=== PATIENT | female | born 1960 | race Caucasian/White ===

== ENCOUNTER 2020-01-23 13:16 | Outpatient (REF) | payer MEDICAID, SELFPAY ==
--- NOTE | 2020-01-23 | US_ITS ---
EXAMINATION: RENAL ULTRASOUND CLINICAL INFORMATION: Renal cyst COMPARISON: Previous renal ultrasound December [address] of the abdomen and pelvis July 2018 TECHNIQUE: Grayscale and color imaging of the kidneys FINDINGS: The right kidney measures 9.1 x 4.6 x 4.4 cm and the left kidney measures 10.5 x 5.5 x 4.7 cm in sagittal, AP and transverse dimension. The kidneys are normal in size and shape. Renal cortical thickness and echogenicity is normal. There is a small 4 mm cyst in the mid to lower pole of the right kidney. No renal stone or mass is seen. The small right lower pole renal stone seen by CT July 2018 is not appreciated. IMPRESSION: Small right renal cyst otherwise unremarkable exam.
== END 2020-01-23 13:17 | disposition home or self-care (01) ==
LOC: HO.US 13:16
PROVIDERS: PCP Family Medicine; Visit Provider Urology
DX: N20.0 Calculus of kidney (principal)
CPT/HCPCS: 76775

== ENCOUNTER 2020-01-25 17:57 | Emergency (ER) | payer MEDICAID, SELFPAY ==
[2020-01-25 18:13] VITALS: BP 139/79; PULSE 94; RESP 16; TEMP 37.1; O2SAT 96; BMI 27.3
--- NOTE | 2020-01-25 18:39 | US_ITS ---
EXAMINATION: LEFT LOWER EXTREMITY DEEP VENOUS ULTRASOUND CLINICAL INFORMATION: Left calf pain COMPARISON: None. TECHNIQUE: Duplex Doppler imaging with compression maneuvers were performed of the left lower extremity deep venous system. FINDINGS: The visualized common femoral, femoral and popliteal veins demonstrate normal compressibility and color flow without evidence of venous thrombosis. Visualized portions of the calf veins demonstrate normal color fill-in suggesting patency. There is no evidence of a Antunez's cyst. IMPRESSION: No evidence of deep venous thrombosis involving the left lower extremity.
--- NOTE | 2020-01-25 19:51 | ED_ITS ---
HPI - Extremity Injury (Lower) General Chief Complaint: Extremity Injury, Lower <Juan Tang NP - Last Filed: 01/25/20 20:25> Stated Complaint: left leg pain <Juan Tang NP - Last Filed: 01/25/20 20:25> Time Seen by Provider: 01/25/20 18:39 <Juan Tang NP - Last Filed: 01/25/20 20:25> Source: patient <Juan Tang NP - Last Filed: 01/25/20 20:25> Mode of arrival: ambulatory <Juan Tang NP - Last Filed: 01/25/20 20:25> Limitations: no limitations <Juan Tang NP - Last Filed: 01/25/20 20:25> History of Present Illness HPI Narrative: left calf pain for the past 1 day unsure if related to the fact that she was pulling a box of her car and may have injury. Otherwise denies any prolonged travel no recent flight. No history of DVT. No redness or swelling. No discoloration. No numbness or tingling Distally. <Juan Tang NP - Last Filed: 01/25/20 20:25> MD complaint: leg injury <Juan Tang NP - Last Filed: 01/25/20 20:25> Onset (ago): day(s) <Juan Tang NP - Last Filed: 01/25/20 20:25> Place: home <Juan Tang NP - Last Filed: 01/25/20 20:25> Severity: mild <Juan Tang NP - Last Filed: 01/25/20 20:25> Exacerbating factors: nothing <Juan Tang NP - Last Filed: 01/25/20 20:25> Related Data Allergies/Adverse Reactions: Allergies Allergy/AdvReac Type Severity Reaction Status Date / Time penicillin V Allergy Unknown anaphylaxis Verified 01/25/20 18:19 Penicillins [PENICILLINS] Allergy Unknown UNKNOWN Verified 01/25/20 18:19 seasonal allergies Allergy Unknown Difficulty Uncoded 01/25/20 18:19 Breathing <Juan Tang NP - Last Filed: 01/25/20 20:25> Review of Systems Review of Systems: Constitutional: No Weight loss, No Fever, No Chills, No Night Sweats, No Fatigue, No Malaise Cardiovascular: No Chest Pain, No SOB, No Dyspnea on Exertion, No Orthopnea, No Edema, No Palpitations Respiratory: No Cough, No Sputum, No Wheezing, No Smoke Exposure, No Dyspnea Gastrointestinal: No Nausea, No Vomiting, No Diarrhea, No Constipation, No abdominal Pain, No Hematochezia, No Melena Genitourinary: no irregular bleeding, No Dysuria, No Urinary Frequency, No H ematuria, No Urinary Incontinence, No Urgency, No Flank Pain, No Urinary Flow Changes, No Hesitancy Musculoskeletal: No joint pain, No Myalgias, No Joint Swelling Skin: No Skin Lesions, No rash Neuro: No Weakness, No Numbness, No Paresthesias, No Loss of Consciousness, No Dizziness, No Headache Psych: No Social Issues Heme/Lymph: No Bruising, No Bleeding,No Lymphadenopathy Endocrine: No Polyuria, No Polydipsia, No Temperature Intolerance <Juan Tang NP - Last Filed: 01/25/20 20:25> [facility] Past Medical History Attestation statement: The following information was validated with the patient. <Juan Tang NP - Last Filed: 01/25/20 20:25> Medical History: Medical History (Updated 01/26/20 @ 00:01 by Dharmesh Yeh) Acute anxiety HIV (human immunodeficiency virus infection) <Juan Tang NP - Last Filed: 01/25/20 20:25> Surgical History: Surgical History (Updated 01/25/20 @ 18:17 by Alethea Medina) H/O: hysterectomy <Juan Tang NP - Last Filed: 01/25/20 20:25> Social History Social History: Social History Alcohol intake: never Smoked in Last 30 Days: No Use of substances other than those prescribed or required for medical reasons: No Advance Directives: No Advance Directives Information Provided: No <Juan Tang NP - Last Filed: 01/25/20 20:25> Physical Exam Vital Signs: Vital Signs: Vital Signs Temp Pulse Resp BP Pulse Ox 01/25/20 18:13 98.8 F 94 16 139/79 96 Body Mass Index 27.3 Reviewed <Juan Tang NP - Last Filed: 01/25/20 20:25> Vital Signs: Vital Signs Temp Pulse Resp BP Pulse Ox 01/25/20 18:13 98.8 F 94 16 139/79 96 Body Mass Index 27.3 <Davy Rojas MD - Last Filed: 01/29/20 14:45> Course Course Course Narrative: I have reviewed the chart <Davy Rojas MD - Last Filed: 01/29/20 14:45> MDM - Extremity Injury (Lower) MDM Narrative Medical decision making narrative: Presentations like exam consistent with strain type injury. Ultrasound negative for DVT. No signs symptoms of infectious pathology. Of been ambulatory steady gait. Will discharge home with NSAIDs/ RICE and clear follow-up return instructions. Stable for discharge. <Juan Tang NP - Last Filed: 01/25/20 20:25> Imaging Data left leg venous duplex: Radiologist's impression: [address] [id number] Ultrasound Report Signed Patient: Clifton Roach#: [id number] : 2Acct:[id number] Age/Sex: 59 / FADM Date: 01/25/20 Loc: HO.ED Attending Dr: Ordering Physician: Juan Tang NP Date of Service: 01/25/20 Procedure(s): US venous duplex LE Accession Number(s): [id number] cc: Juan Tang NP~ EXAMINATION: LEFT LOWER EXTREMITY DEEP VENOUS ULTRASOUND CLINICAL INFORMATION: Left calf pain COMPARISON: None. TECHNIQUE: Duplex Doppler imaging with compression maneuvers were performed of the left lower extremity deep venous system. FINDINGS: The visualized common femoral, femoral and popliteal veins demonstrate normal compressibility and color flow without evidence of venous thrombosis. Visualized portions of the calf veins demonstrate normal color fill-in suggesting patency. There is no evidence of a Antunez's cyst. IMPRESSION: No evidence of deep venous thrombosis involving the left lower extremity. Dictated By:BRIDGETTE KATE MD Signed By:<Electronically signed by BRIDGETTE KATE MD in OV>01/25/201943 DD/ 38 TD/TT: Water Systems Engineer: PD <Juan Tang NP - Last Filed: 01/25/20 20:25> Discharge Plan Discharge Clinical Impression: Sprain of left lower leg <Juan Tang NP - Last Filed: 01/25/20 20:25> Patient Disposition: Home, Self-Care <Juan Tang NP - Last Filed: 01/25/20 20:25> Instructions: Muscle Strain (ED) <Juan Tang NP - Last Filed: 01/25/20 20:25> Referrals: Sarah Savage MD [Primary Care Provider] - 1 week <Juan Tang NP - Last Filed: 01/25/20 20:25> Interventions: ED Discharge Assessment Last Done: 01/25/20 21:29 <Juan Tang NP - Last Filed: 01/25/20 20:25> Discharge Date/Time: 01/25/20 20:45 <Juan Tang NP - Last Filed: 01/25/20 20:25>
== END 2020-01-25 20:45 | disposition home or self-care (01) ==
PROVIDERS: Emergency Provider Emergency Medicine; PCP Family Medicine
DX: S83.92XA Sprain of unspecified site of left knee, initial encounter (principal); M79.605 Pain in left leg; X50.3XXA Overexertion from repetitive movements, initial encounter; Y93.9 Activity, unspecified; Y92.810 Car as the place of occurrence of the external cause; Z79.899 Other long term (current) drug therapy
CPT/HCPCS: 93971; 99284

== ENCOUNTER → 2020-02-08 13:20 | Outpatient (BNVA) | payer MEDICAID, SELFPAY | PROVIDERS: PCP Family Medicine; Referring Provider Family Medicine; Visit Provider Nurse Practitioner | DX: K80.20 Calculus of gallbladder without cholecystitis without obstruction (principal) | CPT/HCPCS: 99212 ==

== ENCOUNTER → 2020-05-29 10:30 | Outpatient (BNVA) | payer MEDICAID, SELFPAY | PROVIDERS: PCP Family Medicine; Visit Provider Urology | DX: Z76.89 Persons encountering health services in other specified circumstances (principal) | CPT/HCPCS: 99212 ==

== ENCOUNTER 2020-08-08 12:40 | Outpatient (REF) | payer MEDICAID, SELFPAY ==
--- NOTE | ~2020-08-08 | MM_ITS ---
EXAMINATION: MM SCREENING DIGITAL BREAST TOMOSYNTHESIS, BILATERAL CLINICAL INFORMATION: Screening. Asymptomatic. The lifetime risk of breast cancer based on the Tyrer-Cuzick Model is 9%. COMPARISON: Mammography: 11/17/2017, 10/09/2015, 07/18/2014 TECHNIQUE: Digital breast tomosynthesis is performed in both the craniocaudal and mediolateral oblique views along with computer-aided detection (CAD). Synthesized 2D images are generated from the tomosynthesis. FINDINGS: The breasts are heterogeneously dense, which may obscure small masses (ACR BI-RADS breast composition Category c). There is fine fibronodular parenchymal pattern similar to prior studies. Breast tissue composition borders on average fibroglandular. There is no developing density or interval mass or architectural abnormality. No abnormal calcifications. The axilla and skin contours are unremarkable. MM/MM tomosynthesis screening BI IMPRESSION: No mammographic evidence of malignancy. ASSESSMENT: BI-RADS 2: Benign RECOMMENDATION: Routine annual mammography screening. This patient's information was entered into a reminder system with a target due date for their next mammogram.
== END 2020-08-08 12:41 | disposition home or self-care (01) ==
LOC: HO.MAMMO 12:40
PROVIDERS: Visit Provider Family Medicine
DX: Z12.31 Encounter for screening mammogram for malignant neoplasm of breast (principal)
CPT/HCPCS: 77063; 77067

== ENCOUNTER 2021-02-06 16:04 | Outpatient (REF) | payer MEDICAID, SELFPAY ==
[2021-02-06 16:57] LABS: Free T4 (Free Thyroxine) 1.25 ng/dL (0.71-1.85); Thyroid Stimulating Hormone 0.98 uIU/mL (0.32-4.0)
== END 2021-02-06 16:05 | disposition home or self-care (01) ==
LOC: HO.LAB 16:04
PROVIDERS: PCP Family Medicine; Visit Provider Nurse Practitioner Gerontology
DX: E03.9 Hypothyroidism, unspecified (principal)
CPT/HCPCS: 36415; 84439; 84443

== ENCOUNTER → 2021-02-11 10:52 | Outpatient (BNVA) | payer MEDICAID, SELFPAY | PROVIDERS: Visit Provider Nurse Practitioner Gerontology | DX: E89.0 Postprocedural hypothyroidism (principal); E66.09 Other obesity due to excess calories | CPT/HCPCS: 99212 ==

== ENCOUNTER → 2021-02-12 13:47 | Outpatient (BNVA) | payer MEDICAID, SELFPAY | PROVIDERS: Referring Provider Family Medicine; Visit Provider Nurse Practitioner | DX: K80.20 Calculus of gallbladder without cholecystitis without obstruction (principal) | CPT/HCPCS: 99212 ==

== ENCOUNTER 2021-02-16 13:41 | Outpatient (REF) | payer MEDICAID, SELFPAY ==
--- NOTE | ~2021-02-16 | US_ITS ---
EXAMINATION: US SCREENING ULTRASOUND BREAST, BILATERAL CLINICAL INFORMATION: Dense breasts on mammography. Screening ultrasound. Tyrer-Cuzick Score 9%. COMPARISON: Digital breast tomosynthesis 08/08/2020, bilateral screening breast ultrasound 10/07/2014. TECHNIQUE: Ultrasound is performed using grayscale imaging and color Doppler. Imaging is performed to include the four quadrants and retroareolar region. Both breasts are imaged. FINDINGS: Right breast: There is no suspicious finding by ultrasound. There is no cystic or solid mass or focal architectural abnormality. Left breast: There is no suspicious finding by ultrasound. There is no cystic or solid mass or focal architectural abnormality. US/US breast LT complete IMPRESSION: Normal study. ASSESSMENT: BI-RADS 1: Negative RECOMMENDATION: Routine annual mammography screening. This patient's information was entered into a reminder system with a target due date for their next mammogram.
--- NOTE | ~2021-02-16 | US_ITS ---
EXAMINATION: US SCREENING ULTRASOUND BREAST, BILATERAL CLINICAL INFORMATION: Dense breasts on mammography. Screening ultrasound. Tyrer-Cuzick Score 9%. COMPARISON: Digital breast tomosynthesis 08/08/2020, bilateral screening breast ultrasound 10/07/2014. TECHNIQUE: Ultrasound is performed using grayscale imaging and color Doppler. Imaging is performed to include the four quadrants and retroareolar region. Both breasts are imaged. FINDINGS: Right breast: There is no suspicious finding by ultrasound. There is no cystic or solid mass or focal architectural abnormality. Left breast: There is no suspicious finding by ultrasound. There is no cystic or solid mass or focal architectural abnormality. US/US breast RT complete IMPRESSION: Normal study. ASSESSMENT: BI-RADS 1: Negative RECOMMENDATION: Routine annual mammography screening. This patient's information was entered into a reminder system with a target due date for their next mammogram.
== END 2021-02-16 13:42 | disposition home or self-care (01) ==
LOC: HO.MAMMO 13:41
PROVIDERS: PCP Family Medicine; Visit Provider Obstetrics & Gynecology Female Pelvic Medicine and Reconstructive Surgery
DX: R92.2 Inconclusive mammogram (principal)
CPT/HCPCS: 76641

== ENCOUNTER → 2021-02-18 14:47 | Outpatient (BNVA) | payer MEDICAID, SELFPAY | PROVIDERS: PCP Family Medicine; Visit Provider Anesthesiology | DX: M47.816 Spondylosis without myelopathy or radiculopathy, lumbar region (principal); M54.50 Low back pain, unspecified; M41.9 Scoliosis, unspecified; G89.29 Other chronic pain; B20 Human immunodeficiency virus [HIV] disease; E66.01 Morbid (severe) obesity due to excess calories; E78.5 Hyperlipidemia, unspecified; E05.00 Thyrotoxicosis with diffuse goiter without thyrotoxic crisis or storm; D12.6 Benign neoplasm of colon, unspecified; F41.8 Other specified anxiety disorders; Z68.30 Body mass index [BMI] 30.0-30.9, adult; Z83.3 Family history of diabetes mellitus; Z82.49 Family history of ischemic heart disease and other diseases of the circulatory system; J30.2 Other seasonal allergic rhinitis; Z88.1 Allergy status to other antibiotic agents; Z88.0 Allergy status to penicillin; Z79.899 Other long term (current) drug therapy | CPT/HCPCS: 99202 ==

== ENCOUNTER 2021-03-17 06:29 | Outpatient (REF) | payer MEDICAID, SELFPAY ==
--- NOTE | ~2021-03-17 | FL_ITS ---
EXAMINATION: XR FLUOROSCOPY WITH IMAGES CLINICAL INFORMATION: M47.816 - Spondylosis without myelopathy or radiculopathy COMPARISON: Lumbar radiographs 04/25/2019 TECHNIQUE: Fluoroscopy performed by pain management physician. Fluoroscopy time: 0.7 minutes DAP: 9.37 Gycm2 Images: 6 FINDINGS: There are spinal needles overlying the bilateral outer L3, L4, and L5 neural foramen. There is contrast seen in the respective nerve sheaths. Some early transforaminal epidural extension is suggested. No visible vascular communication. There are degenerative changes lumbar spine with disc narrowing and vertebral spurring L4-L5. FL/FL guidance in treatment room IMPRESSION: Fluoroscopy for pain management procedures.
== END 2021-03-17 06:30 | disposition home or self-care (01) ==
LOC: HO.RADIR 06:29
PROVIDERS: Visit Provider Anesthesiology
DX: M47.816 Spondylosis without myelopathy or radiculopathy, lumbar region (principal); B20 Human immunodeficiency virus [HIV] disease; M54.50 Low back pain, unspecified; M41.9 Scoliosis, unspecified; G89.29 Other chronic pain
CPT/HCPCS: 64493; 64494; Q9967

== ENCOUNTER 2021-03-25 13:30 | Outpatient (REF) | payer MEDICAID, SELFPAY ==
[2021-03-25 14:52] LABS: MANUAL DIFF FLAG NO
[2021-03-25 15:48] LABS: Basophils Percent Auto 0.4 % (0-2); Eosinophils Absolute Auto 0.2 X10*3/uL (0.0-0.4); Eosinophils Percent Auto 2.3 % (0-4); Hematocrit 39.9 % (37.0-47.0); Hemoglobin 12.7 g/dl (12.0-16.0); Imm Gran Abs Auto 0.02 X10*3/uL (0.00-0.03); Imm Gran Pct Auto 0.3 % (0.0-0.4); Lymphocytes Absolute Auto 2.4 X10*3/uL (1.2-4.9); Lymphocytes Percent Auto 31.3 % (20-40); Mean Corpuscular HGB Conc 31.8 g/dl (31.0-35.0); Mean Corpuscular Hemoglobin 31.1 pg (27.0-33.0); Mean Corpuscular Volume 97.6 fL (80.0-98.0); Mean Platelet Volume 12.2 fL (9.4-12.3); Monocytes Absolute Auto 0.5 X10*3/uL (0.1-1.2); Monocytes Percent Auto 6.8 % (2-11); Neutrophils Absolute Auto 4.4 x10*3/uL (2.0-8.3); Neutrophils Percent Auto 58.9 % (45-73); Platelet Count 235 X10*3/uL (160-400); Red Blood Count 4.09 X10*6/uL (4.20-5.50); Red Cell Distribution Width 14.1 % (11.0-16.0); White Blood Count 7.5 X10*3/uL (4.8-10.8)
[2021-03-25 16:06] LABS: Alanine Aminotransferase 19 U/L (0-31); Anion Gap 10 (12-20); Aspartate Amino Transferase 18 U/L (5-31); C Reactive Protein 0.27 mg/dL (< or = 0.50); Carbon Dioxide 27 mmol/L (22-29); Chloride 109 mmol/L (96-108); Potassium 4.3 mmol/L (3.3-5.1); Sodium 142 mmol/L (135-145)
[2021-03-25 16:49] LABS: Syphilis Screen Nonreactive (Nonreactive)
[2021-03-26 14:31] LABS: Absolute CD3 Count 1742 cells/uL (840-3060); Absolute CD4 Count 893 cells/uL (490-1740); Absolute CD8 Count 829 cells/uL (180-1170); Absolute Lymphocytes 2247 cells/uL (850-3900); CD4 CD8 Ratio 1.08 (0.86-5.00); Percent CD3 Cells 78 % (57-85); Percent CD4 Cells 40 % (30-61); Percent CD8 Cells 37 % (12-42)
[2021-03-30 15:06] LABS: HIV RNA PCR Qn Copies <20 NOT DETECTED copies/mL (NOT DETECTED); HIV RNA PCR Qn Log Copies <1.30 NOT DETECTED (NOT DETECTED)
== END 2021-03-25 13:31 | disposition home or self-care (01) ==
LOC: HO.LAB 13:30
PROVIDERS: Absent Provider Internal Medicine Infectious Disease; PCP Family Medicine; Visit Provider Anesthesiology
DX: M47.816 Spondylosis without myelopathy or radiculopathy, lumbar region (principal); M54.50 Low back pain, unspecified; M41.9 Scoliosis, unspecified; G89.29 Other chronic pain; B20 Human immunodeficiency virus [HIV] disease
CPT/HCPCS: 36415; 80051; 84450; 84460; 85025; 86140; 86359; 86360; 86780; 87536; 99212

== ENCOUNTER 2022-01-22 13:02 | Outpatient (REF) | payer MEDICAID, SELFPAY ==
[2022-01-22 13:23] LABS: MANUAL DIFF FLAG NO
[2022-01-22 13:40] LABS: Basophils Percent Auto 0.7 % (0-2); Eosinophils Absolute Auto 0.2 X10*3/uL (0.0-0.4); Hematocrit 39.1 % (37.0-47.0); Hemoglobin 12.8 g/dl (12.0-16.0); Imm Gran Abs Auto 0.01 X10*3/uL (0.00-0.03); Imm Gran Pct Auto 0.2 % (0.0-0.4); Lymphocytes Absolute Auto 1.8 X10*3/uL (1.2-4.9); Lymphocytes Percent Auto 29.7 % (20-40); Mean Corpuscular HGB Conc 32.7 g/dl (31.0-35.0); Mean Corpuscular Hemoglobin 31.6 pg (27.0-33.0); Mean Corpuscular Volume 96.5 fL (80.0-98.0); Mean Platelet Volume 11.8 fL (9.4-12.3); Monocytes Absolute Auto 0.5 X10*3/uL (0.1-1.2); Monocytes Percent Auto 7.8 % (2-11); Neutrophils Absolute Auto 3.5 x10*3/uL (2.0-8.3); Neutrophils Percent Auto 58.6 % (45-73); Platelet Count 203 X10*3/uL (160-400); Red Blood Count 4.05 X10*6/uL (4.20-5.50); Red Cell Distribution Width 13.9 % (11.0-16.0); White Blood Count 5.9 X10*3/uL (4.8-10.8)
[2022-01-22 14:18] LABS: Alanine Aminotransferase 10 U/L (0-31); Aspartate Amino Transferase 13 U/L (5-31); Estimated Glomerular Filt Rate > 60
[2022-01-22 14:22] LABS: Syphilis Screen Nonreactive (Nonreactive)
[2022-01-22 15:35] LABS: CT PCR NOT DETECTED (Not Detect.); NG PCR NOT DETECTED (Not Detect.)
[2022-01-24 13:27] LABS: HIV RNA PCR Qn Copies NOT DETECTED copies/mL (NOT DETECTED); HIV RNA PCR Qn Log Copies NOT DETECTED (NOT DETECTED)
[2022-01-25 08:12] LABS: HBsAGNum1 0.21 S/CO (0.00-0.99); Hepatitis B Surface Antigen Negative (Negative); ~HepC Num1 0.15 S/CO (0.00-0.79); ~Hepatitis C Antibody Nonreactive (Nonreactive)
== END 2022-01-22 13:03 | disposition home or self-care (01) ==
LOC: HO.LAB 13:02
PROVIDERS: PCP Family Medicine; Visit Provider Internal Medicine Infectious Disease
DX: B20 Human immunodeficiency virus [HIV] disease (principal)
CPT/HCPCS: 82565; 84450; 84460; 85025; 86780; 86803; 87340; 87491; 87536; 87591

== ENCOUNTER 2022-03-24 12:51 | Outpatient (REF) | payer MEDICAID, SELFPAY ==
--- NOTE | ~2022-03-24 | MM_ITS ---
EXAMINATION: MM SCREENING DIGITAL BREAST TOMOSYNTHESIS, BILATERAL CLINICAL INFORMATION: Screening. Asymptomatic. The lifetime risk of breast cancer based on the Tyrer-Cuzick Model is 7%. COMPARISON: Mammography: 08/08/2020, 11/17/2017, 10/09/2015, 07/18/2014 TECHNIQUE: Digital breast tomosynthesis is performed in both the craniocaudal and mediolateral oblique views along with computer-aided detection (CAD). Synthesized 2D images are generated from the tomosynthesis. FINDINGS: The breasts are heterogeneously dense, which may obscure small masses (ACR BI-RADS breast composition Category c). There are no significant masses, abnormal calcifications, or other abnormalities. Parenchymal pattern is similar to prior studies. There is no developing density or architectural abnormality. Parenchymal asymmetry mid outer right breast on synthesized CC view corresponds to summation artifact on tomography. The axilla and skin contours are unremarkable. No significant changes. MM/MM tomosynthesis screening BI IMPRESSION: No mammographic evidence of malignancy. ASSESSMENT: BI-RADS 2: Benign RECOMMENDATION: Routine annual mammography screening. This patient's information was entered into a reminder system with a target due date for their next mammogram.
== END 2022-03-24 12:52 | disposition home or self-care (01) ==
LOC: HO.MAMMO 12:51
PROVIDERS: PCP Family Medicine; Visit Provider Family Medicine
DX: Z12.31 Encounter for screening mammogram for malignant neoplasm of breast (principal)
CPT/HCPCS: 77063; 77067

== ENCOUNTER 2022-09-03 13:36 | Outpatient (REF) | payer MEDICAID, SELFPAY ==
[2022-09-03 15:56] LABS: Basophils Absolute Auto 0.1 X10*3/uL (0.0-0.2); Basophils Percent Auto 0.6 % (0-2); Eosinophils Absolute Auto 0.2 X10*3/uL (0.0-0.4); Eosinophils Percent Auto 2.6 % (0-4); Hematocrit 40.7 % (37.0-47.0); Hemoglobin 13.3 g/dl (12.0-16.0); Imm Gran Abs Auto 0.02 X10*3/uL (0.00-0.03); Imm Gran Pct Auto 0.3 % (0.0-0.4); Lymphocytes Absolute Auto 2.1 X10*3/uL (1.2-4.9); Lymphocytes Percent Auto 26.7 % (20-40); MANUAL DIFF FLAG NO; Mean Corpuscular HGB Conc 32.7 g/dl (31.0-35.0); Mean Corpuscular Hemoglobin 31.6 pg (27.0-33.0); Mean Corpuscular Volume 96.7 fL (80.0-98.0); Mean Platelet Volume 12.5 fL (9.4-12.3); Monocytes Absolute Auto 0.5 X10*3/uL (0.1-1.2); Monocytes Percent Auto 6.8 % (2-11); Neutrophils Absolute Auto 4.9 x10*3/uL (2.0-8.3); Platelet Count 223 X10*3/uL (160-400); Red Blood Count 4.21 X10*6/uL (4.20-5.50); Red Cell Distribution Width 14.1 % (11.0-16.0); White Blood Count 7.8 X10*3/uL (4.8-10.8)
[2022-09-03 16:34] LABS: Alanine Aminotransferase 7 U/L (0-31); Aspartate Amino Transferase 13 U/L (5-31)
[2022-09-03 18:35] LABS: CT PCR NOT DETECTED (Not Detect.); NG PCR NOT DETECTED (Not Detect.)
[2022-09-06 08:11] LABS: HBsAGNum1 0.22 S/CO (0.00-0.99); Hepatitis B Surface Antigen Negative (Negative); ~HepC Num1 0.11 S/CO (0.00-0.79); ~Hepatitis C Antibody Nonreactive (Nonreactive)
[2022-09-06 08:23] LABS: Syphilis Screen Nonreactive (Nonreactive)
[2022-09-07 13:08] LABS: Absolute CD3 Count 1430 cells/uL (840-3060); Absolute CD4 Count 743 cells/uL (490-1740); Absolute CD8 Count 682 cells/uL (180-1170); Absolute Lymphocytes 1897 cells/uL (850-3900); CD4 CD8 Ratio 1.09 (0.86-5.00); Percent CD3 Cells 75 % (57-85); Percent CD4 Cells 39 % (30-61); Percent CD8 Cells 36 % (12-42)
[2022-09-08 16:02] LABS: HIV RNA PCR Qn Copies NOT DETECTED copies/mL (NOT DETECTED); HIV RNA PCR Qn Log Copies NOT DETECTED (NOT DETECTED)
== END 2022-09-03 13:37 | disposition home or self-care (01) ==
LOC: HO.LAB 13:36
PROVIDERS: PCP Family Medicine; Visit Provider Internal Medicine Infectious Disease
DX: B20 Human immunodeficiency virus [HIV] disease (principal)
CPT/HCPCS: 0353U; 84450; 84460; 85025; 86359; 86360; 86780; 86803; 87340; 87536

== ENCOUNTER → 2022-09-22 12:06 | Outpatient (BNVA) | payer MEDICAID, SELFPAY | PROVIDERS: PCP Family Medicine; Visit Provider Nurse Practitioner | DX: Z01.818 Encounter for other preprocedural examination (principal); K80.20 Calculus of gallbladder without cholecystitis without obstruction; E66.09 Other obesity due to excess calories; E03.9 Hypothyroidism, unspecified; E05.00 Thyrotoxicosis with diffuse goiter without thyrotoxic crisis or storm; B20 Human immunodeficiency virus [HIV] disease; Z68.28 Body mass index [BMI] 28.0-28.9, adult; Z86.010 Personal history of colon polyps | CPT/HCPCS: 99212 ==

== ENCOUNTER 2022-11-05 10:45 | Emergency (ER) | payer MEDICAID, SELFPAY ==
--- NOTE | ~2022-11-05 | CT_ITS ---
EXAMINATION: CT ABDOMEN AND PELVIS WITHOUT CONTRAST CLINICAL INFORMATION: Dysuria. COMPARISON: 07/19/2018 TECHNIQUE: Multidetector volumetric imaging was performed from the superior aspect of the liver through the pubic symphysis. Sagittal and coronal reformatted images were obtained on the technologist's workstation. This CT examination was performed using dose optimization techniques as appropriate, variously including the following: *Automated exposure control *Adjustment of mA and/or kV according to patient size (this includes techniques or standardized protocols for targeted exams where dose is matched to indication/reason for exam; i.e. extremities or head) *Use of iterative reconstruction technique DLP: 510 mGy-cm FINDINGS: LUNG BASES: The visualized lung bases are unremarkable. LIVER, GALLBLADDER, AND BILIARY TREE: The noncontrast liver is increased in attenuation. No biliary ductal dilatation is present. Gallstones. PANCREAS: Unremarkable. SPLEEN: Unremarkable. ADRENAL GLANDS: Unremarkable. KIDNEYS AND URETERS: The kidneys are symmetric in size. Punctate nonobstructing lower pole right renal calculus. No hydronephrosis. No perinephric stranding. BLADDER: Underdistended. Wall thickening of the bladder dome is likely on a reactive basis. GASTROINTESTINAL TRACT: Marked wall thickening of the mid sigmoid colon with surrounding inflammatory changes. There is evidence of underlying diverticular disease. No focal fluid collection. No small bowel obstruction. Appendix is within normal limits. ABDOMINAL WALL: No significant hernia is appreciated. LYMPH NODES: No bulky abdominal or pelvic lymphadenopathy.. VASCULAR: Normal caliber abdominal aorta.. PELVIC VISCERA: Uterus is surgically absent. OSSEOUS STRUCTURES: No destructive bone lesions. CT/CT abdomen pelvis wo IV con IMPRESSION: Acute diverticulitis of the sigmoid colon. No focal fluid collection. Follow-up imaging after treatment is advised. Wall thickening at the dome of the urinary bladder likely on a reactive basis. Cholelithiasis. Punctate nonobstructing right renal calculus. No hydronephrosis.
[2022-11-05 10:58] VITALS: BP 150/99; PULSE 95; RESP 18; TEMP 36.6; O2SAT 95; BMI 28.0
--- NOTE | 2022-11-05 10:59 | ED_ITS ---
HPI - General Adult General Chief complaint: Urogenital-Female Stated complaint: Bladder Pain Issues Time Seen by Provider: 11/05/22 12:37 Source: patient Mode of arrival: ambulatory Limitations: no limitations History of Present Illness HPI narrative: 62-year-old female history of HIV, Graves disease, dyslipidemia, anxiety, tubular adenoma, obesity presenting with what she explains to be bladder issues (dysuria and frequency), she tells me she is having lower abdominal pain in the suprapubic region, nonradiating going on for weeks, has been trying to get into Urology however has not been able to see them. Patient reports that this pain is constant nature, achy in fluctuates in severity. At time associated nausea and vomiting. Patient denies chest pain, shortness of breath, headache, vision changes, dizziness and weakness, fevers and chills. Patient tolerating p.o. Related Data Home Medications Medication Instructions Recorded Confirmed abacavir 600 mg-dolutegravir 50 1 tab PO QAM 02/08/20 02/18/21 mg-lamivudine 300 mg tablet (Triumeq) cholecalciferol (vitamin D3) 25 25 mcg PO DAILY 02/08/20 02/18/21 mcg (1,000 unit) capsule clonazepam 1 mg tablet 1 mg PO TID 02/08/20 02/18/21 cyclobenzaprine 10 mg tablet 10 mg PO BEDTIME 02/08/20 02/18/21 darunavir 800 mg-cobicistat 150 mg 1 tab PO DAILY 02/08/20 02/18/21 tablet (Prezcobix) fexofenadine 180 mg tablet 180 mg PO DAILY 02/08/20 02/18/21 (Vesta Allergy) naproxen sodium 220 mg capsule 220 mg PO BID PRN 02/08/20 02/18/21 (Aleve) pseudoephedrine HCl 30 mg tablet 30 mg PO Q4-6H PRN 02/08/20 02/18/21 (Sudafed) cholecalciferol (vitamin D3) 50 50 mcg PO DAILY 02/18/21 02/18/21 mcg (2,000 unit) capsule suvorexant 20 mg tablet (Belsomra) 20 mg PO BEDTIME PRN 02/18/21 02/18/21 Previous Rx's Medication Instructions Recorded levothyroxine 125 mcg tablet 125 mcg PO QAM #90 tabs 02/11/21 peg 3350-electrolytes 236 240 ml PO Q10M 1 day #4,000 mL 09/22/22 gram-22.74 gram-6.74 gram-5.86 gram solution (Golytely) levofloxacin 750 mg tablet 750 mg PO DAILY 7 days #7 tabs 11/05/22 metronidazole 500 mg tablet 500 mg PO BID 7 days #14 tabs 11/05/22 Allergies Allergy/AdvReac Type Severity Reaction Status Date / Time penicillin V Allergy Unknown anaphylaxis Verified 09/22/22 12:15 Penicillins [PENICILLINS] Allergy Unknown UNKNOWN Verified 09/22/22 12:15 seasonal allergies Allergy Unknown Difficulty Uncoded 02/18/21 15:38 Breathing Review of Systems Review of Systems: Constitutional : No Weight loss, No Fever, No Chills, No Fatigue, No Malaise ENT/Mouth : No sore throat, No Rhinorrhea Eyes: No Eye Pain, No Swelling, No Redness Cardiovascular : No Chest Pain, No SOB, No Dyspnea on Exertion, No Orthopnea, No Edema, No Palpitations Respiratory : No Cough, No Sputum, No Wheezing Gastrointestinal : No Nausea, No Vomiting, No Diarrhea, No Constipation, + abdominal Pain, No Hematochezia, No Melena Genitourinary : + Dysuria, No Urinary Frequency, No Hematuria, Musculoskeletal : No joint pain, No Myalgias, No Joint Swelling Skin : No Skin Lesions, No rash Neuro : No Weakness, No Numbness, No Dizziness, No Headache Psych : No Anxiety/Panic, No Depression All other systems reviewed and are negative Yes all other systems are reviewed and are negative [facility] Past Medical History Attestation statement: The following information was validated with the patient. Source: old records reviewed and nursing notes reviewed Medical History Acute anxiety Dyslipidemia Graves disease Hematuria History of kidney stones HIV (human immunodeficiency virus infection) HIV (human immunodeficiency virus infection) Hypothyroidism Obesity due to excess calories Spondylosis of lumbar spine Tubular adenoma Surgical History H/O: hysterectomy Hx of colonoscopy Family History Family History Father HTN (hypertension) Mother HTN (hypertension) Diabetes Dementia Maternal Grandmother Breast cancer Maternal Aunt Breast cancer Diabetes Maternal Aunt Dementia Maternal Uncle Cancer Maternal Uncle Heart attack Maternal Aunt HTN (hypertension) Social History Social History Household Members: None and Other Household Members Other:: grandson Housing: Apartment Alcohol intake: current Alcohol intake frequency: holidays/special occasions only Patient Tobacco Use Status: Never used Tobacco Smoked in Last 30 Days: No Use of substances other than those prescribed or required for medical reasons: Yes Substance Use Type: Marijuana Advance Directives: No Advance Directives Information Provided: No Physical Exam ED Vital Signs: Vital Signs - 24 hr 11/05/22 10:58 Temperature 97.9 F Pulse Rate 95 Respiratory Rate 18 Blood Pressure 150/99 H Pulse Oximetry 95 Oxygen Delivery Method Room Air BMI result Body Mass Index 28.0 vss Appearance: Alert.? Oriented X3.? No acute distress.? Head: Normocephalic, atraumatic, no step-offs or deformities Eyes: Pupils equal, round and reactive to light.? Neck: Normal inspection.? Neck supple.? CVS: Normal heart rate and rhythm.? Pulses normal.? Respiratory: No respiratory distress.? Breath sounds normal.? Abdomen: Soft and + suprapubic abd discomfort .? Skin: Skin warm and dry.? Normal skin color.? Normal skin turgor.? Extremities: No lower extremity edema.? No calf ttp. 5/5 strength to bilateral upper and lower extremities Back: No CVA tenderness bilaterally Neuro: Oriented X 3.? No motor deficit.? No sensory deficit. CN 2-12 intact Course Course Course Narrative: This is a rapid medical exam: Additional HPI, ROS, PE not included below will be deferred to primary provider. Patient is a 62-year-old female with history of hypothyroidism, gallstones, HIV, tubular adenoma, nephrolithiasis and hysterectomy presenting to the emergency department with complaint of bladder pain for the past several months, worse over the past week. States pain increases when she has bowel movement. Denies fevers. Reports chronic low back pain, denies any worsening back or flank pain. Also states that her urethra is very red. Often sees blood on the toilet paper after urinating in the morning. Was scheduled to see a urologist but the doctor she was scheduled to see . Reports known uterine prolapse. Plan: UA, basic labs Reevaluation(s) Reevaluation #1: Patient's CBC with slight leukocytosis 11.0. Chemistry with no acute findings requiring intervention. UA without infection. CT abdomen pelvis with acute diverticulitis of the sigmoid colon, patient tolerating p.o. will initiate levofloxacin and metronidazole p.o., as patient is tolerating p.o., no reason for hospital admission at this time. Will not send Augmentin as patient has a penicillin anaphylactic allergy. Wall thickening of the dome of the urinary bladder, likely a reactive basis. Coli lithiasis however negative Garcia's no right upper quadrant tenderness on exam I do not suspect acute cholecystitis. Punctate nonobstructing renal calculus. No hydro. Patient educated on findin gs. Will discharge home with PCP, and GI follow-up. Educated patient on diagnosis and treatment plan, answered all question, patient verbalizes understanding. At this time patient will be discharged home, advised to return with new or worsening symptoms. Educated on worrisome signs and symptoms and when to return. At this time I feel comfortable discharge home. Time: 14:47 Medical Decision Making Medical Decision Making [facility] Narrative: 1320 62-year-old female presents with suprapubic discomfort for the past few months has not yet been able to see Urology recently, associated with dysuria, urinary hesitancy, frequency PE w/ suprapubic abd discomfort, no CVA tenderness Concerns for UTI versus cystitis versus obstructing uropathy versus kidney stone. No signs of acute abdomen, pyelonephritis. Will rule out electrolyte abnormalities. Plan labs, imaging. Differential Diagnosis Differential Diagnoses: The differential diagnosis associated with the presentation includes Concerns for UTI versus cystitis versus obstructing uropathy versus kidney stone. No signs of acute abdomen, pyelonephritis. Will rule out electrolyte abnormalities. Admission/Observation Consideration of admission/observation: Escalation of care including admission/observation considered Lab Data [facility] Lab Attestation statement: I reviewed the patient's lab results. 11/05/22 11:14 11/05/22 11:14 Labs: Lab Results 11/05/22 11/05/22 11/05/22 Range/Units 11:14 11:14 12:07 WBC 11.0 H (4.8-10.8) X10*3/uL RBC 4.23 (4.20-5.50) X10*6/uL Hgb 13.5 (12.0-16.0) g/dl Hct 41.6 (37.0-47.0) % MCV 98.3 H (80.0-98.0) fL MCH 31.9 (27.0-33.0) pg MCHC 32.5 (31.0-35.0) g/dl RDW 13.9 (11.0-16.0) % Plt Count 205 (160-400) X10*3/uL MPV 11.5 (9.4-12.3) fL Immature Gran % (Auto) 0.4 (0.0-0.4) % Neut % (Auto) 71.7 (45-73) % Lymph % (Auto) 17.2 L (20-40) % [place] % (Auto) 8.4 (2-11) % Eos % (Auto) 1.8 (0-4) % Baso % (Auto) 0.5 (0-2) % Lymph # (Auto) 1.9 (1.2-4.9) X10*3/uL Gosper # (Auto) 0.9 (0.1-1.2) X10*3/uL Eos # (Auto) 0.2 (0.0-0.4) X10*3/uL Baso # (Auto) 0.1 (0.0-0.2) X10*3/uL Abs Immat Gran (auto) 0.04 H (0.00-0.03) X10*3/uL Absolute Neuts (auto) 7.9 (2.0-8.3) x10*3/uL Absolute Nucleated RBC 0.000 (0.0-0.012) X10*3/uL Nucleated RBC % (auto) 0.0 (0.0-0.2) /100WBC Sodium 140 (135-145) mmol/L Potassium 4.3 (3.3-5.1) mmol/L Chloride 109 H (96-108) mmol/L Carbon Dioxide 22 (22-29) mmol/L Anion Gap 13 (12-20) BUN 10 (9-16) mg/dL Creatinine 0.86 (0.5-1.4) mg/dL Estim Creat Clear Calc 65.1 Estimated GFR > 60 Random Glucose 91 (60-115) mg/dL Calcium 9.5 (8.4-10.2) mg/dL Urine Color Yellow Urine Appearance Clear Urine pH 5.5 (5.0-9.0) Ur Specific [place] 1.020 (1.005-1.025) Urine Protein Trace (Neg-Trace) mg/dL Urine Glucose (UA) Negative (Negative) mg/dL Urine Ketones Negative (Negative) mg/dL Urine Blood Moderate (2+) H (Negative) Urine Nitrite Negative (Negative) Ur Leukocyte Esterase Negative (Negative) Urine RBC 0-2 (0-2) /HPF Urine WBC 0-5 (0-5) /HPF Ur Squamous Epith Cells 0-2 (0-2) /HPF Urine Bacteria None Seen (None Seen) Hyaline Casts 0-2 (0-2) /LPF Independent Interpretation I performed an independent interpretation of an: CT Scan Radiology Impression Discussion of test interpretation with radiology: I have reviewed the radiologist's reading. Critical Care Time Critical Care Time Critical Care Time: No Discharge Plan Discharge Clinical Impression: Diverticulitis, Cystitis Patient Disposition: Home, Self-Care Instructions: Diverticulitis (ED), Diverticulitis Diet (ED) Additional Instructions: Take your medications as prescribed. If you were prescribed antibiotics today, it is important that you take your medication to their entirety, do not skip any doses, do not finish them early. Follow-up with your primary care provider this week. Follow up with GI Return to the emergency department with new or worsening symptoms. Such as feve rs, chills, chest pain, shortness of breath, nausea, vomiting, dizziness, headache, vision changes, lethargy In case of emergency call 911 Levofloxacin is an antibiotic it belongs to the fluoroquinolone class, it can cause tendon rupture review experience pain in your it tendon/joints please discontinue CT/CT abdomen pelvis wo IV con IMPRESSION: Acute diverticulitis of the sigmoid colon. No focal fluid collection. Follow-up imaging after treatment is advised. ? Wall thickening at the dome of the urinary bladder likely on a reactive basis. ? Cholelithiasis. ? Punctate nonobstructing right renal calculus. No hydronephrosis. Prescriptions: New metronidazole 500 mg tablet 500 mg PO BID 7 Days Qty: 14 0RF levofloxacin 750 mg tablet 750 mg PO DAILY 7 Days Qty: 7 0RF No Action levothyroxine 125 mcg tablet 125 mcg PO QAM Qty: 90 3RF Prezcobix 800-150 mg-mg tablet 1 tab PO DAILY Rx Instructions: must administer with a meal/food Triumeq 600-50-300 mg tablet 1 tab PO QAM clonazepam 1 mg tablet 1 mg PO TID cyclobenzaprine 10 mg tablet 10 mg PO BEDTIME cholecalciferol (vitamin D3) 25 mcg (1,000 unit) capsule 25 mcg PO DAILY naproxen sodium [Aleve] 220 mg capsule 220 mg PO BID PRN fexofenadine [Vesta Allergy] 180 mg tablet 180 mg PO DAILY pseudoephedrine HCl [Sudafed] 30 mg tablet 30 mg PO Q4-6H PRN Rx Instructions: DNExceed 4 doses/24h Belsomra 20 mg tablet 20 mg PO BEDTIME PRN cholecalciferol (vitamin D3) 50 mcg (2,000 unit) capsule 50 mcg PO DAILY peg 3350-electrolytes [Golytely] 236-22.74-6.74 -5.86 gram recon soln 240 ml PO Q10M 1 Days Qty: 4000 0RF Rx Instructions: until fecal effluent is clear; do not exceed a total volume of 2,000 mL Referrals: [facility] [place] [facility] [Provider Group] Sarah Savage MD [Primary Care Provider] - 2 days Stand Alone Forms: Work/School Release
[2022-11-05 11:19] LABS: MANUAL DIFF FLAG NO
[2022-11-05 11:20] LABS: Basophils Absolute Auto 0.1 X10*3/uL (0.0-0.2); Basophils Percent Auto 0.5 % (0-2); Eosinophils Absolute Auto 0.2 X10*3/uL (0.0-0.4); Eosinophils Percent Auto 1.8 % (0-4); Hematocrit 41.6 % (37.0-47.0); Hemoglobin 13.5 g/dl (12.0-16.0); Imm Gran Abs Auto 0.04 X10*3/uL (0.00-0.03); Imm Gran Pct Auto 0.4 % (0.0-0.4); Lymphocytes Absolute Auto 1.9 X10*3/uL (1.2-4.9); Lymphocytes Percent Auto 17.2 % (20-40); Mean Corpuscular HGB Conc 32.5 g/dl (31.0-35.0); Mean Corpuscular Hemoglobin 31.9 pg (27.0-33.0); Mean Corpuscular Volume 98.3 fL (80.0-98.0); Mean Platelet Volume 11.5 fL (9.4-12.3); Monocytes Absolute Auto 0.9 X10*3/uL (0.1-1.2); Monocytes Percent Auto 8.4 % (2-11); Neutrophils Absolute Auto 7.9 x10*3/uL (2.0-8.3); Neutrophils Percent Auto 71.7 % (45-73); Platelet Count 205 X10*3/uL (160-400); Red Blood Count 4.23 X10*6/uL (4.20-5.50); Red Cell Distribution Width 13.9 % (11.0-16.0)
[2022-11-05 11:31] LABS: Anion Gap 13 (12-20); Blood Urea Nitrogen 10 mg/dL (9-16); Calcium 9.5 mg/dL (8.4-10.2); Carbon Dioxide 22 mmol/L (22-29); Chloride 109 mmol/L (96-108); Creatinine Clr Calc Pharmacy 65.1; Estimated Glomerular Filt Rate > 60; Glucose Random 91 mg/dL (60-115); Potassium 4.3 mmol/L (3.3-5.1); Sodium 140 mmol/L (135-145)
--- NOTE | 2022-11-05 12:01 | PC.NURSE ---
Pt reports 8/10 pain to bladder area, pain increases when needing to urinate, also pain increases with having BM. Currently seeing a RN [facility] and was suppose to see urologist but appointment was postpone D/T urology.
[2022-11-05 12:17] LABS: Appearance Urine Clear; Color Urine Yellow; Glucose Urine UA Negative (Negative); Leukocyte Esterase Urine Negative (Negative); Nitrite Urine Negative (Negative); PH 5.5 (5.0-9.0); UMIC TRIGGER UACC YES; Urine Blood Moderate (2+) (Negative); Urine Ketones Negative (Negative); Urine Protein Trace mg/dL (Neg-Trace)
[2022-11-05 12:30] LABS: Bacteria Urine None Seen (None Seen); Hyaline Casts Urine 0-2 /LPF (0-2); RBC Urine 0-2 /HPF (0-2); Squamous Epithelial Cell Urine 0-2 /HPF (0-2); WBC Urine 0-5 /HPF (0-5)
== END 2022-11-05 15:07 | disposition home or self-care (01) ==
PROVIDERS: Registered Nurse Emergency; Emergency Provider Emergency Medicine Emergency Medical Services; PCP Family Medicine
DX: K57.32 Diverticulitis of large intestine without perforation or abscess without bleeding (principal); R10.33 Periumbilical pain; Z79.899 Other long term (current) drug therapy
CPT/HCPCS: 36415; 74176; 80048; 81001; 85025; 99284

== ENCOUNTER 2022-11-09 17:44 | Outpatient (REF) | payer MEDICAID, SELFPAY | END 2022-11-09 17:45 | disposition home or self-care (01) | LOC: HO.HHCL 17:44 | PROVIDERS: Visit Provider Registered Nurse | DX: R30.0 Dysuria (principal) | CPT/HCPCS: 87086 ==

== ENCOUNTER 2022-11-15 15:17 | Outpatient (REF) | payer MEDICAID, SELFPAY ==
--- NOTE | ~2022-11-15 | US_ITS ---
EXAMINATION: US THYROID CLINICAL INFORMATION: Hypothyroidism. COMPARISON: Ultrasound thyroid 11/02/2016. TECHNIQUE: Linear transducer zepeda-scale and color Doppler examination with attention to the region of the thyroid. FINDINGS: SIZE: Measurements of the thyroid lobes and nodules are given in sagittal, anteroposterior and transverse dimensions respectively. Right Thyroid Lobe: 2.7 x 0.8 x 0.9 cm, volume 1.1 mL. Previously 2.7 x 0.8 x 1.1 cm, volume 1.1 mL. Parenchyma: The gland echotexture is heterogeneous. Thyroid vascularity is normal. Left Thyroid Lobe: 3.1 x 1.0 x 1.2 cm, volume 2.0 mL. Previously 2.4 x 0.7 x 0.8 cm, volume 0.7 mL. Parenchyma: The gland echotexture is heterogeneous. Thyroid vascularity is normal. Isthmus: 0.14 cm in maximum AP dimension. Previously 0.5 cm. Estimated total number of nodules greater than or equal to 1 cm: 1. Building Maintenance Custodian nodules are described as follows: 1. Location: Left mid. Size: 2.0 x 0.8 x 0.7 cm, volume 0.60 mL. Previously: New since the previous study. Nodule characteristics: Composition: Mixed cystic and solid (1). Echogenicity: Hypoechoic (2). Shape: Taller than wide (3). Margins: Ill-defined (0). Echogenic Foci: None (0). ACR TI-RADS total points: 6 ACR TI-RADS category: 4 NODES: No lymphadenopathy is seen in the tissue surrounding the thyroid gland. US/US thyroid IMPRESSION: Multinodular goiter.
== END 2022-11-15 15:18 | disposition home or self-care (01) ==
LOC: HO.US 15:17
PROVIDERS: PCP Family Medicine; Visit Provider Family Medicine
DX: E89.0 Postprocedural hypothyroidism (principal)
CPT/HCPCS: 76536

== ENCOUNTER 2022-12-10 11:40 | Outpatient (REF) | payer MEDICAID, SELFPAY | END 2022-12-10 11:41 | disposition home or self-care (01) | LOC: HO.HHCL 11:40 | PROVIDERS: Visit Provider Emergency Medicine | DX: Z13.89 Encounter for screening for other disorder (principal) ==

== ENCOUNTER 2022-12-14 09:45 | Outpatient (REF) | payer MEDICAID, SELFPAY ==
[2022-12-14 12:12] LABS: CDiff Gene PCR NEGATIVE (Negative)
[2022-12-14 12:27] LABS: Blood Urea Nitrogen 12 mg/dL (9-16); Estimated Glomerular Filt Rate 56
[2022-12-14 13:33] LABS: Adenovirus F 40/41 Not Detected (Not Detect.); Astrovirus Not Detected (Not Detect.); Campylobacter Not Detected (Not Detect.); Cryptosporidium Not Detected (Not Detect.); Cyclospora cayetanensis Not Detected (Not Detect.); E. coli EAEC Not Detected (Not Detect.); E. coli EPEC Detected (Not Detect.); E. coli ETEC Not Detected (Not Detect.); E. coli STEC Not Detected (Not Detect.); Entamoeba histolytica Not Detected (Not Detect.); Giardia lamblia Not Detected (Not Detect.); Norovirus GI/GII Not Detected (Not Detect.); Plesiomonas shigelloides Not Detected (Not Detect.); Rotavirus A Not Detected (Not Detect.); Salmonella Not Detected (Not Detect.); Sapovirus Not Detected (Not Detect.); Shigella sp./EIEC Not Detected (Not Detect.); Vibrio Not Detected (Not Detect.); Vibrio Cholerae Not Detected (Not Detect.); Yersinia enterocolitica Not Detected (Not Detect.)
== END 2022-12-14 09:46 | disposition home or self-care (01) ==
LOC: HO.LAB 09:45
PROVIDERS: Absent Provider Family Medicine; PCP Family Medicine; Visit Provider Emergency Medicine
DX: R14.0 Abdominal distension (gaseous) (principal); Z13.89 Encounter for screening for other disorder
CPT/HCPCS: 36415; 82565; 84520; 87177; 87209; 87493; 87507

== ENCOUNTER 2022-12-22 14:26 | Outpatient (AMB) | payer MEDICAID, SELFPAY ==
--- NOTE | 2022-12-22 14:32 | A.OFFVIS_ITS ---
Intake Intake Visit Reasons: S/P [facility] ED- cystitis/renal stone Intake Note: NEW Patient presents today to established treatment for Cystitis ER Follow-up: Meds- None Allergies to Antibiotic- Penicillin Blood Thinner- None Friction Paint Machine Tender Required: No Accompanied by: Self / Same As Patient Allergies penicillin V Allergy (Unknown, Verified 12/22/22 14:37) anaphylaxis Penicillins [PENICILLINS] Allergy (Unknown, Verified 12/22/22 14:37) UNKNOWN seasonal allergies Allergy (Unknown, Uncoded 12/22/22 14:37) Difficulty Breathing Medication List - Last Reconciled 12/23/22 by Francisco Molina MD [id number] 600-50-300 mg (Triumeq) 1 tab PO QAM cholecalciferol (vitamin D3) 25 mcg PO DAILY cholecalciferol (vitamin D3) 50 mcg PO DAILY clonazepam 1 mg PO TID cyclobenzaprine 10 mg PO BEDTIME darunavir-cobicistat 800-150 mg-mg (Prezcobix) 1 tab PO DAILY fexofenadine (Vesta Allergy) 180 mg PO DAILY levofloxacin 750 mg PO DAILY 7 days levothyroxine 125 mcg PO QAM metronidazole 500 mg PO BID 7 days naproxen sodium (Aleve) 220 mg PO BID PRN peg 3350-electrolytes 236-22.74-6.74 -5.86 gram (Golytely) 240 mL PO Q10M 1 day pseudoephedrine HCl (Sudafed) 30 mg PO Q4-6H PRN suvorexant (Belsomra) 20 mg PO BEDTIME PRN HPI HPI Comments History of Present Illness Details Melanie is a 62-year-old female who presents today to the office to establish as a new patient for an evaluation of cystitis, and kidney stone. 12/22/2022? She presents today for an evaluation of cystitis, and kidney stone. She was seen in ED on 11/06/2031. She was sent home on levaquin for tx of diverticlitis She states that she has noticed intermittent hematuria she is s/p hysterectomy She states that she has been using estrogen cream prescribed by NUMERICAL CONTROL MACHINE MACHINIST She has a colonoscopy scheduled with auto damage trainee on 01/2023. I reviewed the CT of the abdomen/pelvis results from 11/05/2022 revealed acute diverticulitis of the sigmoid colon. Wall thickening at the dome of the urinary bladder likely on a reactive basis. Punctate nonobstructing right renal calculus. No hydronephrosis. I reviewed the urine culture results from 11/09/2022 which came back negative for bacterial growth. Evaluation today?UA?leuk - neg, blood 25 Mario Plan: Follow up office Cystoscopy. Referred to General Surgeon due to recurrent sigmoid diverticulitis. Will send urine for cytology. [facility] Medical History Spondylosis of lumbar spine Obesity due to excess calories Hypothyroidism HIV (human immunodeficiency virus infection) Graves disease Hematuria Tubular adenoma Dyslipidemia History of kidney stones HIV (human immunodeficiency virus infection) Acute anxiety Surgical History Hx of colonoscopy H/O: hysterectomy Family History Father HTN (hypertension) Mother HTN (hypertension) Diabetes Dementia Maternal Grandmother Breast cancer Maternal Aunt Breast cancer Diabetes Maternal Aunt Dementia Maternal Uncle Cancer Maternal Uncle Heart attack Maternal Aunt HTN (hypertension) Social History Household Members: None and Other Household Members Other:: grandson Housing: Apartment Alcohol intake: current Alcohol intake frequency: holidays/special occasions only Patient Tobacco Use Status: Never used Tobacco Substance Use Type: Marijuana Results AMB Urinalysis, Automated UA Leukoctes 0 Kita/uL Last Edit by LUIZA Vang on 12/22/22 14:40 UA Nitrite Negative Last Edit by LUIZA Vang on 12/22/22 14:40 UA Urobilinogen 0.2 mg/dL Last Edit by LUIZA Vang on 12/22/22 14:4 0 UA Protein 0 mg/dL Last Edit by Kana Monroe, A on 12/22/22 14:40 UA pH 6.0 Last Edit by Kana Monroe [facility] on 12/22/22 14:40 UA Blood 25 Mario/uL Last Edit by Feliparefugiocristina Madridirez, [facility] on 12/22/22 14:40 1+ Kana Monroe 12/22/22 14:40 UA Specific [place] 1.015 Last Edit by Kana Monroe, A on 12/22/22 14: 40 UA Ketone Negative Last Edit by Kana Monroe, A on 12/22/22 14:40 UA Bilirubin 0 mg/dL Last Edit by Kana Monroe [facility] on 12/22/22 14:40 UA Glucose 0 mg/dL Last Edit by Kana Monroe, [facility] on 12/22/22 14:40 Results Reviewed Results Reviewed: Laboratory Last Values Urine pH (Auto) 6.0 12/22/22 14:39 Specific [place] (Auto) 1.015 12/22/22 14:39 Urine Protein (Auto) 0 mg/dL 12/22/22 14:39 Glucose (UA)(Auto) 0 mg/dL 12/22/22 14:39 Urine Ketones (Auto) Negative 12/22/22 14:39 Urine Blood (Auto) 25 Mario/uL 12/22/22 14:39 Urine Nitrite (Auto) Negative 12/22/22 14:39 Urine Bilirubin (Auto) 0 mg/dL 12/22/22 14:39 Urine Urobilinogen (Auto) 0.2 mg/dL 12/22/22 14:39 Leukocyte Esterase (Auto) 0 Kita/uL 12/22/22 14:39 Date of Service: 11/05/22 EXAMINATION: CT ABDOMEN AND PELVIS WITHOUT CONTRAST?? CLINICAL INFORMATION: Dysuria.?? COMPARISON: 07/19/2018 FINDINGS: LUNG BASES: The visualized lung bases are unremarkable.?? LIVER, GALLBLADDER, AND BILIARY TREE: The noncontrast liver is increased in attenuation. No biliary ductal dilatation is present. Gallstones.?? PANCREAS: Unremarkable.?? SPLEEN: Unremarkable.?? ADRENAL GLANDS: Unremarkable.?? KIDNEYS AND URETERS: The kidneys are symmetric in size. Punctate nonobstructing lower pole right renal calculus. No hydronephrosis. No perinephric stranding.? ? BLADDER: Underdistended. Wall thickening of the bladder dome is likely on a reactive basis. GASTROINTESTINAL TRACT: Marked wall thickening of the mid sigmoid colon with surrounding inflammatory changes. There is evidence of underlying diverticular disease. No focal fluid collection. No small bowel obstruction. Appendix is within normal limits. ABDOMINAL WALL: No significant hernia is appreciated.?? LYMPH NODES: No bulky abdominal or pelvic lymphadenopathy.. VASCULAR: Normal caliber abdominal aorta.. PELVIC VISCERA: Uterus is surgically absent.?? OSSEOUS STRUCTURES: No destructive bone lesions.?? IMPRESSION: Acute diverticulitis of the sigmoid colon. No focal fluid collection. Follow-up imaging after treatment is advised. ? Wall thickening at the dome of the urinary bladder likely on a reactive basis. ? Cholelithiasis. ? Punctate nonobstructing right renal calculus. No hydronephrosis. Assessment & Plan Assessment & Plan (1) H/O diverticulitis of colon: Code(s): Z87.19 - Personal history of other diseases of the digestive system (2) Cystitis: Code(s): N30.90 - Cystitis, unspecified without hematuria (3) Gross hematuria: Code(s): R31.0 - Gross hematuria (4) Spondylosis of lumbar spine: Code(s): M47.816 - Spondylosis without myelopathy or radiculopathy, lumbar region Plan Referred to General Surgeon due to recurrent sigmoid diverticulitis. Will send urine for cytology. Follow up office Cystoscopy in 1 month. Orders: Orders AMB Urinalysis Automated 12/22/22 Z13.9 - Encounter for screening, unspecified Urine Cytology 12/22/22 R31.29 - Other microscopic hematuria Referrals General Surgery Referral Z87.19 - Personal history of other diseases of the digestive system Patient Instructions: The patient had an opportunity to ask questions regarding treatment plan. All questions were answered. Imaging, Laboratory studies and physical exam results were discussed and reviewed in detail. No major barriers to understanding were identified. The patient expressed understanding and agreement with the above treatment plan.? ? ? The patient is aware they should contact our office by phone for worsening of their current condition or the appearance of new symptoms. Compliance is encouraged with any medications and followup testing that is ordered.? ? ? It is a privilege to be allowed the opportunity to participate in the urologic care of your patient. If you have any questions or concerns regarding treatment for the above conditions please do not hesitate to contact me. The office telephone contact is [phone].? ? ? This note is constructed in part using voice recognition software. While every effort has been made to ensure accuracy globe changer errors may have been included.? ? ? Yours sincerely,? ? ? Francisco Molina MD? ? ? Coding Level of Care Code New Pt Level 4 (82117) Diagnoses H/O diverticulitis of colon Z87.19 Cystitis N30.90 Gross hematuria R31.0 Spondylosis of lumbar spine M47.816
== END 2022-12-22 15:14 | disposition home or self-care (01) ==
PROVIDERS: PCP Family Medicine; Visit Provider Urology
DX: Z87.19 Personal history of other diseases of the digestive system (principal); N30.90 Cystitis, unspecified without hematuria; R31.0 Gross hematuria; M47.816 Spondylosis without myelopathy or radiculopathy, lumbar region
CPT/HCPCS: 99204

== ENCOUNTER 2022-12-22 14:26 | Outpatient (REF) | payer MEDICAID, SELFPAY ==
[2022-12-22 16:51] LABS: Urine Cytology See Pathology rpt
== END 2022-12-22 14:27 | disposition home or self-care (01) ==
LOC: HO.LAB 14:26
PROVIDERS: PCP Family Medicine; Visit Provider Urology
DX: N30.91 Cystitis, unspecified with hematuria (principal); R31.29 Other microscopic hematuria; R31.0 Gross hematuria; M47.816 Spondylosis without myelopathy or radiculopathy, lumbar region; Z87.19 Personal history of other diseases of the digestive system; Z79.899 Other long term (current) drug therapy
CPT/HCPCS: 81003; 88112

== ENCOUNTER 2022-12-30 10:24 | Outpatient (AMB) | payer MEDICAID, SELFPAY ==
[2022-12-30 10:31] VITALS: BP 121/72; PULSE 89; BMI 27.8
--- NOTE | 2022-12-30 10:31 | A.OFFVIS_ITS ---
Intake Vital Signs 12/30/22 10:31 Height 5 ft 3 in Weight 157 lb BMI 27.8 BP 121/72 Blood Pressure Location Rt brachial Position Sitting Pulse 89 Intake Visit Reasons: diverticulitis Intake Note: This patient presents for an assessment for diverticulitis. Patient c/o; denies flare-up, denies problems with bowel movements. Animal Trapper Required: No Allergies penicillin V Allergy (Unknown, Verified 12/30/22 10:46) anaphylaxis Penicillins [PENICILLINS] Allergy (Unknown, Verified 12/30/22 10:46) UNKNOWN seasonal allergies Allergy (Unknown, Uncoded 12/30/22 10:46) Difficulty Breathing Medication List - Last Reconciled 12/30/22 by Marco Asher MD [id number]-kmvzato 600-50-300 mg (Triumeq) 1 tab PO QAM cholecalciferol (vitamin D3) 25 mcg PO DAILY cholecalciferol (vitamin D3) 50 mcg PO DAILY clonazepam 1 mg PO TID cyclobenzaprine 10 mg PO BEDTIME darunavir-cobicistat 800-150 mg-mg (Prezcobix) 1 tab PO DAILY fexofenadine (Vesta Allergy) 180 mg PO DAILY levofloxacin 750 mg PO DAILY 7 days levothyroxine 125 mcg PO QAM metronidazole 500 mg PO BID 7 days naproxen sodium (Aleve) 220 mg PO BID PRN peg 3350-electrolytes 236-22.74-6.74 -5.86 gram (Golytely) 240 mL PO Q10M 1 day pseudoephedrine HCl (Sudafed) 30 mg PO Q4-6H PRN suvorexant (Belsomra) 20 mg PO BEDTIME PRN HPI diverticulitis HPI Details 62-year-old female referred for divertic ulitis. She says that she went to the ER last October, because of lower abdominal pain. She had a CAT scan showing acute sigmoid diverticulitis. She says she was sent home from there with oral antibiotics and this had resolved after almost a week She has never had any episodes since that time. Currently she denies any GI complaints. She does not have any bleeding. She denies straining or constipation She does state that she had hemorrhoid surgery many years ago. She says she undergoes colonoscopies every 5 years. She says she has to meet with Gastroenterology here next month for her next colonoscopy. [facility] Medical History (Updated 12/30/22 @ 11:07 by Marco Asher MD) Diverticular disease Spondylosis of lumbar spine Obesity due to excess calories Hypothyroidism HIV (human immunodeficiency virus infection) Graves disease Hematuria Tubular adenoma Dyslipidemia History of kidney stones HIV (human immunodeficiency virus infection) Acute anxiety Surgical History Hx of colonoscopy H/O: hysterectomy Family History Father HTN (hypertension) Mother HTN (hypertension) Diabetes Dementia Maternal Grandmother Breast cancer Maternal Aunt Breast cancer Diabetes Maternal Aunt Dementia Maternal Uncle Cancer Maternal Uncle Heart attack Maternal Aunt HTN (hypertension) Social History Household Members: None and Other Household Members Other:: grandson Housing: Apartment Alcohol intake: current Alcohol intake frequency: holidays/special occasions only Patient Tobacco Use Status: Never used Tobacco Substance Use Type: Marijuana Review of Systems Const Denies chills and Denies fever(s) Card Denies chest pain, Denies dyspnea and Denies dyspnea on exertion Resp Denies cough, Denies dyspnea and Denies dyspnea on exertion GI Denies hematochezia and Denies change in bowel habits Denies hematuria Musc Denies back pain and Denies limited range of motion Neuro Denies focal weakness and Denies convulsions Psych Denies depression and Denies mood swings Physical Exam Vital Signs: Last Vital Signs Pulse 89 12/30/22 10:31 BP 121/72 12/30/22 10:31 BMI result Body Mass Index 27.8 Const General: comfortable and no acute distress Orientation/consciousness: patient oriented x3 Neck Neck: Yes no lymphadenopathy Resp Auscultation: clear to auscultation bilaterally Cardio Rhythm: regular rhythm GI Palpation (GI): Soft to palpation, nontender and no guarding Neuro General: patient oriented x3 Assessment & Plan Assessment & Plan (1) Diverticular disease: Code(s): K57.90 - Diverticulosis of intestine, part unspecified, without perforation or abscess without bleeding Plan: Review of her records show that she was in the ER last October, for abdominal pain and had a CAT scan showing diverticulitis with sigmoid without any complications of abscess. She states that she has had no episodes since then. Furthermore, she says that this was her 1st and only episode so far. I did explain to her that for recurrent or complicated diverticulitis, sigmoid resection may be beneficial. I explained to her that diverticulitis can be recurrent. She is set for meet with GI next month to schedule for her colonoscopy. In the meantime, I have advised her to avoid constipation and told her that fiber supplementation will be beneficial. I also explained to her to return to the office if she has recurrent symptoms. She is comfortable with the plan. Coding Level of Care Code New Pt Level 3 (75759) Diagnoses Diverticular disease K57.90
== END 2022-12-30 11:07 | disposition home or self-care (01) ==
PROVIDERS: PCP Family Medicine; Referring Provider Urology; Visit Provider Surgery
DX: K57.90 Diverticulosis of intestine, part unspecified, without perforation or abscess without bleeding (principal)
CPT/HCPCS: 99203

== ENCOUNTER → 2022-12-30 10:24 | Outpatient (BNVA) | payer MEDICAID, SELFPAY | PROVIDERS: PCP Family Medicine; Referring Provider Urology; Visit Provider Surgery ==

== ENCOUNTER 2023-01-12 08:11 | Day surgery (SDC) | payer MEDICAID, SELFPAY ==
[2023-01-10 16:54] VITALS: BMI 28.2
--- OUTSIDE RECORDS SUMMARY | 2023-01-12 08:13 | XMS_ITS | Continuity of Care Document ---
Author Name Unknown Organization [facility] ter Address [address] [place] [address]- Care Team Providers Care Contract Analyst Name Role Phone Janette IBRAHIM, Sarah Primary Care Physician Encounter [facility] [place] Date(s): 11/03/22 - 12/16/[address] [id number] Attending Physician: Randolph Tapia MD Admitting Physician: Randolph Tapia MD Referring Physician: Randolph Tapia MD Allergies, Adverse Reactions, Alerts Substance Reaction Severity Status penicillins not sure happened when I was child Active Medications albuterol 90 mcg/inh inhalation powder 2 puffs, Inhalation, Every 4 hours, 0 Refills, Maintenance, 03/01/17 14:49:10 Start Date: 03/01/17 Status: Ordered Vesta Allergy = 60 mg, By Mouth, 0 Refills, Maintenance, 04/22/14 16:50:30 Start Date: 04/22/14 Status: Ordered clonazepam 1 mg oral tablet 1 tablet = 1 mg, By Mouth, 3 times a day, 0 Refills, Maintenance, 05/09/13 13:03:08 Start Date: 05/09/13 Status: Ordered cyclobenzaprine 10 mg oral tablet 10 mg, 1, tablet, By Mouth, 3 times a day, PRN, # 30 tablet, Refills 0, Maintenance, for spasm, 03/01/17 14:49:43 Start Date: 03/01/17 Status: Ordered Ibuprofen Refills 0, Maintenance, 03/01/17 14:50:53 Start Date: 03/01/17 Status: Ordered meclizine 25 mg oral tablet 1 tablet = 25 mg, By Mouth, 3 times a day, 0 Refills, Maintenance, 03/01/17 14:48:19 Start Date: 03/01/17 Status: Ordered NuLYTELY [place] oral powder for reconstitution 240 mL, By Mouth, Every 10 minutes, # 4,000 mL, 0 Refills, Maintenance, 03/01/17 15:24:04 Start Date: 03/01/17 Status: Ordered Prezcobix 800 mg-150 mg oral tablet 1 tablet, By Mouth, Daily, with food, # 30 tablet, 0 Refills, Maintenance, 10/23/15 15:19:28, Tablet Start Date: 10/23/15 Status: Ordered Sudafed 30 mg oral tablet 1 tablet = 30 mg, By Mouth, Every 6 hours, 0 Refills, Maintenance, 03/01/17 14:49:29 Start Date: 03/01/17 Status: Ordered Synthroid 0.125 mg oral tablet 1 tablet = 125 mcg, By Mouth, Daily, no substitutions; brand name medically necessary., # 30 tablet, 11 Refills, Maintenance, 11/15/15 16:23:00, Tablet Start Date: 11/15/15 Stop Date: 11/09/16 Status: Ordered Triumeq 1 tablet, By Mouth, Daily, 0 Refills, Maintenance, 08/24/16 13:13:14 Start Date: 08/24/16 Status: Ordered Problem List Condition Confirmation Course Effective Dates Status Health St atus Informant History of HIV infection Confirmed Active Encounter for screening colonoscopy Confirmed Active Tubular adenoma of colon Confirmed Active Patient Care team information Care Team Personnel Name: Irene Nelson Position: [facility] Outreach Member Role: Lifetime Consulting Physician Name: Sarah Savage MD Position: [facility] Outreach Member Role: PCP Address: Address: [address] [place] [id number]- Care Team Related Persons Name: PARAM FOURNIER Address: home [address] [address]
--- OUTSIDE RECORDS SUMMARY | 2023-01-12 08:14 | XMS_ITS | Continuity of Care Document ---
Author Name Unknown Organization [facility] Address [address] [place] [id number]- Care Team Providers Care Power Grader Operator Name Role Phone Janette IBRAHIM, Sarah Primary Care Physician Encounter [facility] [place] Date(s): 06/09/22 - 10/07/22 [facility] [address] [place] [id number]- Attending Physician: Stacy Garcia NP Admitting Physician: Stacy Garcia NP Referring Physician: Sarah Savage MD Allergies, Adverse Reactions, Alerts Substance Reaction [...] 14:48:19 Start Date: 03/01/17 Status: Ordered NuLYTELY [place] oral powder for reconstitution 240 mL, By [...] Care Team Personnel Name: Irene Nelson Position: [facility] Outreach Member Role: Lifetime Consulting Physician Name: Sarah Savage MD Position: [facility] Outreach Member Role: PCP Address: Address: [address] [place] [address]- Care Team Related Persons Name: PARAM FOURNIER Address: home [address] [address]
--- OUTSIDE RECORDS SUMMARY | 2023-01-12 08:14 | XMS_ITS | Continuity of Care Document ---
Author Name Unknown Organization [facility] Address [address] [place] [id number]- Care Team Providers Care Jockey'S Agent Name Role Phone Janette IBRAHIM, Sarah Primary Care Physician Encounter [facility] [place] Date(s): 09/07/22 - 10/07/22 [facility] [address] [place] [id number]- Attending Physician: Shin Crystal Admitting Physician: Shin Crystal Referring Physician: Shin Crystal Allergies, Adverse Reactions, Alerts Substance Reaction Severity [...] 14:48:19 Start Date: 03/01/17 Status: Ordered NuLYTELY [place] oral powder for reconstitution 240 mL, By [...] Care Team Personnel Name: Irene Nelson Position: [facility] Outreach Member Role: Lifetime Consulting Physician Name: Sarah Savage MD Position: [facility] Outreach Member Role: PCP Address: Address: [address] [place] [address]- Care Team Related Persons Name: PARAM FOURNIER Address: home [address] [address]
--- NOTE | 2023-01-12 08:27 | HO.ANESPROP2 ---
[facility] Active Problems Active Problems: All Active Problems (Updated 12/30/22 @ 11:07 by Marco Asher MD) Diverticular disease (Acute) Gross hematuria (Acute) H/O diverticulitis of colon (Acute) Tubular adenoma (Acute) Pre-op examination (Acute) Spondylosis of lumbar spine (Acute) Obesity due to excess calories (Acute) Hypothyroidism (Acute) Microscopic hematuria (Acute) Nephrolithiasis (Acute) TMJ arthritis (Acute) Allergic rhinitis (Acute) Chronic sinusitis (Acute) Gallstones (Acute) Scoliosis (Acute) Chronic low back pain (Acute) High cholesterol (Acute) HIV (human immunodeficiency virus infection) (Acute) Past Medical History Medical History (Updated 12/30/22 @ 11:07 by Marco Asher MD) Diverticular disease Spondylosis of lumbar spine Obesity due to excess calories Hypothyroidism HIV (human immunodeficiency virus infection) Graves disease Hematuria Tubular adenoma Dyslipidemia History of kidney stones HIV (human immunodeficiency virus infection) Acute anxiety Family History Family History Father HTN (hypertension) Mother HTN (hypertension) Diabetes Dementia Maternal Grandmother Breast cancer Maternal Aunt Breast cancer Diabetes Maternal Aunt Dementia Maternal Uncle Cancer Maternal Uncle Heart attack Maternal Aunt HTN (hypertension) Family history of problems with anesthesia: No Surgical History Surgical History Hx of colonoscopy H/O: hysterectomy History of Problems with Anesthesia: No Social History Social History Household Members: None and Other Household Members Other:: grandson Housing: Apartment Alcohol intake: current Alcohol intake frequency: holidays/special occasions only Patient Tobacco Use Status: Never used Tobacco Substance Use Type: Marijuana Advance Directives: No Advance Directives Information Provided: Yes Meds Allergies Allergy/AdvReac Type Severity Reaction Status Date / Time penicillin V Allergy Unknown anaphylaxis Verified 12/30/22 10:46 Penicillins [PENICILLINS] Allergy Unknown UNKNOWN Verified 12/30/22 10:46 seasonal allergies Allergy Unknown Difficulty Uncoded 12/30/22 10:46 Breathing Active Medications: Current Medications Lactated Ringer's (Lr) 1,000 mls @ 50 mls/hr IVCONT .Q20H REPLACED BY [facility] Home Medications Medication Instructions Recorded Confirmed Last Taken Type abacavir 600 mg-dolutegravir 50 1 tab PO QAM 02/08/20 12/30/22 Unknown History mg-lamivudine 300 mg tablet (Triumeq) cholecalciferol (vitamin D3) 25 25 mcg PO DAILY 02/08/20 12/30/22 Unknown History mcg (1,000 unit) capsule clonazepam 1 mg tablet 1 mg PO TID 02/08/20 12/30/22 Unknown History cyclobenzaprine 10 mg tablet 10 mg PO BEDTIME 02/08/20 12/30/22 Unknown History darunavir 800 mg-cobicistat 150 mg 1 tab PO DAILY 02/08/20 12/30/22 Unknown History tablet (Prezcobix) fexofenadine 180 mg tablet 180 mg PO DAILY 02/08/20 12/30/22 Unknown History (Vesta Allergy) naproxen sodium 220 mg capsule 220 mg PO BID PRN 02/08/20 12/30/22 Unknown History (Aleve) pseudoephedrine HCl 30 mg tablet 30 mg PO Q4-6H PRN 02/08/20 12/30/22 Unknown History (Sudafed) cholecalciferol (vitamin D3) 50 50 mcg PO DAILY 02/18/21 12/30/22 Unknown History mcg (2,000 unit) capsule suvorexant 20 mg tablet (Belsomra) 20 mg PO BEDTIME PRN 02/18/21 12/30/22 Unknown History Exam Exam Date and Time: January 12, 2023 0827 Height,Weight and Vital Signs: Height 5 ft 3 in Weight 72.121 kg Airway Mallampati Class: II TM Dist: >3cm Neck ROM: Full Assessment and Plan Assessment Anesthesia Assessment: Anesthesia Plan Discussed and Chart Reviewed Final Anesthetic Review Family History of Problems with Anesthesia: No History of Problems with Anesthesia: No NPO: Yes ASA Class: III Final Preanesthetic Review: No Changes in Pt Med Stat, Meds/Allgs Chart Reviewed, Consent Obtained/Reviewed and Anes Risks/Benef Reviewed Patient Risk: Intermediate Procedure Risk: Low Anesthetic Plan Anesthetic Plan: MAC: Disposition: Standard PACU
[2023-01-12 08:28] VITALS: BP 139/99; PULSE 101; RESP 16; TEMP 36.3; O2SAT 96; BMI 27.6
--- NOTE | 2023-01-12 08:29 | HO.ANESPROP2 ---
[facility] Active Problems Active Problems: All Active Problems Diverticular disease (Acute) Gross hematuria (Acute) H/O diverticulitis of colon (Acute) Tubular adenoma (Acute) Pre-op examination (Acute) Spondylosis of lumbar spine (Acute) Obesity due to excess calories (Acute) Hypothyroidism (Acute) Microscopic hematuria (Acute) Nephrolithiasis (Acute) TMJ arthritis (Acute) Allergic rhinitis (Acute) Chronic sinusitis (Acute) Gallstones (Acute) Scoliosis (Acute) Chronic low back pain (Acute) High cholesterol (Acute) HIV (human immunodeficiency virus infection) (Acute) Past Medical History Medical History (Updated 12/30/22 @ 11:07 by Marco Asher MD) Diverticular disease Spondylosis of lumbar spine Obesity due to excess calories Hypothyroidism HIV (human immunodeficiency virus infection) Graves disease Hematuria Tubular adenoma Dyslipidemia History of kidney stones HIV (human immunodeficiency virus infection) Acute anxiety Family History Family History Father HTN (hypertension) Mother HTN (hypertension) Diabetes Dementia Maternal Grandmother Breast cancer Maternal Aunt Breast cancer Diabetes Maternal Aunt Dementia Maternal Uncle Cancer Maternal Uncle Heart attack Maternal Aunt HTN (hypertension) Family history of problems with anesthesia: No Surgical History Surgical History Hx of colonoscopy H/O: hysterectomy History of Problems with Anesthesia: No Social History Social History Household Members: None and Other Household Members Other:: grandson Housing: Apartment Alcohol intake: current Alcohol intake frequency: holidays/special occasions only Patient Tobacco Use Status: Never used Tobacco Substance Use Type: Marijuana Advance Directives: No Advance Directives Information Provided: Yes Meds Allergies Allergy/AdvReac Type Severity Reaction Status Date / Time penicillin V Allergy Unknown anaphylaxis Verified 12/30/22 10:46 Penicillins [PENICILLINS] Allergy Unknown UNKNOWN Verified 12/30/22 10:46 seasonal allergies Allergy Unknown Difficulty Uncoded 12/30/22 10:46 Breathing Active Medications: Current Medications Lactated Ringer's (Lr) 1,000 mls @ 50 mls/hr IVCONT .Q20H [facility] Home Medications Medication Instructions Recorded Confirmed Last Taken Type abacavir 600 mg-dolutegravir 50 1 tab PO QAM 02/08/20 12/30/22 Unknown History mg-lamivudine 300 mg tablet (Triumeq) cholecalciferol (vitamin D3) 25 25 mcg PO DAILY 02/08/20 12/30/22 Unknown History mcg (1,000 unit) capsule clonazepam 1 mg tablet 1 mg PO TID 02/08/20 12/30/22 Unknown History cyclobenzaprine 10 mg tablet 10 mg PO BEDTIME 02/08/20 12/30/22 Unknown History darunavir 800 mg-cobicistat 150 mg 1 tab PO DAILY 02/08/20 12/30/22 Unknown History tablet (Prezcobix) fexofenadine 180 mg tablet 180 mg PO DAILY 02/08/20 12/30/22 Unknown History (Vesta Allergy) naproxen sodium 220 mg capsule 220 mg PO BID PRN 02/08/20 12/30/22 Unknown History (Aleve) pseudoephedrine HCl 30 mg tablet 30 mg PO Q4-6H PRN 02/08/20 12/30/22 Unknown History (Sudafed) cholecalciferol (vitamin D3) 50 50 mcg PO DAILY 02/18/21 12/30/22 Unknown History mcg (2,000 unit) capsule suvorexant 20 mg tablet (Belsomra) 20 mg PO BEDTIME PRN 02/18/21 12/30/22 Unknown History Exam Exam Date and Time: January 12, 2023 0829 Height,Weight and Vital Signs: Height 5 ft 3 in Weight 72.121 kg Airway Mallampati Class: II TM Dist: >3cm Neck ROM: Full Assessment and Plan Assessment Anesthesia Assessment: Anesthesia Plan Discussed and Chart Reviewed Final Anesthetic Review Family History of Problems with Anesthesia: No History of Problems with Anesthesia: No
[2023-01-12] MEDS: Lactated Ringers 1,000 ML 50 ML IVCONT (08:59)
--- NOTE | 2023-01-12 09:21 | MHC.SHP ---
Pre-Procedural Eval Section A Date of Service: 01/12/23 Section B Chief Complaint: Benign neoplasm, unspecified site Relevant Family History (Specify if Yes): No Relevant Social History: Other (specify) (THC) Present Medications: see Short Stay Collaborative assessment Medical History: Significant History (Diverticular disease Spondylosis of lumbar spine Obesity due to excess calories Hypothyroidism HIV (human immunodeficiency virus infection) Graves disease Hematuria Tubular adenoma Dyslipidemia History of kidney stones HIV (human immunodeficiency virus infection) Acute anxiety) History of Previous Operations: Relevant previous surgery/procedure and date(s) (Hx of colonoscopy H/O: hysterectomy) Allergies: Allergies Allergy/AdvReac Type Severity Reaction Status Date / Time penicillin V Allergy Unknown anaphylaxis Verified 12/30/22 10:46 Penicillins [PENICILLINS] Allergy Unknown UNKNOWN Verified 12/30/22 10:46 seasonal allergies Allergy Unknown Difficulty Uncoded 12/30/22 10:46 Breathing Review of Systems Sugical H&P ROS: Negative: Constitution, Cardiovascular, Respiratory, Neurological, Psychiatric, Hem-Onc, Allergic/Immunologic, Gastrointestinal, Genitourinary, Musculoskeletal, Integumentary, Endocrine and Eyes/Ears/Nose/Throat Exam Surgical H&P Exam: Normal: HEENT, Normal: Heart, Normal: Lungs, Normal: Extremities, Normal: Abdomen, Normal: Skin and Normal: Neurological Plan Diagnosis/Plan: Unchanged I have reviewed the history and physical and performed a pertinent physical examination on my patient. No changes have occurred unless specified. Time Spent With Patient Time: Total time managing care of this patient today ____ minutes.
--- NOTE | 2023-01-12 09:22 | W.PM.OPN ---
Operative Note Operative Note Date of Service: 01/12/23 Narrative: Operative Information Procedure Description: Colonoscopy Indication: screening Anesthesia: MAC COLONOSCOPY Instrument: Olympus variable stiffness pediatric scope 190L Colonoscopy Monitoring: Vital signs and clinical assessment, continuous EKG monitoring, Pulse oximetry, Carbon Dioxide monitoring and blood pressure monitoring were done throughout the procedure. Colon withdrawal time was 11 minutes. Procedure: The patient was placed in the left lateral decubitis position and pre-procedure medications were administered. After a digital rectal examination of the ano-rectum, the video colonoscope was inserted into the rectum and advanced through the colon to the cecum/TI. The colonoscope was slowly withdrawn in a retrograde panoramic fashion and the colon mucosa was carefully examined including a retroflexed view of the rectum. Findings and interventions are described below. Procedure Difficulty: easy Findings: Terminal Ileum-normal Cecum:normal Ascending Colon: 10 mm sessile polyp removed with cold snare Transverse Colon -normal Descending Colon:normal Sigmoid Colon: moderate severe diverticulosis with mild resolving patchy erythema Rectum: Retroflexion with small internal hemorrhoids, grade I Anorectum - normal Colon preparation: [place] Bowel Preparation Scale Right colon; 2 Transverse colon: 2 Left colon; 1-2 (0 = Unprepared colon segment with mucosa not seen due to solid stool that cannot be cleared. 1 = Portion of mucosa of the colon segment seen, but other areas of the colon segment not well seen due to staining, residual stool and/or opaque liquid. 2 = Minor amount of residual staining, small fragments of stool and/or opaque liquid, but mucosa of colon segment seen well. 3 = Entire mucosa of colon segment seen well with no residual staining, small fragments of stool or opaque liquid) Impression and Post Procedure Diagnosis: polyps internal hemorrhoids diverticular disease mild resolving colitis probbaly from recent E coli Plan: High fiber diet leaflet Avoid straining at stool, epsom salts and sitz bath, anusol supps or cream Repeat Colonoscopy in 5 years due to polyp and fair left sided prep or earlier if clinically indicated Above findings were reviewed with the patient and relevant handouts were provided if indicated.
[2023-01-12 09:59] VITALS: BP 114/67; PULSE 84; RESP 16; TEMP 36.1; O2SAT 99
[2023-01-12 10:18] VITALS: BP 135/81; PULSE 74; RESP 17; TEMP 36.2; O2SAT 98
== END 2023-01-12 10:20 | disposition home or self-care (01) ==
PROVIDERS: PCP Family Medicine; Visit Provider Internal Medicine Gastroenterology
PROC: 0DJD8ZZ Inspection of Lower Intestinal Tract, Via Natural or Artificial Opening Endoscopic (ICD-10-PCS; CPT 45378; principal; 2023-01-12 10:30)
DX: Z12.11 Encounter for screening for malignant neoplasm of colon (principal); D12.2 Benign neoplasm of ascending colon; K57.30 Diverticulosis of large intestine without perforation or abscess without bleeding; K64.0 First degree hemorrhoids; Z86.010 Personal history of colon polyps; B20 Human immunodeficiency virus [HIV] disease; E78.5 Hyperlipidemia, unspecified; E05.00 Thyrotoxicosis with diffuse goiter without thyrotoxic crisis or storm; Z87.442 Personal history of urinary calculi; Z90.710 Acquired absence of both cervix and uterus; F12.90 Cannabis use, unspecified, uncomplicated
CPT/HCPCS: 45385; 88305

== ENCOUNTER → 2023-01-12 08:11 | Outpatient (BNV) | payer MEDICAID, SELFPAY | PROVIDERS: PCP Family Medicine; Visit Provider Internal Medicine Gastroenterology | DX: Z12.11 Encounter for screening for malignant neoplasm of colon (principal); D12.2 Benign neoplasm of ascending colon; K57.30 Diverticulosis of large intestine without perforation or abscess without bleeding; K64.0 First degree hemorrhoids | CPT/HCPCS: 45385 ==

== ENCOUNTER 2023-01-24 14:19 | Outpatient (AMB) | payer MEDICAID, SELFPAY ==
--- NOTE | 2023-01-24 14:21 | A.OFFVIS_ITS ---
Intake Intake Visit Reasons: cysto Intake Note: Patient presents today for a CYSTOSCOPY Procedure: Meds: None Allergies to Antibiotic: Penicillin Blood Thinner: None Urinalysis test cleared for Cysto Disposable Uro-G Cystoscope Cannula: Lot: [id number] Exp: 08/22/2024 Spring Setter Required: No Accompanied by: Self / Same As Patient Allergies penicillin V Allergy (Unknown, Verified 01/24/23 14:47) anaphylaxis Penicillins [PENICILLINS] Allergy (Unknown, Verified 01/24/23 14:47) UNKNOWN seasonal allergies Allergy (Unknown, Uncoded 01/24/23 14:47) Difficulty Breathing HPI HPI Comments History of Present Illness Details Melanie is a 62-year-old female who presents today to the office for a follow-up. 01/24/23? She was last seen by me on 12/22/22 for cystitis. She is followed today for a cystoscopy procedure. Patient states that she has LUTS of urgency frequency. 01/24/23: Cystoscopy procedure:Consent was obtained for cystoscopy procedure. Cystoscopy findings: Mild bladder wall thickening; no suspicious bladder lesions noted. Pelvic exam - noteable for vaginal atrophy and small urethral caruncle Review of charts: Last visit: 12/22/2022? She states that she has noticed intermittent hematuria. She is s/p hysterectomy She states that she has been using estrogen cream prescribed by [employer] I reviewed the CT of the abdomen/pelvis results from 11/05/2022 revealed Wall thickening at the dome of the urinary bladder Punctate nonobstructing right renal calculus. No hydronephrosis. urine culture results from 11/09/2022 which came back negative for bacterial growth. 12/22/22?UA?leuk - neg, blood 25 Mario 01/24/23: Plan: Urinary urgency: Will trial anti-muscaranics for LUTS of urgency/frequency- Myrbetriq 50 mg daily Recommended to do kegels exercise. Vaginal atrophy: hematuria or blood when patient wiped post voiding may be due to urethral caruncle. Advised the patient to use cont estrogen cream, pea sized amount on fingertip q hs. Follow-up in 3 months. PFSH Medical History Diverticular disease Spondylosis of lumbar spine Obesity due to excess calories Hypothyroidism HIV (human immunodeficiency virus infection) Graves disease Hematuria Tubular adenoma Dyslipidemia History of kidney stones HIV (human immunodeficiency virus infection) Acute anxiety Surgical History Hx of colonoscopy H/O: hysterectomy Family History Father HTN (hypertension) Mother HTN (hypertension) Diabetes Dementia Maternal Grandmother Breast cancer Maternal Aunt Breast cancer Diabetes Maternal Aunt Dementia Maternal Uncle Cancer Maternal Uncle Heart attack Maternal Aunt HTN (hypertension) Social History Household Members: None and Other Household Members Other:: grandson Housing: Apartment Alcohol intake: current Alcohol intake frequency: holidays/special occasions only Patient Tobacco Use Status: Never used Tobacco Substance Use Type: Marijuana Review of Systems Const All systems reviewed & are unremarkable except as noted in HPI and below Reports no additional complaints Eyes Reports no additional complaints ENT Reports no additional complaints Card Denies dyspnea Resp Denies cough and Denies dyspnea GI Reports no additional complaints Reports no additional complaints Musc Reports no additional complaints Skin/Breast Denies rash and Denies unusual bruising Neuro Reports no additional complaints Psych Reports no additional complaints Endo Reports no additional complaints Yariel/Lymph Reports no additional complaints Aller/Immun Reports no additional complaints Physical Exam Const General: cooperative, healthy appearing and no acute distress Orientation/consciousness: patient oriented x3 HEENT Head: Yes normal to inspection, Yes normocephalic and Yes atraumatic Eyes Conjunctivae: conjunctivae normal Neck Neck: Yes normal visual inspection and Yes trachea midline Chest Chest palpation & inspection: normal inspection of the chest Resp Effort & Inspection: normal respiratory effort Cardio Rate: regular rate GI Inspection: Yes normal to inspection General: No no CVA tenderness External Female Exam: normal external appearance Speculum Exam - Vagina: vagina atrophic Back/Spine/Pelvis Back: No no CVA tenderness Neuro General: patient oriented x3 Extrem General: No edema Psych Appearance: grossly normal Office Procedures Cystoscopy Consent Discussed risk and benefit or proposed procedure with the patient. Information consent for procedure given to the patient. Discussed technical aspects, risks, benefits and alternatives in full. Addressed all of the patient's questions and concerns regarding the procedure. The patient demonstrated knowledge and understanding. They wish to proceed with this procedure. Preparation The patient was prepped in the usual manner. A television journalist was present and in the room. Genitalia was prepped with betadine solution in a sterile manner. Lidocaine Jelly 2% was placed into the urethra and 16Fr flexible Olympus cystoscope was inserted into the meatus after adequate lubrication. [id number] DISPOSABLE SCOPE URO-G FLEXIBLE SCOPE Procedure code (CPT) selection complete Office Meds lidocaine HCl 2 % mucosal jelly in applicator Performing Provider: Francisco Molina MD [place] [facility] Administered by: Johny Haro LPN on 01/24/23 14:47 Dose Route Admin Location Dispensed Lot Number Expiration Date [facility] [place] Chief Electrician 10 mL intra-urethral 20 mL naproxen 500 mg tablet Performing Provider: Francisco Molina MD Performing Location[place] [facility] Administered by: Johny Haro LPN on 01/24/23 14:47 Dose Route Admin Location Dispensed Lot Number Expiration Date [facility] [place] Chief Electrician 500 mg PO 1 tab ciprofloxacin HCl 500 mg tablet Performing Provider: Francisco Molina MD Performing Location: [facility] [place] [facility] Administered by: Johny Haro LPN on 01/24/23 14:47 Dose Route Admin Location Dispensed Lot Number Expiration Date [facility] [place] Chief Electrician 500 mg PO 1 tab Results AMB Urinalysis, Automated UA Leukoctes 0 Kita/uL Last Edit by LUIZA Vang on 01/24/23 14:41 UA Nitrite Negative Last Edit by LUIZA Vang on 01/24/23 14:41 UA Urobilinogen 0.2 mg/dL Last Edit by LUIZA Vang on 01/24/23 14:4 1 UA Protein 30 mg/dL Last Edit by LUIZA Vang on 01/24/23 14:41 1+ Kana Monroe 01/24/23 14:41 UA pH 5.5 Last Edit by LUIZA Vang on 01/24/23 14:41 UA Blood 80 Mario/uL Last Edit by LUIZA Vang on 01/24/23 14:41 2+ Kana Monroe 01/24/23 14:41 UA Specific [place] 1.030 Last Edit by LUIZA Vang on 01/24/23 14: 41 UA Ketone Negative Last Edit by LUIZA Vang on 01/24/23 14:41 UA Bilirubin 0 mg/dL Last Edit by JOSEFINA VangA on 01/24/23 14:41 UA Glucose 0 mg/dL Last Edit by LUIZA Vang on 01/24/23 14:41 Results Reviewed Results Reviewed: Laboratory Last Values Urine pH (Auto) 5.5 01/24/23 14:27 Specific [place] (Auto) 1.030 01/24/23 14:27 Urine Protein (Auto) 30 mg/dL 01/24/23 14:27 Glucose (UA)(Auto) 0 mg/dL 01/24/23 14:27 Urine Ketones (Auto) Negative 01/24/23 14:27 Urine Blood (Auto) 80 Mario/uL 01/24/23 14:27 Urine Nitrite (Auto) Negative 01/24/23 14:27 Urine Bilirubin (Auto) 0 mg/dL 01/24/23 14:27 Urine Urobilinogen (Auto) 0.2 mg/dL 01/24/23 14:27 Leukocyte Esterase (Auto) 0 Kita/uL 01/24/23 14:27 Assessment & Plan Assessment & Plan (1) Cystitis: Code(s): N30.90 - Cystitis, unspecified without hematuria (2) OAB (overactive bladder): Code(s): N32.81 - Overactive bladder (3) Urethral caruncle: Code(s): N36.2 - Urethral caruncle Plan Urinary urgency: Will trial anti-muscaranics for LUTS of urgency/frequency- Myrbetriq 50 mg daily Recommended to do kegels exercise. Vaginal atrophy: hematuria or blood when patient wiped post voiding may be due to urethral caruncle. Advised the patient to use cont estrogen cream, pea sized amount on fingertip q hs. Follow-up in 3 months. Orders: Orders AMB Cystoscopy 01/24/23 R31.0 - Gross hematuria AMB Urinalysis Automated 01/24/23 Z13.9 - Encounter for screening, unspecified Medications: New mirabegron ER (Myrbetriq) 50 mg PO DAILY 90 tabs 1RF Patient Instructions: The patient had an opportunity to ask questions regarding treatment plan. All questions were answered. Imaging, Laboratory studies and physical exam results were discussed and reviewed in detail. No major barriers to understanding were identified. The patient expressed understanding and agreement with the above treatment plan. The patient is aware they should contact our office by phone for worsening of their current condition or the appearance of new symptoms. Compliance is encouraged with any medications and followup testing that is ordered. It is a privilege to be allowed the opportunity to participate in the urologic care of your patient. If you have any questions or concerns regarding treatment for the above conditions please do not hesitate to contact me. The office telephone contact is [phone]. This note is constructed in part using voice recognition software. While every effort has been made to ensure accuracy training and development specialist errors may have been included. Yours sincerely, Francisco Molina MD Coding Level of Care Code Est Pt Level 3 (96583) Diagnoses Cystitis N30.90 OAB (overactive bladder) N32.81 Urethral caruncle N36.2 CPT Codes Cystoscopy - CPT: [id number] ([id number])
== END 2023-01-24 15:23 | disposition home or self-care (01) ==
PROVIDERS: PCP Family Medicine; Visit Provider Urology
DX: N30.90 Cystitis, unspecified without hematuria (principal); N32.81 Overactive bladder; N36.2 Urethral caruncle
CPT/HCPCS: 52000; 99213

== ENCOUNTER → 2023-01-24 14:19 | Outpatient (BNVA) | payer MEDICAID, SELFPAY | PROVIDERS: PCP Family Medicine; Visit Provider Urology | DX: N30.90 Cystitis, unspecified without hematuria (principal); N32.81 Overactive bladder; N36.2 Urethral caruncle | CPT/HCPCS: 52000; 81003; 99212 ==

== ENCOUNTER 2023-01-26 08:50 | Outpatient (AMB) | payer MEDICAID, SELFPAY ==
--- NOTE | 2023-01-26 08:53 | MHC.OFFVIS ---
Intake Vital Signs 01/26/23 08:58 Height 5 ft 3 in Weight 155 lb BMI 27.5 BP 137/81 Blood Pressure Location Lt brachial Position Sitting Pulse 69 Intake Visit Reasons: s/p tamika Cesar Intake Note: Patient returns to in office visit today in follow up of colonoscopy. CC: She underwent colonoscopy on 01/12/[address] Cesar. She reports she has been doing well except constipation but she has always dealt with this issue. Fisher Trammel Net Required: No Accompanied by: Self / Same As Patient Allergies penicillin V Allergy (Unknown, Verified 01/26/23 09:02) anaphylaxis Penicillins [PENICILLINS] Allergy (Unknown, Verified 01/26/23 09:02) UNKNOWN seasonal allergies Allergy (Unknown, Uncoded 01/24/23 14:47) Difficulty Breathing HPI s/p brennan- Arseino HPI Details Assessment & Plan (1) Pre-op examination: Code(s): Z01.818 - Encounter for other preprocedural examination Plan: She had a prior colonoscopy in 2018 and there was a TA. She suffers CIC but she controls this with eating fruits before bed and she finds beef constipates her. She does not wish to treat with any additional medications at this time. There are no prior problems with anesthesia or sedation. She denies any cardiac or respiratory problems. She has controlled HIV on medication no other ID problems. She had a TA in 2018. (2) Tubular adenoma: Code(s): D36.9 - Benign neoplasm, unspecified site Plan: 2018 colonoscopy= TA, [place] (3) HIV (human immunodeficiency virus infection): Code(s): B20 - Human immunodeficiency virus [HIV] disease (4) Gallstones: Code(s): K80.20 - Calculus of gallbladder without cholecystitis without obstruction (5) Obesity due to excess calories: Code(s): E66.09 - Other obesity due to excess calories Medications: New peg 3350-electroly jamison 236-22.74-6.74 -5.86 gram (Golyt sai) until feca l effluent is emiliano r; do not exceed a total volume of 2 ,000 mL 240 mL PO Q10M 1 day 4,000 mL 0RF Z12.11 - Encounter for screening for malignant neoplas m of colon COLONOSCOPY 01/12/23 Findings: Terminal Ileum-normal Cecum:normal Ascending Colon: 10 mm sessile polyp removed with cold snare Transverse Colon -normal Descending Colon:normal Sigmoid Colon: moderate severe diverticulosis with mild resolving patchy erythema Rectum: Retroflexion with small internal hemorrhoids, grade I Anorectum - normal Impression and Post Procedure Diagnosis: polyps internal hemorrhoids diverticular disease mild resolving colitis probbaly from recent E coli Plan: High fiber diet leaflet Avoid straining at stool, epsom salts and sitz bath, anusol supps or cream Repeat Colonoscopy in 5 years due to polyp and fair left sided prep or earlier if clinically indicated BIOPSY Received: 01/12/23 Diagnosis Colon, ascending, polypectomy: Fragments of tubular adenoma; negative for high-grade dysplasia or carcinoma TODAY'S VISIT The procedure should be repeated in 5 years r/t the TA. The procedure was well tolerated. The results were explained and the patient is agreeable to the follow-up interval as stated. The bowel pattern has returned to normal. Education was provided to tell any 1st degree relatives about their findings to be sure that they are screened by age 45. Educated that they will be put on a recall list when it is time for their repeat scope but should they move out of state or away from the hospital they will need to remember along with their primary to repeat the procedure in a timely fashion to avoid any adverse complications. P.donn. REPLACED BY [facility] Medical History (Updated 01/26/23 @ 09:18 by FELIX Dawn) Diverticular disease Spondylosis of lumbar spine Obesity due to excess calories Hypothyroidism HIV (human immunodeficiency virus infection) Graves disease Hematuria Tubular adenoma Dyslipidemia History of kidney stones HIV (human immunodeficiency virus infection) Acute anxiety Surgical History (Updated 01/26/23 @ 09:10 by MONIKA Ayala) Hx of colonoscopy H/O: hysterectomy Family History Father HTN (hypertension) Mother HTN (hypertension) Diabetes Dementia Maternal Grandmother Breast cancer Maternal Aunt Breast cancer Diabetes Maternal Aunt Dementia Maternal Uncle Cancer Maternal Uncle Heart attack Maternal Aunt HTN (hypertension) Social History Household Members: None and Other Household Members Other:: grandson Housing: Apartment Alcohol intake: current Alcohol intake frequency: holidays/special occasions only Patient Tobacco Use Status: Never used Tobacco Substance Use Type: Marijuana Review of Systems Const Denies fatigue, Denies fever(s), Denies night sweats, Denies poor appetite and Denies weight loss Eyes Details: glasses Reports requires corrective lenses ENT Reports Normal hearing present, Denies dental pain, Denies dysphagia, Denies hearing loss, Denies mouth pain, Denies odynophagia, Denies throat swelling, Denies tongue swelling and Reports other (Dentition adequate) Card Reports no additional complaints Resp Reports no additional complaints GI Denies abdominal pain, Denies melena, Denies bloating, Denies hematochezia, Denies constipation, Denies GI cramping, Denies dysphagia, Denies excessive flatus, Denies early satiety, Denies heartburn, Denies diarrhea, Denies nausea, Denies odynophagia, Denies vomiting and Denies hematemesis Skin/Breast Denies pruritus, Denies lesions, Denies rash and Denies jaundice Neuro Reports Normal hearing present and Denies Abnormal speech present Psych Reports abnormal sleep pattern and Reports anxiety Endo Denies fatigue Aller/Immun Denies throat swelling and Denies tongue swelling Physical Exam Vital Signs: Last Vital Signs Pulse 69 01/26/23 08:58 BP 137/81 01/26/23 08:58 BMI result Body Mass Index 27.5 Const General: cooperative, no acute distress, well developed and well groomed Nutritional Appearance: average body habitus and well nourished Orientation/consciousness: oriented to person, oriented to place and oriented to time Limitations: No language barrier HEENT Head: Yes normocephalic and Yes atraumatic Eyes General: appearance normal, both eyes and all related structures Pupils: Equal, round and reactive pupils present Neck Neck: Yes normal visual inspection and Yes no lymphadenopathy Thyroid: Thyroid normal Resp Effort & Inspection: normal respiratory effort and able to speak in complete sentences Auscultation: clear to auscultation bilaterally Cardio Rate: regular rate Rhythm: regular rhythm Heart sounds: Normal, physiologic split S2 sound present Peripheral pulses: radial pulses present and posterior tibial pulses present GI Inspection: No distended and No Abdominal panniculus present Palpation (GI): Soft to palpation, nontender, no guarding, not rigid and No hepatosplenomegaly present Percussion: Yes normal to percussion Auscultation: normal bowel sounds Rectal Exam - Female: deferred Skin General skin exam: no rashes or lesions noted, turgor normal, skin not dry, no jaundice, No spider nevi and no striae Rashes: no rashes Nails: normal Neuro General: oriented to person, oriented to place and oriented to time Cranial nerves: Yes Equal, round and reactive pupils present and Yes Normal hearing present Speech: No Abnormal speech present Extrem General: Yes normal to inspection, No clubbing, No cyanosis and No edema Psych Appearance: grossly normal and well kempt Mental Status: mental status grossly normal Speech and movement: Normal speech and movement present Affect: normal affect Attitude: cooperative Thought process: Normal thought process present and not confabulating Thought content: Normal thought content present Insight: Fair insight present (Psych) Judgement: Fair judgement present (Psych) Assessment & Plan Assessment & Plan (1) Tubular adenoma: Comment: 2022=TA repeat 5 years; 2018=TA Code(s): D36.9 - Benign neoplasm, unspecified site Plan: The procedure should be repeated in 5 years r/t the TA. The procedure was well tolerated. The results were explained and the patient is agreeable to the follow-up interval as stated. The bowel pattern has returned to normal. Education was provided to tell any 1st degree relatives about their findings to be sure that they are screened by age 45. Educated that they will be put on a recall list when it is time for their repeat scope but should they move out of state or away from the hospital they will need to remember along with their primary to repeat the procedure in a timely fashion to avoid any adverse complications. P.r.n. Coding Level of Care Code Est Pt Level 3 (56625) Diagnoses Tubular adenoma D36.9
[2023-01-26 08:58] VITALS: BP 137/81; PULSE 69; BMI 27.5
== END 2023-01-26 09:32 | disposition home or self-care (01) ==
PROVIDERS: PCP Family Medicine; Visit Provider Nurse Practitioner
DX: D36.9 Benign neoplasm, unspecified site (principal)
CPT/HCPCS: 99213

== ENCOUNTER → 2023-01-26 08:50 | Outpatient (BNVA) | payer MEDICAID, SELFPAY | PROVIDERS: PCP Family Medicine; Visit Provider Nurse Practitioner | DX: D36.9 Benign neoplasm, unspecified site (principal) | CPT/HCPCS: 99212 ==

== ENCOUNTER 2023-03-24 15:02 | Outpatient (REF) | payer MEDICAID, SELFPAY ==
[2023-03-24 17:18] LABS: TSH reflex Free T4 1.84 uIU/mL (0.32-4.0)
== END 2023-03-24 15:03 | disposition home or self-care (01) ==
LOC: HO.HHCL 15:02
PROVIDERS: Visit Provider Family Medicine
DX: E89.0 Postprocedural hypothyroidism (principal)
CPT/HCPCS: 36415; 84443

== ENCOUNTER 2023-03-30 12:42 | Outpatient (REF) | payer MEDICAID, SELFPAY ==
[2023-03-30 13:38] LABS: MANUAL DIFF FLAG NO
[2023-03-30 13:42] LABS: Basophils Absolute Auto 0.1 X10*3/uL (0.0-0.2); Basophils Percent Auto 0.8 % (0-2); Eosinophils Absolute Auto 0.1 X10*3/uL (0.0-0.4); Eosinophils Percent Auto 2.2 % (0-4); Hematocrit 43.3 % (37.0-47.0); Hemoglobin 14.3 g/dl (12.0-16.0); Imm Gran Abs Auto 0.02 X10*3/uL (0.00-0.03); Imm Gran Pct Auto 0.3 % (0.0-0.4); Lymphocytes Absolute Auto 1.9 X10*3/uL (1.2-4.9); Lymphocytes Percent Auto 30.7 % (20-40); Mean Corpuscular Hemoglobin 32.6 pg (27.0-33.0); Mean Corpuscular Volume 98.6 fL (80.0-98.0); Mean Platelet Volume 11.4 fL (9.4-12.3); Monocytes Absolute Auto 0.4 X10*3/uL (0.1-1.2); Monocytes Percent Auto 6.3 % (2-11); Neutrophils Absolute Auto 3.6 x10*3/uL (2.0-8.3); Neutrophils Percent Auto 59.7 % (45-73); Platelet Count 152 X10*3/uL (160-400); Red Blood Count 4.39 X10*6/uL (4.20-5.50); Red Cell Distribution Width 13.4 % (11.0-16.0)
[2023-03-30 14:23] LABS: Syphilis Screen Nonreactive (Nonreactive)
[2023-03-30 16:26] LABS: CT PCR NOT DETECTED (Not Detect.); NG PCR NOT DETECTED (Not Detect.)
[2023-03-31 08:02] LABS: ~HepC Num1 0.16 S/CO (0.00-0.79); ~Hepatitis C Antibody Nonreactive (Nonreactive)
[2023-03-31 11:53] LABS: Absolute CD3 Count 1516 cells/uL (840-3060); Absolute CD4 Count 762 cells/uL (490-1740); Absolute CD8 Count 725 cells/uL (180-1170); Absolute Lymphocytes 1995 cells/uL (850-3900); CD4 CD8 Ratio 1.05 (0.86-5.00); Percent CD3 Cells 76 % (57-85); Percent CD4 Cells 38 % (30-61); Percent CD8 Cells 36 % (12-42)
[2023-04-01 13:19] LABS: HIV RNA PCR Qn Copies NOT DETECTED copies/mL (NOT DETECTED); HIV RNA PCR Qn Log Copies NOT DETECTED (NOT DETECTED)
== END 2023-03-30 12:43 | disposition home or self-care (01) ==
LOC: HO.MAMMO 12:42
PROVIDERS: PCP Family Medicine; Referring Provider Internal Medicine Infectious Disease; Visit Provider Family Medicine
DX: Z12.31 Encounter for screening mammogram for malignant neoplasm of breast (principal); B20 Human immunodeficiency virus [HIV] disease
CPT/HCPCS: 0353U; 77063; 77067; 85025; 86359; 86360; 86780; 86803; 87536

== ENCOUNTER → 2023-03-30 13:00 | Outpatient (BNV) | payer MEDICAID, SELFPAY | PROVIDERS: PCP Family Medicine; Referring Provider Internal Medicine Infectious Disease; Visit Provider Radiology Diagnostic Radiology | DX: Z12.31 Encounter for screening mammogram for malignant neoplasm of breast (principal) | CPT/HCPCS: 77063; 77067 ==

== ENCOUNTER 2023-04-13 12:18 | Outpatient (REF) | payer MEDICAID, SELFPAY | END 2023-04-13 12:19 | disposition home or self-care (01) | LOC: HO.HHCL 12:18 | PROVIDERS: Visit Provider Family Medicine | DX: E78.5 Hyperlipidemia, unspecified (principal) | CPT/HCPCS: 36415; 80061 ==

== ENCOUNTER 2023-05-08 09:38 | Emergency (ER) | payer MEDICAID, SELFPAY ==
[2023-05-08 09:46] VITALS: BP 150/84; PULSE 106; O2SAT 98
[2023-05-08 10:06] VITALS: BP 161/94; PULSE 87; RESP 16; TEMP 37.5; O2SAT 99; BMI 24.5
[2023-05-08 10:14] VITALS: RESP 16
--- OUTSIDE RECORDS SUMMARY | 2023-05-08 10:20 | XMS_ITS | Continuity of Care Document ---
Author Name Unknown Organization [facility] Address [address] [place] [address]- Care Team Providers Care Smoking Tobacco Packing Machine Hand Name Role Phone Janette IBRAHIM, Sarah Primary Care Physician [phone] Encounter [facility] Date(s): 03/24/23 - 04/23/23 [facility] [address] [place] [id number] Allergies, Adverse Reactions, Alerts Substance Reaction Severity [...] 14:48:19 Start Date: 03/01/17 Status: Ordered NuLYTELY [place] oral powder for reconstitution 240 mL, By [...] Care Team Personnel Name: Irene Nelson Position: [facility] Outreach Member Role: Lifetime Consulting Physician Name: Sarah Savage MD Position: [facility] Outreach Member Role: PCP Address: Address: [address] [place] [id number]- Care Team Related Persons Name: PARAM FOURNIER Address: home [address] [place] [address] Name: ORLANDO LOPEZ
--- OUTSIDE RECORDS SUMMARY | 2023-05-08 10:20 | XMS_ITS | Continuity of Care Document ---
Author Name Unknown Organization [facility] Address [address] [place] [address]- Care Team Providers Care Terminal Make Up Operator Name Role Phone Janette IBRAHIM, Sarah Primary Care Physician [phone] Encounter [facility] Date(s): 12/23/22 - 01/22/23 [facility] [address], [place] [address] Allergies, Adverse Reactions, Alerts Substance [...] 14:48:19 Start Date: 03/01/17 Status: Ordered NuLYTELY [place] oral powder for reconstitution 240 mL, By [...] Care Team Personnel Name: Irene Nelson Position: [facility] Outreach Member Role: Lifetime Consulting Physician Name: Sarah Savage MD Position: [facility] Outreach Member Role: PCP Address: Address: [address] [place] [address]- Care Team Related Persons Name: PARAM FOURNIER Address: home [address] [place] [address]
--- NOTE | 2023-05-08 10:26 | ECG_ITS ---
Test Reason : PALPITATIONS Blood Pressure : / mmHG Vent. Rate : 088 BPM Atrial Rate : 088 BPM P-R Int : 130 ms QRS Dur : 078 ms QT Int : 356 ms P-R-T Axes : 058 017 040 degrees QTc Int : 430 ms Normal sinus rhythm Possible Left atrial enlargement Borderline ECG When compared with ECG of 09-JUN-2010 19:29, No significant change was found Referred By: Haleigh Weiss Electronically Signed By:SURAJ FIELDS MD
--- NOTE | 2023-05-08 10:30 | PC.NURSE ---
pt is a&ox4 coming in with anxiety and heart palpitations, denies cp. states was taken off meds and started on new one and has been feeling anxious since . JOHNATHAN, ankitaies n/v/d.
[2023-05-08 10:33] LABS: MANUAL DIFF FLAG NO
[2023-05-08] MEDS: Midazolam HCl/PF 2 MG/2 ML VIAL IVPUSH (10:33)
[2023-05-08] MEDS: 0.9 % Sodium Chloride 1,000 ML 999 ML IV (10:33)
[2023-05-08 10:36] LABS: Basophils Percent Auto 0.3 % (0-2); Eosinophils Percent Auto 0.4 % (0-4); Hematocrit 44.8 % (37.0-47.0); Imm Gran Abs Auto 0.02 X10*3/uL (0.00-0.03); Imm Gran Pct Auto 0.2 % (0.0-0.4); Lymphocytes Absolute Auto 1.6 X10*3/uL (1.2-4.9); Lymphocytes Percent Auto 15.9 % (20-40); Mean Corpuscular HGB Conc 33.5 g/dl (31.0-35.0); Mean Corpuscular Hemoglobin 32.3 pg (27.0-33.0); Mean Corpuscular Volume 96.6 fL (80.0-98.0); Mean Platelet Volume 10.8 fL (9.4-12.3); Monocytes Absolute Auto 0.5 X10*3/uL (0.1-1.2); Monocytes Percent Auto 5.4 % (2-11); Neutrophils Absolute Auto 7.6 x10*3/uL (2.0-8.3); Neutrophils Percent Auto 77.8 % (45-73); Platelet Count 252 X10*3/uL (160-400); Red Blood Count 4.64 X10*6/uL (4.20-5.50); Red Cell Distribution Width 13.6 % (11.0-16.0); White Blood Count 9.8 X10*3/uL (4.8-10.8)
--- NOTE | 2023-05-08 10:44 | ED.ANXIETY ---
HPI - Anxiety General Chief Complaint: Anxiety Stated Complaint: anxious, lithium not working, heart palp Time Seen by Provider: 05/08/23 09:51 Source: patient Mode of arrival: EMS Limitations: no limitations History of Present Illness HPI narrative: 62 yo female with PMH of hypothyroidism, HIV, kidney stones, HLD, chronic back pain, here with c/o being on 2mg clonazepam BID for years Rx by a provider in [place]. She just received one month Rx emergency from a provider here but has no psychiatrist - she was not tapered down and went cold turkey as of . This provider from [place] also started her on lithium and she has no hx of mood disorder, schizoaffective or bipolar. She has never taken lithium before. She has shakes, tremors, anxiety. No hallucinations. She feels terrible and has never gone through benzo withdrawal before. Her heart was racing this AM and she was scared. MD complaint: anxiety and heart racing Onset (ago): day(s) (Tuesday) Symptoms: palpitations, perioral numbness/tingling, dry mouth and sense of impending doom Severity: moderate Quality: constant Place: home History of similar episodes: No Provoking factors: other (cold turkey off of clonazepam 2mg BID) Relieving factors: nothing Exacerbating factors: nothing Associated symptoms: palpitations Related Data Home Medications Medication Instructions Recorded Confirmed abacavir 600 mg-dolutegravir 50 1 tab PO QAM 02/08/20 12/30/22 mg-lamivudine 300 mg tablet (Triumeq) cyclobenzaprine 10 mg tablet 10 mg PO BEDTIME 02/08/20 12/30/22 darunavir 800 mg-cobicistat 150 mg 1 tab PO DAILY 02/08/20 12/30/22 tablet (Prezcobix) fexofenadine 180 mg tablet 180 mg PO DAILY 02/08/20 12/30/22 (Vesta Allergy) naproxen sodium 220 mg capsule 220 mg PO BID PRN 02/08/20 12/30/22 (Aleve) cholecalciferol (vitamin D3) 50 50 mcg PO DAILY 02/18/21 12/30/22 mcg (2,000 unit) capsule suvorexant 20 mg tablet (Belsomra) 20 mg PO BEDTIME PRN 11/10/21 09/21/23 clonazepam 2 mg tablet 2 mg PO BID PRN 01/26/23 levothyroxine 112 mcg tablet 112 mcg PO QAM 01/26/23 Previous Rx's Medication Instructions Recorded mirabegron 50 mg tablet,extended 50 mg PO DAILY #90 tabs 01/24/23 release 24 hr (Myrbetriq) clonazepam 1 mg tablet 1 mg PO .taper #62 tabs 05/08/23 Allergies Allergy/AdvReac Type Severity Reaction Status Date / Time penicillin V Allergy Unknown anaphylaxis Verified 01/26/23 09:02 Penicillins [PENICILLINS] Allergy Unknown UNKNOWN Verified 01/26/23 09:02 seasonal allergies Allergy Unknown Difficulty Uncoded 01/24/23 14:47 Breathing Review of Systems Review of Systems: Constitutional : No Fever, No Chills ENT/Mouth : No Ear Pain, No Nasal Congestion, No sore throat Eyes: No Eye Pain, No Swelling, No Redness Cardiovascular : No Chest Pain, No SOB, pos palpitations Respiratory : No Cough, No Sputum, No Dyspnea Gastrointestinal : No Nausea, No Vomiting, No Diarrhea, No Hematochezia, No Melena Genitourinary : No Dysuria, No Urinary Frequency, No Hematuria Musculoskeletal : No Myalgias Skin : No Skin Lesions, No rash Neuro : No Weakness, No Numbness, No Paresthesias, No Dizziness, No Headache, no hallucinations Psych : positive Anxiety, no Depression, no SI/HI Heme/Lymph: No Lymphadenopathy Endocrine : No Polyuria, No Polydipsia All other systems reviewed and are negative PMFSH Past Medical History Attestation statement: The following information was validated with the patient. Source: old records reviewed Medical History Diverticular disease Spondylosis of lumbar spine Obesity due to excess calories Hypothyroidism HIV (human immunodeficiency virus infection) Graves disease Hematuria Tubular adenoma Dyslipidemia History of kidney stones HIV (human immunodeficiency virus infection) Acute anxiety Surgical History Hx of colonoscopy H/O: hysterectomy Family History Family History Father HTN (hypertension) Mother HTN (hypertension) Diabetes Dementia Maternal Grandmother Breast cancer Maternal Aunt Breast cancer Diabetes Maternal Aunt Dementia Maternal Uncle Cancer Maternal Uncle Heart attack Maternal Aunt HTN (hypertension) Social History Social History Household Members: None and Other Household Members Other:: grandson Housing: Apartment Alcohol intake: current Alcohol intake frequency: holidays/special occasions only Patient Tobacco Use Status: Never used Tobacco Smoked in Last 30 Days: No Use of substances other than those prescribed or required for medical reasons: No Substance Use Type: Marijuana Advance Directives: No Advance Directives Information Provided: No Advance Directives on File: No Patient : No Physical Exam Vital Signs: Vital Signs: Last Vital Signs Temp 98.5 F 05/08/23 12:00 Pulse 89 05/08/23 12:00 Resp 16 05/08/23 12:00 BP 170/91 H 05/08/23 12:00 Pulse Ox 99 05/08/23 12:00 O2 Del Method Room Air 05/08/23 12:00 BMI result Body Mass Index 24.5 Appearance: Alert. Oriented X3. No acute distress. Anxious Eyes: Pupils equal, round and reactive to light. ENT: Pharynx normal. Neck: Normal inspection. Neck supple. CVS: Normal heart rate and rhythm. Pulses normal. Respiratory: No respiratory distress. Breath sounds normal. Abdomen: Soft and nontender. Skin: Skin warm and dry. Normal skin color. Normal skin turgor. Extremities: No lower extremity edema. No calf ttp Neuro: Oriented X 3. No motor deficit. No sensory deficit. Tremors of hands and mouth Course Course Course Narrative: much improved tremors gone HR in 70s, oral medications ordered Reevaluation(s) Reevaluation #1: much better CARE team will help get urgent therapy/psych referral I will start her on benzo taper and hold lithium Reevaluation #2: there is no psychiatrist to Rx her long Rx but 1 month taper - high risk withdrawal Medications Administered Discontinued Medications Generic Name Dose Route Start Last Admin Trade Name Freq PRN Reason Stop Dose Admin Clonazepam 2 mg 05/08/23 11:39 05/08/23 12:05 Clonazepam 1 Mg Tablet PO 05/08/23 11:40 2 mg ONCE ONE Administration Sodium Chloride 1,000 mls @ 999 mls/hr 05/08/23 10:30 05/08/23 11:44 Ns IV 05/08/23 11:30 Infused .Q1H1M ENMANUEL Infusion Midazolam HCl 2 mg 05/08/23 10:25 05/08/23 10:33 Midazolam Hcl/Pf 2 Mg/2 Ml Vial IVPUSH 05/08/23 10:26 2 mg ONCE ONE Administration Medical Decision Making Medical Decision Making [facility] Narrative: 62 yo female with PMH of anxiety here with c/o feeling weird and anxiety/tremors with elevated HR after cold turkey off clonazepam 2mg BID and also being started on lithium 150mg BID - at this time will obtain labs, Cr, [place] level, IV versed and PO clonazepam. Will involve psych or CARE team and likely put her on a taper pending any abnormality or no improvement she is not hallucinating and is acting normally. Differential Diagnosis Differential Diagnoses: The differential diagnosis associated with the presentation includes benzo withdrawal, lithium reaction, lyte abnormality Admission/Observation Consideration of admission/observation: Escalation of care including admission/observation considered Lab Data [facility] Lab Attestation statement: I reviewed the patient's lab results. 05/08/23 10:27 05/08/23 10:27 Labs: Lab Results 05/08/23 Range/Units 10:27 WBC 9.8 (4.8-10.8) X10*3/uL RBC 4.64 (4.20-5.50) X10*6/uL Hgb 15.0 (12.0-16.0) g/dl Hct 44.8 (37.0-47.0) % MCV 96.6 (80.0-98.0) fL MCH 32.3 (27.0-33.0) pg MCHC 33.5 (31.0-35.0) g/dl RDW 13.6 (11.0-16.0) % Plt Count 252 D (160-400) X10*3/uL MPV 10.8 (9.4-12.3) fL Immature Gran % (Auto) 0.2 (0.0-0.4) % Neut % (Auto) 77.8 H (45-73) % Lymph % (Auto) 15.9 L (20-40) % Kinney % (Auto) 5.4 (2-11) % Eos % (Auto) 0.4 (0-4) % Baso % (Auto) 0.3 (0-2) % Lymph # (Auto) 1.6 (1.2-4.9) X10*3/uL Kinney # (Auto) 0.5 (0.1-1.2) X10*3/uL Eos # (Auto) 0.0 (0.0-0.4) X10*3/uL Baso # (Auto) 0.0 (0.0-0.2) X10*3/uL Abs Immat Gran (auto) 0.02 (0.00-0.03) X10*3/uL Absolute Neuts (auto) 7.6 (2.0-8.3) x10*3/uL Absolute Nucleated RBC 0.000 (0.0-0.012) X10*3/uL Nucleated RBC % (auto) 0.0 (0.0-0.2) /100WBC Sodium 143 (135-145) mmol/L Potassium 4.4 (3.3-5.1) mmol/L Chloride 109 H (96-108) mmol/L Carbon Dioxide 23 (22-29) mmol/L Anion Gap 15 (12-20) BUN 9 (9-16) mg/dL Creatinine 1.05 (0.5-1.4) mg/dL Estim Creat Clear Calc 50.6 Estimated GFR 53 Random Glucose 108 (60-115) mg/dL Calcium 10.2 D (8.4-10.2) mg/dL Magnesium 2.3 (1.6-2.6) mg/dL Total Bilirubin 0.3 (0.0-1.0) mg/dL Direct Bilirubin 0.1 (0.0-0.5) mg/dL AST 12 (5-31) U/L ALT 8 (0-31) U/L Alkaline Phosphatase 71 (39-117) U/L Total Protein 8.1 H (6.5-8.0) g/dL Albumin 4.8 (3.5-5.0) g/dL TSH 1.77 (0.32-4.0) uIU/mL [place] < 0.10 L (0.60-1.20) mmol/L Independent Interpretation I performed an independent interpretation of an: EKG Interpretation: Rate: 88 Rhythm:NSR [place]: normal Normal P waves. Normal ALEXIS. Normal QRS complex. ST T wave : normal no LEONARDO qTC: 430 prior studies: no acute ischemia The study has been interpreted contemporaneously by me. . Discharge Plan Discharge Clinical Impression: Benzodiazepine withdrawal Qualifiers: Complication of substance-induced condition: uncomplicated Qualified Code(s): F13.930 - Sedative, hypnotic or anxiolytic use, unspecified with withdrawal, uncomplicated Patient Disposition: Home, Self-Care Instructions: Clonazepam (By mouth) Additional Instructions: stop taking the lithium. follow up with resources for from CARE team. you will need to taper off clonazepam return for hallucinations, suicidal ideation, heart racing, chest pain Prescriptions: New clonazepam 1 mg tablet 1 mg PO .taper Qty: 62 0RF Rx Instructions: 2mg BID for 5 days then 1mg BID for 2 weeks then 0.5mg BID for 1 week then 0.5mg for 1 week then 0.5mg every other day then stop No Action Prezcobix 800-150 mg-mg tablet 1 tab PO DAILY Rx Instructions: must administer with a meal/food Triumeq 600-50-300 mg tablet 1 tab PO QAM cyclobenzaprine 10 mg tablet 10 mg PO BEDTIME naproxen sodium [Aleve] 220 mg capsule 220 mg PO BID PRN fexofenadine [Vesta Allergy] 180 mg tablet 180 mg PO DAILY Belsomra 20 mg tablet 20 mg PO BEDTIME PRN cholecalciferol (vitamin D3) 50 mcg (2,000 unit) capsule 50 mcg PO DAILY clonazepam 2 mg tablet 2 mg PO BID PRN levothyroxine 112 mcg tablet 112 mcg PO QAM Myrbetriq 50 mg tablet extended release 24 hr 50 mg PO DAILY Qty: 90 1RF Interventions: ED Discharge Assessment Last Done: 05/08/23 12:26 Discharge Date/Time: 05/08/23 12:26
[2023-05-08 11:00] LABS: Lithium < 0.10 mmol/L (0.60-1.20)
[2023-05-08 11:03] LABS: Alanine Aminotransferase 8 U/L (0-31); Albumin Level 4.8 g/dL (3.5-5.0); Alkaline Phosphatase 71 U/L (39-117); Anion Gap 15 (12-20); Aspartate Amino Transferase 12 U/L (5-31); Bilirubin Direct 0.1 mg/dL (0.0-0.5); Bilirubin Total 0.3 mg/dL (0.0-1.0); Blood Urea Nitrogen 9 mg/dL (9-16); Calcium 10.2 mg/dL (8.4-10.2); Carbon Dioxide 23 mmol/L (22-29); Chloride 109 mmol/L (96-108); Creatinine Clr Calc Pharmacy 50.6; Estimated Glomerular Filt Rate 53; Glucose Random 108 mg/dL (60-115); Magnesium 2.3 mg/dL (1.6-2.6); Potassium 4.4 mmol/L (3.3-5.1); Sodium 143 mmol/L (135-145); Total Protein 8.1 g/dL (6.5-8.0)
[2023-05-08 11:56] LABS: TSH reflex Free T4 1.77 uIU/mL (0.32-4.0)
[2023-05-08 12:00] VITALS: BP 170/91; PULSE 89; RESP 16; TEMP 36.9; O2SAT 99
[2023-05-08] MEDS: clonazePAM 1 MG TABLET 2 MG PO (12:05)
== END 2023-05-08 12:26 | disposition home or self-care (01) ==
PROVIDERS: Emergency Provider Emergency Medicine; PCP Family Medicine
DX: F13.930 Sedative, hypnotic or anxiolytic use, unspecified with withdrawal, uncomplicated (principal); F41.1 Generalized anxiety disorder; F43.0 Acute stress reaction; R00.2 Palpitations; Z79.899 Other long term (current) drug therapy
CPT/HCPCS: 36415; 80048; 80076; 80178; 83735; 84443; 85025; 93005; 96361; 96374; 99284; 99285; J2250

== ENCOUNTER → 2023-05-08 10:26 | Outpatient (BNV) | payer MEDICAID, SELFPAY | PROVIDERS: Emergency Provider Emergency Medicine; PCP Family Medicine; Visit Provider Internal Medicine Cardiovascular Disease | DX: R00.2 Palpitations (principal) | CPT/HCPCS: 93010 ==

== ENCOUNTER 2023-05-23 12:46 | Emergency (ER) | payer MEDICAID, SELFPAY ==
--- NOTE | 2023-05-23 12:53 | ECG_ITS ---
Test Reason : PALPITATIONS Blood Pressure : / mmHG Vent. Rate : 111 BPM Atrial Rate : 111 BPM P-R Int : 128 ms QRS Dur : 082 ms QT Int : 332 ms P-R-T Axes : 063 008 073 degrees QTc Int : 451 ms Sinus tachycardia Possible Left atrial enlargement Borderline ECG When compared with ECG of 08-MAY-2023 10:11, No significant change was found Referred By: Sadaf Hernandez Electronically Signed By:Marlo Holguin
[2023-05-23 12:56] VITALS: BP 156/95; PULSE 121; RESP 17; TEMP 36.7; O2SAT 98; BMI 27.5
--- NOTE | 2023-05-23 12:59 | ED.GENADULT ---
HPI - General Adult General Chief complaint: General Medical Stated complaint: anxiety, chest pain, high bp Time Seen by Provider: 05/23/23 16:39 Source: patient Mode of arrival: ambulatory Limitations: no limitations History of Present Illness HPI narrative: Patient is a 62 year old assigned female at with a history of anxiety presenting to the emergency department today with multiple complaints. Patient states that she is feeling much more anxious than usual and believes it to be because she was taken off of her klonopin. Patient states that she is hoping to get more while here. Patient denies any current complaints including: dizziness, lightheadedness, abdominal pain, nausea, vomiting, fever, chills, blurry vision, double vision, loss of vision, chest pain, difficulty breathing, shortness of breath, back pain, night sweats, pain with urination, increased urinary frequency, increased urinary urgency, blood in her urine or stool, syncope or a near syncopal episode, recent trauma or falls, bowel incontinence, bladder incontinence, bowel retention, and bladder retention. Patient states that earlier she was having a lot of symptoms including dizziness and nausea. Treatments prior to arrival: none Related Data Home Medications Medication Instructions Recorded Confirmed abacavir 600 mg-dolutegravir 50 1 tab PO QAM 02/08/20 12/30/22 mg-lamivudine 300 mg tablet (Triumeq) cyclobenzaprine 10 mg tablet 10 mg PO BEDTIME 02/08/20 12/30/22 darunavir 800 mg-cobicistat 150 mg 1 tab PO DAILY 02/08/20 12/30/22 tablet (Prezcobix) fexofenadine 180 mg tablet 180 mg PO DAILY 02/08/20 12/30/22 (Vesta Allergy) naproxen sodium 220 mg capsule 220 mg PO BID PRN 02/08/20 12/30/22 (Aleve) cholecalciferol (vitamin D3) 50 50 mcg PO DAILY 02/18/21 12/30/22 mcg (2,000 unit) capsule suvorexant 20 mg tablet (Belsomra) 20 mg PO BEDTIME PRN 02/18/21 12/30/22 clonazepam 2 mg tablet 2 mg PO BID PRN 01/26/23 levothyroxine 112 mcg tablet 112 mcg PO QAM 01/26/23 Previous Rx's Medication Instructions Recorded mirabegron 50 mg tablet,extended 50 mg PO DAILY #90 tabs 01/24/23 release 24 hr (Myrbetriq) clonazepam 1 mg tablet 1 mg PO .taper #62 tabs 05/08/23 Allergies Allergy/AdvReac Type Severity Reaction Status Date / Time penicillin V Allergy Unknown anaphylaxis Verified 01/26/23 09:02 Penicillins [PENICILLINS] Allergy Unknown UNKNOWN Verified 01/26/23 09:02 seasonal allergies Allergy Unknown Difficulty Uncoded 01/24/23 14:47 Breathing Review of Systems Constitutional: Constitutional: Reports no additional constitutional complaints, Denies chills, Denies fever(s) and Denies night sweats Eyes: Eyes: Reports no additional eye complaints, Denies blurry vision, Denies change in vision, Denies diplopia, Denies eye discharge, Denies loss of vision and Denies eye pain ENT: Denies dizziness Cardiovascular: Cardiovascular: Reports no additional cardiovascular complaints, Denies chest pain, Denies lightheadedness, Denies Loss of Consciousness and Denies dyspnea Respiratory: Respiratory: Reports no additional respiratory complaints and Denies dyspnea Gastrointestinal: Gastrointestinal: Reports no additional gastrointestinal complaints, Denies abdominal pain, Denies melena, Denies hematochezia, Denies change in bowel habits and Denies change in stool character Genitourinary: Genitourinary: Denies hematuria, Denies urinary frequency, Denies dysuria, Denies urinary incontinence, Denies urinary hesitancy and Denies urinary urgency Musculoskeletal: Musculoskeletal: Reports no additional musculoskeletal complaints, Denies numbness and Denies tingling Neurologic: Denies dizziness, Denies loss of vision, Denies numbness and Denies tingling Psychiatric: Psychiatric: Reports no additional psychiatric complaints Endocrine: Endocrine: Reports no additional endocrine complaints Hematologic/Lymphatic: Hematologic/Lymphatic: Reports no additional hematologic/lymphatic complaints Allergic/Immunologic: Allergic/Immunologic: Reports no additional allergic/immunologic complaints PMFSH Past Medical History Attestation statement: The following information was validated with the patient. Source: old records reviewed and nursing notes reviewed Medical History Diverticular disease Spondylosis of lumbar spine Obesity due to excess calories Hypothyroidism HIV (human immunodeficiency virus infection) Graves disease Hematuria Tubular adenoma Dyslipidemia History of kidney stones HIV (human immunodeficiency virus infection) Acute anxiety Surgical History Hx of colonoscopy H/O: hysterectomy Family History Family History Father HTN (hypertension) Mother HTN (hypertension) Diabetes Dementia Maternal Grandmother Breast cancer Maternal Aunt Breast cancer Diabetes Maternal Aunt Dementia Maternal Uncle Cancer Maternal Uncle Heart attack Maternal Aunt HTN (hypertension) Social History Social History Household Members: None and Other Household Members Other:: grandson Housing: Apartment Alcohol intake: current Alcohol intake frequency: holidays/special occasions only Patient Tobacco Use Status: Never used Tobacco Substance Use Type: Marijuana Advance Directives: No Physical Exam ED Vital Signs: BMI result Body Mass Index 27.5 Const General: cooperative, no acute distress, alert and awake Nutritional Appearance: well nourished Orientation/consciousness: patient oriented x3 Limitations: no limitations HENMT Head: Yes normal to inspection and Yes atraumatic Ears: hearing grossly normal bilaterally and external ears normal General nose exam: Normal external nose present, no nasal discharge noted and no epistaxis Face and sinus: Yes normal facial exam, No abrasion and No laceration Mouth: Normal oral and palatal mucosa present, no drooling and no muffled voice Eyes General: appearance normal, both eyes and all related structures Periorbital: periorbital findings normal Eyelids: Yes eyelids normal Conjunctivae: conjunctivae normal Pupils: Equal, round and reactive pupils present EOM: EOMs intact bilaterally Neck Neck: Yes normal visual inspection, Yes full ROM and Yes no lymphadenopathy Chest Chest palpation & inspection: normal inspection of the chest Resp Effort & Inspection: normal respiratory effort and able to speak in complete sentences GI Inspection: Yes normal to inspection Neuro General: patient oriented x3 and moves all extremities Cranial nerves: Yes Equal, round and reactive pupils present Cognition (Neuro): normal cognition Motor exam (neuro): 5/5 motor strength present throughout Sensory Exam: Normal double simultaneous stimulation for sensation Coordination: [id number] test normal Extrem General: Yes normal to inspection, Yes full ROM and Yes capillary refill normal Psych Appearance: grossly normal Mental Status: mental status grossly normal Affect: normal affect Attitude: cooperative Thought process: Normal thought process present Thought content: Normal thought content present Insight: Good insight present (Psych) Course Course Course Narrative: RME performed by Sadaf Hernandez PA-C. Patient is a 62 year old assigned female at presenting to the emergency department with increased anxiety. Patient was seen here on 05/08/2023 for a similar issue surrounding her stopping of a benzo type medication. Detailed physical exam and review of systems are deferred to the [facility] on aging director. Labs ordered. Patient placed back in the waiting room pending room availability and results. Medical Decision Making Medical Decision Making MDM Narrative: Patient is a 62 year old assigned female at with a history of anxiety presenting to the emergency department today with multiple resolved complaints and requesting more klonopin. Patient's limited physical exam performed in triage was unremarkable. Patient's blood work was unremarkable. Patient's EKG was unremarkable. Patient left the department before myself or any of the other emergency department clinicians could review or explain physical exam findings, test results, need or lack there of for additional testing, treatment options, or a treatment plan. Differential Diagnosis Differential Diagnoses: The differential diagnosis associated with the presentation includes Anxiety Medication requests Benzo withdrawal Admission/Observation Consideration of admission/observation: Escalation of care including admission/observation considered Patient would have been admitted to the hospital had her work up had any findings where hospital admission was appropriate, her clinical presentation warranted hospital admission, and she hadn't left the department. Lab Data MDM Lab Attestation statement: I reviewed the patient's lab results. My interpretation of these studies and their corresponding values is that they are grossly normal. 05/23/23 13:23 05/23/23 13:23 Labs: Lab Results 05/23/23 Range/Units 13:23 WBC 7.4 (4.8-10.8) X10*3/uL RBC 4.32 (4.20-5.50) X10*6/uL Hgb 14.0 (12.0-16.0) g/dl Hct 42.1 (37.0-47.0) % MCV 97.5 (80.0-98.0) fL MCH 32.4 (27.0-33.0) pg MCHC 33.3 (31.0-35.0) g/dl RDW 13.5 (11.0-16.0) % Plt Count 246 (160-400) X10*3/uL MPV 10.6 (9.4-12.3) fL Immature Gran % (Auto) 0.3 (0.0-0.4) % Neut % (Auto) 70.5 (45-73) % Lymph % (Auto) 20.5 (20-40) % [place] % (Auto) 6.7 (2-11) % Eos % (Auto) 1.6 (0-4) % Baso % (Auto) 0.4 (0-2) % Lymph # (Auto) 1.5 (1.2-4.9) X10*3/uL [place] # (Auto) 0.5 (0.1-1.2) X10*3/uL Eos # (Auto) 0.1 (0.0-0.4) X10*3/uL Baso # (Auto) 0.0 (0.0-0.2) X10*3/uL Abs Immat Gran (auto) 0.02 (0.00-0.03) X10*3/uL Absolute Neuts (auto) 5.2 (2.0-8.3) x10*3/uL Absolute Nucleated RBC 0.000 (0.0-0.012) X10*3/uL Nucleated RBC % (auto) 0.0 (0.0-0.2) /100WBC Sodium 142 (135-145) mmol/L Potassium 3.9 (3.3-5.1) mmol/L Chloride 110 H (96-108) mmol/L Carbon Dioxide 23 (22-29) mmol/L Anion Gap 13 (12-20) BUN 11 (9-16) mg/dL Creatinine 0.92 (0.5-1.4) mg/dL Estim Creat Clear Calc 60.4 Estimated GFR > 60 Random Glucose 101 (60-115) mg/dL Calcium 9.7 (8.4-10.2) mg/dL Magnesium 2.2 (1.6-2.6) mg/dL Total Bilirubin 0.3 (0.0-1.0) mg/dL AST 12 (5-31) U/L ALT 8 (0-31) U/L Alkaline Phosphatase 64 (39-117) U/L Troponin I High Sens < 2.7 (<3.5-17.0) ng/L Total Protein 7.3 (6.5-8.0) g/dL Albumin 4.4 (3.5-5.0) g/dL TSH 1.15 (0.32-4.0) uIU/mL Independent Interpretation I performed an independent interpretation of an: EKG Interpretation: Vent. Rate: 111 BPM Atrial Rate: 111 BPM P-R Int: 128 ms QRS Dur: 082 ms QT Int: 332 ms P-R-T Axes: 063 008 073 degrees QTc Int: 451 ms Sinus tachycardia Possible Left atrial enlargement Borderline ECG When compared with ECG of 08-MAY-2023 10:11, No significant change was found Referred By: Sadaf Hernandez Electronically Signed By:Marlo Holguin Dictated By: Marlo Holguin MD Signed By: Electronically signed by Marlo Holguin MD 05/23/232131 Discharge Plan Discharge Clinical Impression: Anxiety Patient Disposition: Left W/O Completing Treatment Prescriptions: No Action clonazepam 1 mg tablet 1 mg PO .taper Qty: 62 0RF Rx Instructions: 2mg BID for 5 days then 1mg BID for 2 weeks then 0.5mg BID for 1 week then 0.5mg for 1 week then 0.5mg every other day then stop Prezcobix 800-150 mg-mg tablet 1 tab PO DAILY Rx Instructions: must administer with a meal/food Triumeq 600-50-300 mg tablet 1 tab PO QAM cyclobenzaprine 10 mg tablet 10 mg PO BEDTIME naproxen sodium [Aleve] 220 mg capsule 220 mg PO BID PRN fexofenadine [Vesta Allergy] 180 mg tablet 180 mg PO DAILY Belsomra 20 mg tablet 20 mg PO BEDTIME PRN cholecalciferol (vitamin D3) 50 mcg (2,000 unit) capsule 50 mcg PO DAILY clonazepam 2 mg tablet 2 mg PO BID PRN levothyroxine 112 mcg tablet 112 mcg PO QAM Myrbetriq 50 mg tablet extended release 24 hr 50 mg PO DAILY Qty: 90 1RF Discharge Date/Time: 05/23/23 18:22
[2023-05-23 13:27] LABS: MANUAL DIFF FLAG NO
[2023-05-23 13:30] LABS: Basophils Percent Auto 0.4 % (0-2); Eosinophils Absolute Auto 0.1 X10*3/uL (0.0-0.4); Eosinophils Percent Auto 1.6 % (0-4); Hematocrit 42.1 % (37.0-47.0); Imm Gran Abs Auto 0.02 X10*3/uL (0.00-0.03); Imm Gran Pct Auto 0.3 % (0.0-0.4); Lymphocytes Absolute Auto 1.5 X10*3/uL (1.2-4.9); Lymphocytes Percent Auto 20.5 % (20-40); Mean Corpuscular HGB Conc 33.3 g/dl (31.0-35.0); Mean Corpuscular Hemoglobin 32.4 pg (27.0-33.0); Mean Corpuscular Volume 97.5 fL (80.0-98.0); Mean Platelet Volume 10.6 fL (9.4-12.3); Monocytes Absolute Auto 0.5 X10*3/uL (0.1-1.2); Monocytes Percent Auto 6.7 % (2-11); Neutrophils Absolute Auto 5.2 x10*3/uL (2.0-8.3); Neutrophils Percent Auto 70.5 % (45-73); Platelet Count 246 X10*3/uL (160-400); Red Blood Count 4.32 X10*6/uL (4.20-5.50); Red Cell Distribution Width 13.5 % (11.0-16.0); White Blood Count 7.4 X10*3/uL (4.8-10.8)
[2023-05-23 13:52] LABS: Alanine Aminotransferase 8 U/L (0-31); Albumin Level 4.4 g/dL (3.5-5.0); Alkaline Phosphatase 64 U/L (39-117); Anion Gap 13 (12-20); Aspartate Amino Transferase 12 U/L (5-31); Bilirubin Total 0.3 mg/dL (0.0-1.0); Blood Urea Nitrogen 11 mg/dL (9-16); Calcium 9.7 mg/dL (8.4-10.2); Carbon Dioxide 23 mmol/L (22-29); Chloride 110 mmol/L (96-108); Creatinine Clr Calc Pharmacy 60.4; Estimated Glomerular Filt Rate > 60; Glucose Random 101 mg/dL (60-115); Magnesium 2.2 mg/dL (1.6-2.6); Potassium 3.9 mmol/L (3.3-5.1); Sodium 142 mmol/L (135-145); Total Protein 7.3 g/dL (6.5-8.0)
[2023-05-23 13:53] LABS: Troponin-I High Sensitivity < 2.7 ng/L (<3.5-17.0)
[2023-05-23 14:07] LABS: TSH reflex Free T4 1.15 uIU/mL (0.32-4.0)
== END 2023-05-23 18:22 | disposition left against medical advice (07) ==
PROVIDERS: Physician Assistant Medical; Emergency Provider Emergency Medicine; PCP Family Medicine
DX: R07.89 Other chest pain (principal); F41.9 Anxiety disorder, unspecified; Z79.899 Other long term (current) drug therapy
CPT/HCPCS: 36415; 80053; 83735; 84443; 84484; 85025; 93005; 99283

== ENCOUNTER → 2023-05-23 12:53 | Outpatient (BNV) | payer MEDICAID, SELFPAY | PROVIDERS: Emergency Provider Emergency Medicine; PCP Family Medicine; Visit Provider Internal Medicine Cardiovascular Disease | DX: R00.2 Palpitations (principal) | CPT/HCPCS: 93010 ==

== ENCOUNTER 2023-06-05 22:39 | Emergency (ER) | payer MEDICAID, SELFPAY ==
[2023-06-05 22:49] VITALS: BP 136/80; BP 160/96; PULSE 110; PULSE 96; RESP 20; TEMP 37.1; O2SAT 98; O2SAT 99; BMI 29.3
--- NOTE | 2023-06-05 23:09 | PC.NURSE ---
Pt brought in by EMS reporting aving anxiety. Recently at [facility] in [place] for a couple days where she had med changes but doesn't feel it has been helping. Was taken off of clonazepam that she has been taking for 13 years and started on hydroxyzine. She started taking CBD oil which initially helped but now feeling worse.
--- NOTE | 2023-06-05 23:41 | ED.GENADULT ---
HPI - General Adult General Chief complaint: Anxiety Stated complaint: anxiety, dr kulwant gonzalez, can't sleep, No SI/HI Time Seen by Provider: 06/05/23 23:10 Source: patient, RN notes reviewed and old records reviewed Mode of arrival: EMS Limitations: no limitations History of Present Illness HPI narrative: 62-year-old female presents for evaluation of ?anxiety. ? Patient reports that her previous psychiatrist discontinued her Klonopin in March. She was able to get 1 additional month prescription lasting her through most of April. In April she was seen in this ER and put on a Klonopin taper to prevent withdrawal symptoms as the patient is still not have a psychiatrist The patient reports successfully completing her taper. She spent 5 days at [facility]. She was started on carbamazepine and hydroxyzine She feels that these were controlling her anxiety symptoms well up until tonight She also used CBD oils over the last 2 days which she felt helped her symptoms greatly however caused which she believes to be gas cramps so she stopped using it today Patient reports that she called the ambulance because ?I took my medications and my heart was still racing and I felt lightheaded and dizzy. At the time of my evaluation she reports still feeling somewhat anxious but greatly improved 2 prior to arrival She denies any chest pain shortness of breath Related Data Home Medications Medication Instructions Recorded Confirmed abacavir 600 mg-dolutegravir 50 1 tab PO QAM 02/08/20 12/30/22 mg-lamivudine 300 mg tablet (Triumeq) cyclobenzaprine 10 mg tablet 10 mg PO BEDTIME 02/08/20 12/30/22 darunavir 800 mg-cobicistat 150 mg 1 tab PO DAILY 02/08/20 12/30/22 tablet (Prezcobix) fexofenadine 180 mg tablet 180 mg PO DAILY 02/08/20 12/30/22 (Vesta Allergy) naproxen sodium 220 mg capsule 220 mg PO BID PRN 02/08/20 12/30/22 (Aleve) cholecalciferol (vitamin D3) 50 50 mcg PO DAILY 02/18/21 12/30/22 mcg (2,000 unit) capsule suvorexant 20 mg tablet (Belsomra) 20 mg PO BEDTIME PRN 02/18/21 12/30/22 clonazepam 2 mg tablet 2 mg PO BID PRN 01/26/23 levothyroxine 112 mcg tablet 112 mcg PO QAM 01/26/23 Previous Rx's Medication Instructions Recorded mirabegron 50 mg tablet,extended 50 mg PO DAILY #90 tabs 01/24/23 release 24 hr (Myrbetriq) clonazepam 1 mg tablet 1 mg PO .taper #62 tabs 05/08/23 Allergies Allergy/AdvReac Type Severity Reaction Status Date / Time penicillin V Allergy Unknown anaphylaxis Verified 01/26/23 09:02 Penicillins [PENICILLINS] Allergy Unknown UNKNOWN Verified 01/26/23 09:02 seasonal allergies Allergy Unknown Difficulty Uncoded 01/24/23 14:47 Breathing Review of Systems Constitutional: Constitutional: Denies chills and Denies fever(s) ENT: Reports dizziness Cardiovascular: Cardiovascular: Denies chest pain, Reports rapid heart rate, Reports palpitations and Denies dyspnea Respiratory: Respiratory: Denies cough and Denies dyspnea Gastrointestinal: Gastrointestinal: Denies abdominal pain, Denies nausea and Denies vomiting Musculoskeletal: Musculoskeletal: Denies back pain Integumentary/Breasts: Skin/Breast: Denies rash Neurologic: Reports dizziness Endocrine: Endocrine: Reports palpitations PMFSH Past Medical History Medical History Diverticular disease Spondylosis of lumbar spine Obesity due to excess calories Hypothyroidism HIV (human immunodeficiency virus infection) Graves disease Hematuria Tubular adenoma Dyslipidemia History of kidney stones HIV (human immunodeficiency virus infection) Acute anxiety Surgical History Hx of colonoscopy H/O: hysterectomy Family History Family History Father HTN (hypertension) Mother HTN (hypertension) Diabetes Dementia Maternal Grandmother Breast cancer Maternal Aunt Breast cancer Diabetes Maternal Aunt Dementia Maternal Uncle Cancer Maternal Uncle Heart attack Maternal Aunt HTN (hypertension) Social History Social History Household Members: None and Other Household Members Other:: grandson Housing: Apartment Alcohol intake: current Alcohol intake frequency: holidays/special occasions only Patient Tobacco Use Status: Never used Tobacco Smoked in Last 30 Days: Yes Use of substances other than those prescribed or required for medical reasons: Yes Substance Use Type: Marijuana Any prior treatment program specific to substance use: No Advance Directives: No Advance Directives Information Provided: No Patient : No Physical Exam ED Vital Signs: Vital Signs - 24 hr 06/05/23 22:49 Temperature 98.8 F Pulse Rate 96 Respiratory Rate 20 Blood Pressure 160/96 H Pulse Oximetry 99 Oxygen Delivery Method Room Air BMI result Body Mass Index 29.3 Const General: healthy appearing, comfortable, no acute distress, alert and awake Nutritional Appearance: well nourished Orientation/consciousness: patient oriented x3 HENMT Head: Yes normocephalic and Yes atraumatic Eyes Eyelids: Yes eyelids normal Conjunctivae: conjunctivae normal Sclerae: sclerae normal Corneas: corneas normal Pupils: Equal, round and reactive pupils present EOM: EOMs intact bilaterally Neck Neck: Yes full ROM Resp Effort & Inspection: normal respiratory effort, able to speak in complete sentences and not labored Cardio Rate: regular rate Rhythm: regular rhythm GI Inspection: No distended Palpation (GI): Soft to palpation, not firm, nontender, no guarding and not rigid Skin General skin exam: elasticity normal Neuro General: patient oriented x3 Cranial nerves: Yes Equal, round and reactive pupils present and Yes Bilaterally intact EOM present Cognition (Neuro): normal cognition Extrem Other: Moving all extremities well without any obvious deformities Psych Appearance: grossly normal Mental Status: mental status grossly normal Affect: normal affect Attitude: cooperative Thought process: Normal thought process present Thought content: suicidality, no delusions and No Depressive thoughts present Course Reevaluation(s) Reevaluation #1: Patient reports her symptoms have almost completely resolved. She feels comfortable with discharge Time: 00:18 Medical Decision Making Medical Decision Making MDM Narrative: 62-year-old female presents for evaluation of symptoms that she believes related to anxiety. She took hydroxyzine prior to arrival and reports that her symptoms are already improving. I reviewed her previous notes. She has not actually requesting benzos today however I feel given she is feeling better not need to give her any further anxiolytics at this time. Plan to observe Differential Diagnosis Differential Diagnoses: The differential diagnosis associated with the presentation includes Anxiety Dizziness Palpitations Medication noncompliance Discharge Plan Discharge Clinical Impression: Anxiety Patient Disposition: Home, Self-Care Instructions: Anxiety (ED) Additional Instructions: Continue taking all your medications exactly as prescribed Return for new or worsening symptoms Prescriptions: No Action clonazepam 1 mg tablet 1 mg PO .taper Qty: 62 0RF Rx Instructions: 2mg BID for 5 days then 1mg BID for 2 weeks then 0.5mg BID for 1 week then 0.5mg for 1 week then 0.5mg every other day then stop Prezcobix 800-150 mg-mg tablet 1 tab PO DAILY Rx Instructions: must administer with a meal/food Triumeq 600-50-300 mg tablet 1 tab PO QAM cyclobenzaprine 10 mg tablet 10 mg PO BEDTIME naproxen sodium [Aleve] 220 mg capsule 220 mg PO BID PRN fexofenadine [Vesta Allergy] 180 mg tablet 180 mg PO DAILY Belsomra 20 mg tablet 20 mg PO BEDTIME PRN cholecalciferol (vitamin D3) 50 mcg (2,000 unit) capsule 50 mcg PO DAILY clonazepam 2 mg tablet 2 mg PO BID PRN levothyroxine 112 mcg tablet 112 mcg PO QAM Myrbetriq 50 mg tablet extended release 24 hr 50 mg PO DAILY Qty: 90 1RF
[2023-06-06 00:26] VITALS: BP 176/109; PULSE 93; RESP 17; TEMP 37.1; O2SAT 96
== END 2023-06-06 00:30 | disposition home or self-care (01) ==
PROVIDERS: Emergency Provider Emergency Medicine; PCP Family Medicine
DX: F41.9 Anxiety disorder, unspecified (principal)
CPT/HCPCS: 99282; 99284

== ENCOUNTER 2023-07-05 11:02 | Outpatient (REF) | payer MEDICAID, SELFPAY ==
[2023-07-05 11:21] LABS: MANUAL DIFF FLAG NO
[2023-07-05 12:36] LABS: Basophils Percent Auto 0.6 % (0-2); Eosinophils Absolute Auto 0.1 X10*3/uL (0.0-0.4); Eosinophils Percent Auto 1.9 % (0-4); Hemoglobin 13.2 g/dl (12.0-16.0); Imm Gran Abs Auto 0.03 X10*3/uL (0.00-0.03); Imm Gran Pct Auto 0.4 % (0.0-0.4); Lymphocytes Absolute Auto 1.8 X10*3/uL (1.2-4.9); Lymphocytes Percent Auto 26.7 % (20-40); Mean Corpuscular Hemoglobin 32.5 pg (27.0-33.0); Mean Corpuscular Volume 98.5 fL (80.0-98.0); Mean Platelet Volume 10.6 fL (9.4-12.3); Monocytes Absolute Auto 0.4 X10*3/uL (0.1-1.2); Monocytes Percent Auto 5.7 % (2-11); Neutrophils Absolute Auto 4.4 x10*3/uL (2.0-8.3); Neutrophils Percent Auto 64.7 % (45-73); Platelet Count 248 X10*3/uL (160-400); Red Blood Count 4.06 X10*6/uL (4.20-5.50); Red Cell Distribution Width 14.4 % (11.0-16.0); White Blood Count 6.9 X10*3/uL (4.8-10.8)
[2023-07-05 13:16] LABS: Alanine Aminotransferase 14 U/L (0-31); Anion Gap 14 (12-20); Aspartate Amino Transferase 13 U/L (5-31); Carbon Dioxide 24 mmol/L (22-29); Chloride 107 mmol/L (96-108); Estimated Glomerular Filt Rate > 60; Potassium 3.8 mmol/L (3.3-5.1); Sodium 141 mmol/L (135-145)
[2023-07-05 13:59] LABS: CT PCR NOT DETECTED (Not Detect.); NG PCR NOT DETECTED (Not Detect.)
[2023-07-06 03:43] LABS: Syphilis Screen Nonreactive (Nonreactive)
[2023-07-06 04:03] LABS: HBsAGNum1 0.29 S/CO (0.00-0.99); Hepatitis B Surface Antigen Negative (Negative); ~HepC Num1 0.14 S/CO (0.00-0.79); ~Hepatitis C Antibody Nonreactive (Nonreactive)
[2023-07-06 13:53] LABS: Absolute CD3 Count 1456 cells/uL (840-3060); Absolute CD4 Count 769 cells/uL (490-1740); Absolute CD8 Count 672 cells/uL (180-1170); Absolute Lymphocytes 1874 cells/uL (850-3900); CD4 CD8 Ratio 1.14 (0.86-5.00); Percent CD3 Cells 78 % (57-85); Percent CD4 Cells 41 % (30-61); Percent CD8 Cells 36 % (12-42)
[2023-07-07 17:28] LABS: HIV RNA PCR Qn Copies NOT DETECTED copies/mL (NOT DETECTED); HIV RNA PCR Qn Log Copies NOT DETECTED (NOT DETECTED)
== END 2023-07-05 11:03 | disposition home or self-care (01) ==
LOC: HO.LAB 11:02
PROVIDERS: PCP Family Medicine; Visit Provider Internal Medicine Infectious Disease
DX: B20 Human immunodeficiency virus [HIV] disease (principal)
CPT/HCPCS: 0353U; 80051; 82565; 84450; 84460; 85025; 86359; 86360; 86780; 86803; 87340; 87536

== ENCOUNTER 2023-11-15 15:27 | Outpatient (REF) | payer MEDICAID, SELFPAY ==
[2023-11-15 15:53] LABS: MANUAL DIFF FLAG NO
[2023-11-15 17:07] LABS: Basophils Percent Auto 0.5 % (0-2); Eosinophils Absolute Auto 0.2 X10*3/uL (0.0-0.4); Eosinophils Percent Auto 2.4 % (0-4); Hematocrit 40.8 % (37.0-47.0); Imm Gran Abs Auto 0.02 X10*3/uL (0.00-0.03); Imm Gran Pct Auto 0.3 % (0.0-0.4); Lymphocytes Percent Auto 26.6 % (20-40); Mean Corpuscular HGB Conc 31.9 g/dl (31.0-35.0); Mean Corpuscular Hemoglobin 31.9 pg (27.0-33.0); Mean Platelet Volume 12.2 fL (9.4-12.3); Monocytes Absolute Auto 0.6 X10*3/uL (0.1-1.2); Monocytes Percent Auto 8.5 % (2-11); Neutrophils Absolute Auto 4.6 x10*3/uL (2.0-8.3); Neutrophils Percent Auto 61.7 % (45-73); Platelet Count 141 X10*3/uL (160-400); Red Blood Count 4.08 X10*6/uL (4.20-5.50); Red Cell Distribution Width 13.2 % (11.0-16.0); White Blood Count 7.4 X10*3/uL (4.8-10.8)
[2023-11-15 17:56] LABS: Alanine Aminotransferase 13 U/L (0-31); Aspartate Amino Transferase 19 U/L (5-31); Estimated Glomerular Filt Rate > 60
[2023-11-15 18:01] LABS: Alanine Aminotransferase 12 U/L (0-31); Albumin Level 4.5 g/dL (3.5-5.0); Alkaline Phosphatase 72 U/L (39-117); Anion Gap 13 (12-20); Aspartate Amino Transferase 15 U/L (5-31); Bilirubin Total 0.3 mg/dL (0.0-1.0); Blood Urea Nitrogen 10 mg/dL (9-16); Calcium 10.3 mg/dL (8.4-10.2); Carbon Dioxide 27 mmol/L (22-29); Chloride 105 mmol/L (96-108); Estimated Glomerular Filt Rate > 60; Glucose Random 76 mg/dL (60-115); Potassium 3.9 mmol/L (3.3-5.1); Sodium 141 mmol/L (135-145); Total Protein 7.3 g/dL (6.5-8.0)
[2023-11-15 18:18] LABS: TSH reflex Free T4 0.24 uIU/mL (0.32-4.0)
[2023-11-15 18:42] LABS: CT PCR NOT DETECTED (Not Detect.); NG PCR NOT DETECTED (Not Detect.)
[2023-11-15 19:27] LABS: Free T4 (Free Thyroxine) 1.28 ng/dL (0.71-1.85)
[2023-11-16 07:23] LABS: HBsAGNum1 0.19 S/CO (0.00-0.99); Hepatitis B Surface Antigen Negative (Negative); ~HepC Num1 0.13 S/CO (0.00-0.79); ~Hepatitis C Antibody Nonreactive (Nonreactive)
[2023-11-16 07:35] LABS: Syphilis Screen Nonreactive (Nonreactive)
[2023-11-16 12:04] LABS: HIV RNA PCR Qn Copies 21 copies/mL (NOT DETECTED); HIV RNA PCR Qn Log Copies 1.32 (NOT DETECTED)
[2023-11-19 00:13] LABS: Absolute CD3 Count 1610 cells/uL (840-3060); Absolute CD4 Count 904 cells/uL (490-1740); Absolute CD8 Count 722 cells/uL (180-1170); Absolute Lymphocytes 2029 cells/uL (850-3900); CD4 CD8 Ratio 1.25 (0.86-5.00); Percent CD3 Cells 79 % (57-85); Percent CD4 Cells 45 % (30-61); Percent CD8 Cells 36 % (12-42)
== END 2023-11-15 15:28 | disposition home or self-care (01) ==
LOC: HO.LAB 15:27
PROVIDERS: Absent Provider Internal Medicine; PCP Family Medicine; Visit Provider Internal Medicine Infectious Disease
DX: B20 Human immunodeficiency virus [HIV] disease (principal); R11.0 Nausea
CPT/HCPCS: 36415; 80053; 82565; 84439; 84443; 84450; 84460; 85025; 86359; 86360; 86780; 86803; 87340; 87491; 87536; 87591

== ENCOUNTER 2023-12-20 13:45 | Outpatient (AMB) | payer MEDICAID, SELFPAY ==
--- NOTE | 2023-12-20 13:48 | MHC.OFFVIS ---
Vital Signs 12/20/23 13:49 Height 5 ft 3 in Weight 174 lb 13.225 oz BMI 31.0 BP 124/78 Blood Pressure Location Lt brachial Position Sitting Pulse 87 Pulse Source Pulse Oximeter Intake Visit Reasons: Hypothyroidism-conf Intake Note: Patient present today for Hypothyroidism. Saloonkeeper Required: No Accompanied by: Self / Same As Patient Allergies penicillin V Allergy (Unknown, Verified 12/20/23 13:52) anaphylaxis Penicillins [PENICILLINS] Allergy (Unknown, Verified 12/20/23 13:52) UNKNOWN seasonal allergies Allergy (Unknown, Uncoded 12/20/23 13:52) Difficulty Breathing Medication List - Last Reconciled 12/20/23 by Swetha Tang MD [id number] 600-50-300 mg (Triumeq) 1 tab PO QAM cholecalciferol (vitamin D3) 50 mcg PO DAILY cyclobenzaprine 10 mg PO BEDTIME darunavir-cobicistat 800-150 mg-mg (Prezcobix) 1 tab PO DAILY fexofenadine (Vesta Allergy) 180 mg PO DAILY hydroxyzine HCl 50 mg PO BID levothyroxine 112 mcg PO QAM mirabegron ER (Myrbetriq) 50 mg PO DAILY suvorexant (Belsomra) 20 mg PO BEDTIME PRN HPI Comments Details: 63-year-old female coming in today for follow up of Graves disease status post SARAVIA ablation in 2007, 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 She was previously seen in our clinic in [address] Andrews. She has a prior history of Graves disease, status post radioactive iodine ablation in 2007, who has subsequently been maintained on levothyroxine for postablative hypothyroidism. More recently her workup showed low TSH levels, requiring adjustment of levothyroxine. Currently she is taking levothyroxine 112 mcg daily for a year. Taking it appropriately, adherent to the medication. Endorses hot flashes. feels she has heat intolerance. Patient currently denies, diarrhea, endorses constipation, denies hair loss, palpitation, anxiety,, mood changes, low energy, changes in appearance of eyes or vision changes, tremors or dry skin. ? Gained 10 lbs over the past 3-4 months. Reports sleep trouble. She also had an ultrasound of her thyroid in in November 2022 which showed a left 2 cm mixed cystic/solid nodule, hypoechoic. This is reported as taller than wide, however it is slightly unclear if these are 2 separate nodules coalesced together. Patient reports she had an FNA biopsy of her thyroid last year at [facility], I do not have records of these available but patient reports was benign. Patient endorses difficulty swallowing since last year mostly with swallowing solid foods. Denies pain on swallowing or difficulty breathing. Reports some hoarsness. Patient denies any history of childhood neck radiation. Denies having ever used lithium, amiodarone or biotin supplements. Patient denies any family history of thyroid cancer. Cousin has hypothyroidism Never smoker Review of systems Constitutional: no fevers HEENT: no changes in vision Cardiac: No chest pain, discomfort or palpitations. Pulmonary: No SOB GI:No abdominal pain, no nausea or vomiting, no anorexia, no blood in stool : no burning micturition, dysuria or increase in urinary frequency Physical exam General: sitting comfortably in no acute distress HEENT: normocephalic/atraumatic, , moist oral mucosa Neck: supple, symmetrical, no thyromegaly , no dorsocervical or supraclavicular fat pads Cardiac: normal heart sounds Pulm: normal breath sounds B/L, no added breath sounds Abd: not distended, no tenderness Extremities: no edema, no signs of myxedema PFSH Medical History Diverticular disease Spondylosis of lumbar spine Obesity due to excess calories Hypothyroidism HIV (human immunodeficiency virus infection) Graves disease Hematuria Tubular adenoma Dyslipidemia History of kidney stones HIV (human immunodeficiency virus infection) Acute anxiety Surgical History Hx of colonoscopy H/O: hysterectomy Family History Father HTN (hypertension) Mother HTN (hypertension) Diabetes Dementia Maternal Grandmother Breast cancer Maternal Aunt Breast cancer Diabetes Maternal Aunt Dementia Maternal Uncle Cancer Maternal Uncle Heart attack Maternal Aunt HTN (hypertension) Social History Household Members: None and Other Household Members Other:: grandson Housing: Apartment Alcohol intake: current Alcohol intake frequency: holidays/special occasions only Patient Tobacco Use Status: Never used Tobacco Substance Use Type: Marijuana Results Reviewed Results Reviewed: Laboratory Tests 05/23/23 11/15/23 13:23 15:51 Calcium 9.7 10.3 H D Magnesium 2.2 Albumin 4.5 TSH 0.24 L Free T4 1.28 US THYROID 11/2022 I reviewed the images myself which do show the left dominant 2 cm nodule, mixed cystic solid, hypoechoic, however it is it is unclear whether there are two separate nodules coalesced together CLINICAL INFORMATION: Hypothyroidism. COMPARISON: Ultrasound thyroid 11/02/2016. TECHNIQUE: Linear transducer zepeda-scale and color Doppler examination with attention to the region of the thyroid. FINDINGS: SIZE: Measurements of the thyroid lobes and nodules are given in sagittal, anteroposterior and transverse dimensions respectively. Right Thyroid Lobe: 2.7 x 0.8 x 0.9 cm, volume 1.1 mL. Previously 2.7 x 0.8 x 1.1 cm, volume 1.1 mL. Parenchyma: The gland echotexture is heterogeneous. Thyroid vascularity is normal. Left Thyroid Lobe: 3.1 x 1.0 x 1.2 cm, volume 2.0 mL. Previously 2.4 x 0.7 x 0.8 cm, volume 0.7 mL. Parenchyma: The gland echotexture is heterogeneous. Thyroid vascularity is normal. Isthmus: 0.14 cm in maximum AP dimension. Previously 0.5 cm. Estimated total number of nodules greater than or equal to 1 cm: 1. Scraper Hand nodules are described as follows: 1. Location: Left mid. Size: 2.0 x 0.8 x 0.7 cm, volume 0.60 mL. Previously: New since the previous study. Nodule characteristics: Composition: Mixed cystic and solid (1). Echogenicity: Hypoechoic (2). Shape: Taller than wide (3). Margins: Ill-defined (0). Echogenic Foci: None (0). ACR TI-RADS total points: 6 ACR TI-RADS category: 4 NODES: No lymphadenopathy is seen in the tissue surrounding the thyroid gland. US/US thyroid IMPRESSION: Multinodular goiter. Assessment & Plan Assessment & Plan (1) Hypothyroidism: Code(s): E03.9 - Hypothyroidism, unspecified Category: Medical Qualifiers: Hypothyroidism type: postablative Qualified Code(s): E89.0 - Postprocedural hypothyroidism Plan: Patient with history of Graves disease status post radioactive iodine ablation in 2007, who is being managed for postablative hypothyroidism. She is reporting worsening hot flashes, heat intolerance. Her vital signs are normal. She is currently on levothyroxine 112 mcg daily and she has been on this dose for the past year per patient, most recent TSH was noted to be low at 0.24 with normal free T4 from November 2023. She has gained weight in the past few months, so no weight loss to explain why her dose might be too much for her. No new medication changes. I have asked her to reduce her dose on Sundays to half a pill, so she will be taking 1 tablet of 112 mcg daily Tuesday to Tuesday and then half a tablet on Sundays. We will repeat thyroid function testing in 6 weeks' time. We will also obtain a TSI level, as she was previously being seen at [facility] endocrinology and there was some concern regarding possibly a recurrence of Graves disease which is unlikely, however we will check TSI as well. This is likely iatrogenic given she is on levothyroxine. Plan: -. Decrease levothyroxine to 1 tablet of 112 mcg daily Tuesday to Tuesday and half a tablet on Sundays -ordered TSH, free T4, total T3, TSI to be done in 6 weeks' time (2) Thyroid nodule: Code(s): E04.1 - Nontoxic single thyroid nodule Category: Medical Plan: Patient was also noted to have a 2 cm left dominant nodule, TR 4 category, patient since she had a biopsy of her thyroid last year at [facility]. I do not have these records, patient reports this was benign, however I will obtain records for her. I have ordered a repeat ultrasound to be done now. I explained that it is common to have thyroid nodules. About 95% of the time these nodules are benign. However if the nodule is > 1 cm in size or suspicious on ultrasound then a fine need aspiration biopsy is recommended. At this time given that she reports she has had a biopsy, I will obtain those records. If the repeat ultrasound shows significant change in the size of her nodule, she might warrant a repeat biopsy. Plan: -Obtain thyroid FNA records from [facility] -ordered thyroid ultrasound -follow up in 12 weeks Plan I spent 30 minutes in reviewing the record, seeing the patient and documenting in the medical record. Orders: Orders Thyroid Stimulating Hormone 6 Weeks E89.0 - Postprocedural hypothyroidism Triiodothyronine T3 Total 6 Weeks E89.0 - Postprocedural hypothyroidism Thyroid Stimulating Immunoglob 6 Weeks E89.0 - Postprocedural hypothyroidism US thyroid Today E04.1 - Nontoxic single thyroid nodule Free T4 (Free Thyroxine) 6 Weeks E89.0 - Postprocedural hypothyroidism Patient Instructions: Decrease levothyroxine to 1 tablet Tuesday to Tuesday and half a tablet on Sundays Do blood work in 6 weeks Get ultrasound thyroid done We will follow up in 12 weeks to discuss results Coding Level of Care Code Est Pt Level 4 (31599) Diagnoses Postablative hypothyroidism E89.0 Hypothyroidism type: postablative Thyroid nodule E04.1 Time Spent (min) 30
[2023-12-20 13:49] VITALS: BP 124/78; PULSE 87; BMI 31.0
== END 2023-12-20 14:31 | disposition home or self-care (01) ==
PROVIDERS: PCP Family Medicine; Referring Provider Family Medicine; Visit Provider Student in an Organized Health Care Education/Training Program
DX: E89.0 Postprocedural hypothyroidism (principal); E04.1 Nontoxic single thyroid nodule
CPT/HCPCS: 99214

== ENCOUNTER → 2023-12-20 13:45 | Outpatient (BNVA) | payer MEDICAID, SELFPAY | PROVIDERS: PCP Family Medicine; Visit Provider Student in an Organized Health Care Education/Training Program | DX: E89.0 Postprocedural hypothyroidism (principal); E04.1 Nontoxic single thyroid nodule | CPT/HCPCS: 99212 ==

== ENCOUNTER 2024-01-04 13:08 | Outpatient (REF) | payer MEDICAID, SELFPAY ==
--- NOTE | ~2024-01-04 | US_ITS ---
EXAMINATION: US THYROID CLINICAL INFORMATION: Nontoxic single thyroid nodule. COMPARISON: Thyroid ultrasound 11/15/2022 and 11/02/2016. TECHNIQUE: Linear transducer grayscale and color Doppler examination with attention to the region of the thyroid. FINDINGS: SIZE: Measurements of the thyroid lobes and nodules are given in sagittal, anteroposterior and transverse dimensions respectively. Right Thyroid Lobe: 2.8 x 1.3 x 0.9 cm, volume 1.7 mL. Previously 2.7 x 0.8 x 0.9 cm, volume 1.1 mL. Parenchyma: The gland echotexture is heterogeneous. Thyroid vascularity is normal. Left Thyroid Lobe: 2.0 x 0.8 x 0.9 cm, volume 0.75 mL. Previously 3.1 x 1.0 x 1.2 cm, volume 2.0 mL. Parenchyma: The gland echotexture is heterogeneous. Thyroid vascularity is normal. Isthmus: 0.18 cm in maximum AP dimension. Previously 0.14 cm. Estimated total number of nodules greater than or equal to 1 cm: 1. Environmental Services Specialist nodules are described as follows: 1. Location: Left mid. (Not well seen discrete from surrounding abnormal hypoechoic thyroid parenchyma). Size: 1.6 x 0.6 x 0.41 cm, volume 0.214 mL. Previously: 2.0 x 0.8 x 0.7 cm, volume 0.6 mL. Nodule characteristics: Composition: Mixed cystic and solid (1). Echogenicity: Hypoechoic (2). Shape: Not taller than wide (0). Margins: Ill-defined (0). Echogenic Foci: None (0). ACR TI-RADS total points: 3 Previous: 6 ACR TI-RADS category: 3 Previous: 4 Significant change in size (>/= 20% in 2 dimensions and minimal increase of 2 mm or 50% or greater increase in volume): Yes Change in features: Yes Change in ACR TI-RADS risk category: Yes NODES: No lymphadenopathy is seen in the tissue surrounding the thyroid gland. US/US thyroid IMPRESSION: 1. Shrunken, atrophic hypoechoic gland, consistent with Mel's thyroiditis. 2. Left mid gland 1.6 cm TR category 3 nodule. This is a possible but not definitive finding, as no discrete nodule is identified on the cine loops provided. It appears the technologist may be measuring normal atrophic thyroid gland. There are definite comparison steam frame operator dependent differences between the 2 exams. Nevertheless, it is significantly smaller than previously seen and therefore benign. No routine follow-up suggested as per below. ACR TI-RADS RECOMMENDATION REFERENCE: Ultrasound-guided fine-needle aspiration, follow up ultrasound, no further followup. * TR1 (0 point) and TR2 (2 points): No FNA or followup * TR3 (3 points): FNA if more than or equal to 2.5 cm in maximum dimension, follow up ultrasound in 1, 3 and 5 years if 1.5 to 2.4 cm in maximum dimension. * TR4 (4-6 points): FNA if more than or equal to 1.5 cm in maximum dimension, follow up ultrasound in 1, 2, 3 and 5 years if 1 to 1.4 cm in maximum dimension. * TR5 (more than or equal to 7 points): FNA if more than or equal to 1 cm in maximum dimension, follow up ultrasound every year for 5 years if 0.5 to 0.9 cm in maximum dimension. * TR3, TR4 or TR5 nodules that are below the size threshold for follow up receive no followup. Electronically signed by: Dima Granados MD 03/13/2024 12:59 PM JERONIMO
== END 2024-01-04 13:09 | disposition home or self-care (01) ==
LOC: HO.US 13:08
PROVIDERS: PCP Family Medicine; Visit Provider Student in an Organized Health Care Education/Training Program
DX: E04.1 Nontoxic single thyroid nodule (principal)
CPT/HCPCS: 76536

== ENCOUNTER → 2024-01-04 13:09 | Outpatient (BNV) | payer MEDICAID, SELFPAY | PROVIDERS: PCP Family Medicine; Visit Provider Radiology Diagnostic Radiology | DX: E04.1 Nontoxic single thyroid nodule (principal) | CPT/HCPCS: 76536 ==

== ENCOUNTER 2024-02-16 15:33 | Outpatient (REF) | payer MEDICAID, SELFPAY ==
[2024-02-16 17:38] LABS: Cholesterol 258 mg/dL (<200); HDL Cholesterol 49 mg/dL (>40); LDL Cholesterol Calculated 180 mg/dL (<100); Triglycerides 147 mg/dL (<150)
[2024-02-16 17:51] LABS: Free T4 (Free Thyroxine) 1.01 ng/dL (0.71-1.85); Thyroid Stimulating Hormone 1.64 uIU/mL (0.32-4.0)
[2024-02-16 17:52] LABS: Thyroid Stimulating Hormone 1.63 uIU/mL (0.32-4.0)
[2024-02-18 06:33] LABS: Triiodothyronine T3 Total 97 ng/dL (76-181)
[2024-02-22 13:58] LABS: Thyroid Stimulating Immunoglob <89 % baseline (<140)
== END 2024-02-16 15:34 | disposition home or self-care (01) ==
LOC: HO.LAB 15:33
PROVIDERS: Student in an Organized Health Care Education/Training Program; Absent Provider Internal Medicine Infectious Disease; PCP Family Medicine; Visit Provider Family Medicine
DX: E78.5 Hyperlipidemia, unspecified (principal); E89.0 Postprocedural hypothyroidism
CPT/HCPCS: 36415; 80061; 84439; 84443; 84445; 84480

== ENCOUNTER 2024-03-13 12:41 | Outpatient (REF) | payer MEDICAID, SELFPAY ==
[2024-03-13 15:28] LABS: Free T4 (Free Thyroxine) 1.02 ng/dL (0.71-1.85); Thyroid Stimulating Hormone 3.99 uIU/mL (0.32-4.0)
== END 2024-03-13 12:42 | disposition home or self-care (01) ==
LOC: HO.LAB 12:41
PROVIDERS: Visit Provider Student in an Organized Health Care Education/Training Program
DX: E89.0 Postprocedural hypothyroidism (principal); E04.1 Nontoxic single thyroid nodule
CPT/HCPCS: 36415; 84439; 84443; 99212

== ENCOUNTER 2024-03-13 13:28 | Outpatient (AMB) | payer MEDICAID, SELFPAY ==
--- NOTE | 2024-03-13 13:29 | A.OFFVIS_ITS ---
Vital Signs 3 03/13/24 13:36 Height 5 ft 3 in Weight 174 lb 2.643 oz BMI 30.8 BP 132/84 Blood Pressure Location Rt brachial Position Sitting Pulse 96 Pulse Source Pulse Oximeter Intake Visit Reasons: Hypothyroidism-confirmed Intake Note: Patient presents here today for a follow-up on Hypothyroidism. L Supervisor Continuous Weld Pipe Mill Required: No Accompanied by: Self / Same As Patient Allergies penicillin V Allergy (Unknown, Verified 03/13/24 13:30) anaphylaxis Penicillins [PENICILLINS] Allergy (Unknown, Verified 03/13/24 13:30) UNKNOWN seasonal allergies Allergy (Unknown, Uncoded 03/13/24 13:30) Difficulty Breathing HPI Comments Details: 63-year-old female coming in today for follow up of Graves disease status post SARAVIA ablation in 2007, 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 HPI from prior visit She has a prior history of Graves disease, status post radioactive iodine ablation in 2007, who has subsequently been maintained on levothyroxine for postablative hypothyroidism. More recently her workup showed low TSH levels, requiring adjustment of levothyroxine. Currently taking levothyroxine 100 mcg daily . Taking it appropriately, adherent to the medication. Sometime around Dec she went down from 112 mcg to 100 mcg daily , chnage made by PCP after she had called them reporting palpitations Labs repeated 02/16/2024 showed TSH of 1.64, with a free T4 of 1.01, total T3 of 97, all within normal range. Endorses hot flashes. feels she has heat intolerance. Patient currently denies, diarrhea, endorses constipation, denies hair loss, palpitation, anxiety,, mood changes, low energy, changes in appearance of eyes or vision changes, tremors or dry skin. ? Gained 10 lbs over the past 3-4 months. walkimg much less Sleep improved now . ultrasound of her thyroid in in November 2022 which showed a left 2 cm mixed cystic/solid nodule, hypoechoic. This is reported as taller than wide, however it is slightly unclear if these are 2 separate nodules coalesced together. FNA biopsy 09/02/23 at [facility], of this left mid lobe nodule showed abundant polymorphous lymphocytes and a few oncocytic follicular cell groups consistent with chronic lymphocytic (Mel's) thyroiditis. Most recent thyroid ultrasound done in December 2023, again showed a left mid lobe nodule measuring 1.6 cm in the largest dimension which has become smaller compared to previous size of 2 cm in the largest dimension. Mixed cystic and solid, hypoechoic, TR 3 nodule. Overall her thyroid gland is atrophic and shrunk can consistent with Mel's thyroiditis. Patient endorses difficulty swallowing since last year mostly with swallowing solid foods. Denies pain on swallowing or difficulty breathing. Reports some hoarsness. Patient denies any history of childhood neck radiation. Denies having ever used lithium, amiodarone or biotin supplements. Patient denies any family history of thyroid cancer. Cousin has hypothyroidism Never smoker Review of systems Constitutional: no fevers HEENT: no changes in vision Cardiac: No chest pain, discomfort or palpitations. Pulmonary: No SOB GI:No abdominal pain, no nausea or vomiting, no anorexia, no blood in stool : no burning micturition, dysuria or increase in urinary frequency Physical exam General: sitting comfortably in no acute distress HEENT: normocephalic/atraumatic, , moist oral mucosa Neck: supple, symmetrical, no thyromegaly , no dorsocervical or supraclavicular fat pads Cardiac: normal heart sounds Pulm: normal breath sounds B/L, no added breath sounds Abd: not distended, no tenderness Extremities: no edema, no signs of myxedema Laboratory Tests 05/23/23 11/15/23 02/16/24 13:23 15:51 15:48 Calcium 9.7 10.3 H D Magnesium 2.2 Albumin 4.5 TSH 0.24 L 1.64 Free T4 1.28 1.01 Total T3 97 Thyroid Stim Immunoglob <89 Laboratory Tests 05/23/23 11/15/23 13:23 15:51 Calcium 9.7 10.3 H D Magnesium 2.2 Albumin 4.5 TSH 0.24 L Free T4 1.28 US THYROID 01/04/24 CLINICAL INFORMATION: Nontoxic single thyroid nodule. COMPARISON: Thyroid ultrasound 11/15/2022 and 11/02/2016. TECHNIQUE: Linear transducer grayscale and color Doppler examination with attention to the region of the thyroid. FINDINGS: SIZE: Measurements of the thyroid lobes and nodules are given in sagittal, anteroposterior and transverse dimensions respectively. Right Thyroid Lobe: 2.8 x 1.3 x 0.9 cm, volume 1.7 mL. Previously 2.7 x 0.8 x 0.9 cm, volume 1.1 mL. Parenchyma: The gland echotexture is heterogeneous. Thyroid vascularity is normal. Left Thyroid Lobe: 2.0 x 0.8 x 0.9 cm, volume 0.75 mL. Previously 3.1 x 1.0 x 1.2 cm, volume 2.0 mL. Parenchyma: The gland echotexture is heterogeneous. Thyroid vascularity is normal. Isthmus: 0.18 cm in maximum AP dimension. Previously 0.14 cm. Estimated total number of nodules greater than or equal to 1 cm: 1. Map Clerk nodules are described as follows: 1. Location: Left mid. (Not well seen discrete from surrounding abnormal hypoechoic thyroid parenchyma). Size: 1.6 x 0.6 x 0.41 cm, volume 0.214 mL. Previously: 2.0 x 0.8 x 0.7 cm, volume 0.6 mL. Nodule characteristics: Composition: Mixed cystic and solid (1). Echogenicity: Hypoechoic (2). Shape: Not taller than wide (0). Margins: Ill-defined (0). Echogenic Foci: None (0). ACR TI-RADS total points: 3 Previous: 6 ACR TI-RADS category: 3 Previous: 4 Significant change in size (>/= 20% in 2 dimensions and minimal increase of 2 mm or 50% or greater increase in volume): Yes Change in features: Yes Change in ACR TI-RADS risk category: Yes NODES: No lymphadenopathy is seen in the tissue surrounding the thyroid gland. US/US thyroid IMPRESSION: 1. Shrunken, atrophic hypoechoic gland, consistent with Mel's thyroiditis. 2. Left mid gland 1.6 cm TR category 3 nodule. This is a possible but not definitive finding, as no discrete nodule is identified on the cine loops provided. It appears the technologist may be measuring normal atrophic thyroid gland. There are definite comparison concrete gun operator dependent differences between the 2 exams. Nevertheless, it is significantly smaller than previously seen and therefore benign. No routine follow-up suggested as per below. [facility] Medical History (Updated 12/20/23 @ 14:23 by Swetha Tang MD) Thyroid nodule Diverticular disease Spondylosis of lumbar spine Obesity due to excess calories Hypothyroidism HIV (human immunodeficiency virus infection) Graves disease Hematuria Tubular adenoma Dyslipidemia History of kidney stones HIV (human immunodeficiency virus infection) Acute anxiety Surgical History Hx of colonoscopy H/O: hysterectomy Family History Father HTN (hypertension) Mother HTN (hypertension) Diabetes Dementia Maternal Grandmother Breast cancer Maternal Aunt Breast cancer Diabetes Maternal Aunt Dementia Maternal Uncle Cancer Maternal Uncle Heart attack Maternal Aunt HTN (hypertension) Social History Household Members: None and Other Household Members Other:: grandson Housing: Apartment Alcohol intake: current Alcohol intake frequency: holidays/special occasions only Patient Tobacco Use Status: Never used Tobacco Substance Use Type: Marijuana Assessment & Plan Assessment & Plan (1) Hypothyroidism: Code(s): E03.9 - Hypothyroidism, unspecified Category: Medical Qualifiers: Hypothyroidism type: postablative Qualified Code(s): E89.0 - Postprocedural hypothyroidism Plan: Patient with history of Graves disease status post radioactive iodine ablation in 2007, who is being managed for postablative hypothyroidism. Currently on levothyroxine 100 mcg daily.Labs from November 2023 had shown low TSH of 0.24, free T4 1.28, and patient was having symptoms hyperthyroidism at which time I had reduced her levothyroxine to 112 mcg 6-1/2 pills in a week, however she continued to have symptoms and subsequently PCP change levothyroxine to 100 mcg daily sometime around 12/27/2023 per patient. Repeat labs 02/16/2024 showed normal levels with TSH of 1.64, free T4 1.01, total T3 97. Her symptoms have resolved mostly. We also rechecked her TSI antibody levels which came back undetectable ruling out recurrence of Graves disease. She had blood work done today which is still in process, we will follow up those levels. Plan: -follow up on TSH and free T4 from today -repeat labs in 6 months prior to follow up (2) Thyroid nodule: Code(s): E04.1 - Nontoxic single thyroid nodule Category: Medical Plan: ultrasound of her thyroid in in November 2022 which showed a left 2 cm mixed cystic/solid nodule, hypoechoic. This is reported as taller than wide, however it is slightly unclear if these are 2 separate nodules coalesced together. FNA biopsy 09/02/23 at [facility], of this left mid lobe nodule showed abundant polymorphous lymphocytes and a few oncocytic follicular cell groups consistent with chronic lymphocytic (Mel's) thyroiditis. Most recent thyroid ultrasound done in December 2023, again showed a left mid lobe nodule measuring 1.6 cm in the largest dimension which has become smaller compared to previous size of 2 cm in the largest dimension. Mixed cystic and solid, hypoechoic, TR 3 nodule. Overall her thyroid gland is atrophic and shrunk can consistent with Mel's thyroiditis. Plan: -plan to repeat thyroid ultrasound in 1 year in December 2024 Plan I spent 30 minutes in reviewing the record, seeing the patient and documenting in the medical record. Orders: Orders 2 Thyroid Stimulating Hormone 6 Months E04.1 - Nontoxic single thyroid nodule, E89.0 - Postprocedural hypothyroidism Free T4 (Free Thyroxine) 6 Months E04.1 - Nontoxic single thyroid nodule, E89.0 - Postprocedural hypothyroidism Medications: New 2 levothyroxine 100 mcg PO DAILY 30 tabs 5RF Coding Level of Care Code Est Pt Level 4 (63083) Diagnoses Postablative hypothyroidism E89.0 Hypothyroidism type: postablative Thyroid nodule E04.1 Time Spent (min) 30
[2024-03-13 13:36] VITALS: BP 132/84; PULSE 96; BMI 30.8
== END 2024-03-13 13:59 | disposition home or self-care (01) ==
PROVIDERS: PCP Family Medicine; Visit Provider Student in an Organized Health Care Education/Training Program
DX: E89.0 Postprocedural hypothyroidism (principal); E04.1 Nontoxic single thyroid nodule
CPT/HCPCS: 99214

== ENCOUNTER 2024-05-11 13:28 | Outpatient (REF) | payer MEDICAID, SELFPAY ==
--- NOTE | ~2024-05-11 | MM_ITS ---
EXAMINATION: DXA BONE DENSITY AXIAL HISTORY: Estrogen deficiency TECHNIQUE: [employer] Dual energy absorptiometry (DEXA) of the lumbar spine, total left hip, and femoral neck was performed. COMPARISON: There are no prior studies for comparison. FINDINGS: The bone mineral density of the lumbar spine is 0.949 with a T-score of -1.9, and a Z-score of -0.9. The bone mineral density of the left total hip is 0.894 with a T-score of -0.9, and a Z-score of -0.1. The bone mineral density of the left femoral neck is 0.834 with a T-score of -1.5, and a Z-score of -0.4. FRACTURE RISK: The FRAX index suggests a risk of major osteoporotic fracture of 4.6%, and of hip fracture 0.4%. MM/XR DEXA axial skeleton IMPRESSION: Based on bone mineral density, and according to World Health Organization (WHO) criteria, the diagnosis is consistent with osteopenia. All bone density values are in grams per centimeter squared (g/cm2). Statistically, 68% of repeat scans fall within 1 SD (+/- 0.010 g/cm2 for AP spine L1-L4) and 1 SD (+/- 0.012 g/cm2 for femur total) FRAX is a trademark of the [employer] [place] [facility] Metabolic Bone Disease, a World Health Organization (WHO) Collaborating Center. Electronically signed by: Darryl Cabrera MD 05/14/2024 12:58 PM [facility] [place]
--- OUTSIDE RECORDS SUMMARY | 2024-05-11 13:39 | XMS_ITS | Data Portability ---
Author Organization VERONICA QUINTERO MD [facility], Main Office Address [address] [place] [id number] Assessment Encounter Date Assessment Date Assessment LastModified by Organization Details LastModified Time 03/24/2023 03/24/2023 Telemedicine. phone/audio. 15 min [email or web address] Not available 03/24/2023 13:28:47 06/22/2023 06/22/2023 Telemedicine. VIDEO. 21 [place]. [place] [email or web address] Not available 06/22/2023 11:41:54 09/22/2023 09/22/2023 Telemedicine. VIDEO. 19 min. [place] [email or web address] Not available 09/22/2023 10:25:33 Plan of Treatment Reminders Order Date Submit Date Provider Last Modified By Organization Details Last Modified Time Details Appointments B20 FOLLOW UP 2024 01:00P Pat Kim MD Not available Not available Not available Lab CBC w/ diff [address], [address] [place] [address], [id number], 03/21/2023 16:51:59 electroly jamison panel, blood [address], [address] [place] [address], [id number], 03/21/2023 16:52:00 ALT (alanine aminotran sferase), serum or plasma [address], [address] [place] [address], [id number], 03/21/2023 16:52:00 AST/SGOT (aspartat e aminotran sferase), serum or plasma [address] [place] [address], [address] [place] [address], [id number], 03/21/2023 16:52:00 CT + NG DNA, PCR, unspecifi ed specimen [address] [place] [address], [address] [place] [address], [id number], 03/21/2023 16:52:00 creatinin e w/ estimated GFR (eGFR), serum or plasma [address] [place] [address], [address] [place] [address], [id number], 03/21/2023 16:52:00 hepatitis C virus Ab, serum [address] [place] [address], [address] [place] [address], [id number], 03/21/2023 16:52:01 HIV-1 RNA, quantitat sudarshan, PCR, serum or plasma [address] [place] [address], [address] [place] [address], [id number], 03/21/2023 16:52:01 RPR (rapid plasma reagin), serum [address] [place] [address], [address] [place] [address], [id number], 03/21/2023 16:52:01 T-cell regulator y subsets panel, blood [address] [place] [address], [address] [place] [address], [id number], 03/21/2023 16:52:01 CBC w/ diff 2022 [facility] [address], [address] [place] [address], [id number], 04/05/2023 16:50:35 electroly jamison panel, blood [address], [address] [place] [address], [id number], 04/05/2023 16:50:36 ALT (alanine aminotran sferase), serum or plasma [address], [address] [place] [address], [id number], 04/05/2023 16:50:36 AST/SGOT (aspartat e aminotran sferase), serum or plasma [address], [address] [place] [address], [id number], 04/05/2023 16:50:36 CT + NG DNA, PCR, unspecifi ed specimen [address], [address] [place] [address], [id number], 04/05/2023 16:50:36 creatinin e w/ estimated GFR (eGFR), serum or plasma [address], [address] [place] [address], 15690, 04/05/2023 16:50:36 hepatitis C virus Ab, serum [address], [address] [place] [address], [id number], 04/05/2023 16:50:36 HIV-1 RNA, quantitat sudarshan, PCR, serum or plasma [address], [address] [place] [address], [id number], 04/05/2023 16:50:37 RPR (rapid plasma reagin), serum [address], [address] [place] [address], [id number], 04/05/2023 16:50:37 T-cell regulator y subsets panel, blood [address], [address] [place] [address], [id number], 04/05/2023 16:50:37 CBC w/ diff [address], [address] [place] [address], [id number], 06/30/2023 11:22:31 electroly jamison panel, blood [address], [address] [place] [address], [id number], 06/30/2023 11:22:32 ALT (alanine aminotran sferase), serum or plasma [address], [address] [place] [address], 16487, 06/30/2023 11:22:32 AST/SGOT (aspartat e aminotran sferase), serum or plasma [address], [address] [place] [address], [id number], 06/30/2023 11:22:32 CT + NG DNA, PCR, unspecifi ed specimen [address], [address] [place] [address], 27904, 06/30/2023 11:22:32 creatinin e w/ estimated GFR (eGFR), serum or plasma [address], [address] [place] [address], [id number], 06/30/2023 11:22:32 hepatitis C virus Ab, serum [address], [address] [place] [address], 64205, 06/30/2023 11:22:32 HIV-1 RNA, quantitat sudarshan, PCR, serum or plasma [address], [address] [place] [address], 45723, 06/30/2023 11:22:32 RPR (rapid plasma reagin), serum [address], [address] [place] [address], 04943, 06/30/2023 11:22:32 T-cell regulator y subsets panel, blood [address], [address] [place] [address], [id number], 06/30/2023 11:22:32 HBsAg (hepatiti s B surface Ag), serum [address], [address] [place] [address], [id number], 06/30/2023 11:22:32 CBC w/ diff [address], [address] [place] [address], 21452, 09/29/2023 11:28:57 ALT (alanine aminotran sferase), serum or plasma [address], [address] [place] [address], 66693, 09/29/2023 11:28:57 AST/SGOT (aspartat e aminotran sferase), serum or plasma [address] [place] [address], [address] [place] [address], 33981, 09/29/2023 11:28:58 CT + NG DNA, PCR, unspecifi ed specimen [address], [address] [place] [address], 86927, 09/29/2023 11:28:58 creatinin e w/ estimated GFR (eGFR), serum or plasma [address] [place] [address], [address] [place] [address], 08309, 09/29/2023 11:28:58 hepatitis C virus Ab, serum [address] [place] [address], [address] [place] [address], 18738, 09/29/2023 11:28:58 HIV-1 RNA, quantitat sudarshan, PCR, serum or plasma [address] [place] [address], [address] [place] [address], [id number], 09/29/2023 11:28:58 RPR (rapid plasma reagin), serum [address] [place] [address], [address] [place] [address], 23094, 09/29/2023 11:28:58 T-cell regulator y subsets panel, blood [address] [place] [address], [address] [place] [address], [id number], 09/29/2023 11:28:58 HBsAg (hepatiti s B surface Ag), serum [address] [place] [address], [address] [place] [address], [id number], 09/29/2023 11:28:58 lipid panel, serum [address] (Lab), [address] [place] [address], [id number], 01/26/2024 14:15:56 CBC w/ diff [address] [place] [address], [address] [place] [address], [id number], 01/26/2024 14:15:55 ALT (alanine aminotran sferase), serum or plasma [address] [place] [address], [address] [place] [address], [id number], 01/26/2024 14:15:55 AST/SGOT (aspartat e aminotran sferase), serum or plasma [address], [address] [place] [address], 87589, 01/26/2024 14:15:56 creatinin e w/ estimated GFR (eGFR), serum or plasma [address], [address] [place] [address], 44709, 01/26/2024 14:15:56 HIV-1 RNA, quantitat sudarshan, PCR, serum or plasma [address], [address] [place] [address], 08603, 01/26/2024 14:15:56 T-cell regulator y subsets panel, blood [address], [address] [place] [address], 07209, 01/26/2024 14:15:56 Referral None recorded. Procedures None recorded. Surgeries None recorded. Imaging None recorded. Medication Orders Triumeq 600 mg-50 mg-300 mg tablet 2022 023 [facility] ([facility]) #[id number], [address] [place], [place], [id number], 12/21/2022 15:18:37 Prezcobix 800 mg-150 mg tablet 2022 023 [facility] ([facility]) #[id number], [address], [place], [id number], 12/21/2022 15:18:36 Triumeq 600 mg-50 mg-300 mg tablet 2022 023 [facility] ([facility]) #[id number], [address], [place], [id number], 03/24/2023 13:29:29 Prezcobix 800 mg-150 mg tablet 2022 023 [facility] ([facility]) #[id number], [address], [place], [id number], 03/24/2023 13:29:15 Triumeq 600 mg-50 mg-300 mg tablet 2023 024 [facility] ([facility]) #[id number], [address], [place], [id number], 06/22/2023 11:40:36 Prezcobix 800 mg-150 mg tablet 2023 024 [facility] ([facility]) #[id number], [address], [place], [id number], 06/22/2023 11:40:35 Triumeq 600 mg-50 mg-300 mg tablet 2023 024 [facility] ([facility]) #[id number], [address], [place], [id number], 09/22/2023 10:31:34 Prezcobix 800 mg-150 mg tablet 2023 [facility]) #[id number], [address], [place], [id number], 09/22/2023 10:31:33 Triumeq 600 mg-50 mg-300 mg tablet 2023 024 [facility]) #23004, [address], [place], [id number], 01/19/2024 13:03:21 Prezcobix 800 mg-150 mg tablet 2023 [facility]) #[id number], [address], [place], [id number], 01/19/2024 13:03:20 Patient TargetsNo targets recorded. Patient InstructionsNo instructions recorded. Reason for Referral None Reported. Results Created Date Observation Date Name Description Value Unit Range Abnormal Flag Note LastModifiedBy Organization Detail LastModifiedTime Result Notes None recorded. Problems Name Problem SNOMED Code Status Onset Date Resolution Date Notes Provider Name and Address Organization Details Recorded Time Human immunodef iciency virus infection 87983896 Active 2022 Marleen Kim MD [address] [place] [address], [id number] , VERONICA - MARLEEN KIM MD 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 [id number] neg 2007; Not Available [facility] 4 06:58:33 Hyperlipi demia 38196191 Active 2013 Hyperlipid emia; snomeddesc ription: Hyperlipid emia; Report Immunity to Registry: Yes; Other and unspecifie d hyperlipid emia; snomeddesc ription: Hyperlipid emia; Report Immunity to Registry: Yes; Not Available [facility] 4 06:58:33 Constipat ion 33973750 Active 2013 Constipati on, unspecifie d; snomeddesc ription: Constipati on; Report Immunity to Registry: Yes; Constipat ion; snomeddesc ription: Constipati on; Report Immunity to Registry: Yes; Not Available [facility] 4 06:58:34 Lipodystr ophy 25326511 Active 2013 Lipodystro phy; snomeddesc ription: Lipodystro phy; Report Immunity to Registry: Yes; Not Available [facility] 4 06:58:34 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 Medical Equipment None Reported. Allergies Allergen ID Allergen Name Allergen Category Reaction Reaction Severity Criticality Documentation Date Start Date Code Code System Note Provider Name and Address Organization Details Recorded Time 696 Penicilli n Not available Not available Not available Not available 06/01/20232011 63587 RxNorm Comme nt: adver se_ev ent_t ype: 59737 8002; ; Not Available [facility] 4 06:50:45 697 Sustiva medicatio n Not available Not available Not available 06/01/20232011 80342 4 RxNorm React ion: Other dysfu nctio ns of sleep stage s or arous al from sleep ; Comme nt: adver se_ev ent_t ype: 50799 8002; ; Not Available [facility] 4 06:50:45 698 Viramune medicatio n rash Not available Not available 06/01/20232011 81456 0 RxNorm React ion: Rash and other nonsp ecifi c skin erupt ion; Comme nt: adver se_ev ent_t ype: 13877 8002; ; Not Available [facility] 4 06:50:45 Medications Name Sig Start Date Stop Date Status Note LastModified by Organization Details LastModified Time cyclobenz aprine 10 mg tablet TAKE 1 TABLET BY MOUTH AT BEDTIME NEEDED FOR MUSCLE SPASM 07/16 completed Duration : 45; VACCINE_ IND: no; Not Available Not Available Not Available fluconazo le 100 mg tablet 100 mg Quantity : 3; Duration : 3; 3 refill(s ) 07/28 completed Frequenc y: qd; Duration : 3; VACCINE_ IND: no; SU_FULL_ NAME: Marleen vines; Not Available Not Available Not Available clonidine HCl 0.1 mg tablet TAKE 1 TABLET BY MOUTH TWICE A DAY NEEDED FOR ANXIETY active Not Available Not Available No t Available prednison e 10 mg tablet 10 MG TABLET; Quantity : 20; Duration : 8; 0 refill(s ) 06/04 completed Duration : 8; VACCINE_ IND: no; Not Available Not Available Not Available Pneumovax -23 25 mcg/0.5 mL injection solution - Quantity : ; 0 refill(s ) 06/27 completed VACCINE_ IND: yes; VACCINE_ NAME: pneumoco ccal polysacc haride PPV23; SU_FULL_ NAME: Marleen vines; Not Available Not Available Not Available senna 8.6 mg tablet TAKE 1 OR 2 TABLETS BY MOUTH EVERY DAY NIGHTLY NEEDED FOR CONSTIPA TION active Not Available Not Available No t Available sucralfat e 1 gram tablet TAB 1GMSUCRA LFATE; Quantity : 30; Duration : 15; 0 refill(s ) 01/17 completed Duration : 15; VACCINE_ IND: no; Not Available Not Available Not Available clonazepa m 0.5 mg tablet TAKE 1 TABLET BY MOUTH EVERY DAY FOR SEVERE ANXIETY active Not Available Not Available No t Available Prilosec 20 mg capsule,d elayed release 20 mg Quantity : 30; 3 refill(s ) 10/16 completed Frequenc y: qd; VACCINE_ IND: no; SU_FULL_ NAME: Marleen vines; Not Available Not Available Not Available clonazepa m 1 mg tablet TAKE 1 TABLET BY MOUTH ONCE A DAY IF NEEDED FOR SEVERE ANXIETY active Not Available Not Available No t Available lithium carbonate 150 mg capsule TAKE 1 CAPSULE BY MOUTH TWICE A DAY DIRECTED TAKE ONE CAPSULE AM BY MOUTH AND ONE AT SLEEP TIME. active Not Available Not Available No t Available metronida zole 500 mg tablet TAKE 1 TABLET BY MOUTH TWICE A DAY FOR 7 DAYS active Not Available Not Available No t Available hydroxyzi ne HCl 50 mg tablet TAKE 1 TABLET BY MOUTH TWICE A DAY NEEDED active Not Available Not Available No t Available fexofenad ine 180 mg tablet TAKE 1 TABLET BY MOUTH ONCE A DAY 07/01 completed Duration : 30; VACCINE_ IND: no; Not Available Not Available Not Available Acid Gone Antacid Extra Strength 160 mg-105 mg chewable tablet Chew 2-4 tablets if needed in the morning, at noon, in the evening, and at bedtime (bloatin g). active Not Available Not Available No t Available Norvir 100 mg capsule 100 mg Quantity : 30.0; 3 refill(s ) 10/31 completed VACCINE_ IND: no; SU_FULL_ NAME: Marleen vines; Not Available Not Available Not Available omeprazol e 40 mg capsule,d elayed release 40 mg Quantity : 30; Duration : 30; 0 refill(s ) 01/17 completed Duration : 30; VACCINE_ IND: no; Not Available Not Available Not Available tetracycl ine 250 mg capsule 1 tab po bid 10/16 completed VACCINE_ IND: no; SU_FULL_ NAME: Marleen Solano mohinder; Not Available Not Available Not Available levothyro xine 100 mcg tablet TAKE 1 TABLET BY MOUTH EVERY DAY active Not Available Not Available No t Available carbamaze pine 200 mg tablet TAKE 1 TABLET BY MOUTH TWICE A DAY active Not Available Not Available No t Available Flagyl 250 mg tablet 250 mg Quantity : 84; Duration : 21; 0 refill(s ) 08/09 completed Frequenc y: qid; Duration : 21; VACCINE_ IND: no; SU_FULL_ NAME: Marleen vinse; Not Available Not Available Not Available meclizine 25 mg tablet TAKE 1 TABLET BY MOUTH THREE TIMES DAILY IN THE MORNING, AT NOON, AND AT BEDTIME NEEDED FOR DIZZINES S OR FOR NAUSEA active Not Available Not Available No t Available levothyro xine 125 mcg tablet TAKE 1 TABLET (125 MCG) BY MOUTH BEFORE BREAKFAS T active Not Available Not Available No t Available lidocaine 5 % topical patch APPLY ONE PATCH DAILY REMOVE AND DISCARD PATCH WITHIN 12 HOURS OR DIRECTED active Not Available Not Available No t Available clonazepa m 2 mg tablet TAKE 1 TABLET BY MOUTH TWICE A DAY NEEDED active Not Available Not Available No t Available gabapenti n 300 mg capsule TAKE 1 CAPSULE BY ORAL ROUTE 3 TIMES EVERY DAY 07/01 completed Duration : 15; VACCINE_ IND: no; Not Available Not Available Not Available bismuth subsalicy late 262 mg chewable tablet CHEW 2 TABLETS BEFORE BREAKFAS T, BEFORE LUNCH, BEFORE EVENING MEAL, AND AT BEDTIME FOR 10 DAYS. active Not Available Not Available No t Available monteluka st 10 mg tablet TAKE 1 TABLET BY MOUTH EVERY DAY IN THE EVENING 07/26 completed Duration : 30; VACCINE_ IND: no; Not Available Not Available Not Available hydroxyzi ne HCl 25 mg tablet TAKE 1 TABLET BY MOUTH TWICE A DAY FOR ANXIETY active Not Available Not Available No t Available mirtazapi ne 15 mg tablet TAB 15MG; Quantity : 30; Duration : 30; 0 refill(s ) 07/26 completed Duration : 30; VACCINE_ IND: no; Not Available Not Available Not Available ergocalci ferol (vitamin D2) 1,250 mcg (50,000 unit) capsule TAKE 1 CAPSULE BY ORAL ROUTE EVERY WEEK FOR 12 WEEKS 08/09 completed Duration : 28; VACCINE_ IND: no; Not Available Not Available Not Available lorazepam 1 mg tablet TAKE 1 OR 2 TABLETS BY MOUTH 1 HOURS BEFORE INJECTIO N 03/04 completed Duration : 2; VACCINE_ IND: no; Not Available Not Available Not Available ibuprofen 600 mg tablet TAKE 1 TABLET BY MOUTH 3 TIMES A DAY WITH FOOD 07/01 completed Duration : 15; VACCINE_ IND: no; Not Available Not Available Not Available estradiol 0.01% (0.1 mg/gram) vaginal cream PLEASE SEE ATTACHED FOR DETAILED DIRECTIO NS active Not Available Not Available No t Available levofloxa daria 750 mg tablet TAKE 1 TABLET BY MOUTH EVERY DAY FOR 7 DAYS active Not Available Not Available No t Available zolpidem 10 mg tablet TAKE 1 TABLET BY MOUTH EVERY DAY AT BEDTIME NEEDED 03/04 completed Duration : 30; VACCINE_ IND: no; Not Available Not Available Not Available doxycycli ne hyclate 100 mg tablet HYC TAB 100MG; Quantity : 10; Duration : 5; 0 refill(s ) 05/03 completed Duration : 5; VACCINE_ IND: no; Not Available Not Available Not Available naproxen 500 mg tablet TAKE 1 TABLET BY MOUTH TWICE A DAY WITH FOOD 03/04 completed Duration : 30; VACCINE_ IND: no; Not Available Not Available Not Available levothyro xine 112 mcg tablet TAKE 1 TABLET BY MOUTH EVERY DAY BEFORE BREAKFAS T active Not Available Not Available No t Available cholecalc iferol (vitamin D3) 25 mcg (1,000 unit) capsule TAKE 1 CAPSULE BY MOUTH EVERY DAY 03/04 completed Duration : 90; VACCINE_ IND: no; Not Available Not Available Not Available cyclobenz aprine 5 mg tablet TAKE 1 TABLET BY MOUTH AT BEDTIME NEEDED FOR MUSCLE SPASM active Not Available Not Available No t Available rosuvasta tin 5 mg tablet TAKE 1/2 TABLET BY MOUTH IN THE MORNING. active Not Available Not Available No t Available glycerin (adult) rectal supposito ry INSERT 1 SUPPOSIT ORY (2 G) INTO THE RECTUM IF NEEDED EACH DAY FOR CONSTIPA TION. active Not Available Not Available No t Available Truvada 200 mg-300 mg tablet 200 mg-300 mg Quantity : 30.0; 3 refill(s ) 10/31 completed VACCINE_ IND: no; SU_FULL_ NAME: Marleen vines; Not Available Not Available Not Available carbamaze pine ER 200 mg capsule,e xtended release [id number] active Not Available Not Available Not Available Klonopin Quantity : ; 0 refill(s ) 08/20 completed VACCINE_ IND: no; Not Available Not Available Not Available bismuth subsalicy late 262 mg Quantity : 120; Duration : 30; 0 refill(s ) 08/18 completed Frequenc y: bid; Duration : 30; VACCINE_ IND: no; SU_FULL_ NAME: Marleen vines; Not Available Not Available Not Available sodium fluoride 1.1 %-potassi um nitrate 5 % dental paste USE TO BRUSH TEETH TWICE DAILY 03/04 completed Duration : 60; VACCINE_ IND: no; Not Available Not Available Not Available ProAir HFA 90 mcg/actua tion aerosol inhaler TAKE 2 PUFFS BY MOUTH EVERY 4 TO 6 HOURS NEEDED 08/09 completed Duration : 17; VACCINE_ IND: no; Not Available Not Available Not Available Reyataz 300 mg capsule 300 mg Quantity : 30.0; 3 refill(s ) 10/31 completed VACCINE_ IND: no; SU_FULL_ NAME: Marleen vines; Not Available Not Available Not Available Isentress 400 mg tablet 400 MG TABS; Quantity : 60; Duration : 30; 0 refill(s ) 01/17 completed Duration : 30; VACCINE_ IND: no; Not Available Not Available Not Available cholecalc iferol (vitamin D3) 50 mcg (2,000 unit) capsule 50 mcg Quantity : 90; Duration : 90; 0 refill(s ) 06/04 completed Duration : 90; VACCINE_ IND: no; Not Available Not Available Not Available GaviLyte- G 236 gram-22.7 4 gram-6.74 gram-5.86 gram oral solution PLEASE SEE ATTACHED FOR DETAILED DIRECTIO NS active Not Available Not Available No t Available blood pressure test kit-large cuff USE TO CHECK BLOOD PRESSURE TWICE DAILY active Not Available Not Available No t Available Norvir 100 mg tablet TAB 100MGNOR VIR; Quantity : 30; Duration : 30; 0 refill(s ) 01/17 completed Duration : 30; VACCINE_ IND: no; Not Available Not Available Not Available Prevnar 13 (PF) 0.5 mL intramusc ular syringe - Quantity : ; Duration : 30; 0 refill(s ) 05/16 completed Duration : 30; VACCINE_ IND: yes; VACCINE_ NAME: Pneumoco ccal conjugat e PCV 13; SU_FULL_ NAME: Marleen Solomon; Not Available Not Available Not Available Intelence 200 mg tablet 200 MG TABS; Quantity : 60; Duration : 30; 0 refill(s ) 01/17 completed Duration : 30; VACCINE_ IND: no; Not Available Not Available Not Available Flulaval 45 mcg (15 mcg x 3)/0.5 mL intramusc ular suspensio n - Quantity : ; Duration : 30; 0 refill(s ) 03/18 completed Duration : 30; VACCINE_ IND: yes; VACCINE_ NAME: Influenz a, seasonal , injectab le; SU_FULL_ NAME: Marleen Solomon; VIS_DATE : 05:00:00 .0; Not Available Not Available Not Available Myrbetriq 50 mg tablet,ex tended release TAKE 1 TABLET BY MOUTH EVERY DAY active Not Available Not Available No t Available Prezista 800 mg tablet 800 mg Quantity : 30; 3 refill(s ) 01/17 completed Frequenc y: qd; VACCINE_ IND: no; SU_FULL_ NAME: Marleen vines; Not Available Not Available Not Available Flulaval 45 mcg (15 mcg x 3)/0.5 mL intramusc ular suspensio n trivalen t Quantity : ; Duration : 30; 0 refill(s ) 03/10 completed Duration : 30; VACCINE_ IND: yes; VACCINE_ NAME: Influenz a, seasonal , injectab le; SU_FULL_ NAME: Marleen Solomon; Not Available Not Available Not Available Triumeq 600 mg-50 mg-300 mg tablet TAKE 1 TABLET BY MOUTH EVERY DAY FOR HIV active Not Available Not Available No t Available Belsomra 20 mg tablet TAKE 1 TABLET BY MOUTH EVERY NIGHT AT BEDTIME FOR SLEEP active Not Available Not Available No t Available Prezcobix 800 mg-150 mg tablet TAKE 1 TABLET BY MOUTH EVERY DAY FOR HIV active Not Available Not Available No t Available Yuvafem 10 mcg vaginal tablet INSERT 1 TABLET VAGINALL Y 2 TIMES A WEEK 07/16 completed Duration : 84; VACCINE_ IND: no; Not Available Not Available Not Available Vitals Date Recorded Body height Heart rate Respiratory rate Body temperature Body mass index (BMI) Body weight Oxygen saturation Oxygen saturation in Arterial blood by Pulse oximetry Systolic blood pressure Diastolic blood pressure Provider Name and Address Organization Details Last Updated DateTime 4 160.02 cm 73 /min 12 /min 98.6 [degF] 28.7 kg/m2 56463.9 6 g 97 % 97 % 138 mm[Hg] 80 mm[Hg] Bety ARANGO 4 12:31:28 Social History None recorded. Functional Status None recorded. Mental Status None recorded. Family History Nothing Reported Notes:Cancer of the breast, Response Property: Yes; , Cancer, other unspecified, Response Property: Yes; , Heart disease (CAD), Response Property: Yes; , Hypertension, Response Property: Yes; , Thyroid disease, Response Property: Yes; Medical History No medical history recorded. Gynecological HistoryNo gynecological history recorded. Obstetrics History GPAL:G 0 P 0 0 0 0 Past Encounters Encounter ID Performer Location Encounter Start Date Encounter Closed Date Diagnosis/Indication Diagnosis SNOMED-CT Code Diagnosis ICD10 Code Diagnosis Note [id number] Yodit Grahamildefonso Main Office [address] [place] [phone] 12/21/2022 15:05:12 01/27/2023 23:51:30 Human immunodeficiency virus infection 73167596 B20 HIV Continue Triumeq 1 tab po qd and Prezcobix 1 tab po qd. wants to keep same regimen. pt aware of 2 drug regimens. strict compliance w daily use with HIV meds reviewed to prevent viral resistance and prevent viral rebound/fa ilure; and prevent viral transmissi on. avoid ETOH use.U=U. STI prevention w condom use reviewed; PreP reviewed w Josefina Lord, [employer]. declines vaccines. COVID19 and flu vaccine recommende d. RSV vaccine reviewed and recommende d as well. plan of care reviewed. questions and concerns addressed [id number] Marleen Kim MD Main Office [address] [place] [address] [phone] 03/24/2023 13:21:52 03/25/2023 10:42:49 Human immunodeficiency virus infection [id number] B20 HIVContinu e Triumeq 1 tab po qd and Prezcobix 1 tab po qd. wants to keep same regimen. pt aware of 2 drug regimens. strict compliance w daily use with HIV meds reviewed to prevent viral resistance and prevent viral rebound/fa ilure; and prevent viral transmissi on.U=U. STI prevention w condom use reviewed; PreP reviewed w Josefina Lord [employer].d eclines vaccines.p t is aware of PreP availabili typlan of care reviewed.q uestions and concerns addressed [id number] Marleen Kim MD Main Office [address] [place] [address] [phone] 06/22/2023 10:56:08 06/22/2023 11:40:36 Human immunodeficiency virus infection [id number] B20 HIVContinu e Triumeq 1 tab po qd and Prezcobix 1 tab po qd. wants to keep same regimen. pt aware of 2 drug regimens. strict compliance w daily use with HIV meds reviewed to prevent viral resistance and prevent viral rebound/fa ilure; and prevent viral transmissi on. close monitoring reviewed in setting of carbamazep ine potential interactio n. she is aware that needs to comply with daily use of HIV meds. change of regimen could be considered U=U. STI prevention w condom use reviewed; pt is aware of PreP availabili typlan of care reviewed.q uestions and concerns addressed [id number] Marleen Kim MD Main Office [address] [place] [address] [phone] 09/22/2023 10:23:49 09/22/2023 10:35:07 Human immunodeficiency virus infection [id number] B20 HIVContinu e Triumeq 1 tab po qd and Prezcobix 1 tab po qd. wants to keep same regimen. pt aware of 2 drug regimens. strict compliance w daily use with HIV meds reviewed to prevent viral resistance and prevent viral rebound/fa ilure; and prevent viral transmissi on. close monitoring reviewed in setting of carbamazep ine potential interactio n. she is aware that needs to comply with daily use of HIV meds. change of regimen could be considered U=U. STI prevention w condom use reviewed; pt is aware of PreP availabili typlan of care reviewed.q uestions and concerns addressed [id number] Marleen Kim MD Main Office [address] [place] [address], [place] [phone] 01/19/2024 12:18:20 01/19/2024 13:21:26 Human immunodeficiency virus infection [id number] B20 HIVContinu e Triumeq 1 tab po qd and Prezcobix 1 tab po qd. wants to keep same regimen. pt aware of 2 drug regimens. strict compliance w daily use with HIV meds reviewed to prevent viral resistance and prevent viral rebound/fa ilure; and prevent viral transmissi on. close monitoring reviewed in setting of carbamazep ine potential interactio n. she is aware that needs to comply with daily use of HIV meds. change of regimen could be considered cardiac data w abacavir reviewed; will address potetnial switch of regimen on next appointmen t.U=U. STI prevention w condom use reviewed; pt is aware of PreP availabili typlan of care reviewed.f shawanda and COVID19 prescribed .questions and concerns addressed Hyperlipidemia 86425533 E78.5 diet and exercisebe nefits of tx reviewed Health Concerns Section Related Observation LastModified by Organization Detai ls LastModified Time None Recorded Concern Status LastModified by Organization Details LastModified Time None Recorded Advance Directives Directive None Recorded Payers Encounter Date Sequence Insurance Name Policy Number Policy Ontiveros Covered Member ID Ontiveros Member ID Guarantor Name 12/21/2022 1 [place]ICAID[place] Melanie Roach [id number] Melanie Roach 03/24/2023 1 [place] Melanie Roach [id number] Melanie Roach 06/22/2023 1 [place] Melanie Roach [id number] Melanie Roach 09/22/2023 1 [place] Melanie Roach [id number] Melanie Roach 01/19/2024 1 [place] Melanie Guillaumetron [id number] Melanie Roach Notes Date Note Type Note Provider Name and Address Organization Details Recorded Time 12/21/2022 text/html f/u HIV. Telemedicine Visit. [place]; [place] at office in [place] AUDIO 16MIN on triumeq 1 tab qd /prezcobix 1 tab po qd. 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 lost weight.labs reviewed08/2022 HIV VL nondetected; CD4 =682; HCV neg; GC/chlamydia neg; AST/ALT 01/2022 HIV VL nondetceted; eGFR>60; ALt/AST wnl; HCV neg; HBV s ag neg; GC/chlamydia neg; 03/2021 CD4>800;eGFR>60; ALT/AST wnl declines vaccines not sexually active. no drugs no fever. no n/v/d. no rash. Yodit elias MA - MARLEEN KIM MD [facility] 01/27/2023 11:54:38 03/24/2023 text/html f/u HIV.on trium eq 1 tab qd /prezcobix 1 tab po qd. tolerates regimen wellhas missed some doses since she was last seenlabs reviewedno new labs. will go this month08/2022 HIV VL nondetected; CD4 =682; HCV neg; GC/chlamydia neg; AST/ALT01/2022 HIV VL nondetceted; eGFR>60; ALt/AST wnl; HCV neg; HBV s ag neg; GC/chlamydia neg;03/2021 CD4>800;eGFR>60; ALT/AST wnldeclines vaccinesnot sexually active.no drugsno fever. no n/v/d. no rash.some problems with thyroid. meds being adjusted. seeing PCP and Thyroid specialist. requests lab. Marleen Kim MD [address] [place] [address], [phone], VERONICA KIM MD [facility] 03/24/2023 13:29:10 06/22/2023 text/html f/u HIV.on trium eq 1 tab qd /prezcobix 1 tab po qd. tolerates regimen wellhas missed some doses since she was last seenlabs /2023 VY1=259; HIV VL nondetected.08/2022 HIV VL nondetected; CD4 =682; HCV neg; GC/chlamydia neg; AST/ALT01/2022 HIV VL nondetceted; eGFR>60; ALt/AST wnl; HCV neg; HBV s ag neg; GC/chlamydia neg;03/2021 CD4>800;eGFR>60; ALT/AST wnlcame off benzo; psychiatrist stopped prescribing per her report. new meds prescribed. had to go to crisis for withdrawal sx and tx.not drinking ETOH. she is on carbamazepime now for anxiety which she needs to take, so she is aware that VL will need to be monitores in setting of med interactions.not sexually active.no drugsno fever. no n/v/d. no rash. Marleen Kim MD [address] [place] [address], [phone], VERONICA KIM MD [facility] 06/22/2023 11:43:31 09/22/2023 text/html f/u HIV.on trium eq 1 tab qd /prezcobix 1 tab po qd. tolerates regimen wellhas missed some doses since she was last seenlabs reviewed06/2023 HIV VLnondetceted;CD4>7 50; ALT/AST wnl; RPR NR; HCV ab;03/2023 EI6=209; HIV VL nondetected.08/2022 HIV VL nondetected; CD4 =682; HCV neg; GC/chlamydia neg; AST/ALT01/2022 HIV VL nondetceted; eGFR>60; ALt/AST wnl; HCV neg; HBV s ag neg; GC/chlamydia neg;03/2021 CD4>800;eGFR>60; ALT/AST wnlnot sexually active for 11 years.no drugsno fever. no n/v/d. no rash. Marleen Kim MD [address] [place] [address], [phone], [place] - MARLEEN KIM MD [facility] 09/22/2023 10:32:20 01/19/2024 text/html f/u HIV.on trium eq 1 tab qd /prezcobix 1 tab po qd. tolerates regimen wellhas missed some doses since she was last seen ; especially when she drinks.labs reviewed11/2023 HIV VL=21; CD4= 900 range ; syphilis neg; GC/chlamydia neg; HCV neg; RPR NR; EGFR>60; AST/ALT wn HIV VLnondetceted;CD4>7 50; ALT/AST wnl; RPR NR; HCV ab;03/2023 CV5=999; HIV VL nondetected.occasayana slava Jackson reports she is on on thyroid tx which she has struggled with due to side effectsnot sexually activeno drugsno fever. no n/v/d. no rash.declines vaccinesPCP recommended lipid loweting agents; she declined them Marleen Kim MD [address] [place] [address], [phone], [place] - MARLEEN KIM MD [facility] 01/19/2024 15:56:02 OBGyn Episode No OBEpisode recorded.
== END 2024-05-11 13:29 | disposition home or self-care (01) ==
LOC: HO.MAMMO 13:28
PROVIDERS: Visit Provider Obstetrics & Gynecology Female Pelvic Medicine and Reconstructive Surgery
DX: Z12.31 Encounter for screening mammogram for malignant neoplasm of breast (principal); Z13.820 Encounter for screening for osteoporosis; Z78.0 Asymptomatic menopausal state
CPT/HCPCS: 77063; 77067; 77080

== ENCOUNTER → 2024-05-11 14:00 | Outpatient (BNV) | payer MEDICAID, SELFPAY | PROVIDERS: Visit Provider Radiology Diagnostic Radiology | DX: Z12.31 Encounter for screening mammogram for malignant neoplasm of breast (principal) | CPT/HCPCS: 77063; 77067 ==

== ENCOUNTER 2024-08-30 13:26 | Outpatient (REF) | payer MEDICAID, SELFPAY ==
--- NOTE | ~2024-08-30 | XR_ITS ---
CLINICAL HISTORY: left knee pain, medial. 5 view left knee Comparison: None Findings: No fractures or dislocations. No significant loss of joint space, osteophytes, or erosions. No joint effusion. No radiopaque foreign body. IMPRESSION: 1. No acute findings. This document has been electronically signed by: Lv Vegas MD on 08/31/2024 14:45:54
--- OUTSIDE RECORDS SUMMARY | 2024-08-30 13:34 | XMS_ITS | Data Portability ---
Author Organization VERONICA QUINTERO MD [facility], Main Office Address [address] [place] [phone] Assessment Encounter Date Assessment Date Assessment LastModified by Organization Details LastModified Time 03/24/2023 03/24/2023 Telemedicine. phone/audio. 15 min [email or web address] Not available 03/24/2023 13:28:47 06/22/2023 06/22/2023 Telemedicine. VIDEO. 21 min. [place] home in [place]. [email or web address] Not available 06/22/2023 11:41:54 09/22/2023 09/22/2023 Telemedicine. VIDEO. 19 min. [place]. [email or web address] Not available 09/22/2023 10:25:33 Plan of Treatment Reminders Order Date Submit Date Provider Last Modified By Organization Details Last Modified Time Details Appointments B20 FOLLOW UP 2024 11:00A Pat Kim MD Not available Not available Not available Lab CBC w/ diff [address], [address] [place] [address], [address], 07/31/2024 10:55:07 HIV-1 RNA, quantitat sudarshan, PCR, serum or plasma [address], [address] [place] [address], [address], 07/31/2024 10:55:07 T-cell regulator y subsets panel, blood [address], [address] [place] [address], [address], 07/31/2024 10:55:07 hepatitis C virus Ab, serum [address] (Lab), [address] [place] [address], [id number], 07/31/2024 10:55:07 HBsAg (hepatiti s B surface Ag), serum [address] [place] [address] (Lab), [address] [place] [address], [address], 07/31/2024 10:55:07 RPR (rapid plasma reagin), serum [address] [place] [address] (Lab), [address] [place] [address], [address], 07/31/2024 10:55:08 chlamydia + gonorrhea RNA, QL, unspecifi ed specimen [address] [place] [address] (Lab), [address] [place] [address], [address], 07/31/2024 10:55:08 CMP, serum or plasma [address] [place] [address] (Lab), [address] [place] [address], 059[address], 07/31/2024 10:55:08 lipid panel, serum [address] (Lab), [address] [place] [address], 587[address], 01/26/2024 14:15:56 CBC w/ diff [address], [address] [place] [address], [address], 01/26/2024 14:15:55 ALT (alanine aminotran sferase), serum or plasma [address], [address] [place] [address], 25[address], 01/26/2024 14:15:55 AST/SGOT (aspartat e aminotran sferase), serum or plasma [address], [address] [place] [address], 449[address], 01/26/2024 14:15:56 creatinin e w/ estimated GFR (eGFR), serum or plasma [address], [address] [place] [address], 393[address], 01/26/2024 14:15:56 HIV-1 RNA, quantitat sudarshan, PCR, serum or plasma [address], [address] [place] [address], 620[address], 01/26/2024 14:15:56 T-cell regulator y subsets panel, blood [address], [address] [place] [address], 93[address], 01/26/2024 14:15:56 CBC w/ diff [address], [address] [place] [address], 44[address], 09/29/2023 11:28:57 ALT (alanine aminotran sferase), serum or plasma [address], [address] [place] [address], 936[address], 09/29/2023 11:28:57 AST/SGOT (aspartat e aminotran sferase), serum or plasma [address], [address] [place] [address], 89[address], 09/29/2023 11:28:58 CT + NG DNA, PCR, unspecifi ed specimen [address], [address] [place] [address], 64[address], 09/29/2023 11:28:58 creatinin e w/ estimated GFR (eGFR), serum or plasma [address], [address] [place] [address], 717[address], 09/29/2023 11:28:58 hepatitis C virus Ab, serum [address], [address] [place] [address], 00860, 09/29/2023 11:28:58 HIV-1 RNA, quantitat sudarshan, PCR, serum or plasma [address], [address] [place] [address], 06984, 09/29/2023 11:28:58 RPR (rapid plasma reagin), serum [address], [address] [place] [address], 19722, 09/29/2023 11:28:58 T-cell regulator y subsets panel, blood [address], [address] [place] [address], 013[address], 09/29/2023 11:28:58 HBsAg (hepatiti s B surface Ag), serum [address], [address] [place] [address], 39767, 09/29/2023 11:28:58 CBC w/ diff 2023 024 [facility], [address] [place] [address], [address], 06/30/2023 11:22:31 electroly jamison panel, blood [address] [place] [address], [address] [place] [address], 56[address], 06/30/2023 11:22:32 ALT (alanine aminotran sferase), serum or plasma [address] [place] [address], [address] [place] [address], 70633, 06/30/2023 11:22:32 AST/SGOT (aspartat e aminotran sferase), serum or plasma [address] [place] [address], [address] [place] [address], 776[address], 06/30/2023 11:22:32 CT + NG DNA, PCR, unspecifi ed specimen [address] [place] [address], [address] [place] [address], 18006, 06/30/2023 11:22:32 creatinin e w/ estimated GFR (eGFR), serum or plasma [address] [place] [address], [address] [place] [address], 56227, 06/30/2023 11:22:32 hepatitis C virus Ab, serum [address] [place] [address], [address] [place] [address], 55256, 06/30/2023 11:22:32 HIV-1 RNA, quantitat sudarshan, PCR, serum or plasma [address] [place] [address], [address] [place] [address], 78957, 06/30/2023 11:22:32 RPR (rapid plasma reagin), serum [address], [address] [place] [address], 44631, 06/30/2023 11:22:32 T-cell regulator y subsets panel, blood [address], [address] [place] [address], 25753, 06/30/2023 11:22:32 HBsAg (hepatiti s B surface Ag), serum [address], [address] [place] [address], 17026, 06/30/2023 11:22:32 CBC w/ diff [address], [address] [place] [address], 50326, 04/05/2023 16:50:35 electroly jamison panel, blood [address], [address] [place] [address], 60174, 04/05/2023 16:50:36 ALT (alanine aminotran sferase), serum or plasma [address], [address] [place] [address], 80076, 04/05/2023 16:50:36 AST/SGOT (aspartat e aminotran sferase), serum or plasma [address], [address] [place] [address], 83000, 04/05/2023 16:50:36 CT + NG DNA, PCR, unspecifi ed specimen [address], [address] [place] [address], 35228, 04/05/2023 16:50:36 creatinin e w/ estimated GFR (eGFR), serum or plasma [address], [address], 04/05/2023 16:50:36 hepatitis C virus Ab, serum [address], [address], 04/05/2023 16:50:36 HIV-1 RNA, quantitat sudarshan, PCR, serum or plasma [address] [place] [address], [address] [place] [address], 60256, 04/05/2023 16:50:37 RPR (rapid plasma reagin), serum [address], [address], 04/05/2023 16:50:37 T-cell regulator y subsets panel, blood [address], [address], 04/05/2023 16:50:37 Referral None recorded. Procedures None recorded. Surgeries None recorded. Imaging None recorded. Medication Orders Triumeq 600 mg-50 mg-300 mg tablet 2024 025 [facility] ([facility]) #[id number], [address], [place], [phone], 07/20/2024 13:49:54 Prezcobix 800 mg-150 mg tablet 2024 025 [facility] ([facility]) #[id number], [address], [place], [id number], 07/20/2024 13:49:55 Zepbound 2.5 mg/0.5 mL subcutane ous pen injector 2024 025 [facility] #[id number], [address] [facility], [place], [address], 07/20/2024 14:00:58 Triumeq 600 mg-50 mg-300 mg tablet 2023 024 [facility] ([facility]) #49495, [address], [place], [id number], 01/19/2024 13:03:21 Prezcobix 800 mg-150 mg tablet 2023 024 [facility] ([facility]) #[id number], [address], [place], [id number], 01/19/2024 13:03:20 Triumeq 600 mg-50 mg-300 mg tablet 2023 024 [facility] ([facility]) #81249, [address], [place], [id number], 09/22/2023 10:31:34 Prezcobix 800 mg-150 mg tablet 2023 024 [facility] ([facility]) #63572, [address], [place], [id number], 09/22/2023 10:31:33 Triumeq 600 mg-50 mg-300 mg tablet 2023 024 [facility] ([facility]) #93325, [address], [place], [id number], 06/22/2023 11:40:36 Prezcobix 800 mg-150 mg tablet 2023 024 [facility] ([facility]) #38313, [address], [place], [id number], 06/22/2023 11:40:35 Triumeq 600 mg-50 mg-300 mg tablet 2022 023 [facility]) #59228, [address], [place], [id number], 03/24/2023 13:29:29 Prezcobix 800 mg-150 mg tablet 2022 023 [facility]) #05263, [address], [place], [id number], 03/24/2023 13:29:15 Patient TargetsNo targets recorded. Patient InstructionsNo instructions recorded. Reason for Referral None Reported. Results Created Date Observation Date Name Description Value Unit Range Abnormal Flag Note LastModifiedBy Organization Detail LastModifiedTime Result Notes None recorded. 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 [id number] neg 2007; Not Available [facility] 4 06:58:33 Hyperlipi demia 27125908 Active 2013 Hyperlipid emia; snomeddesc ription: Hyperlipid emia; Report Immunity to Registry: Yes; Other and unspecifie d hyperlipid emia; snomeddesc ription: Hyperlipid emia; Report Immunity to Registry: Yes; Not Available 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 Medical Equipment None Reported. Allergies Allergen ID Allergen Name Allergen Category Reaction Reaction Severity Criticality Documentation Date Start Date Code Code System Note Provider Name and Address Organization Details Recorded Time 696 Penicilli n Not available Not available Not available Not available 06/01/20232011 69095 RxNorm Comme nt: adver se_ev ent_t ype: 64403 8002; ; Not Available [facility] 4 06:50:45 697 Sustiva medicatio n Not available Not available Not available 06/01/202320118 4 RxNorm React ion: Other dysfu nctio ns of sleep stage s or arous al from sleep ; Comme nt: adver se_ev ent_t ype: 26909 8002; ; Not Available [facility] 4 06:50:45 698 Viramune medicatio n rash Not available Not available 06/01/20232011 21576 0 RxNorm React ion: Rash and other nonsp ecifi c skin erupt ion; Comme nt: adver se_ev ent_t ype: 03853 8002; ; Not Available [facility] 4 06:50:45 Medications Name Sig Start Date Stop Date Status Note LastModified by Organization Details LastModified Time cyclobenz aprine 10 mg tablet TAKE 1 TABLET (10 MG) BY MOUTH NEEDED IN THE MORNING , AT NOON, AND AT BEDTIME FOR MUSCLE SPASMS active Not Available Not Available No t Available fluconazo le 100 mg tablet 100 mg Quantity : 3; Duration : 3; 3 refill(s ) 07/28 completed Frequenc y: qd; Duration : 3; VACCINE_ IND: no; SU_FULL_ NAME: Marleen Tyvitor vines; Not Available Not Available Not Available [...] ccal polysacc haride PPV23; SU_FULL_ NAME: Marleen Tyvitor vines; Not Available Not Available Not Available [...] completed VACCINE_ IND: no; SU_FULL_ NAME: Marleen Tyvitor vines; Not Available Not Available Not Available omeprazol e 40 mg capsule,d elayed release 40 mg Quantity : 30; Duration : 30; 0 refill(s ) 01/17 completed Duration : 30; VACCINE_ IND: no; Not Available Not Available Not Available tetracycl ine 250 mg capsule 1 tab po bid 10/16 completed VACCINE_ IND: no; SU_FULL_ NAME: Marleen Tyvitor vines; Not Available Not Available Not Available levothyro [...] 21; VACCINE_ IND: no; SU_FULL_ NAME: Marleen vines; Not Available Not Available Not Available meclizine [...] pine ER 200 mg capsule,e xtended release [id number] r active Not Available Not Available Not [...] Available Triumeq 600 mg-50 mg-300 mg tablet Take 1 tablet every day by oral route for 30 days, for HIV. 2024 active Not Available Not Available Not Linus feliciano Belsomra 20 mg tablet TAKE 1 TABLET BY MOUTH EVERY NIGHT AT BEDTIME FOR SLEEP active Not Available Not Available No t Available Prezcobix 800 mg-150 mg tablet Take 1 tablet every day by oral route for 30 days, for HIV. 2024 active Not Available Not Available Not Linus feliciano Yuvafem 10 mcg vaginal tablet INSERT 1 TABLET VAGINALL Y 2 TIMES A WEEK 07/16 completed Duration : 84; VACCINE_ IND: no; Not Available Not Available Not Available Zepbound 2.5 mg/0.5 mL subcutane ous pen injector Inject 2.5 mg every week by subcutan eous route for 4 days, for weight loss. 2024 active Not Available Not Available Not Avai lable Vitals Date Recorded Body height Heart rate Respiratory rate Body temperature Body mass index (BMI) Body weight Oxygen saturation Oxygen saturation in Arterial blood by Pulse oximetry Systolic blood pressure Diastolic blood pressure Provider Name and Address Organization Details Last Updated DateTime 4 160.02 cm 73 /min 12 /min 98.6 [degF] 28.7 kg/m2 26139.9 6 g 97 % 97 % 138 mm[Hg] 80 mm[Hg] Bety KIM MD [facility] 4 12:31:28 Date Recorded Body height Heart rate Body temperature Body mass index (BMI) Body weight Oxygen saturation Oxygen saturation in Arterial blood by Pulse oximetry Systolic blood pressure Diastolic blood pressure Provider Name and Address Organization Details Last Updated DateTime 5 160.02 cm 73 /min 97.9 [degF] 33.3 kg/m2 34413.3 7 g 95 % 95 % 130 mm[Hg] 80 mm[Hg] Lara KIM MD [facility] 5 13:49:46 Date Recorded Head circumference Provider Name and Address Organization Details Last Updated DateTime 07/20/2024 103.5 cm Bety KIM MD [facility] 07/20/2024 14:16:24 Social History None recorded. Functional Status None [...] Code Diagnosis ICD10 Code Diagnosis Note 324 Marleen Kim MD Main Office [address] [place] [phone] 12/21/2022 15:05:12 01/27/2023 23:51:30 Human immunodeficiency virus infection 49337184 B20 HIV Continue Triumeq 1 tab po qd and Prezcobix 1 tab po qd. wants to keep same regimen. pt aware of 2 drug regimens. strict compliance w daily use with HIV meds reviewed to prevent viral resistance and prevent viral rebound/fa ilure; and prevent viral transmissi on. avoid ETOH use.U=U. STI prevention w condom use reviewed; PreP reviewed w Josefina Lord Apretude. declines vaccines. COVID19 and flu vaccine recommende d. RSV vaccine reviewed and recommende d as well. plan of care reviewed. questions and concerns addressed 1499 Marleen Kim MD Main Office [address] [place] [address] [phone] 03/24/2023 13:21:52 03/25/2023 10:42:49 Human immunodeficiency virus infection 87022599 B20 HIVContinu e Triumeq 1 tab po [...] of care reviewed.q uestions and concerns addressed 41124 Marleen Kim MD Main Office [address] [place] [phone] 06/22/2023 10:56:08 06/22/2023 11:40:36 Human immunodeficiency virus infection 16675333 B20 HIVContinu e Triumeq 1 tab po [...] of care reviewed.q uestions and concerns addressed 48408 Marleen Kim MD Main Office [address] [place] [address] [phone] 09/22/2023 10:23:49 09/22/2023 10:35:07 Human immunodeficiency virus infection 32547195 B20 HIVContinu e Triumeq 1 tab po [...] of care reviewed.q uestions and concerns addressed 53198 Marleen Kim MD Main Office [address] [place] [address] [phone] 01/19/2024 12:18:20 01/19/2024 13:21:26 Human immunodeficiency virus infection 37058890 B20 HIVContinu e Triumeq 1 tab po [...] COVID19 prescribed .questions and concerns addressed Hyperlipidemia 81874610 E78.5 diet and exercisebe nefits of tx reviewed [id number] Marleen Kim MD Main Office [address] [facility], [place] [phone] 07/20/2024 13:16:29 07/20/2024 14:17:24 Human immunodeficiency virus infection 99878318 B20 HIVContinu e Triumeq 1 tab po qd and Prezcobix 1 tab po qd.wants to keep same regimen. pt aware of 2 drug regimens. clinical trial reviewed.s trict compliance w daily use with HIV meds reviewed to prevent viral resistance and prevent viral rebound/fa ilure; and prevent viral transmissi on.DOXYPEP reviewedU= U. STI prevention w condom use reviewed; pt is aware of PreP availabili typlan of care reviewed.p revnar 20 reviewed.q uestions and concerns addressed Body mass index 30+ - obesity 507899086 Z68.33 labs ordered,Ze pbound ordered qw. sqshe will come in to get injection administer ed if approved by insuranceg oal of tx revieweddi et and exercise.m echanism of action reviewedpo tential side effects reviewed such as ISR, allergic reactions, n/v/d, obstructio n, visual changes among other. Health Concerns Section Related Observation LastModified by Organization Detai ls LastModified Time None Recorded Concern Status LastModified by Organization Details LastModified Time None Recorded Advance Directives Directive None Recorded Payers Encounter Date Sequence Insurance Name Policy Number Policy Ontiveros Covered Member ID Ontiveros Member ID Guarantor Name 03/24/2023 1 [place] [employer] [place]ICAID) Melanie Roach [id number] Melanie Roach 06/22/2023 1 [place] [facility] (MEDICAID) Melanie Roach [id number] Melanie Roach 09/22/2023 1 [place] [place]ICAID[place] Melanie Roach [id number] Melanie Roach 01/19/2024 1 [place] [facility] (MEDICAID) Melanie Roach [id number] Melanie Roach 07/20/2024 1 [place] [place] Melanie Roach [id number] Melanie Roach Notes Date Note Type Note Provider Name and Address Organization Details Recorded Time 03/24/2023 text/html f/u HIV.on trium eq 1 [...] Thyroid specialist. requests lab. Marleen Kim MD [address] [place] [address], [phone], [place] KIM MD [facility] 03/24/2023 13:29:10 06/22/2023 text/html f/u HIV.on trium eq 1 tab qd /prezcobix 1 tab po qd. tolerates regimen wellhas missed some doses since she was last seenlabs corcqorz59/2023 YN1=454; HIV VL nondetected.08/2022 HIV VL nondetected; CD4 [...] no n/v/d. no rash. Marleen Kim MD [address] [place] [address], [phone], [place] KIM MD [facility] 06/22/2023 11:43:31 09/22/2023 text/html f/u HIV.on trium eq 1 tab qd /prezcobix 1 tab po qd. tolerates regimen wellhas missed some doses since she was last seenlabs reviewed06/2023 HIV VLnondetceted;CD4>75 0; ALT/AST wnl; RPR NR; HCV ab;03/2023 HS0=988; HIV VL nondetected.08/2022 HIV VL nondetected; CD4 =682; HCV neg; GC/chlamydia neg; AST/ALT01/2022 HIV VL nondetceted; eGFR>60; ALt/AST wnl; HCV neg; HBV s ag neg; GC/chlamydia neg;03/2021 CD4>800;eGFR>60; ALT/AST wnlnot sexually active for 11 years.no drugsno fever. no n/v/d. no rash. Marleen Kim MD [address] [place] [address], [phone], [facility] Trevor KIM MD [facility] 09/22/2023 10:32:20 01/19/2024 text/html f/u HIV.on trium eq 1 tab qd /prezcobix 1 tab po qd. tolerates regimen wellhas missed some doses since she was last seen ; especially when she drinks.labs reviewed11/2023 HIV VL=21; CD4= 900 range ; syphilis neg; GC/chlamydia neg; HCV neg; RPR NR; EGFR>60; AST/ALT wn HIV VLnondetceted;CD4>75 0; ALT/AST wnl; RPR NR; HCV ab;03/2023 UF9=554; HIV VL nondetected.occasion jamari Jackson reports she is on on thyroid tx which she has struggled with due to side effectsnot sexually activeno drugsno fever. no n/v/d. no rash.declines vaccinesPCP recommended lipid loweting agents; she declined them Marleen Kim MD [address] [place] [address], [phone], [place] KIM MD [facility] 01/19/2024 15:56:02 07/20/2024 text/html f/u HIV.on trium eq 1 tab qd /prezcobix 1 tab po qd. tolerates regimen wellhas missed some doses since she was last seen ; especially when she drinks.denies missing daily, except when she socially drinks during her birthday or holidays.occasional ETOHhypothyroidism hxnot sexually activeusing pillboxno drugsno fever. no n/v/d. no rash.labs reviewed high lipids; snores; lipodystrophyOA/repo rts osteoporosis; no obstruction; no thyroid cancer; no family ; gallstones hx.overweight. BMI 33; lipodystrophy. interested in GlP1.denies pancreatitis hx; denies hx of thyroid medullary cancer; denies thyroid cancer hx. no visual changes; denies obstruction hx and denies GI surgerysocial ETOH on her birthday and holidays.no suctance use.11/2023 HIV VL=21; CD4= 900 range ; syphilis neg; GC/chlamydia neg; HCV neg; RPR NR; EGFR>60; AST/ALT wn HIV VLnondetceted;CD4>75 0; ALT/AST wnl; RPR NR; HCV ab;03/2023 ZA3=850; HIV VL nondetected. Marleen Kim MD [address] [place] [address], [place], [phone], [place] KIM MD [facility] 07/24/2024 00:38:13 OBGyn Episode No OBEpisode recorded.
[2024-08-30 13:59] LABS: MANUAL DIFF FLAG NO
[2024-08-30 14:19] LABS: Basophils Absolute Auto 0.1 X10*3/uL (0.0-0.2); Basophils Percent Auto 0.6 % (0-2); Eosinophils Absolute Auto 0.3 X10*3/uL (0.0-0.4); Eosinophils Percent Auto 3.4 % (0-4); Hematocrit 40.7 % (37.0-47.0); Hemoglobin 13.4 g/dl (12.0-16.0); Imm Gran Abs Auto 0.04 X10*3/uL (0.00-0.03); Imm Gran Pct Auto 0.5 % (0.0-0.4); Lymphocytes Percent Auto 25.5 % (20-40); Mean Corpuscular HGB Conc 32.9 g/dl (31.0-35.0); Mean Corpuscular Volume 97.1 fL (80.0-98.0); Mean Platelet Volume 10.7 fL (9.4-12.3); Monocytes Absolute Auto 0.6 X10*3/uL (0.1-1.2); Monocytes Percent Auto 7.2 % (2-11); Neutrophils Absolute Auto 4.9 x10*3/uL (2.0-8.3); Neutrophils Percent Auto 62.8 % (45-73); Platelet Count 257 X10*3/uL (160-400); Red Blood Count 4.19 X10*6/uL (4.20-5.50); Red Cell Distribution Width 14.5 % (11.0-16.0); White Blood Count 7.7 X10*3/uL (4.8-10.8)
[2024-08-30 14:42] LABS: Alanine Aminotransferase 16 U/L (0-31); Aspartate Amino Transferase 19 U/L (5-31)
[2024-08-30 15:07] LABS: Thyroid Stimulating Hormone 1.61 uIU/mL (0.32-4.0)
[2024-08-30 16:22] LABS: CT PCR NOT DETECTED (Not Detect.); NG PCR NOT DETECTED (Not Detect.)
[2024-08-31 03:58] LABS: HBsAGNum1 0.33 S/CO (0.00-0.99); Hepatitis B Surface Antigen Negative (Negative); ~HepC Num1 0.14 S/CO (0.00-0.79); ~Hepatitis C Antibody Nonreactive (Nonreactive)
[2024-09-01 14:13] LABS: HIV RNA PCR Qn Copies NOT DETECTED copies/mL (NOT DETECTED); HIV RNA PCR Qn Log Copies NOT DETECTED (NOT DETECTED)
[2024-09-04 10:38] LABS: RPR Rapid Plasma Reagin NON-REACTIVE (NON-REACTIVE)
[2024-09-05 12:19] LABS: Absolute CD3 Count 1703 cells/uL (840-3060); Absolute CD4 Count 916 cells/uL (490-1740); Absolute CD8 Count 802 cells/uL (180-1170); Absolute Lymphocytes 2130 cells/uL (850-3900); CD4 CD8 Ratio 1.14 (0.86-5.00); Percent CD3 Cells 80 % (57-85); Percent CD4 Cells 43 % (30-61); Percent CD8 Cells 38 % (12-42)
== END 2024-08-30 13:27 | disposition home or self-care (01) ==
LOC: HO.XRAY 13:26
PROVIDERS: Student in an Organized Health Care Education/Training Program; Absent Provider Internal Medicine Infectious Disease; PCP Family Medicine; Visit Provider Family Medicine
DX: B20 Human immunodeficiency virus [HIV] disease (principal); E04.1 Nontoxic single thyroid nodule; E89.0 Postprocedural hypothyroidism; M25.562 Pain in left knee; G89.29 Other chronic pain
CPT/HCPCS: 36415; 73562; 84439; 84443; 84450; 84460; 85025; 86359; 86360; 86592; 86803; 87340; 87491; 87536; 87591

== ENCOUNTER → 2024-08-30 14:01 | Outpatient (BNV) | payer MEDICAID, SELFPAY | PROVIDERS: Absent Provider Internal Medicine Infectious Disease; PCP Family Medicine; Visit Provider Specialist | DX: M25.562 Pain in left knee (principal) | CPT/HCPCS: 73562 ==

== ENCOUNTER 2024-09-11 12:49 | Outpatient (AMB) | payer MEDICAID, SELFPAY ==
[2024-09-11 12:51] VITALS: BP 130/80; PULSE 94; O2SAT 95; BMI 33.5
--- NOTE | 2024-09-11 12:51 | A.OFFVIS_ITS ---
Vital Signs 3 09/11/24 12:51 Height 5 ft 3 in Weight 189 lb 2.506 oz BMI 33.5 BP 130/80 Blood Pressure Location Lt brachial Position Sitting Pulse 94 Pulse Source Pulse Oximeter Pulse Oximetry (%) 95 Oxygen Delivery Method Room Air Intake Visit Reasons: Hypothyroidism Intake Note: Patient present today for Hypothyroidism office visit. Recruitment Intern Required: No Accompanied by: Self / Same As Patient Allergies penicillin V Allergy (Unknown, Verified 09/11/24 12:55) anaphylaxis Penicillins [PENICILLINS] Allergy (Unknown, Verified 09/11/24 12:55) UNKNOWN seasonal allergies Allergy (Unknown, Uncoded 09/11/24 12:55) Difficulty Breathing Medication List - Last Reconciled 09/11/24 by Swetha Tang MD [id number] 600-50-300 mg (Triumeq) 1 tab PO QAM cyclobenzaprine 10 mg PO BEDTIME darunavir-cobicistat 800-150 mg-mg (Prezcobix) 1 tab PO DAILY fexofenadine (Vesta Allergy) 180 mg PO DAILY hydroxyzine HCl 50 mg PO BID levothyroxine 100 mcg PO DAILY suvorexant (Belsomra) 20 mg PO BEDTIME PRN HPI Comments Details: 63-year-old female coming in today for follow up of Graves disease status post SARAVIA ablation in 2007, 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 HPI from prior visit She has a prior history of Graves disease, status post radioactive iodine ablation in 2007, who has subsequently been maintained on levothyroxine for postablative hypothyroidism. More recently her workup showed low TSH levels, requiring adjustment of levothyroxine. Currently taking levothyroxine 100 mcg daily . Taking it appropriately, adherent to the medication. Sometime around Dec she went down from 112 mcg to 100 mcg daily , chnage made by PCP after she had called them reporting palpitations Labs repeated 02/16/2024 showed TSH of 1.64, with a free T4 of 1.01, total T3 of 97, all within normal range. Endorses hot flashes. feels she has heat intolerance. Patient currently denies, diarrhea, endorses constipation, denies hair loss, palpitation, anxiety,, mood changes, low energy, changes in appearance of eyes or vision changes, tremors or dry skin. ? Gained 10 lbs over the past 3-4 months. walkimg much less Sleep improved now . ultrasound of her thyroid in in November 2022 which showed a left 2 cm mixed cystic/solid nodule, hypoechoic. This is reported as taller than wide, however it is slightly unclear if these are 2 separate nodules coalesced together. FNA biopsy 09/02/23 at [facility], of this left mid lobe nodule showed abundant polymorphous lymphocytes and a few oncocytic follicular cell groups consistent with chronic lymphocytic (Mel's) thyroiditis. Most recent thyroid ultrasound done in December 2023, again showed a left mid lobe nodule measuring 1.6 cm in the largest dimension which has become smaller compared to previous size of 2 cm in the largest dimension. Mixed cystic and solid, hypoechoic, TR 3 nodule. Overall her thyroid gland is atrophic and shrunk can consistent with Mel's thyroiditis. Patient endorses difficulty swallowing since last year mostly with swallowing solid foods. Denies pain on swallowing or difficulty breathing. Reports some hoarsness. Patient denies any history of childhood neck radiation. Denies having ever used lithium, amiodarone or biotin supplements. Patient denies any family history of thyroid cancer. Cousin has hypothyroidism Never smoker Interval history Continues on levothyroxine 100 mcg daily blood work from 08/30/2024: Normal TSH and free T4 no compressive symptoms Overall feels well Physical exam General: sitting comfortably in no acute distress HEENT: normocephalic/atraumatic, , moist oral mucosa Neck: supple, symmetrical Cardiac: normal heart sounds Pulm: normal breath sounds B/L, no added breath sounds Abd: not distended, no tenderness Extremities: no edema, no signs of myxedema Laboratory Tests 05/23/23 11/15/23 02/16/24 13:23 15:51 15:48 Calcium 9.7 10.3 H D Magnesium 2.2 Albumin 4.5 TSH 0.24 L 1.64 Free T4 1.28 1.01 Total T3 97 Thyroid Stim Immunoglob <89 Laboratory Tests 05/23/23 11/15/23 13:23 15:51 Calcium 9.7 10.3 H D Magnesium 2.2 Albumin 4.5 TSH 0.24 L Free T4 1.28 Laboratory Tests 08/30/24 13:57 TSH 1.61 Free T4 1.10 US THYROID 01/04/24 CLINICAL INFORMATION: Nontoxic single thyroid nodule. COMPARISON: Thyroid ultrasound 11/15/2022 and 11/02/2016. TECHNIQUE: Linear transducer grayscale and color Doppler examination with attention to the region of the thyroid. FINDINGS: SIZE: Measurements of the thyroid lobes and nodules are given in sagittal, anteroposterior and transverse dimensions respectively. Right Thyroid Lobe: 2.8 x 1.3 x 0.9 cm, volume 1.7 mL. Previously 2.7 x 0.8 x 0.9 cm, volume 1.1 mL. Parenchyma: The gland echotexture is heterogeneous. Thyroid vascularity is normal. Left Thyroid Lobe: 2.0 x 0.8 x 0.9 cm, volume 0.75 mL. Previously 3.1 x 1.0 x 1.2 cm, volume 2.0 mL. Parenchyma: The gland echotexture is heterogeneous. Thyroid vascularity is normal. Isthmus: 0.18 cm in maximum AP dimension. Previously 0.14 cm. Estimated total number of nodules greater than or equal to 1 cm: 1. Cloth Wire Weaver nodules are described as follows: 1. Location: Left mid. (Not well seen discrete from surrounding abnormal hypoechoic thyroid parenchyma). Size: 1.6 x 0.6 x 0.41 cm, volume 0.214 mL. Previously: 2.0 x 0.8 x 0.7 cm, volume 0.6 mL. Nodule characteristics: Composition: Mixed cystic and solid (1). Echogenicity: Hypoechoic (2). Shape: Not taller than wide (0). Margins: Ill-defined (0). Echogenic Foci: None (0). ACR TI-RADS total points: 3 Previous: 6 ACR TI-RADS category: 3 Previous: 4 Significant change in size (>/= 20% in 2 dimensions and minimal increase of 2 mm or 50% or greater increase in volume): Yes Change in features: Yes Change in ACR TI-RADS risk category: Yes NODES: No lymphadenopathy is seen in the tissue surrounding the thyroid gland. US/US thyroid IMPRESSION: 1. Shrunken, atrophic hypoechoic gland, consistent with Mel's thyroiditis. 2. Left mid gland 1.6 cm TR category 3 nodule. This is a possible but not definitive finding, as no discrete nodule is identified on the cine loops provided. It appears the technologist may be measuring normal atrophic thyroid gland. There are definite comparison concrete products machine operator dependent differences between the 2 exams. Nevertheless, it is significantly smaller than previously seen and therefore benign. No routine follow-up suggested as per below. [facility] Medical History Thyroid nodule Diverticular disease Spondylosis of lumbar spine Obesity due to excess calories Hypothyroidism HIV (human immunodeficiency virus infection) Graves disease Hematuria Tubular adenoma Dyslipidemia History of kidney stones HIV (human immunodeficiency virus infection) Acute anxiety Surgical History Hx of colonoscopy H/O: hysterectomy Family History Father HTN (hypertension) Mother HTN (hypertension) Diabetes Dementia Maternal Grandmother Breast cancer Maternal Aunt Breast cancer Diabetes Maternal Aunt Dementia Maternal Uncle Cancer Maternal Uncle Heart attack Maternal Aunt HTN (hypertension) Social History Household Members: None and Other Household Members Other:: grandson Housing: Apartment Alcohol intake: current Alcohol intake frequency: holidays/special occasions only Patient Tobacco Use Status: Never used Tobacco Substance Use Type: Marijuana Assessment & Plan Assessment & Plan (1) Hypothyroidism: Code(s): E03.9 - Hypothyroidism, unspecified Category: Medical Qualifiers: Hypothyroidism type: postablative Qualified Code(s): E89.0 - Postprocedural hypothyroidism Plan: Patient with history of Graves disease status post radioactive iodine ablation in 2007, who is being managed for postablative hypothyroidism. Currently on levothyroxine 100 mcg daily. Most recent blood work from August 2024 shows normal thyroid function. Plan: -continue levothyroxine 100 mcg daily (2) Thyroid nodule: Code(s): E04.1 - Nontoxic single thyroid nodule Category: Medical Plan: ultrasound of her thyroid in in November 2022 which showed a left 2 cm mixed cystic/solid nodule, hypoechoic. This is reported as taller than wide, however it is slightly unclear if these are 2 separate nodules coalesced together. FNA biopsy 09/02/23 at [facility], of this left mid lobe nodule showed abundant polymorphous lymphocytes and a few oncocytic follicular cell groups consistent with chronic lymphocytic (Mel's) thyroiditis. Most recent thyroid ultrasound done in December 2023, again showed a left mid lobe nodule measuring 1.6 cm in the largest dimension which has become smaller compared to previous size of 2 cm in the largest dimension. Mixed cystic and solid, hypoechoic, TR 3 nodule. Overall her thyroid gland is atrophic and shrunk can consistent with Mel's thyroiditis. We had plan to repeat thyroid ultrasound in 1 year in December 2024, we will order that today. Plan: -ordered thyroid ultrasound to be done in 2 months with follow up in 3 months to discuss results Plan See above Orders: Orders 2 US thyroid 2 Months E04.1 - Nontoxic single thyroid nodule Medications: Refilled 2 levothyroxine 100 mcg PO DAILY 90 tabs 4RF Patient Instructions: Do thyroid ultrasound in 2 months, follow up in 3 months to discuss results Coding Level of Care Code Est Pt Level 3 (98673) Diagnoses Postablative hypothyroidism E89.0 Hypothyroidism type: postablative Thyroid nodule E04.1
--- OUTSIDE RECORDS SUMMARY | 2024-09-11 14:09 | XMS_ITS | Data Portability ---
Author Organization VERONICA QUINTERO MD [facility], Main Office Address [address] [place] [phone] Assessment Encounter Date Assessment Date Assessment LastModified by Organization Details LastModified Time 03/24/2023 03/24/2023 Telemedicine. phone/audio. 15 min [email or web address] Not available 03/24/2023 13:28:47 06/22/2023 06/22/2023 Telemedicine. VIDEO. 21 min. pt home in [place]. [email or web address] Not available 06/22/2023 11:41:54 09/22/2023 09/22/2023 Telemedicine. VIDEO. 19 min. pt [place] in [place]. [email or web address] Not available 09/22/2023 10:25:33 Plan of Treatment Reminders Order Date Submit Date Provider Last Modified By Organization Details Last Modified Time Details Appointments B20 FOLLOW UP 2024 11:00A Pat Kim MD Not available Not available Not available Lab CBC w/ diff [address], [address] [place] [address], [id number], 07/31/2024 10:55:07 HIV-1 RNA, quantitat sudarshan, PCR, serum or plasma [address], [address] [place] [address], [id number], 07/31/2024 10:55:07 T-cell regulator y subsets panel, blood [address], [address] [place] [address], [id number], 07/31/2024 10:55:07 hepatitis C virus Ab, serum [address] (Lab), [address] [place] [address], [id number], 07/31/2024 10:55:07 HBsAg (hepatiti s B surface Ag), serum [address] [place] [address] (Lab), [address] [place] [address], [id number], 07/31/2024 10:55:07 RPR (rapid plasma reagin), serum [address] [place] [address] (Lab), [address] [place] [address], 40[address], 07/31/2024 10:55:08 chlamydia + gonorrhea RNA, QL, unspecifi ed specimen [address] [place] [address] (Lab), [address] [place] [address], [id number], 07/31/2024 10:55:08 CMP, serum or plasma [address] [place] [address] (Lab), [address] [place] [address], [address], 07/31/2024 10:55:08 lipid panel, serum [address] (Lab), [address] [place] [address], [address], 01/26/2024 14:15:56 CBC w/ diff [address], [address] [place] [address], 660[address], 01/26/2024 14:15:55 ALT (alanine aminotran sferase), serum or plasma [address], [address] [place] [address], 47862, 01/26/2024 14:15:55 AST/SGOT (aspartat e aminotran sferase), serum or plasma [address], [address] [place] [address], 21766, 01/26/2024 14:15:56 creatinin e w/ estimated GFR (eGFR), serum or plasma [address], [address] [place] [address], 458[address], 01/26/2024 14:15:56 HIV-1 RNA, quantitat sudarshan, PCR, serum or plasma [address], [address] [place] [address], [id number], 01/26/2024 14:15:56 T-cell regulator y subsets panel, blood [address], [address] [place] [address], 47828, 01/26/2024 14:15:56 CBC w/ diff [address], [address] [place] [address], 74[address], 09/29/2023 11:28:57 ALT (alanine aminotran sferase), serum or plasma [address], [address] [place] [address], 41421, 09/29/2023 11:28:57 AST/SGOT (aspartat e aminotran sferase), serum or plasma [address], [address] [place] [address], 09825, 09/29/2023 11:28:58 CT + NG DNA, PCR, unspecifi ed specimen [address], [address] [place] [address], 41634, 09/29/2023 11:28:58 creatinin e w/ estimated GFR (eGFR), serum or plasma [address], [address] [place] [address], 96527, 09/29/2023 11:28:58 hepatitis C virus Ab, serum [address], [address] [place] [address], 52964, 09/29/2023 11:28:58 HIV-1 RNA, quantitat sudarshan, PCR, serum or plasma [address], [address] [place] [address], 47415, 09/29/2023 11:28:58 RPR (rapid plasma reagin), serum [address], [address] [place] [address], 21871, 09/29/2023 11:28:58 T-cell regulator y subsets panel, blood [address], [address] [place] [address], 78568, 09/29/2023 11:28:58 HBsAg (hepatiti s B surface Ag), serum [address], [address] [place] [address], 48811, 09/29/2023 11:28:58 CBC w/ diff 2023 024 kendy [facility], [address] [place] [address], 59433, 06/30/2023 11:22:31 electroly jamison panel, blood [address] [place] [address], [address] [place] [address], 77223, 06/30/2023 11:22:32 ALT (alanine aminotran sferase), serum or plasma [address] [place] [address], [address] [place] [address], 57465, 06/30/2023 11:22:32 AST/SGOT (aspartat e aminotran sferase), serum or plasma [address] [place] [address], [address] [place] [address], 32230, 06/30/2023 11:22:32 CT + NG DNA, PCR, unspecifi ed specimen [address] [place] [address], [address] [place] [address], 62183, 06/30/2023 11:22:32 creatinin e w/ estimated GFR (eGFR), serum or plasma [address] [place] [address], [address] [place] [address], 61699, 06/30/2023 11:22:32 hepatitis C virus Ab, serum [address] [place] [address], [address] [place] [address], 19910, 06/30/2023 11:22:32 HIV-1 RNA, quantitat sudarshan, PCR, serum or plasma [address] [place] [address], [address] [place] [address], 53633, 06/30/2023 11:22:32 RPR (rapid plasma reagin), serum [address], [address] [place] [address], 13086, 06/30/2023 11:22:32 T-cell regulator y subsets panel, blood [address], [address] [place] [address], 81041, 06/30/2023 11:22:32 HBsAg (hepatiti s B surface Ag), serum [address], [address] [place] [address], 96327, 06/30/2023 11:22:32 CBC w/ diff [address], [address] [place] [address], 02273, 04/05/2023 16:50:35 electroly jamison panel, blood [address], [address] [place] [address], 21031, 04/05/2023 16:50:36 ALT (alanine aminotran sferase), serum or plasma [address], [address] [place] [address], 21570, 04/05/2023 16:50:36 AST/SGOT (aspartat e aminotran sferase), serum or plasma [address], [address] [place] [address], 88481, 04/05/2023 16:50:36 CT + NG DNA, PCR, unspecifi ed specimen [address], [address] [place] [address], 52616, 04/05/2023 16:50:36 creatinin e w/ estimated GFR (eGFR), serum or plasma [address], [address], 04/05/2023 16:50:36 hepatitis C virus Ab, serum [address], [address], 04/05/2023 16:50:36 HIV-1 RNA, quantitat sudarshan, PCR, serum or plasma [address] [place] [address], [address] [place] [address], 65979, 04/05/2023 16:50:37 RPR (rapid plasma reagin), serum [address], [address], 04/05/2023 16:50:37 T-cell regulator y subsets panel, blood [address], [address], 04/05/2023 16:50:37 Referral None recorded. Procedures None recorded. Surgeries None recorded. Imaging None recorded. Medication Orders Triumeq 600 mg-50 mg-300 mg tablet 2024 025 [facility] ([facility]) #[id number], [address], [place], [id number], 07/20/2024 13:49:54 Prezcobix 800 mg-150 mg tablet 2024 025 [facility] ([facility]) #[id number], [address], [place], [id number], 07/20/2024 13:49:55 Zepbound 2.5 mg/0.5 mL subcutane ous pen injector 2024 025 [facility]acy #[id number], [address], [place], [address], 07/20/2024 14:00:58 Triumeq 600 mg-50 mg-300 mg tablet 2023 024 [facility] ([facility]) #[id number], [address], [place], [id number], 01/19/2024 13:03:21 Prezcobix 800 mg-150 mg tablet 2023 024 [facility] ([facility]) #[id number], [address], [place], [id number], 01/19/2024 13:03:20 Triumeq 600 mg-50 mg-300 mg tablet 2023 024 [facility] ([facility]) #[id number], [address], [place], [id number], 09/22/2023 10:31:34 Prezcobix 800 mg-150 mg tablet 2023 024 [facility] ([facility]) #[id number], [address], [place], [id number], 09/22/2023 10:31:33 Triumeq 600 mg-50 mg-300 mg tablet 2023 024 [facility] ([facility]) #[id number], [address], [place], [id number], 06/22/2023 11:40:36 Prezcobix 800 mg-150 mg tablet 2023 024 [facility] ([facility]) #[id number], [address], [place], [id number], 06/22/2023 11:40:35 Triumeq 600 mg-50 mg-300 mg tablet 2022 023 [facility]) #22369, [address], [place], [id number], 03/24/2023 13:29:29 Prezcobix 800 mg-150 mg tablet 2022 023 [facility]) #[id number], [address], [place], [id number], 03/24/2023 13:29:15 Patient TargetsNo targets recorded. Patient InstructionsNo instructions recorded. Reason for Referral None Reported. Results Created Date Observation Date Name Description Value Unit Range Abnormal Flag Note LastModifiedBy Organization Detail LastModifiedTime Result Notes None recorded. 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 [id number] neg 2007; Not Available [facility] 4 06:58:33 Hyperlipi demia 37824649 Active 2013 Hyperlipid emia; snomeddesc ription: Hyperlipid emia; Report Immunity to Registry: Yes; Other and unspecifie d hyperlipid emia; snomeddesc ription: Hyperlipid emia; Report Immunity to Registry: Yes; Not Available [facility] 4 06:58:33 Constipat ion 02997927 Active 2013 Constipati on, unspecifie d; snomeddesc ription: Constipati on; Report Immunity to Registry: Yes; Constipat ion; snomeddesc ription: Constipati on; Report Immunity to Registry: Yes; Not Available [facility] 4 06:58:34 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 Medical Equipment None Reported. Allergies Allergen ID Allergen Name Allergen Category Reaction Reaction Severity Criticality Documentation Date Start Date Code Code System Note Provider Name and Address Organization Details Recorded Time 696 Penicilli n Not available Not available Not available Not available 06/01/20232011 93560 RxNorm Comme nt: adver se_ev ent_t ype: 22932 8002; ; Not Available [facility] 4 06:50:45 697 Sustiva medicatio n Not available Not available Not available 06/01/202320118 4 RxNorm React ion: Other dysfu nctio ns of sleep stage s or arous al from sleep ; Comme nt: adver se_ev ent_t ype: 91828 8002; ; Not Available [facility] 4 06:50:45 698 Viramune medicatio n rash Not available Not available 06/01/20232011 46953 0 RxNorm React ion: Rash and other nonsp ecifi c skin erupt ion; Comme nt: adver se_ev ent_t ype: 45998 8002; ; Not Available [facility] 4 06:50:45 Medications Name Sig Start Date [...] pine ER 200 mg capsule,e xtended release [id number] r active Not Available Not Available Not [...] Available Not Avai lable Vitals Date Recorded Head circumference Provider Name and Address Organization Details Last Updated DateTime 07/20/2024 103.5 cm Bety KIM MD [facility] 07/20/2024 14:16:24 Date Recorded Body height Heart rate Body temperature Body mass index (BMI) Body weight Oxygen saturation Oxygen saturation in Arterial blood by Pulse oximetry Systolic blood pressure Diastolic blood pressure Provider Name and Address Organization Details Last Updated DateTime 5 160.02 cm 73 /min 97.9 [degF] 33.3 kg/m2 14428.3 7 g 95 % 95 % 130 mm[Hg] 80 mm[Hg] Lara KIM MD [facility] 5 13:49:46 Date Recorded Body height Heart rate Respiratory rate Body temperature Body mass index (BMI) Body weight Oxygen saturation Oxygen saturation in Arterial blood by Pulse oximetry Systolic blood pressure Diastolic blood pressure Provider Name and Address Organization Details Last Updated DateTime 4 160.02 cm 73 /min 12 /min 98.6 [degF] 28.7 kg/m2 82311.9 6 g 97 % 97 % 138 mm[Hg] 80 mm[Hg] Bety KIM MD [facility] 4 12:31:28 Social History None recorded. Functional [...] Note 324 Marleen Kim MD Main Office [address] [place] [phone] 12/21/2022 15:05:12 01/27/2023 23:51:30 Human immunodeficiency virus infection 68186676 B20 HIV Continue Triumeq 1 tab po [...] addressed 1499 Marleen Kim MD Main Office [address] [place] [phone] 03/24/2023 13:21:52 03/25/2023 10:42:49 Human immunodeficiency virus infection 00184218 B20 HIVContinu e Triumeq 1 tab po [...] of care reviewed.q uestions and concerns addressed [id number] Marleen Kim MD Main Office [address] [place] [phone] 06/22/2023 10:56:08 06/22/2023 11:40:36 Human immunodeficiency virus infection 73682361 B20 HIVContinu e Triumeq 1 tab po [...] of care reviewed.q uestions and concerns addressed [id number] Marleen Kim MD Main Office [address] [place] [phone] 09/22/2023 10:23:49 09/22/2023 10:35:07 Human immunodeficiency virus infection 43125776 B20 HIVContinu e Triumeq 1 tab po [...] of care reviewed.q uestions and concerns addressed [id number] Marleen Kim MD Main Office [address] [place] [phone] 01/19/2024 12:18:20 01/19/2024 13:21:26 Human immunodeficiency virus infection 32588676 B20 HIVContinu e Triumeq 1 tab po [...] COVID19 prescribed .questions and concerns addressed Hyperlipidemia 03557396 E78.5 diet and exercisebe nefits of tx reviewed 58148 Marleen Kim MD Main Office [address] [facility], [place] [phone] 07/20/2024 13:16:29 07/20/2024 14:17:24 Human immunodeficiency virus infection 00381455 B20 HIVContinu e Triumeq 1 tab po [...] addressed Body mass index 30+ - obesity 754475726 Z68.33 labs ordered,Ze pbound ordered qw. sqshe [...] - [facility] (MEDICAID) Melanie Roach [id number] Melanie Roach 06/22/2023 1 [place] [facility] (MEDICAID) Melanie Roach [id number] Melanie Roach 09/22/2023 1 [place] [facility] [place]ICAID) Melanie Roach [id number] Melanie Roach 01/19/2024 1 [place] [facility] [facility] (MEDICAID) Melanie Roach [id number] Melanie Roach 07/20/2024 1 [place] [facility] [place]ICA[place]) Melanie Roach [id number] Melanie Roach Notes Date Note Type Note [...] Thyroid specialist. requests lab. Marleen Kim MD [address] [place] [address], [phone], [place]ON[place] KIM MD [facility] 03/24/2023 13:29:10 06/22/2023 text/html f/u HIV.on trium eq 1 tab qd /prezcobix 1 tab po qd. tolerates regimen wellhas missed some doses since she was last seenlabs fkvkhatf93/2023 QF2=471; HIV VL nondetected.08/2022 HIV VL nondetected; CD4 [...] no n/v/d. no rash. Marleen Kim MD [address] [place] [address], [phone], VERONICA KIM MD [facility] 06/22/2023 11:43:31 09/22/2023 text/html f/u HIV.on trium eq 1 tab qd /prezcobix 1 tab po qd. tolerates regimen wellhas missed some doses since she was last seenlabs reviewed06/2023 HIV VLnondetceted;CD4>75 0; ALT/AST wnl; RPR NR; HCV ab;03/2023 GI6=824; HIV VL nondetected.08/2022 HIV VL nondetected; CD4 =682; HCV neg; GC/chlamydia neg; AST/ALT01/2022 HIV VL nondetceted; eGFR>60; ALt/AST wnl; HCV neg; HBV s ag neg; GC/chlamydia neg;03/2021 CD4>800;eGFR>60; ALT/AST wnlnot sexually active for 11 years.no drugsno fever. no n/v/d. no rash. Marleen Kim MD [address] [place] [address], [phone], [facility] Trevor KIM MD [facility] 09/22/2023 10:32:20 01/19/2024 text/html f/u HIV.on trium eq 1 tab qd /prezcobix 1 tab po qd. tolerates regimen wellhas missed some doses since she was last seen ; especially when she drinks.labs reviewed11/2023 HIV VL=21; CD4= 900 range ; syphilis neg; GC/chlamydia neg; HCV neg; RPR NR; EGFR>60; AST/ALT wn HIV VLnondetceted;CD4>75 0; ALT/AST wnl; RPR NR; HCV ab;03/2023 UR0=972; HIV VL nondetected.occasion jamari Jackson reports she is on on thyroid tx which she has struggled with due to side effectsnot sexually activeno drugsno fever. no n/v/d. no rash.declines vaccinesPCP recommended lipid loweting agents; she declined them Marleen Kim MD [address] [place] [address], [phone], [place] IKM MD [facility] 01/19/2024 15:56:02 07/20/2024 text/html f/u HIV.on [...] 0; ALT/AST wnl; RPR NR; HCV ab;03/2023 IT4=624; HIV VL nondetected. Marleen Kim MD [address] [place] [address], [place], [phone], VERONICA KIM MD [facility] 07/24/2024 00:38:13 OBGyn Episode No OBEpisode recorded.
== END 2024-09-11 13:06 | disposition home or self-care (01) ==
LOC: HO.ENCR 12:50
PROVIDERS: PCP Family Medicine; Visit Provider Student in an Organized Health Care Education/Training Program
DX: E89.0 Postprocedural hypothyroidism (principal); E04.1 Nontoxic single thyroid nodule
CPT/HCPCS: 99213

== ENCOUNTER → 2024-09-11 12:49 | Outpatient (BNVA) | payer MEDICAID, SELFPAY | PROVIDERS: PCP Family Medicine; Visit Provider Student in an Organized Health Care Education/Training Program | DX: E89.0 Postprocedural hypothyroidism (principal); E04.1 Nontoxic single thyroid nodule | CPT/HCPCS: 99212 ==

== ENCOUNTER 2024-09-20 15:02 | Outpatient (REF) | payer MEDICAID, SELFPAY ==
[2024-09-20 16:51] LABS: Free T4 (Free Thyroxine) 1.02 ng/dL (0.71-1.85); TSH reflex Free T4 2.67 uIU/mL (0.32-4.0); Thyroid Stimulating Hormone 2.67 uIU/mL (0.32-4.0)
--- OUTSIDE RECORDS SUMMARY | 2024-09-20 17:42 | XMS_ITS | Data Portability ---
Author Organization VERONICA QUINTERO MD [facility], Main Office Address [address] [place] [phone] Assessment Encounter Date Assessment Date Assessment LastModified by Organization Details LastModified Time 03/24/2023 03/24/2023 Telemedicine. phone/audio. 15 min [email or web address] Not available 03/24/2023 13:28:47 06/22/2023 06/22/2023 Telemedicine. VIDEO. 21 min. pt home in [place]. [email or web address] Not available 06/22/2023 11:41:54 09/22/2023 09/22/2023 Telemedicine. VIDEO. 19 min. pt home in [place]. [email or web address] Not available 09/22/2023 10:25:33 Plan of Treatment Reminders Order Date Submit Date Provider Last Modified By Organization Details Last Modified Time Details Appointments B20 FOLLOW UP 2024 11:00A Pat Kim MD Not available Not available Not available Lab CBC w/ diff [address], [address] [place] [address], [id number], 07/31/2024 10:55:07 HIV-1 RNA, quantitat sudarshan, PCR, serum or plasma [address], [address] [place] [address], [id number], 07/31/2024 10:55:07 T-cell regulator y subsets panel, blood [address], [address] [place] [address], [id number], 07/31/2024 10:55:07 hepatitis C virus Ab, serum [address] (Lab), [address] [place] [address], [id number], 07/31/2024 10:55:07 HBsAg (hepatiti s B surface Ag), serum [address] [place] [address] (Lab), [address] [place] [address], [id number], 07/31/2024 10:55:07 RPR (rapid plasma reagin), serum [address] [place] [address] (Lab), [address] [place] [address], [address], 07/31/2024 10:55:08 chlamydia + gonorrhea RNA, QL, unspecifi ed specimen [address] [place] [address] (Lab), [address] [place] [address], [address], 07/31/2024 10:55:08 CMP, serum or plasma [address] [place] [address] (Lab), [address] [place] [address], [address], 07/31/2024 10:55:08 lipid panel, serum [address] (Lab), [address] [place] [address], [address], 01/26/2024 14:15:56 CBC w/ diff [address], [address] [place] [address], [address], 01/26/2024 14:15:55 ALT (alanine aminotran sferase), serum or plasma [address], [address] [place] [address], 207[address], 01/26/2024 14:15:55 AST/SGOT (aspartat e aminotran sferase), serum or plasma [address], [address] [place] [address], 14[address], 01/26/2024 14:15:56 creatinin e w/ estimated GFR (eGFR), serum or plasma [address], [address] [place] [address], 269[address], 01/26/2024 14:15:56 HIV-1 RNA, quantitat sudarshan, PCR, serum or plasma [address], [address] [place] [address], [address], 01/26/2024 14:15:56 T-cell regulator y subsets panel, blood [address], [address] [place] [address], [address], 01/26/2024 14:15:56 CBC w/ diff [address], [address] [place] [address], [address], 09/29/2023 11:28:57 ALT (alanine aminotran sferase), serum or plasma [address], [address] [place] [address], [address], 09/29/2023 11:28:57 AST/SGOT (aspartat e aminotran sferase), serum or plasma [address], [address] [place] [address], 216[address], 09/29/2023 11:28:58 CT + NG DNA, PCR, unspecifi ed specimen [address], [address] [place] [address], [address], 09/29/2023 11:28:58 creatinin e w/ estimated GFR (eGFR), serum or plasma [address], [address] [place] [address], 20[address], 09/29/2023 11:28:58 hepatitis C virus Ab, serum [address], [address] [place] [address], 635[address], 09/29/2023 11:28:58 HIV-1 RNA, quantitat sudarshan, PCR, serum or plasma [address], [address] [place] [address], 10[address], 09/29/2023 11:28:58 RPR (rapid plasma reagin), serum [address], [address] [place] [address], 985[address], 09/29/2023 11:28:58 T-cell regulator y subsets panel, blood [address], [address] [place] [address], 188[address], 09/29/2023 11:28:58 HBsAg (hepatiti s B surface Ag), serum [address], [address] [place] [address], 968[address], 09/29/2023 11:28:58 CBC w/ diff 2023 024 kendy [facility], [address] [place] [address], [address], 06/30/2023 11:22:31 electroly jamison panel, blood [address] [place] [address], [address] [place] [address], [address], 06/30/2023 11:22:32 ALT (alanine aminotran sferase), serum or plasma [address] [place] [address], [address] [place] [address], 46[address], 06/30/2023 11:22:32 AST/SGOT (aspartat e aminotran sferase), serum or plasma [address] [place] [address], [address] [place] [address], 787[address], 06/30/2023 11:22:32 CT + NG DNA, PCR, unspecifi ed specimen [address] [place] [address], [address] [place] [address], 71648, 06/30/2023 11:22:32 creatinin e w/ estimated GFR (eGFR), serum or plasma [address] [place] [address], [address] [place] [address], 92264, 06/30/2023 11:22:32 hepatitis C virus Ab, serum [address] [place] [address], [address] [place] [address], 279[address], 06/30/2023 11:22:32 HIV-1 RNA, quantitat sudarshan, PCR, serum or plasma [address] [place] [address], [address] [place] [address], 60[address], 06/30/2023 11:22:32 RPR (rapid plasma reagin), serum [address], [address] [place] [address], 05[address], 06/30/2023 11:22:32 T-cell regulator y subsets panel, blood [address], [address] [place] [address], 17883, 06/30/2023 11:22:32 HBsAg (hepatiti s B surface Ag), serum [address], [address] [place] [address], 22763, 06/30/2023 11:22:32 CBC w/ diff [address], [address] [place] [address], [address], 04/05/2023 16:50:35 electroly jamison panel, blood [address], [address] [place] [address], 7[address], 04/05/2023 16:50:36 ALT (alanine aminotran sferase), serum or plasma [address], [address] [place] [address], 833[address], 04/05/2023 16:50:36 AST/SGOT (aspartat e aminotran sferase), serum or plasma [address], [address] [place] [address], 647[address], 04/05/2023 16:50:36 CT + NG DNA, PCR, unspecifi ed specimen [address], [address] [place] [address], 988[address], 04/05/2023 16:50:36 creatinin e w/ estimated GFR (eGFR), serum or plasma [address], [address], 04/05/2023 16:50:36 hepatitis C virus Ab, serum [address], [address], 04/05/2023 16:50:36 HIV-1 RNA, quantitat sudarshan, PCR, serum or plasma [address] [place] [address], [address] [place] [address], 16098, 04/05/2023 16:50:37 RPR (rapid plasma reagin), serum [address], [address], 04/05/2023 16:50:37 T-cell regulator y subsets panel, blood [address], [address], 04/05/2023 16:50:37 Referral None recorded. Procedures None recorded. Surgeries None recorded. Imaging None recorded. Medication Orders Triumeq 600 mg-50 mg-300 mg tablet 2024 025 [facility] ([facility]) #[id number], [address], [place], [id number], 07/20/2024 13:49:54 Prezcobix 800 mg-150 mg tablet 2024 025 [facility] ([facility]) #[id number], [address], [place], [id number], 07/20/2024 13:49:55 Zepbound 2.5 mg/0.5 mL subcutane ous pen injector 2024 025 [facility]/Pharmacy #[id number], [address] [facility], [place], [address], 07/20/2024 14:00:58 Triumeq 600 mg-50 mg-300 mg tablet 2023 024 [facility] ([facility]) #[id number], [address], [place], [id number], 01/19/2024 13:03:21 Prezcobix 800 mg-150 mg tablet 2023 024 [facility] ([facility]) #[id number], [address], [place], [id number], 01/19/2024 13:03:20 Triumeq 600 mg-50 mg-300 mg tablet 2023 024 [facility] ([facility]) #[id number], [address], [place], [id number], 09/22/2023 10:31:34 Prezcobix 800 mg-150 mg tablet 2023 024 [facility] ([facility]) #[id number], [address], [place], [id number], 09/22/2023 10:31:33 Triumeq 600 mg-50 mg-300 mg tablet 2023 024 [facility] ([facility]) #[id number], [address], [place], [id number], 06/22/2023 11:40:36 Prezcobix 800 mg-150 mg tablet 2023 024 [facility] ([facility]) #67286, [address], [place], [id number], 06/22/2023 11:40:35 Triumeq 600 mg-50 mg-300 mg tablet 2022 023 [facility]) #79310, [address], [place], [id number], 03/24/2023 13:29:29 Prezcobix 800 mg-150 mg tablet 2022 023 [facility]) #79910, [address], [place], [id number], 03/24/2023 13:29:15 Patient TargetsNo targets recorded. Patient InstructionsNo instructions recorded. Reason for Referral None Reported. Results Created Date Observation Date Name Description Value Unit Range Abnormal Flag Note LastModifiedBy Organization Detail LastModifiedTime Result Notes None recorded. Problems Name Problem SNOMED Code Status Onset Date Resolution Date Notes Provider Name and Address Organization Details Recorded Time Human immunodef iciency virus infection 43154625 Active 2022 Marleen Kim MD [address] [place] [address], [phone] , 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 [id number] neg 2007; Not Available [facility] 4 06:58:33 Hyperlipi demia 52101840 Active 2013 Hyperlipid emia; snomeddesc ription: Hyperlipid emia; Report Immunity to Registry: Yes; Other and unspecifie d hyperlipid emia; snomeddesc ription: Hyperlipid emia; Report Immunity to Registry: Yes; Not Available [facility] 4 06:58:33 Constipat ion 84199123 Active 2013 Constipati on, unspecifie d; snomeddesc ription: Constipati on; Report Immunity to Registry: Yes; Constipat ion; snomeddesc ription: Constipati on; Report Immunity to Registry: Yes; Not Available [facility] 4 06:58:34 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 Medical Equipment None Reported. Allergies Allergen ID Allergen Name Allergen Category Reaction Reaction Severity Criticality Documentation Date Start Date Code Code System Note Provider Name and Address Organization Details Recorded Time 696 Penicilli n Not available Not available Not available Not available 06/01/20232011 24853 RxNorm Comme nt: adver se_ev ent_t ype: 47230 8002; ; Not Available [facility] 4 06:50:45 697 Sustiva medicatio n Not available Not available Not available 06/01/202320118 4 RxNorm React ion: Other dysfu nctio ns of sleep stage s or arous al from sleep ; Comme nt: adver se_ev ent_t ype: 34581 8002; ; Not Available [facility] 4 06:50:45 698 Viramune medicatio n rash Not available Not available 06/01/20232011 17008 0 RxNorm React ion: Rash and other nonsp ecifi c skin erupt ion; Comme nt: adver se_ev ent_t ype: 68795 8002; ; Not Available [facility] 4 06:50:45 Medications Name Sig Start Date [...] 21; VACCINE_ IND: no; SU_FULL_ NAME: Marleen ivnes; Not Available Not Available Not Available meclizine [...] pine ER 200 mg capsule,e xtended release [id number] r active Not Available Not Available Not [...] DateTime 07/20/2024 103.5 cm Bety KIM MD [facility] 07/20/2024 14:16:24 Date Recorded Body height Heart rate Body temperature Body mass index (BMI) Body weight Oxygen saturation Oxygen saturation in Arterial blood by Pulse oximetry Systolic blood pressure Diastolic blood pressure Provider Name and Address Organization Details Last Updated DateTime 5 160.02 cm 73 /min 97.9 [degF] 33.3 kg/m2 20847.3 7 g 95 % 95 % 130 mm[Hg] 80 mm[Hg] Lara KIM MD [facility] 5 13:49:46 Date Recorded Body height Heart rate Respiratory rate Body temperature Body mass index (BMI) Body weight Oxygen saturation Oxygen saturation in Arterial blood by Pulse oximetry Systolic blood pressure Diastolic blood pressure Provider Name and Address Organization Details Last Updated DateTime 4 160.02 cm 73 /min 12 /min 98.6 [degF] 28.7 kg/m2 69849.9 6 g 97 % 97 % 138 mm[Hg] 80 mm[Hg] Bety KIM MD [facility] 4 12:31:28 Social History None recorded. [...] Note 324 Marleen Kim MD Main Office [address] [place] [phone] 12/21/2022 15:05:12 01/27/2023 23:51:30 Human immunodeficiency virus infection 26815595 B20 HIV Continue Triumeq 1 tab po [...] addressed 1499 Marleen Kim MD Main Office [address] [place] [phone] 03/24/2023 13:21:52 03/25/2023 10:42:49 Human immunodeficiency virus infection 57884755 B20 HIVContinu e Triumeq 1 tab po [...] of care reviewed.q uestions and concerns addressed [id number] Marleen Kim MD Main Office [address] [place] [phone] 06/22/2023 10:56:08 06/22/2023 11:40:36 Human immunodeficiency virus infection 72932632 B20 HIVContinu e Triumeq 1 tab po [...] of care reviewed.q uestions and concerns addressed 23768 Marleen Kim MD Main Office [address] [place] [phone] 09/22/2023 10:23:49 09/22/2023 10:35:07 Human immunodeficiency virus infection 40027291 B20 HIVContinu e Triumeq 1 tab po [...] of care reviewed.q uestions and concerns addressed 28725 Marleen Kim MD Main Office [address] [place] [phone] 01/19/2024 12:18:20 01/19/2024 13:21:26 Human immunodeficiency virus infection 54370609 B20 HIVContinu e Triumeq 1 tab po [...] COVID19 prescribed .questions and concerns addressed Hyperlipidemia 92125997 E78.5 diet and exercisebe nefits of tx reviewed 70201 Marleen Kim MD Main Office [address] [place] [phone] 07/20/2024 13:16:29 07/20/2024 14:17:24 Human immunodeficiency virus infection 77756600 B20 HIVContinu e Triumeq 1 tab po [...] addressed Body mass index 30+ - obesity 567750755 Z68.33 labs ordered,Ze pbound ordered qw. sqshe [...] Recorded Advance Directives Directive None Recorded Payers Insurance Date Sequence Insurance Name Policy Number Policy Ontiveros Covered Member ID Ontiveros Member ID Guarantor Name 07/17/2024 1 [place] - [facility] (MEDICAID) Melanie Roach [id number] Melanie Roach Notes Date Note Type Note [...] Thyroid specialist. requests lab. Marleen Kim MD [address] [place] [address], [phone], VERONICA KIM MD [facility] 03/24/2023 13:29:10 06/22/2023 text/html f/u HIV.on trium eq 1 tab qd /prezcobix 1 tab po qd. tolerates regimen wellhas missed some doses since she was last seenlabs tfrfacga70/2023 KB2=316; HIV VL nondetected.08/2022 HIV VL nondetected; CD4 [...] no n/v/d. no rash. Marleen Kim MD [address] [place] [address], [phone], VERONICA KIM MD [facility] 06/22/2023 11:43:31 09/22/2023 text/html f/u HIV.on trium eq 1 tab qd /prezcobix 1 tab po qd. tolerates regimen wellhas missed some doses since she was last seenlabs reviewed06/2023 HIV VLnondetceted;CD4>75 0; ALT/AST wnl; RPR NR; HCV ab;03/2023 UT9=377; HIV VL nondetected.08/2022 HIV VL nondetected; CD4 =682; HCV neg; GC/chlamydia neg; AST/ALT01/2022 HIV VL nondetceted; eGFR>60; ALt/AST wnl; HCV neg; HBV s ag neg; GC/chlamydia neg;03/2021 CD4>800;eGFR>60; ALT/AST wnlnot sexually active for 11 years.no drugsno fever. no n/v/d. no rash. Marleen Kim MD [address] [place] [address], [phone], VERONICA KIM MD [facility] 09/22/2023 10:32:20 01/19/2024 text/html f/u HIV.on trium eq 1 tab qd /prezcobix 1 tab po qd. tolerates regimen wellhas missed some doses since she was last seen ; especially when she drinks.labs reviewed11/2023 HIV VL=21; CD4= 900 range ; syphilis neg; GC/chlamydia neg; HCV neg; RPR NR; EGFR>60; AST/ALT wn HIV VLnondetceted;CD4>75 0; ALT/AST wnl; RPR NR; HCV ab;03/2023 PU5=937; HIV VL nondetected.occasion jamari Jackson reports she is on on thyroid tx which she has struggled with due to side effectsnot sexually activeno drugsno fever. no n/v/d. no rash.declines vaccinesPCP recommended lipid loweting agents; she declined them Marleen Kim MD [address] [place] [address], [phone], VERONICA KIM MD [facility] 01/19/2024 15:56:02 07/20/2024 text/html f/u HIV.on [...] 0; ALT/AST wnl; RPR NR; HCV ab;03/2023 XG0=754; HIV VL nondetected. Marleen Kim MD [address] [place] [address], [phone], VERONICA - MARLEEN KIM MD [facility] 07/24/2024 00:38:13 OBGyn Episode No OBEpisode recorded.
== END 2024-09-20 15:03 | disposition home or self-care (01) ==
LOC: HO.HHCL 15:02
PROVIDERS: Visit Provider Family Medicine
DX: E89.0 Postprocedural hypothyroidism (principal)
CPT/HCPCS: 36415; 84439; 84443

== ENCOUNTER 2024-09-24 11:07 | Outpatient (REF) | payer MEDICAID, SELFPAY ==
--- OUTSIDE RECORDS SUMMARY | 2024-09-24 12:42 | XMS_ITS | Data Portability ---
Author Organization VERONICA QUINTERO MD [facility], Main Office Address [address] [place] [phone] Assessment Encounter Date Assessment Date Assessment LastModified by Organization Details LastModified Time 03/24/2023 03/24/2023 Telemedicine. phone/audio. 15 min [email or web address] Not available 03/24/2023 13:28:47 06/22/2023 06/22/2023 Telemedicine. VIDEO. 21 [place] [place] [facility] [email or web address] Not available 06/22/2023 11:41:54 09/22/2023 09/22/2023 Telemedicine. VIDEO. 19 [place]. [place] [facility] [email or web address] Not available 09/22/2023 10:25:33 Plan of Treatment Reminders Order Date Submit Date Provider Last Modified By Organization Details Last Modified Time Details Appointments B20 FOLLOW UP 2024 11:00A Pat Kim MD Not available Not available Not available Lab CBC w/ diff [address], [address] [place] [address], [id number], 07/31/2024 10:55:07 HIV-1 RNA, quantitat sudarshan, PCR, serum or plasma [address], [address] [place] [address], [id number], 07/31/2024 10:55:07 T-cell regulator y subsets panel, blood [address], [address] [place] [address], [address], 07/31/2024 10:55:07 hepatitis C virus Ab, serum [address] (Lab), [address] [place] [address], [id number], 07/31/2024 10:55:07 HBsAg (hepatiti s B surface Ag), serum [address] [place] [address] (Lab), [address] [place] [address], [address], 07/31/2024 10:55:07 RPR (rapid plasma reagin), serum [address] [place] [address] (Lab), [address] [place] [address], [address], 07/31/2024 10:55:08 chlamydia + gonorrhea RNA, QL, unspecifi ed specimen [address] [place] [address] (Lab), [address] [place] [address], [address], 07/31/2024 10:55:08 CMP, serum or plasma [address] [place] [address] (Lab), [address] [place] [address], [address], 07/31/2024 10:55:08 lipid panel, serum [address] (Lab), [address] [place] [address], [address], 01/26/2024 14:15:56 CBC w/ diff [address], [address] [place] [address], [address], 01/26/2024 14:15:55 ALT (alanine aminotran sferase), serum or plasma [address], [address] [place] [address], [address], 01/26/2024 14:15:55 AST/SGOT (aspartat e aminotran sferase), serum or plasma [address], [address] [place] [address], [address], 01/26/2024 14:15:56 creatinin e w/ estimated GFR (eGFR), serum or plasma [address], [address] [place] [address], [address], 01/26/2024 14:15:56 HIV-1 RNA, quantitat sudarshan, PCR, serum or plasma [address], [address] [place] [address], [address], 01/26/2024 14:15:56 T-cell regulator y subsets panel, blood [address], [address] [place] [address], [address], 01/26/2024 14:15:56 CBC w/ diff [address], [address] [place] [address], [address], 09/29/2023 11:28:57 ALT (alanine aminotran sferase), serum or plasma [address], [address] [place] [address], [address], 09/29/2023 11:28:57 AST/SGOT (aspartat e aminotran sferase), serum or plasma [address], [address] [place] [address], [address], 09/29/2023 11:28:58 CT + NG DNA, PCR, unspecifi ed specimen [address], [address] [place] [address], [address], 09/29/2023 11:28:58 creatinin e w/ estimated GFR (eGFR), serum or plasma [address], [address] [place] [address], [address], 09/29/2023 11:28:58 hepatitis C virus Ab, serum [address], [address] [place] [address], [address], 09/29/2023 11:28:58 HIV-1 RNA, quantitat sudarshan, PCR, serum or plasma [address], [address] [place] [address], 08[address], 09/29/2023 11:28:58 RPR (rapid plasma reagin), serum [address], [address] [place] [address], [address], 09/29/2023 11:28:58 T-cell regulator y subsets panel, blood [address], [address] [place] [address], [address], 09/29/2023 11:28:58 HBsAg (hepatiti s B surface Ag), serum [address], [address] [place] [address], [address], 09/29/2023 11:28:58 CBC w/ diff 2023 024 kendy [facility], [address] [place] [address], [address], 06/30/2023 11:22:31 electroly jamison panel, blood [address] [place] [address], [address] [place] [address], 960[address], 06/30/2023 11:22:32 ALT (alanine aminotran sferase), serum or plasma [address] [place] [address], [address] [place] [address], 6[address], 06/30/2023 11:22:32 AST/SGOT (aspartat e aminotran sferase), serum or plasma [address] [place] [address], [address] [place] [address], 00[address], 06/30/2023 11:22:32 CT + NG DNA, PCR, unspecifi ed specimen [address] [place] [address], [address] [place] [address], 14528, 06/30/2023 11:22:32 creatinin e w/ estimated GFR (eGFR), serum or plasma [address] [place] [address], [address] [place] [address], 813[address], 06/30/2023 11:22:32 hepatitis C virus Ab, serum [address] [place] [address], [address] [place] [address], 13891, 06/30/2023 11:22:32 HIV-1 RNA, quantitat sudarshan, PCR, serum or plasma [address] [place] [address], [address] [place] [address], 14031, 06/30/2023 11:22:32 RPR (rapid plasma reagin), serum [address], [address] [place] [address], 835[address], 06/30/2023 11:22:32 T-cell regulator y subsets panel, blood [address], [address] [place] [address], 069[address], 06/30/2023 11:22:32 HBsAg (hepatiti s B surface Ag), serum [address], [address] [place] [address], 048[address], 06/30/2023 11:22:32 CBC w/ diff [address], [address] [place] [address], 7[address], 04/05/2023 16:50:35 electroly jamison panel, blood [address], [address] [place] [address], [address], 04/05/2023 16:50:36 ALT (alanine aminotran sferase), serum or plasma [address], [address] [place] [address], 94287, 04/05/2023 16:50:36 AST/SGOT (aspartat e aminotran sferase), serum or plasma [address], [address] [place] [address], 158[address], 04/05/2023 16:50:36 CT + NG DNA, PCR, unspecifi ed specimen [address], [address] [place] [address], 97387, 04/05/2023 16:50:36 creatinin e w/ estimated GFR (eGFR), serum or plasma [address], [address], 04/05/2023 16:50:36 hepatitis C virus Ab, serum [address], [address], 04/05/2023 16:50:36 HIV-1 RNA, quantitat sudarshan, PCR, serum or plasma [address] [place] [address], [address] [place] [address], [address], 04/05/2023 16:50:37 RPR (rapid plasma reagin), serum [address], [address], 04/05/2023 16:50:37 T-cell regulator y subsets panel, blood [address], [address], 04/05/2023 16:50:37 Referral None recorded. Procedures None recorded. Surgeries None recorded. Imaging None recorded. Medication Orders Triumeq 600 mg-50 mg-300 mg tablet 2024 025 [facility] ([facility]) #[id number], [address] [place], [place], [id number], 07/20/2024 13:49:54 Prezcobix 800 mg-150 mg tablet 2024 025 [facility] ([facility]) #53395, [address] [place], [place], [id number], 07/20/2024 13:49:55 Zepbound 2.5 mg/0.5 mL subcutane ous pen injector 2024 025 [facility] #[id number], [address] [facility], [place], [address], 07/20/2024 14:00:58 Triumeq 600 mg-50 mg-300 mg tablet 2023 024 [facility] ([facility]) #04829, [address] [place], [place], [id number], 01/19/2024 13:03:21 Prezcobix 800 mg-150 mg tablet 2023 024 [facility] ([facility]) #[id number], [address] [place], [place], [id number], 01/19/2024 13:03:20 Triumeq 600 mg-50 mg-300 mg tablet 2023 024 [facility] ([facility]) #51312, [address] [place], [place], [id number], 09/22/2023 10:31:34 Prezcobix 800 mg-150 mg tablet 2023 024 [facility] ([facility]) #33077, [address] [place], [place], [id number], 09/22/2023 10:31:33 Triumeq 600 mg-50 mg-300 mg tablet 2023 024 [facility] ([facility]) #[id number], [address], [place], [id number], 06/22/2023 11:40:36 Prezcobix 800 mg-150 mg tablet 2023 024 [facility] ([facility]) #91119, [address] [place], [place], [id number], 06/22/2023 11:40:35 Triumeq 600 mg-50 mg-300 mg tablet 2022 023 [facility]) #67432, [address] [place], [place], [id number], 03/24/2023 13:29:29 Prezcobix 800 mg-150 mg tablet 2022 023 [facility]) #30185, [address], [place], [id number], 03/24/2023 13:29:15 Patient TargetsNo targets recorded. Patient InstructionsNo instructions recorded. Reason for Referral None Reported. Results Created Date Observation Date Name Description Value Unit Range Abnormal Flag Note LastModifiedBy Organization Detail LastModifiedTime Result Notes None recorded. 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 [id number] neg 2007; Not Available [facility] 4 06:58:33 Hyperlipi demia 35348666 Active 2013 Hyperlipid emia; snomeddesc ription: Hyperlipid emia; Report Immunity to Registry: Yes; Other and unspecifie d hyperlipid emia; snomeddesc ription: Hyperlipid emia; Report Immunity to Registry: Yes; Not Available [facility] 4 06:58:33 Constipat ion 79995486 Active 2013 Constipati on, unspecifie d; snomeddesc ription: Constipati on; Report Immunity to Registry: Yes; Constipat ion; snomeddesc ription: Constipati on; Report Immunity to Registry: Yes; Not Available [facility] 4 06:58:34 Lipodystr ophy 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 Medical Equipment None Reported. Allergies Allergen ID Allergen Name Allergen Category Reaction Reaction Severity Criticality Documentation Date Start Date Code Code System Note Provider Name and Address Organization Details Recorded Time 696 Penicilli n Not available Not available Not available Not available 06/01/20232011 48078 RxNorm Comme nt: adver se_ev ent_t ype: 07714 8002; ; Not Available [facility] 4 06:50:45 697 Sustiva medicatio n Not available Not available Not available 06/01/202320118 4 RxNorm React ion: Other dysfu nctio ns of sleep stage s or arous al from sleep ; Comme nt: adver se_ev ent_t ype: 92087 8002; ; Not Available [facility] 4 06:50:45 698 Viramune medicatio n rash Not available Not available 06/01/20232011 09513 0 RxNorm React ion: Rash and other nonsp ecifi c skin erupt ion; Comme nt: adver se_ev ent_t ype: 75423 8002; ; Not Available [facility] 4 06:50:45 Medications Name Sig Start [...] pine ER 200 mg capsule,e xtended release [id number] r active Not Available Not Available Not [...] DateTime 07/20/2024 103.5 cm Bety KIM MD [facility] 07/20/2024 14:16:24 Date Recorded Body height Heart rate Body temperature Body mass index (BMI) Body weight Oxygen saturation Oxygen saturation in Arterial blood by Pulse oximetry Systolic blood pressure Diastolic blood pressure Provider Name and Address Organization Details Last Updated DateTime 5 160.02 cm 73 /min 97.9 [degF] 33.3 kg/m2 85235.3 7 g 95 % 95 % 130 mm[Hg] 80 mm[Hg] Lara KIM MD [facility] 5 13:49:46 Date Recorded Body height Heart rate Respiratory rate Body temperature Body mass index (BMI) Body weight Oxygen saturation Oxygen saturation in Arterial blood by Pulse oximetry Systolic blood pressure Diastolic blood pressure Provider Name and Address Organization Details Last Updated DateTime 4 160.02 cm 73 /min 12 /min 98.6 [degF] 28.7 kg/m2 09549.9 6 g 97 % 97 % 138 mm[Hg] 80 mm[Hg] Bety KIM MD [facility] 4 12:31:28 Social History None recorded. [...] Note 324 Marleen Kim MD Main Office [address] [place] [phone] 12/21/2022 15:05:12 01/27/2023 23:51:30 Human immunodeficiency virus infection 94944670 B20 HIV Continue Triumeq 1 tab po [...] addressed 1499 Marleen Kim MD Main Office [address] [place] [phone] 03/24/2023 13:21:52 03/25/2023 10:42:49 Human immunodeficiency virus infection 67711481 B20 HIVContinu e Triumeq 1 tab po [...] of care reviewed.q uestions and concerns addressed 23881 Marleen Kim MD Main Office [address] [place] [phone] 06/22/2023 10:56:08 06/22/2023 11:40:36 Human immunodeficiency virus infection 53590496 B20 HIVContinu e Triumeq 1 tab po [...] of care reviewed.q uestions and concerns addressed [id number] Marleen iKm MD Main Office [address] [place] [phone] 09/22/2023 10:23:49 09/22/2023 10:35:07 Human immunodeficiency virus infection 32247214 B20 HIVContinu e Triumeq 1 tab po [...] of care reviewed.q uestions and concerns addressed 04657 Marleen Kim MD Main Office [address] [place] [phone] 01/19/2024 12:18:20 01/19/2024 13:21:26 Human immunodeficiency virus infection 49077481 B20 HIVContinu e Triumeq 1 tab po [...] COVID19 prescribed .questions and concerns addressed Hyperlipidemia 38940380 E78.5 diet and exercisebe nefits of tx reviewed 59038 Marleen Kim MD Main Office [address] [place] [phone] 07/20/2024 13:16:29 07/20/2024 14:17:24 Human immunodeficiency virus infection 57464332 B20 HIVContinu e Triumeq 1 tab po [...] addressed Body mass index 30+ - obesity 520298391 Z68.33 labs ordered,Ze pbound ordered qw. sqshe [...] Ontiveros Member ID Guarantor Name 07/17/2024 1 [place] [facility] (MEDICAID) Melanie Roach [id number] Melanie Roach Notes Date Note Type Note [...] Thyroid specialist. requests lab. Marleen Kim MD [address] [place] [address], [phone], VERONICA KIM MD [facility] 03/24/2023 13:29:10 06/22/2023 text/html f/u HIV.on trium eq 1 tab qd /prezcobix 1 tab po qd. tolerates regimen wellhas missed some doses since she was last seenlabs xozhkveo06/2023 HB2=172; HIV VL nondetected.08/2022 HIV VL nondetected; CD4 [...] no n/v/d. no rash. Marleen Kim MD [address] [place] [address], [phone], VERONICA KIM MD [facility] 06/22/2023 11:43:31 09/22/2023 text/html f/u HIV.on trium eq 1 tab qd /prezcobix 1 tab po qd. tolerates regimen wellhas missed some doses since she was last seenlabs reviewed06/2023 HIV VLnondetceted;CD4>75 0; ALT/AST wnl; RPR NR; HCV ab;03/2023 XI2=660; HIV VL nondetected.08/2022 HIV VL nondetected; CD4 =682; HCV neg; GC/chlamydia neg; AST/ALT01/2022 HIV VL nondetceted; eGFR>60; ALt/AST wnl; HCV neg; HBV s ag neg; GC/chlamydia neg;03/2021 CD4>800;eGFR>60; ALT/AST wnlnot sexually active for 11 years.no drugsno fever. no n/v/d. no rash. Marleen Kim MD [address] [place] [address], [phone], VERONICA KIM MD [facility] 09/22/2023 10:32:20 01/19/2024 text/html f/u HIV.on trium eq 1 tab qd /prezcobix 1 tab po qd. tolerates regimen wellhas missed some doses since she was last seen ; especially when she drinks.labs reviewed11/2023 HIV VL=21; CD4= 900 range ; syphilis neg; GC/chlamydia neg; HCV neg; RPR NR; EGFR>60; AST/ALT wn HIV VLnondetceted;CD4>75 0; ALT/AST wnl; RPR NR; HCV ab;03/2023 XY1=197; HIV VL nondetected.occasion jamari Jackson reports she is on on thyroid tx which she has struggled with due to side effectsnot sexually activeno drugsno fever. no n/v/d. no rash.declines vaccinesPCP recommended lipid loweting agents; she declined them Marleen Kim MD [address] [place] [address], [phone], VERONICA KIM MD [facility] 01/19/2024 15:56:02 07/20/2024 text/html f/u HIV.on [...] 0; ALT/AST wnl; RPR NR; HCV ab;03/2023 FH6=475; HIV VL nondetected. Marleen Kim MD [address] [place] [address], [phone], VERONICA - MARLEEN KIM MD [facility] 07/24/2024 00:38:13 OBGyn Episode No OBEpisode recorded.
[2024-09-24 14:41] LABS: Adenovirus F 40/41 Not Detected (Not Detect.); Astrovirus Not Detected (Not Detect.); Campylobacter Not Detected (Not Detect.); Cryptosporidium Not Detected (Not Detect.); Cyclospora cayetanensis Not Detected (Not Detect.); E. coli EAEC Not Detected (Not Detect.); E. coli EPEC Not Detected (Not Detect.); E. coli ETEC Not Detected (Not Detect.); E. coli STEC Not Detected (Not Detect.); Entamoeba histolytica Not Detected (Not Detect.); Giardia lamblia Not Detected (Not Detect.); Norovirus GI/GII Not Detected (Not Detect.); Plesiomonas shigelloides Not Detected (Not Detect.); Rotavirus A Not Detected (Not Detect.); Salmonella Not Detected (Not Detect.); Sapovirus Not Detected (Not Detect.); Shigella sp./EIEC Not Detected (Not Detect.); Vibrio Not Detected (Not Detect.); Vibrio Cholerae Not Detected (Not Detect.); Yersinia enterocolitica Not Detected (Not Detect.)
== END 2024-09-24 11:08 | disposition home or self-care (01) ==
LOC: HO.LNP 11:07
PROVIDERS: Visit Provider Family Medicine
DX: R19.5 Other fecal abnormalities (principal)
CPT/HCPCS: 87507

== ENCOUNTER 2024-10-10 12:49 | Emergency (ER) | payer MEDICAID, SELFPAY ==
--- NOTE | ~2024-10-10 | CT_ITS ---
EXAMINATION: CT ABDOMEN AND PELVIS WITH CONTRAST CLINICAL INFORMATION: Left sided abdominal pain. COMPARISON: November 05, 2022. TECHNIQUE: Multidetector volumetric images were obtained from the superior aspect of the liver through the pubic symphysis following administration 85 mL of Omnipaque 350 intravenous contrast. Sagittal and coronal reformatted images were obtained on the technologist's workstation. Oral contrast: No This CT examination was performed using dose optimization techniques as appropriate, variously including the following: *Automated exposure control *Adjustment of mA and/or kV according to patient size (this includes techniques or standardized protocols for targeted exams where dose is matched to indication/reason for exam; i.e. extremities or head) *Use of iterative reconstruction technique DLP: 572 mGy centimeter. FINDINGS: LUNG BASES: No acute airspace disease. LIVER, GALLBLADDER, AND BILIARY TREE: Measures 15 cm. There is a 4 mm hypodensity left hepatic lobe. Portal veins, hepatic veins and intrahepatic portion of the IVC is patent. No intrahepatic biliary ductal dilatation. Multiple gallstones. No pericholecystic fluid collection or gallbladder wall thickening. Common bile duct measures 4 mm. PANCREAS: No focal lesion. No peripancreatic fluid collection. No main pancreatic ductal dilatation. SPLEEN: 9 cm. No focal lesion. ADRENAL GLANDS: No nodular lesion. KIDNEYS AND URETERS: No hydronephrosis. Probable 1 mm nonobstructing calculus in the lower pole right kidney. Subcentimeter cyst. No renal mass. Normal enhancement pattern of the renal parenchyma. BLADDER: Fluid-filled. GASTROINTESTINAL TRACT: There is a segmental asymmetric wall thickening in the proximal sigmoid colon. Numerous diverticula in the large intestine mostly the sigmoid colon. There is a pericolonic edema pattern at the the sigmoid colon. There is concentric wall thickening throughout the large intestine from the cecum to the sigmoid colon. Narrowing the lumen throughout the large intestine. The appendix is normal. No pneumatosis intestinalis. No intestinal obstruction pattern. No peripheral enhancing fluid collections in the peritoneal cavity. No pneumoperitoneum. No ascites. ABDOMINAL WALL: Small fat-containing umbilical and suprapubic umbilical hernia. LYMPH NODES: Mild prominent mesenteric. VASCULAR: Mixed plaques throughout the abdominal aorta wall and the origin of the main renal arteries mesenteric arteries as well as the iliac arteries. No aneurysm or dissection, abdominal aorta. PELVIC VISCERA: Absent uterus. OSSEOUS STRUCTURES: Multilevel thoracolumbar spondylosis. No acute fracture. Grade 1 retrolisthesis L3-4. Vacuum phenomenon and decreased intervertebral disc height and subchondral cyst formation at L4-5. CT/CT abdomen pelvis w IV con IMPRESSION: Acute diffuse colitis. Acute nonruptured diverticulitis, sigmoid colon. No phlegmon and/or abscess or pneumoperitoneum. Cholelithiasis. Spondylosis L4-5. Fleischner guidelines were followed. Electronically signed by: Anthony Rojas MD 10/10/2024 03:31 PM EDT
[2024-10-10 12:52] VITALS: BP 168/99; PULSE 95; RESP 18; TEMP 36.4; O2SAT 98; BMI 32.0
--- NOTE | 2024-10-10 12:52 | ED.GENADULT ---
HPI - General Adult General Chief complaint: Abdominal Pain Stated complaint: abd pain using bathroom more than usual Time Seen by Provider: 10/10/24 13:21 History of Present Illness HPI narrative: Patient is a 64-year-old female presents today with having abdominal pain. The pain is on the left side. Patient went to clinic was told to come to the ED patient had 3 tacos yesterday and had increasing bowel movement. Patient claims the bowel movement was hard. She has a history of diverticulosis but never had diverticulitis. She is from home. No coughing or congestion or upper respiratory symptoms no diaphoresis. No bloody stool. Related Data Home Medications ?Medication ?Instructions ?Recorded ?Confirmed abacavir 600 mg-dolutegravir 50 1 tab PO QAM 02/08/20 09/11/24 mg-lamivudine 300 mg tablet (Triumeq) cyclobenzaprine 10 mg tablet 10 mg PO BEDTIME 02/08/20 09/11/24 darunavir 800 mg-cobicistat 150 mg 1 tab PO DAILY 02/08/20 09/11/24 tablet (Prezcobix) fexofenadine 180 mg tablet 180 mg PO DAILY 02/08/20 09/11/24 (Vesta Allergy) suvorexant 20 mg tablet (Belsomra) 20 mg PO BEDTIME PRN 02/18/21 09/11/24 hydroxyzine HCl 50 mg tablet 50 mg PO BID anxiety 12/20/23 09/11/24 Previous Rx's ?Medication ?Instructions ?Recorded levothyroxine 100 mcg tablet 100 mcg PO DAILY #90 tabs 09/11/24 levofloxacin 500 mg tablet 500 mg PO DAILY 10 days #10 tabs 10/10/24 metronidazole 500 mg tablet 500 mg PO TID Diverticulitis 10 10/10/24 days #30 tabs Allergies Allergy/AdvReac Type Severity Reaction Status Date / Time penicillin V Allergy Unknown anaphylaxis Verified 10/10/24 12:55 Penicillins (PENICILLINS) Allergy Unknown UNKNOWN Verified 10/10/24 12:55 seasonal allergies Allergy Unknown Difficulty Uncoded 09/11/24 12:55 Breathing Review of Systems Review of Systems: Positive abdominal pain on the left side Yes all other systems are reviewed and are negative PMFSH Past Medical History Attestation statement: The following information was validated with the patient. Medical History Thyroid nodule Diverticular disease Spondylosis of lumbar spine Obesity due to excess calories Hypothyroidism HIV (human immunodeficiency virus infection) Graves disease Hematuria Tubular adenoma Dyslipidemia History of kidney stones HIV (human immunodeficiency virus infection) Acute anxiety Surgical History Hx of colonoscopy H/O: hysterectomy Family History Family History Father HTN (hypertension) Mother HTN (hypertension) Diabetes Dementia Maternal Grandmother Breast cancer Maternal Aunt Breast cancer Diabetes Maternal Aunt Dementia Maternal Uncle Cancer Maternal Uncle Heart attack Maternal Aunt HTN (hypertension) Social History Social History Household Members: None and Other Household Members Other:: grandson Housing: Apartment Alcohol intake: current Alcohol intake frequency: holidays/special occasions only Patient Tobacco Use Status: Never used Tobacco Smoked in Last 30 Days: No Use of substances other than those prescribed or required for medical reasons: No Substance Use Type: Marijuana Advance Directives: No Advance Directives Information Provided: Yes Do you have a plan to hurt others: No Plan Physical Exam ED Vital Signs: Vital Signs - 24 hr 10/10/24 12:52 10/10/24 14:13 Temperature 97.6 F 98.5 F Pulse Rate 95 93 Respiratory Rate 18 14 Blood Pressure 168/99 H 139/78 Pulse Oximetry 98 95 Oxygen Delivery Method Room Air Room Air BMI result Body Mass Index 32.0 Appearance: Alert. Oriented X3. No acute distress. Eyes: Pupils equal, round and reactive to light. ENT: Pharynx normal. Neck: Normal inspection. Neck supple. No lymph nodes noted. No crepitus CVS: Normal heart rate and rhythm. Pulses normal. Normal S1 and S2 Respiratory: No respiratory distress. Breath sounds normal. No Wheezing. No rales Abdomen: Soft and nontender. No rigidity. No distention. good BS x4 Skin: Skin warm and dry. Normal skin color. Normal skin turgor. Extremities: No lower extremity edema. Neurovascular intact to all extremities. No Lacerations. No Rash Neuro: Oriented X 3. No motor deficit. No sensory deficit. Moving all extermities. No slurred speech Course Course Course Narrative: RME, this is a rapid medical exam performed by Seymour Pedraza please refer to primary provider for complete H&P- 64 year old female with history of HIV, hypothyroid, hyperlipidemia presents for evaluation of abdominal pain and cramping. Patient had recent stool studies on 09/24/2024 that were unremarkable. Plan for basic labs and urinalysis Medications Administered Discontinued Medications Generic Name Dose Route Start Last Admin Trade Name Freasiya PRN Reason Stop Dose Admin Iohexol 100 ml 10/10/24 14:51 10/10/24 14:52 Iohexol 350 Mg/Ml 100 Ml Infus..Btl IV 10/10/24 14:52 85 ml ONCE ONE Administration Ketorolac Tromethamine 15 mg 10/10/24 13:51 10/10/24 14:14 Ketorolac Tromethamine 15 Mg/Ml Vial IVPUSH 10/10/24 13:52 15 mg ONCE ONE Administration Ondansetron HCl 4 mg 10/10/24 13:45 10/10/24 14:14 Ondansetron Hcl 4 Mg/2 Ml Vial IVPUSH 10/10/24 13:46 4 mg ONCE ONE Administration Medical Decision Making Medical Decision Making [facility] Narrative: Positive abdominal pain on the left side. No acute distress. Normal bowel movement. No ACS. Positive history of high cholesterol. CT scan of the abdomen pelvis ordered. CT scan positive for diverticulitis. There is no perforation. There is no abscess. Patient is fair appearing. Has an allergy to penicillin. Elected to give patient a dose of Levaquin and Flagyl. Patient's white count is 8. HIV status is under control. She is in no distress. Her kidney function is normal. Her pain is controlled. Urine showed no infection. Will discharge patient home. Differential Diagnosis Differential Diagnoses: The differential diagnosis associated with the presentation includes Kidney stone, obstruction, diverticulitis Admission/Observation Consideration of admission/observation: Escalation of care including admission/observation considered Lab Data [facility] Lab Attestation statement: I reviewed the patient's lab results. 10/10/24 13:10 10/10/24 13:10 Labs: Lab Results 10/10/24 Range/Units 13:10 WBC 8.0 (4.8-10.8) X10*3/uL RBC 4.25 (4.20-5.50) X10*6/uL Hgb 13.6 (12.0-16.0) g/dl Hct 40.8 (37.0-47.0) % MCV 96.0 (80.0-98.0) fL MCH 32.0 (27.0-33.0) pg MCHC 33.3 (31.0-35.0) g/dl RDW 13.9 (11.0-16.0) % Plt Count 264 (160-400) X10*3/uL MPV 10.6 (9.4-12.3) fL Immature Gran % (Auto) 0.4 (0.0-0.4) % Neut % (Auto) 65.6 (45-73) % Lymph % (Auto) 22.7 (20-40) % Piatt % (Auto) 7.6 (2-11) % Eos % (Auto) 3.1 (0-4) % Baso % (Auto) 0.6 (0-2) % Lymph # (Auto) 1.8 (1.2-4.9) X10*3/uL Piatt # (Auto) 0.6 (0.1-1.2) X10*3/uL Eos # (Auto) 0.3 (0.0-0.4) X10*3/uL Baso # (Auto) 0.1 (0.0-0.2) X10*3/uL Abs Immat Gran (auto) 0.03 (0.00-0.03) X10*3/uL Absolute Neuts (auto) 5.3 (2.0-8.3) x10*3/uL Absolute Nucleated RBC 0.000 (0.0-0.012) X10*3/uL Nucleated RBC % (auto) 0.0 (0.0-0.2) /100WBC Sodium 140 (135-145) mmol/L Potassium 4.1 (3.3-5.1) mmol/L Chloride 110 H (96-108) mmol/L Carbon Dioxide 23 (22-29) mmol/L Anion Gap 11 L (12-20) BUN 13 (9-16) mg/dL Creatinine 1.16 (0.5-1.4) mg/dL Estim Creat Clear Calc 50.2 Estimated GFR 47 Random Glucose 101 (60-115) mg/dL Calcium 9.0 D (8.4-10.2) mg/dL Total Bilirubin 0.4 (0.0-1.0) mg/dL AST 23 (5-31) U/L ALT 19 (0-31) U/L Alkaline Phosphatase 77 (39-117) U/L Total Protein 7.4 (6.5-8.0) g/dL Albumin 4.6 (3.5-5.0) g/dL Lipase 19 (8-78) U/L Urine Color Yellow Urine Appearance Cloudy Urine pH 5.5 (5.0-9.0) Ur Specific [place] 1.025 (1.005-1.025) Urine Protein 30 (1+) H (Neg-Trace) mg/dL Urine Glucose (UA) Negative (Negative) mg/dL Urine Ketones Trace (Negative) mg/dL Urine Blood Small (1+) H (Negative) Urine Nitrite Negative (Negative) Ur Leukocyte Esterase Small (1+) H (Negative) Urine RBC 3-5 H (0-2) /HPF Urine WBC 0-5 (0-5) /HPF Ur Squamous Epith Cells 3-5 (0-2) /HPF Urine Bacteria None Seen (None Seen) Hyaline Casts 0-2 (0-2) /LPF Independent Interpretation I performed an independent interpretation of an: CT Scan (No gross obstruction noted) Radiology Impression Discussion of test interpretation with radiology: I have reviewed the radiologist's reading. External Record Review External record reviewed: Office record Social Determinants Patient?s care significantly limited by Social Determinants of Health including: Problems related to primary support group Discharge Plan Discharge Clinical Impression: Diverticulitis Patient Disposition: Home, Self-Care Instructions: Diverticulitis (ED) Prescriptions: New levofloxacin 500 mg tablet 500 mg PO DAILY 10 Days Qty: 10 0RF metronidazole 500 mg tablet 500 mg PO TID 10 Days Qty: 30 0RF No Action Prezcobix 800-150 mg-mg tablet 1 tab PO DAILY Rx Instructions: must administer with a meal/food Triumeq 600-50-300 mg tablet 1 tab PO QAM cyclobenzaprine 10 mg tablet 10 mg PO BEDTIME fexofenadine [Vesta Allergy] 180 mg tablet 180 mg PO DAILY Belsomra 20 mg tablet 20 mg PO BEDTIME PRN hydroxyzine HCl 50 mg tablet 50 mg PO BID levothyroxine 100 mcg tablet 100 mcg PO DAILY Qty: 90 4RF Referrals: Teresa Cesar MD [Physician, Gastroenterology] Print Language: Armenian
[2024-10-10 13:16] LABS: MANUAL DIFF FLAG NO
[2024-10-10 13:23] LABS: Appearance Urine Cloudy; Glucose Urine UA Negative (Negative); PH 5.5 (5.0-9.0); Specific Gravity - Urine 1.025 (1.005-1.025); UMIC TRIGGER UACC YES
[2024-10-10 13:25] LABS: Hematocrit 40.8 % (37.0-47.0); Hemoglobin 13.6 g/dl (12.0-16.0); Imm Gran Abs Auto 0.03 X10*3/uL (0.00-0.03); Imm Gran Pct Auto 0.4 % (0.0-0.4); Lymphocytes Absolute Auto 1.8 X10*3/uL (1.2-4.9); Mean Corpuscular HGB Conc 33.3 g/dl (31.0-35.0); Mean Corpuscular Hemoglobin 32.0 pg (27.0-33.0); Mean Corpuscular Volume 96.0 fL (80.0-98.0); NRBC Abs Auto 0.000 X10*3/uL (0.0-0.012); NRBC Pct Auto 0.0 /100WBC (0.0-0.2); Platelet Count 264 X10*3/uL (160-400); Red Blood Count 4.25 X10*6/uL (4.20-5.50); White Blood Count 8.0 X10*3/uL (4.8-10.8)
[2024-10-10 13:30] LABS: UACC Culture Trigger YES
[2024-10-10 13:33] LABS: Alanine Aminotransferase 19 U/L (0-31); Albumin Level 4.6 g/dL (3.5-5.0); Alkaline Phosphatase 77 U/L (39-117); Anion Gap 11 (12-20); Aspartate Amino Transferase 23 U/L (5-31); Blood Urea Nitrogen 13 mg/dL (9-16); Calcium 9.0 mg/dL (8.4-10.2); Carbon Dioxide 23 mmol/L (22-29); Chloride 110 mmol/L (96-108); Creatinine Clr Calc Pharmacy 50.2; Estimated Glomerular Filt Rate 47; Lipase 19 U/L (8-78); Potassium 4.1 mmol/L (3.3-5.1); Sodium 140 mmol/L (135-145); Total Protein 7.4 g/dL (6.5-8.0)
[2024-10-10 14:13] VITALS: BP 139/78; PULSE 93; RESP 14; TEMP 36.9; O2SAT 95
--- NOTE | 2024-10-10 14:19 | PC.NURSE ---
Pt to ED from triage. A/O x 3, ambulated with steady gait. VSS, denies pain but reports abdominal cramping in RLQ. States she has had in increase in the number of bowel movements as well as nausea. Reports hx divertic. Labs collected and sent. #20 placed R FA, CT pending.
--- OUTSIDE RECORDS SUMMARY | 2024-10-10 14:41 | XMS_ITS | Data Portability ---
Author Organization VERONCIA QUINTERO MD [facility], Main Office Address [address] [place] [phone] Assessment Encounter Date Assessment Date Assessment LastModified [...] available Lab CBC w/ diff [address], [address] [place] [address], [id number], 07/31/2024 10:55:07 HIV-1 RNA, quantitat sudarshan, PCR, serum or plasma [address], [address] [place] [address], [address], 07/31/2024 10:55:07 T-cell regulator y subsets panel, blood [address], [address] [place] [address], [address], 07/31/2024 10:55:07 hepatitis C virus Ab, serum [address] [place] [address] (Lab), [address] [place] [address], [id number], 07/31/2024 10:55:07 HBsAg (hepatiti s B surface Ag), serum [address] [place] [address] (Lab), [address] [place] [address], [address], 07/31/2024 10:55:07 RPR (rapid plasma reagin), serum [address] [place] [address] (Lab), [address] [place] [address], [id number], 07/31/2024 10:55:08 chlamydia + gonorrhea RNA, QL, unspecifi ed specimen [address] [place] [address] (Lab), [address] [place] [address], 318[address], 07/31/2024 10:55:08 CMP, serum or plasma [address] [place] [address] (Lab), [address] [place] [address], 116[address], 07/31/2024 10:55:08 lipid panel, serum [address] [place] [address] (Lab), [address] [place] [address], [id number], 01/26/2024 14:15:56 CBC w/ diff [address], [address] [place] [address], [address], 01/26/2024 14:15:55 ALT (alanine aminotran sferase), serum or plasma [address] [place] [address], [address] [place] [address], [address], 01/26/2024 14:15:55 AST/SGOT (aspartat e aminotran sferase), serum or plasma [address], [address] [place] [address], [address], 01/26/2024 14:15:56 creatinin e w/ estimated GFR (eGFR), serum or plasma [address], [address] [place] [address], [address], 01/26/2024 14:15:56 HIV-1 RNA, quantitat sudarshan, PCR, serum or plasma [address], [address] [place] [address], [address], 01/26/2024 14:15:56 T-cell regulator y subsets panel, blood [address], [address] [place] [address], [address]39[address], 01/26/2024 14:15:56 CBC w/ diff [address], [address] [place] [address], [address], 09/29/2023 11:28:57 ALT (alanine aminotran sferase), serum or plasma [address], [address] [place] [address], [address], 09/29/2023 11:28:57 AST/SGOT (aspartat e aminotran sferase), serum or plasma [address], [address] [place] [address], 35[address], 09/29/2023 11:28:58 CT + NG DNA, PCR, unspecifi ed specimen [address], [address] [place] [address], 65[address], 09/29/2023 11:28:58 creatinin e w/ estimated GFR (eGFR), serum or plasma [address], [address] [place] [address], [address], 09/29/2023 11:28:58 hepatitis C virus Ab, serum [address], [address] [place] [address], 35[address], 09/29/2023 11:28:58 HIV-1 RNA, quantitat sudarshan, PCR, serum or plasma [address], [address] [place] [address], 5[address], 09/29/2023 11:28:58 RPR (rapid plasma reagin), serum [address], [address] [place] [address], 25[address], 09/29/2023 11:28:58 T-cell regulator y subsets panel, blood [address], [address] [place] [address], 869[address], 09/29/2023 11:28:58 HBsAg (hepatiti s B surface Ag), serum [address], [address] [place] [address], 510[address], 09/29/2023 11:28:58 CBC w/ diff [address] [facility], [address] [place] [address], [address], 06/30/2023 11:22:31 electroly jamison panel, blood [address] [place] [address], [address] [place] [address], 08127, 06/30/2023 11:22:32 ALT (alanine aminotran sferase), serum or plasma [address] [place] [address], [address] [place] [address], 58[address], 06/30/2023 11:22:32 AST/SGOT (aspartat e aminotran sferase), serum or plasma [address] [place] [address], [address] [place] [address], 350[address], 06/30/2023 11:22:32 CT + NG DNA, PCR, unspecifi ed specimen [address] [place] [address], [address] [place] [address], 03648, 06/30/2023 11:22:32 creatinin e w/ estimated GFR (eGFR), serum or plasma [address] [place] [address], [address] [place] [address], 116[address], 06/30/2023 11:22:32 hepatitis C virus Ab, serum [address] [place] [address], [address] [place] [address], 96564, 06/30/2023 11:22:32 HIV-1 RNA, quantitat sudarshan, PCR, serum or plasma [address] [place] [address], [address] [place] [address], 3[address], 06/30/2023 11:22:32 RPR (rapid plasma reagin), serum [address], [address] [place] [address], 226[address], 06/30/2023 11:22:32 T-cell regulator y subsets panel, blood [address], [address] [place] [address], 02395, 06/30/2023 11:22:32 HBsAg (hepatiti s B surface Ag), serum [address], [address] [place] [address], [address], 06/30/2023 11:22:32 CBC w/ diff [address], [address] [place] [address], [address], 04/05/2023 16:50:35 electroly jamison panel, blood [address], [address] [place] [address], 865[address], 04/05/2023 16:50:36 ALT (alanine aminotran sferase), serum or plasma [address], [address] [place] [address], 17917, 04/05/2023 16:50:36 AST/SGOT (aspartat e aminotran sferase), serum or plasma [address], [address] [place] [address], 26[address], 04/05/2023 16:50:36 CT + NG DNA, PCR, unspecifi ed specimen [address], [address], 04/05/2023 16:50:36 creatinin e w/ estimated GFR (eGFR), serum or plasma [address], [address] [place] [address], 64278, 04/05/2023 16:50:36 hepatitis C virus Ab, serum [address], [address] [place] [address], 81230, 04/05/2023 16:50:36 HIV-1 RNA, quantitat sudarshan, PCR, serum or plasma [address], [address] [place] [address], 98977, 04/05/2023 16:50:37 RPR (rapid plasma reagin), serum [address], [address] [place] [address], 84[address], 04/05/2023 16:50:37 T-cell regulator y subsets panel, blood [address], [address], 04/05/2023 16:50:37 Referral None recorded. Procedures None recorded. Surgeries None recorded. Imaging None recorded. Medication Orders Triumeq 600 mg-50 mg-300 mg tablet 2024 025 [facility] ([facility]) #[id number], [address] [place], [place], [id number], 07/20/2024 13:49:54 Prezcobix 800 mg-150 mg tablet 2024 025 [facility] ([facility]) #[id number], [address] [place], [place], [id number], 07/20/2024 13:49:55 Zepbound 2.5 mg/0.5 mL subcutane ous pen injector 2024 025 [facility]acy #[id number], [address] [place], [address], 07/20/2024 14:00:58 Triumeq 600 mg-50 mg-300 mg tablet 2023 024 [facility] ([facility]) #[id number], [address] [place], [place], [id number], 01/19/2024 13:03:21 Prezcobix 800 mg-150 mg tablet 2023 024 [facility] ([facility]) #82965, [address] [place], [place], [id number], 01/19/2024 13:03:20 Triumeq 600 mg-50 mg-300 mg tablet 2023 024 [facility] ([facility]) #[id number], [address] [facility] [place], [place], [id number], 09/22/2023 10:31:34 Prezcobix 800 mg-150 mg tablet 2023 024 [facility] ([facility]) #71294, [address] [place], [place], [id number], 09/22/2023 10:31:33 Triumeq 600 mg-50 mg-300 mg tablet 2023 024 [facility] ([facility]) #[id number], [address] [place], [place], [id number], 06/22/2023 11:40:36 Prezcobix 800 mg-150 mg tablet 2023 024 [facility] ([facility]) #02527, [address] [place], [place], [id number], 06/22/2023 11:40:35 Triumeq 600 mg-50 mg-300 mg tablet 2022 023 [facility] #[facility], [address] [place], [place], [id number], 03/24/2023 13:29:29 Prezcobix 800 mg-150 mg tablet 2022 023 [facility] #02173, [address] [place], [place], [id number], 03/24/2023 13:29:15 Patient TargetsNo targets recorded. Patient InstructionsNo instructions recorded. Reason for Referral None Reported. Results Created Date Observation Date Name Description Value Unit Range Abnormal Flag Note LastModifiedBy Organization Detail LastModifiedTime Result Notes None recorded. Problems Name Problem SNOMED Code Status Onset Date Resolution Date Notes Provider Name and Address Organization Details Recorded Time Human immunodef iciency virus infection 72526584 Active 2022 Marleen Kim MD [address] [place] [address], [phone] , [facility] MARLEEN KIM MD 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 4 06:58:33 HIV seroposit ivity Active 2014 HIV seropositi vity; snomeddesc ription: HIV seropositi vity; Report Immunity to Registry: Yes; Notes: hx sustiva, combivir, nevirapine ; reataz, norvir, truvada. [id number] neg 2007; Not Available [facility] 4 06:58:33 Hyperlipi demia 47973135 Active 2013 Hyperlipid emia; snomeddesc ription: Hyperlipid emia; Report Immunity to Registry: Yes; Other and unspecifie d hyperlipid emia; snomeddesc ription: Hyperlipid emia; Report Immunity to Registry: Yes; Not Available [facility] 4 06:58:33 Constipat ion 82654014 Active 2013 Constipati on, unspecifie d; snomeddesc ription: Constipati on; Report Immunity to Registry: Yes; Constipat ion; snomeddesc ription: Constipati on; Report Immunity to Registry: Yes; Not Available [facility] 4 06:58:34 Lipodystr ophy 72690164 Active 2013 Lipodystro phy; snomeddesc ription: Lipodystro phy; Report Immunity to Registry: Yes; Not Available [facility] 4 06:58:34 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 Medical Equipment None Reported. Allergies Allergen ID Allergen Name Allergen Category Reaction Reaction Severity Criticality Documentation Date Start Date Code Code System Note Provider Name and Address Organization Details Recorded Time 696 Penicilli n Not available Not available Not available Not available 06/01/20232011 09618 RxNorm Comme nt: adver se_ev ent_t ype: 77856 8002; ; Not Available [facility] 4 06:50:45 697 Sustiva medicatio n Not available Not available Not available 06/01/20232011 48253 4 RxNorm React ion: Other dysfu nctio ns of sleep stage s or arous al from sleep ; Comme nt: adver se_ev ent_t ype: 95657 8002; ; Not Available [facility] 4 06:50:45 698 Viramune medicatio n rash Not available Not available 06/01/20232011 36618 0 RxNorm React ion: Rash and other nonsp ecifi c skin erupt ion; Comme nt: adver se_ev ent_t ype: 58175 8002; ; Not Available [facility] 4 06:50:45 Medications Name Sig Start [...] 3; VACCINE_ IND: no; SU_FULL_ NAME: Marleen Martvitor vines; Not Available Not Available Not Available [...] pine ER 200 mg capsule,e xtended release lramwl33m r active Not Available Not Available Not [...] Not Available Not Available Not Avai lable Belsomra 20 mg tablet TAKE 1 TABLET BY MOUTH EVERY NIGHT AT BEDTIME FOR SLEEP active Not Available Not Available No t Available Prezcobix 800 mg-150 mg tablet Take 1 tablet every day by oral route for 30 days, for HIV. 04/11/ 2025 active Not Available Not Available Not Avai lable Yuvafem 10 mcg vaginal tablet INSERT 1 [...] DateTime 07/20/2024 103.5 [address]IM [address] [facility] 07/20/2024 14:16:24 Date Recorded Body height Heart rate Body temperature Body mass index (BMI) Body weight Oxygen saturation Oxygen saturation in Arterial blood by Pulse oximetry Systolic blood pressure Diastolic blood pressure Provider Name and Address Organization Details Last Updated DateTime 5 160.02 cm 73 /min 97.9 [degF] 33.3 kg/m2 27934.3 7 g 95 % 95 % 130 mm[Hg] 80 mm[Hg] Lara KIM MD [facility] 5 13:49:46 Date Recorded Body height Heart rate Respiratory rate Body temperature Body mass index (BMI) Body weight Oxygen saturation Oxygen saturation in Arterial blood by Pulse oximetry Systolic blood pressure Diastolic blood pressure Provider Name and Address Organization Details Last Updated DateTime 4 160.02 cm 73 /min 12 /min 98.6 [degF] 28.7 kg/m2 76803.9 6 g 97 % 97 % 138 mm[Hg] 80 mm[Hg] Bety KIM MD [facility] 4 12:31:28 Social History None recorded. Functional [...] Note 324 Marleen Kim MD Main Office [address] [place] [phone] 12/21/2022 15:05:12 01/27/2023 23:51:30 Human immunodeficiency virus infection 84797102 B20 HIV Continue Triumeq 1 tab po [...] addressed 1499 Marleen Kim MD Main Office [address] [place] [phone] 03/24/2023 13:21:52 03/25/2023 10:42:49 Human immunodeficiency virus infection 18042030 B20 HIVContinu e Triumeq 1 tab po [...] of care reviewed.q uestions and concerns addressed [id number] Marleen Kim MD Main Office [address] [place] [phone] 06/22/2023 10:56:08 06/22/2023 11:40:36 Human immunodeficiency virus infection 55162809 B20 HIVContinu e Triumeq 1 tab po [...] of care reviewed.q uestions and concerns addressed 97275 Marleen Kim MD Main Office [address] [place] [address] [phone] 09/22/2023 10:23:49 09/22/2023 10:35:07 Human immunodeficiency virus infection 61794921 B20 HIVContinu e Triumeq 1 tab po [...] of care reviewed.q uestions and concerns addressed 58103 Marleen Kim MD Main Office [address] [place] [address] [phone] 01/19/2024 12:18:20 01/19/2024 13:21:26 Human immunodeficiency virus infection 61824741 B20 HIVContinu e Triumeq 1 tab po [...] COVID19 prescribed .questions and concerns addressed Hyperlipidemia 99963980 E78.5 diet and exercisebe nefits of tx reviewed 31627 Marleen Kim MD Main Office [address] [place] [address] [phone] 07/20/2024 13:16:29 07/20/2024 14:17:24 Human immunodeficiency virus infection 38620306 B20 HIVContinu e Triumeq 1 tab po [...] addressed Body mass index 30+ - obesity 296773815 Z68.33 labs ordered,Ze pbound ordered qw. sqshe [...] Ontiveros Member ID Guarantor Name 07/17/2024 1 [place] - [facility] (MEDICAID) Melanie Roach [id number] Melanie Roach Notes Date Note Type Note [...] Thyroid specialist. requests lab. Marleen Kim MD [address] [place] [address], [phone], VERONICA KIM MD [facility] 03/24/2023 13:29:10 06/22/2023 text/html f/u HIV.on trium eq 1 tab qd /prezcobix 1 tab po qd. tolerates regimen wellhas missed some doses since she was last seenlabs milrlsil44/2023 KD4=118; HIV VL nondetected.08/2022 HIV VL nondetected; CD4 [...] no n/v/d. no rash. Marleen Kim MD [address] [place] [address], [phone], VERONICA KIM MD [facility] 06/22/2023 11:43:31 09/22/2023 text/html f/u HIV.on trium eq 1 tab qd /prezcobix 1 tab po qd. tolerates regimen wellhas missed some doses since she was last seenlabs reviewed06/2023 HIV VLnondetceted;CD4>75 0; ALT/AST wnl; RPR NR; HCV ab;03/2023 GW1=869; HIV VL nondetected.08/2022 HIV VL nondetected; CD4 =682; HCV neg; GC/chlamydia neg; AST/ALT01/2022 HIV VL nondetceted; eGFR>60; ALt/AST wnl; HCV neg; HBV s ag neg; GC/chlamydia neg;03/2021 CD4>800;eGFR>60; ALT/AST wnlnot sexually active for 11 years.no drugsno fever. no n/v/d. no rash. Marleen Kim MD [address] [place] [address], [phone], VERNOICA KIM MD [facility] 09/22/2023 10:32:20 01/19/2024 text/html f/u HIV.on trium eq 1 tab qd /prezcobix 1 tab po qd. tolerates regimen wellhas missed some doses since she was last seen ; especially when she drinks.labs reviewed11/2023 HIV VL=21; CD4= 900 range ; syphilis neg; GC/chlamydia neg; HCV neg; RPR NR; EGFR>60; AST/ALT wn HIV VLnondetceted;CD4>75 0; ALT/AST wnl; RPR NR; HCV ab;03/2023 PL2=948; HIV VL nondetected.occasion jamari Jackson reports she is on on thyroid tx which she has struggled with due to side effectsnot sexually activeno drugsno fever. no n/v/d. no rash.declines vaccinesPCP recommended lipid loweting agents; she declined them Marleen Kim MD [address] [place] [address], [phone], [facility] Trevor KIM MD [facility] 01/19/2024 15:56:02 07/20/2024 text/html f/u HIV.on trium [...] 0; ALT/AST wnl; RPR NR; HCV ab;03/2023 OC6=926; HIV VL nondetected. Marleen Kim MD [address] [place] [address], [phone], VERONICA - MARLEEN KIM MD [facility] 07/24/2024 00:38:13 OBGyn Episode No OBEpisode recorded.
[2024-10-10] MEDS: iohexoL 350 MG/ML 100 ML INFUS..BTL IV (14:52)
[2024-10-10 17:27] VITALS: BP 136/78; PULSE 89; RESP 14; TEMP 36.9; O2SAT 97
[2024-10-10 17:28] VITALS: BP 136/78; PULSE 89; RESP 14; TEMP 36.9; O2SAT 97
== END 2024-10-10 17:29 | disposition home or self-care (01) ==
PROVIDERS: Physician Assistant; Emergency Provider Emergency Medicine Emergency Medical Services
DX: K57.32 Diverticulitis of large intestine without perforation or abscess without bleeding (principal); B20 Human immunodeficiency virus [HIV] disease; I10 Essential (primary) hypertension; E78.00 Pure hypercholesterolemia, unspecified; E03.9 Hypothyroidism, unspecified; Z79.899 Other long term (current) drug therapy
CPT/HCPCS: 36415; 74177; 80053; 81001; 83690; 85025; 87086; 96374; 96375; 99284; J1885; J2405; Q9967

== ENCOUNTER → 2024-10-10 13:50 | Outpatient (BNV) | payer MEDICAID, SELFPAY | PROVIDERS: Emergency Provider Emergency Medicine Emergency Medical Services; Visit Provider Radiology Diagnostic Radiology | DX: K80.80 Other cholelithiasis without obstruction (principal) | CPT/HCPCS: 74177 ==

== ENCOUNTER 2024-11-07 14:27 | Outpatient (REF) | payer MEDICAID, SELFPAY ==
[2024-11-07 15:50] LABS: Alanine Aminotransferase 21 U/L (0-31); Albumin Level 4.5 g/dL (3.5-5.0); Alkaline Phosphatase 74 U/L (39-117); Anion Gap 13 (12-20); Aspartate Amino Transferase 22 U/L (5-31); Blood Urea Nitrogen 13 mg/dL (9-16); Calcium 9.2 mg/dL (8.4-10.2); Carbon Dioxide 23 mmol/L (22-29); Chloride 110 mmol/L (96-108); Estimated Glomerular Filt Rate 57; Potassium 4.0 mmol/L (3.3-5.1); Sodium 142 mmol/L (135-145); Total Protein 7.3 g/dL (6.5-8.0)
[2024-11-08 08:05] LABS: Syphilis Screen Nonreactive (Nonreactive)
[2024-11-08 08:11] LABS: HBsAGNum1 0.28 S/CO (0.00-0.99); Hepatitis B Surface Antigen Negative (Negative); ~HepC Num1 0.18 S/CO (0.00-0.79); ~Hepatitis C Antibody Nonreactive (Nonreactive)
[2024-11-15 11:58] LABS: Chlamydia Trachomatis IgA <1:16 titer (<1:16)
== END 2024-11-07 14:28 | disposition home or self-care (01) ==
LOC: HO.LAB 14:27
PROVIDERS: PCP Family Medicine; Visit Provider Internal Medicine Infectious Disease
DX: B20 Human immunodeficiency virus [HIV] disease (principal)
CPT/HCPCS: 36415; 80053; 86631; 86632; 86780; 86803; 87340

== ENCOUNTER 2025-01-14 12:21 | Outpatient (REF) | payer MEDICAID, SELFPAY ==
--- NOTE | ~2025-01-14 | US_ITS ---
EXAMINATION: US THYROID HISTORY: E04.1 - Nontoxic single thyroid nodule TECHNIQUE: Real-time grayscale ultrasound imaging was performed and images were reviewed. COMPARISON: Comparison is made with the prior examination dated 01/04/2024. FINDINGS: No normal thyroid tissue is identified on either side, which is likely due to prior radioactive iodine therapy. There is a 1.7 x 0.6 x 0.7 cm hypoechoic mass in the left thyroid bed which may represent a lymph node. A similarly sized hypoechoic structure was noted on the prior study. US/US thyroid IMPRESSION: No normal thyroid tissue is identified. Possible 1.7 x 0.6 x 0.7 cm lymph node in the left thyroid bed. ACR TI-RADS Guidelines TR1 (0 points): Benign. No follow-up or biopsy required TR2 (2 points): Not Suspicious. No biopsy or follow up indicated TR3 (3 points): Mildly Suspicious. FNA if >= 2.5 cm, Follow if >= 1.5 cm TR4 (4-6 points): Moderately Suspicious. FNA if >= 1.5 cm, Follow if >= 1.0 cm TR5 (>=7 points): Highly Suspicious. FNA if >= 1.0 cm, Follow if >= 0.5 cm Electronically signed by: Darryl Cabrera MD 01/15/2025 07:28 AM EDT
--- OUTSIDE RECORDS SUMMARY | 2025-01-14 14:42 | XMS_ITS | Encounter Summary ---
Author Organization [facility] Address [address] [place] [address] Care Team Providers Care Information Services Vice President Name Role Phone Physician, Pcp Unknown Primary Care Provider Stephanie vailable Encounter Details Date Type Department Care Team (Late st Contact Info) Description 11/09/2024 Lab Requisition [facility] [address] [place] [address] Tyra Kim MD [address] [place] [address] Epigastric pain Social History Tobacco Use Types Packs/Day Years Used Date Smoking Tobacco: Never Assessed Comments Unknown Sex and Gender Information Value Date Recorded Sex Assigned at Not on file Legal Sex Female 1:35 PM EST Gender Identity Not on file Sexual Orientation Not on file documented as of this encounter Plan of Treatment Not on file documented as of this encounter Procedures Procedure Name Priority Date/Time Associated Diagnosis Comments HELICOBACTER PYLORI BREATH TEST Routine 11/09/2024 2:34 PM EDT Epigastric pain documented in this encounter Results * Helicobacter pylori breath test (11/09/2024 2:34 PM EDT) H Pylori Breath Test Negative Negative LAB CHEMISTRY METHOD 11/10/2024 10:23 AM EDT [facility] Breath Oral cavity structure / Unknown 11/09/2024 2:34 PM EDT 11/09/2024 6:35 PM EDT Tyra Kim MD LAB BODY FLUIDS AND STOOL S ORDERABLES Final Result [facility] [address] [place] [address], [place] [phone] documented in this encounter Visit Diagnoses Diagnosis Epigastric pain Abdominal pain, epigastric documented in this encounter Care Teams Information Services Vice President Relationship Specialty Start Date End Date Physician, Pcp Unknown PCP - General 11/12/24 documented as of this encounter
--- OUTSIDE RECORDS SUMMARY | 2025-01-14 14:42 | XMS_ITS | Data Portability ---
Author Organization VERONICA - MARLEEN QUINTERO MD [facility], Main Office Address [address] [place] [phone] Assessment Encounter Date Assessment Date Assessment LastModified by Organization Details LastModified Time 06/22/2023 06/22/2023 Telemedicine. VIDEO. 21 min. pt home in [place]. cmartorell Not available 06/22/2023 11:41:54 09/22/2023 09/22/2023 Telemedicine. VIDEO. 19 min. pt home in [facility] cmartorell Not available 09/22/2023 10:25:33 Plan of Treatment Reminders Order Date Submit Date Provider Last Modified By Organization Details Last Modified Time Details Appointments B20 FOLLOW UP 2024 12:00P M Marleen Kim MD Not available Not available Not available Lab H pylori urea breath test, co2 infrared 2024 025 neto Main Office, [address] [place] [address], [phone], 11/12/2024 15:54:25 CBC w/ diff [address], [address] [place] [address], [address], 07/31/2024 10:55:07 HIV-1 RNA, quantita tive, PCR, serum or plasma [address], [address] [place] [address], [id number], 07/31/2024 10:55:07 T-cell regulato ry subsets panel, blood [address], [address] [place] [address], [address], 07/31/2024 10:55:07 hepatiti s C virus Ab, serum [address] [place] [address] (Lab), [address] [place] [address], [address], 07/31/2024 10:55:07 HBsAg (hepatit is B surface Ag), serum [address] (Lab), [address] [place] [address], [address], 07/31/2024 10:55:07 RPR (rapid plasma reagin), serum [address] [place] [address] (Lab), [address] [place] [address], [address], 07/31/2024 10:55:08 chlamydi a + gonorrhe a RNA, QL, unspecif ied specimen [address] (Lab), [address] [place] [address], [id number], 07/31/2024 10:55:08 CMP, serum or plasma [address] [place] [address] (Lab), [address] [place] [address], [address], 07/31/2024 10:55:08 lipid panel, serum [address] (Lab), [address] [place] [address], [address], 01/26/2024 14:15:56 CBC w/ diff [address], [address] [place] [address], [address], 01/26/2024 14:15:55 ALT (alanine aminotra nsferase ), serum or plasma [address], [address] [place] [address], [address], 01/26/2024 14:15:55 AST/SGOT (asparta te aminotra nsferase ), serum or plasma [address], [address] [place] [address], [address], 01/26/2024 14:15:56 creatini ne w/ estimate d GFR (eGFR), serum or plasma [address], [address] [place] [address], [address], 01/26/2024 14:15:56 HIV-1 RNA, quantita tive, PCR, serum or plasma [address], [address] [place] [address], [address], 01/26/2024 14:15:56 T-cell regulato ry subsets panel, blood [address], [address] [place] [address], [address], 01/26/2024 14:15:56 CBC w/ diff [address] [place] [address], [address] [place] [address], [address], 09/29/2023 11:28:57 ALT (alanine aminotra nsferase ), serum or plasma [address] [place] [address], [address], 09/29/2023 11:28:57 AST/SGOT (asparta te aminotra nsferase ), serum or plasma [address] [place] [address], [place], [address], 09/29/2023 11:28:58 CT + NG DNA, PCR, unspecif ied specimen [address], [address] [place] [address], [address], 09/29/2023 11:28:58 creatini ne w/ estimate d GFR (eGFR), serum or plasma [address], [address] [place] [address], [address], 09/29/2023 11:28:58 hepatiti s C virus Ab, serum [address], [address] [place] [address], 289[address], 09/29/2023 11:28:58 HIV-1 RNA, quantita tive, PCR, serum or plasma [address], [address] [place] [address], [address], 09/29/2023 11:28:58 RPR (rapid plasma reagin), serum [address], [address] [place] [address], [address], 09/29/2023 11:28:58 T-cell regulato ry subsets panel, blood [address], [address] [place] [address], [address], 09/29/2023 11:28:58 HBsAg (hepatit is B surface Ag), serum [address], [address] [place] [address], [address], 09/29/2023 11:28:58 CBC w/ diff [address], [address] [place] [address], [address], 06/30/2023 11:22:31 electrol ytes panel, blood [address], [address] [place] [address], [address], 06/30/2023 11:22:32 ALT (alanine aminotra nsferase ), serum or plasma [address] [place] [address], [address] [place] [address], [address], 06/30/2023 11:22:32 AST/SGOT (asparta te aminotra nsferase ), serum or plasma [address] [place] [address], [address] [place] [address], 7[address], 06/30/2023 11:22:32 CT + NG DNA, PCR, unspecif ied specimen [address] [place] [address], [address] [place] [address], 23[address], 06/30/2023 11:22:32 creatini ne w/ estimate d GFR (eGFR), serum or plasma [address] [place] [address], [address] [place] [address], [address], 06/30/2023 11:22:32 hepatiti s C virus Ab, serum [address] [place] [address], [address] [place] [address], [address], 06/30/2023 11:22:32 HIV-1 RNA, quantita tive, PCR, serum or plasma [address] [place] [address], [address] [place] [address], 580[address], 06/30/2023 11:22:32 RPR (rapid plasma reagin), serum [address], [address] [place] [address], 748[address], 06/30/2023 11:22:32 T-cell regulato ry subsets panel, blood [address], [address] [place] [address], [address], 06/30/2023 11:22:32 HBsAg (hepatit is B surface Ag), serum [address], [address] [place] [address], 93[address], 06/30/2023 11:22:32 Referral None recorded . Procedures None recorded . Surgeries None recorded . Imaging None recorded . Medication Orders Triumeq 600 mg-50 mg-300 mg tablet 2024 025 [facility] ([facility] #[id number], [address] [place], [place], [id number], 11/12/2024 15:54:34 Prezcobi x 800 mg-150 mg tablet 2024 025 [facility] ([facility] #68627, [address], [place], [id number], 11/12/2024 15:55:05 Wegovy 0.25 mg/0.5 mL subcutan eous pen injector 2024 025 [facility] #[id number], [address] [place], [address], 11/12/2024 15:54:28 Triumeq 600 mg-50 mg-300 mg tablet 2024 025 [facility] ([facility]) #70137, [address] [facility], [place], [place], [id number], 07/20/2024 13:49:54 Prezcobi x 800 mg-150 mg tablet 2024 025 [facility] ([facility]) #37565, [address], [place], [id number], 07/20/2024 13:49:55 Zepbound 2.5 mg/0.5 mL subcutan eous pen injector 2024 025 [facility] #2071, [address] [place], [address], 12/25/2024 05:01:08 Triumeq 600 mg-50 mg-300 mg tablet 2023 024 [facility] ([facility]) #24737, [address], [place], [id number], 01/19/2024 13:03:21 Prezcobi x 800 mg-150 mg tablet 2023 024 [facility] ([facility]) #38574, [address], [place], [id number], 01/19/2024 13:03:20 Triumeq 600 mg-50 mg-300 mg tablet 2023 024 [facility] ([facility]) #45400, [address], [place], [id number], 09/22/2023 10:31:34 Prezcobi x 800 mg-150 mg tablet 2023 024 [facility] ([facility]) #02822, [address], [place], [id number], 09/22/2023 10:31:33 Triumeq 600 mg-50 mg-300 mg tablet 2023 024 [facility]) #28454, [address], [place], [id number], 06/22/2023 11:40:36 Prezcobi x 800 mg-150 mg tablet 2023 024 [facility]) #06086, [address], [place], [id number], 06/22/2023 11:40:35 Patient TargetsNo targets recorded. Patient InstructionsNo instructions recorded. Reason for Referral None Reported. Results Created Date Observation Date Name Description Value Unit Range Abnormal Flag Note LastModifiedBy Organization Detail LastModifiedTime 11/10/19 25 11/09/2024 HELIC OBACT ER PYLOR I BREAT H TEST H pylori breath test Negati ve negati ve Not Available [facility] [address] [place], [address], 11/10/2024 10:24:07 11/10/19 25 11/09/2024 HELIC OBACT ER PYLOR I BREAT H TEST note See Report [facility], [address] [facility], [place], [place] [address] Not Available [facility] [address] [place], [address], 11/10/2024 10:24:07 11/16/19 25 11/15/2024 H pylor i urea breat h test, co2 infra red H. pylori negati ve Not Available Main Office [address] [place], [address], 11/09/2024 14:18:36 Result Notes None recorded. 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 Lipodystro phy; snomeddesc ription: Lipodystro phy; Report Immunity to Registry: Yes; Not Available [facility] 4 06:58:34 Constipat ion 86813966 Active 2013 Constipati on, unspecifie d; snomeddesc ription: Constipati on; Report Immunity to Registry: Yes; Constipat ion; snomeddesc ription: Constipati on; Report Immunity to Registry: Yes; Not Available [facility] 4 06:58:34 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; snomeddesc ription: Helicobact er-associa janay disease; Report Immunity to Registry: Yes; Notes: 07/23 treated 08/22 negative 05/26 negative; Not Available [facility] 4 06:58:33 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 [id number] neg 2007; Not Available [facility] 4 06:58:33 Human immunodef iciency virus infection 99378911 Active 2022 Marleen Kim MD [address] [place] [address] VERONICA maurer, [phone] , VERONICA - MARLEEN KIM MD [facility] 3 13:28:48 Problem Notes None recorded. Medical Equipment None Reported. Allergies Allergen ID Allergen Name Allergen Category Reaction Reaction Severity Criticality Documentation Date Start Date Code Code System Note Provider Name and Address Organization Details Recorded Time 696 Penicilli n Not available Not available Not available Not available 06/01/20232011 76202 RxNorm Comme nt: adver se_ev ent_t ype: 27026 8002; ; Not Available [facility] 4 06:50:45 697 Sustiva medicatio n Not available Not available Not available 06/01/20232011 53969 4 RxNorm React ion: Other dysfu nctio ns of sleep stage s or arous al from sleep ; Comme nt: adver se_ev ent_t ype: 27073 8002; ; Not Available [facility] 4 06:50:45 698 Viramune medicatio n rash Not available Not available 06/01/20232011 12317 0 RxNorm React ion: Rash and other nonsp ecifi c skin erupt ion; Comme nt: adver se_ev ent_t ype: 09303 8002; ; Not Available [facility] 4 06:50:45 Medications Name Sig Start Date [...] no; Not Available Not Available Not Available ondansetr on HCl 4 mg tablet TAKE 1 TABLET BY MOUTH EVERY 8 HOURS NEEDED FOR NAUSEA OR FOR VOMITING FOR UP TO 7 DAYS active Not Available Not Available No t Available clonazepa m 0.5 mg tablet TAKE [...] TABLET BY MOUTH 3 TIMES A DAY FOR DIVERTIC ULITIS FOR 10 DAYS active Not Available Not Available No [...] Available lidocaine 5 % topical patch APPLY 2 PATCHES TOPICALL Y ONCE PER DAY. REMOVE & DISCARD PATCH WITHIN 12 HOURS OR DIRECTED BY MD. active Not Available Not Available No t [...] no; Not Available Not Available Not Available levofloxa daria 500 mg tablet TAKE 1 TABLET BY MOUTH EVERY DAY FOR 10 DAYS active Not Available Not Available No t Available estradiol 0.01% (0.1 mg/gram) vaginal cream PLEASE SEE ATTACHED FOR DETAILED DIRECTIO NS active Not Available Not Available No t Available levofloxa daria 750 mg tablet TAKE 1 TABLET BY MOUTH EVERY DAY FOR 7 DAYS active Not Available Not Available No t Available zolpidem 10 mg tablet TAKE 1 TABLET BY MOUTH EVERY NIGHT AT BEDTIME NEEDED active Not Available Not Available No t Available doxycycli ne hyclate 100 mg tablet [...] pine ER 200 mg capsule,e xtended release [id number] active Not Available Not Available Not Available Klonopin Quantity : ; 0 refill(s ) 08/20 completed VACCINE_ IND: no; Not Available Not Available Not Available bismuth subsalicy late 262 mg Quantity : 120; Duration : 30; 0 refill(s ) 08/18 completed Frequenc y: bid; Duration : 30; VACCINE_ IND: no; SU_FULL_ NAME: Marleen Solano mohinder; Not Available Not Available Not Available sodium [...] mohinder; Not Available Not Available Not Available Isentress [...] Not Available Not Available Not Available Flulaval 6815-8196 45 mcg (15 mcg x 3)/0.5 mL [...] no; Not Available Not Available Not Available Wegovy 0.25 mg/0.5 mL subcutane ous pen injector Inject 0.25 mg every week by subcutan eous route, for weight loss. 2024 active Not Available Not Available Not Avai lable Wegovy 0.5 mg/0.5 mL subcutane ous pen injector active Not Available Not Available Not Available Zepbound 2.5 mg/0.5 mL subcutane ous pen injector Inject 2.5 mg every week by subcutan eous route for 4 days, for weight loss. 12/25 completed Not Available Not Available Not Available Vitals Date Recorded Head circumference Provider Name and Address Organization Details Last Updated DateTime 07/20/2024 103.5 cm Bety ARANGO 07/20/2024 14:16:24 Date Recorded Body height Heart rate Body temperature Body mass index (BMI) Body weight Oxygen saturation Oxygen saturation in Arterial blood by Pulse oximetry Systolic And Diastolic Provider Name and Address Organization Details Last Updated DateTime 04/11/202 5 160.02 cm 73 /min 97.9 [degF] 33.3 kg/m2 86993.3 7 g 95 % 95 % 130/80 mm[Hg] Lara KIM MD [facility] 5 13:49:46 Date Recorded Body height Heart rate Body temperature Body mass index (BMI) Body weight Systolic And Diastolic Provider Name and Address Organization Details Last Updated DateTime 5 160.02 cm 76 /min 98.4 [degF] 31.5 kg/m2 86592.4 4 g 132/78 mm[Hg] Bety KIM MD [facility] 5 13:57:50 Date Recorded Body height Heart rate Respiratory rate Body temperature Body mass index (BMI) Body weight Oxygen saturation Oxygen saturation in Arterial blood by Pulse oximetry Systolic And Diastolic Provider Name and Address Organization Details Last Updated DateTime 4 160.02 cm 73 /min 12 /min 98.6 [degF] 28.7 kg/m2 80064.9 6 g 97 % 97 % 138/80 mm[Hg] Bety KIM MD [facility] 4 12:31:28 Social History None recorded. [...] Diagnosis SNOMED-CT Code Diagnosis ICD10 Code Diagnosis IMO Codes Diagnosis Note 324 Marleen Kim MD Main Office [address] [place] [address] [place] [phone] 12/21/2022 15:05:12 01/27/2023 23:51:30 Human immunodeficiency virus infection 57657953 B20 HIV Continue Triumeq 1 tab po [...] addressed 1499 Marleen Kim MD Main Office [address] [place] [phone] 03/24/2023 13:21:52 03/25/2023 10:42:49 Human immunodeficiency virus infection 13713615 B20 HIVContinu e Triumeq 1 tab po [...] of care reviewed.q uestions and concerns addressed 27836 Marleen Kim MD Main Office [address] [place] [phone] 06/22/2023 10:56:08 06/22/2023 11:40:36 Human immunodeficiency virus infection 06471421 B20 HIVContinu e Triumeq 1 tab po [...] of care reviewed.q uestions and concerns addressed 65800 Marleen Kim MD Main Office [address] [place] [phone] 09/22/2023 10:23:49 09/22/2023 10:35:07 Human immunodeficiency virus infection 89875873 B20 HIVContinu e Triumeq 1 tab po [...] of care reviewed.q uestions and concerns addressed 22592 Marleen Kim MD Main Office [address] [place] [address] 01/19/2024 12:18:20 01/19/2024 13:21:26 Human immunodeficiency virus infection 18526793 B20 HIVContinu e Triumeq 1 tab po [...] COVID19 prescribed .questions and concerns addressed Hyperlipidemia 89360013 E78.5 diet and exercisebe nefits of tx reviewed 11856 Marleen Kim MD Main Office [address] [place] [phone] 07/20/2024 13:16:29 07/20/2024 14:17:24 Human immunodeficiency virus infection 24688445 B20 HIVContinu e Triumeq 1 tab po [...] addressed Body mass index 30+ - obesity 621536126 Z68.33 labs ordered,Ze pbound ordered qw. sqshe will come in to get injection administer ed if approved by insuranceg oal of tx revieweddi et and exercise.m echanism of action reviewedpo tential side effects reviewed such as ISR, allergic reactions, n/v/d, obstructio n, visual changes among other. 01627 Marleen Kim MD Main Office [address] [place] [phone] 11/09/2024 13:34:22 11/09/2024 14:45:53 Human immunodeficiency virus infection 18441313 B20 HIVContinu e Triumeq 1 tab po qd and Prezcobix 1 tab po qd.wants to keep same regimen. pt aware of 2 drug regimens. clinical trial reviewed.s trict compliance w daily use with HIV meds reviewed to prevent viral resistance and prevent viral rebound/fa ilure; and prevent viral transmissi on.plan of care reviewed.q uestions and concerns addressed Body mass index 30+ - obesity 271966047 Z68.33 labs ordered,Ze pbound not covered;We govy will be ordered, and dose will be adjusted monthly as neededshe will come in to get injection administer ed if approved by insurance oal of tx revieweddi et and exercise.m echanism of action reviewedpo tential side effects reviewed such as ISR, allergic reactions, n/v/d, GI obstructio n, visual changes among other. Indigestion 199636205 R1 0.13 21936 H pylori urea breath test ordered/co llected today Health Concerns Section Related Observation LastModified by Organization Detai ls LastModified Time None Recorded Concern Status LastModified by Organization Details LastModified Time None Recorded Advance Directives Directive None Recorded Payers Insurance Date Sequence Insurance Name Policy Number Policy Ontiveros Covered Member ID Ontiveros Member ID Guarantor Name 11/09/2024 1 [place] [employer] [employer] (MEDICAID) Melanie Roach [id number] Melanie Roach Notes Date Note Type Note Provider Name and Address Organization Details Recorded Time 06/22/2023 text/html ROS as noted in the HPI f/u HIV.on triumeq 1 tab qd /prezcobix 1 tab po qd. tolerates regimen wellhas missed some doses since she was last seenlabs krmwhyhc57/2023 BP4=644; HIV VL nondetected.08/2022 HIV VL nondetected; CD4 [...] no n/v/d. no rash. Marleen Kim MD [address] [place] [address], [phone], [facility] - MARLEEN KIM MD [facility] 06/22/2023 11:43:31 09/22/2023 text/html ROS as noted in the HPI f/u HIV.on triumeq 1 tab qd /prezcobix 1 tab po qd. tolerates regimen wellhas missed some doses since she was last seenlabs reviewed06/2023 HIV VLnondetceted;CD4>750; ALT/AST wnl; RPR NR; HCV ab;03/2023 JJ3=107; HIV VL nondetected.08/2022 HIV VL nondetected; CD4 =682; HCV neg; GC/chlamydia neg; AST/ALT01/2022 HIV VL nondetceted; eGFR>60; ALt/AST wnl; HCV neg; HBV s ag neg; GC/chlamydia neg;03/2021 CD4>800;eGFR>60; ALT/AST wnlnot sexually active for 11 years.no drugsno fever. no n/v/d. no rash. Marleen Kim MD [address] [place] [address], [phone], [facility] Trevor KIM MD [facility] 09/22/2023 10:32:20 01/19/2024 text/html ROS as noted in the HPI f/u HIV.on triumeq 1 tab qd /prezcobix 1 tab po qd. tolerates regimen wellhas missed some doses since she was last seen ; especially when she drinks.labs reviewed11/2023 HIV VL=21; CD4= 900 range ; syphilis neg; GC/chlamydia neg; HCV neg; RPR NR; EGFR>60; AST/ALT wn HIV VLnondetceted;CD4>750; ALT/AST wnl; RPR NR; HCV ab;03/2023 UL4=005; HIV VL nondetected.occasional ETOHshe reports she is on on thyroid tx which she has struggled with due to side effectsnot sexually activeno drugsno fever. no n/v/d. no rash.declines vaccinesPCP recommended lipid loweting agents; she declined them Marleen Kim MD [address] [place] [address], [phone], [facility] Trevor KIM MD [facility] 01/19/2024 15:56:02 07/20/2024 text/html ROS as noted in the HPI f/u HIV.on triumeq 1 tab qd /prezcobix 1 tab po qd. tolerates regimen wellhas missed some doses since she was last seen ; especially when she drinks.denies missing daily, except when she socially drinks during her birthday or holidays.occasional ETOHhypothyroidism hxnot sexually activeusing pillboxno drugsno fever. no n/v/d. no rash.labs reviewed high lipids; snores; lipodystrophyOA/reports osteoporosis; no obstruction; no thyroid cancer; no [...] neg; RPR NR; EGFR>60; AST/ALT wn HIV VLnondetceted;CD4>750; ALT/AST wnl; RPR NR; HCV ab;03/2023 TI3=560; HIV VL nondetected. Marleen Kim MD [address] [place] [address], [phone], [facility] - MARLEEN KIM MD [facility] 07/24/2024 00:38:13 11/09/2024 text/html ROS as noted in the HPI f/u HIV.on triumeq 1 tab qd /prezcobix 1 tab po qd. tolerates regimen wellhas missed some doses since she was last seen when she socially drinks during her birthday or holidays.occasional ETOHhypothyroidism hxnot sexually activeusing pillboxno drugsno fever. no n/v/d. no rash.labs reviewednot sexually activeno STI sxweight gainhigh lipids; snores; lipodystrophyOA/reports osteoporosis hx ; no obstruction hx ; no thyroid cancer; no family thyroid cancer hx; gallstones hx. CKDoverweight. BMI 33; lipodystrophy. interested in GlP1.denies pancreatitis hx; denies hx of thyroid medullary cancer; no visual changes; denies obstruction hx and denies GI surgery ; denies DMno subtance use. ER: was treated.for diverticulitis. CT scan done. flagyl and levaquin for 10 days on 10/11/24. improved. some dyspepsia gas x helps. constipated. on senokot. apple sauce helps. no diarrhea. no n/v. no diarrhea. no fever. 08/2024 eGFR=57; AST/ALT wnl11/2023 HIV VL=21; CD4= 900 range ; syphilis neg; GC/chlamydia neg; HCV neg; RPR NR; EGFR>60; AST/ALT wn HIV VLnondetceted;CD4>750; ALT/AST wnl; RPR NR; HCV ab;03/2023 PQ2=940; HIV VL nondetected. Marleen Kim MD [address] [place] [address], [phone], VERONICA - MARLEEN KIM MD [facility] 11/12/2024 16:30:37 OBGyn Episode No OBEpisode recorded.
--- OUTSIDE RECORDS SUMMARY | 2025-01-14 14:42 | XMS_ITS | Clinical Summary ---
Author Organization [address] [facility] Address [address] [place] [address] Phone Care Team Providers Care Lace Cutter Name Role Phone Physician, Pcp Unknown Primary Care Provider Stephanie vailable Encounters Date Type Department Care Team Description 11/09/2024 Lab Requisition [facility] - Main Lab [address] [facility] [place] [address] Tyra Kim MD Epigastric pain from Last 3 Months Social History Tobacco Use Types Packs/Day Years Used Date Smoking Tobacco: Never Assessed Comments Unknown Sex and Gender Information Value Date Recorded Sex Assigned at Not on file Legal Sex Female 1:35 PM EST Gender Identity Not on file Sexual Orientation Not on file Plan of Treatment Health Maintenance Due Date Last Done Comments Breast Cancer Screening 1961 Colorectal Cancer Screening: Colonoscopy 1961 DTaP,Tdap,and Td Vaccines (1 - Tdap) 1980 Cervical Cancer Screening: P ap Smear 1982 Pneumococcal Vaccine: 50+ Ye ars (1 of 1 - PCV) 06/26/2011 Zoster Vaccines (1 of 2) 06/26/2011 Depression Screening 04/11/2024 HIV Screening 11/10/2024 Hepatitis C Screening 11/10/2024 Social Influencers of Health Screening 11/10/2024 COVID-19 Vaccine (1 - 2023-2 5 season) 2024 Influenza Vaccine (#1) 2024 RSV Immunization Adult Patie nts (1 - 1-dose 75+ series) 2036 HIB Vaccines Aged Out No longer eligi ble based on patient's age to complete this topic HPV Vaccines Aged Out No longer eligi ble based on patient's age to complete this topic Hepatitis A Vaccines Aged Out No long er eligible based on patient's age to complete this topic Hepatitis B Vaccines Aged Out No long er eligible based on patient's age to complete this topic IPV Vaccines Aged Out No longer eligi ble based on patient's age to complete this topic MMR Vaccines Aged Out No longer eligi ble based on patient's age to complete this topic Meningococcal ACWY Vaccine Aged Out N o longer eligible based on patient's age to complete this topic Meningococcal B Vaccine Aged Out No l onger eligible based on patient's age to complete this topic RSV Immunization Patients Un geoffrey 20 months Aged Out No longer eligible b ased on patient's age to complete this topic Varicella Vaccines Aged Out No longer eligible based on patient's age to complete this topic Procedures Procedure Name Priority Date/Time Associated Diagnosis Comments HELICOBACTER PYLORI BREATH TEST Routine 11/09/2024 2:34 PM EDT Epigastric pain from Last 3 Months Results * Helicobacter pylori breath test (11/09/2024 2:34 PM EDT) H Pylori Breath Test Negative Negative LAB CHEMISTRY METHOD 11/10/2024 10:23 AM EDT [facility] Breath Oral cavity structure / Unknown 11/09/2024 2:34 PM EDT 11/09/2024 6:35 PM EDT us Tyra Kim MD LAB BODY FLUIDS AND STOOL S ORDERABLES Final Result [facility] [address] [place] [address], from Last 3 Months Insurance MEDICAID - [place] Care Teams Lace Cutter Relationship Specialty Start Date End Date Physician, Pcp Unknown PCP - General 11/12/24
== END 2025-01-14 12:22 | disposition home or self-care (01) ==
LOC: HO.US 12:21
PROVIDERS: PCP Family Medicine; Visit Provider Student in an Organized Health Care Education/Training Program
DX: E04.1 Nontoxic single thyroid nodule (principal)
CPT/HCPCS: 76536

== ENCOUNTER → 2025-01-14 12:28 | Outpatient (BNV) | payer MEDICAID, SELFPAY | PROVIDERS: PCP Family Medicine; Visit Provider Radiology Diagnostic Radiology | DX: E04.1 Nontoxic single thyroid nodule (principal) | CPT/HCPCS: 76536 ==

== ENCOUNTER 2025-01-22 12:55 | Outpatient (AMB) | payer MEDICAID, SELFPAY ==
[2025-01-22 12:56] VITALS: BP 136/74; PULSE 78; O2SAT 98; BMI 31.6
--- NOTE | 2025-01-22 12:56 | A.OFFVIS_ITS ---
Vital Signs 3 01/22/25 12:56 Height 5 ft 3 in Weight 178 lb 9.191 oz BMI 31.6 BP 136/74 Blood Pressure Location Rt brachial Position Sitting Pulse 78 Pulse Source Pulse Oximeter Pulse Oximetry (%) 98 Oxygen Delivery Method Room Air Intake Visit Reasons: Hypothyroidism Intake Note: Patient present today for hypothyroidism office visit. Deputy Juvenile Officer Required: No Accompanied by: Self / Same As Patient Allergies penicillin V Allergy (Unknown, Verified 01/22/25 13:02) anaphylaxis Penicillins (PENICILLINS) Allergy (Unknown, Verified 01/22/25 13:02) UNKNOWN seasonal allergies Allergy (Unknown, Uncoded 01/22/25 13:02) Difficulty Breathing Medication List - Last Reconciled 01/22/25 by Swetha Tang MD [id number] 600-50-300 mg (Triumeq) 1 tab PO QAM cyclobenzaprine 10 mg PO BEDTIME darunavir-cobicistat 800-150 mg-mg (Prezcobix) 1 tab PO DAILY fexofenadine (Vesta Allergy) 180 mg PO DAILY hydroxyzine HCl 50 mg PO BID levofloxacin 500 mg PO DAILY 10 days levothyroxine 100 mcg PO DAILY metronidazole 500 mg PO TID 10 days suvorexant (Belsomra) 20 mg PO BEDTIME PRN HPI Comments Details: 64-year-old female coming in today for follow up of Graves disease status post SARAVIA ablation in 2007, 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 HPI from prior visit She has a prior history of Graves disease, status post radioactive iodine ablation in 2007, who has subsequently been maintained on levothyroxine for postablative hypothyroidism. More recently her workup showed low TSH levels, requiring adjustment of levothyroxine. Currently taking levothyroxine 100 mcg daily . Taking it appropriately, adherent to the medication. Sometime around Dec she went down from 112 mcg to 100 mcg daily , chnage made by PCP after she had called them reporting palpitations Labs repeated 02/16/2024 showed TSH of 1.64, with a free T4 of 1.01, total T3 of 97, all within normal range. Endorses hot flashes. feels she has heat intolerance. Patient currently denies, diarrhea, endorses constipation, denies hair loss, palpitation, anxiety,, mood changes, low energy, changes in appearance of eyes or vision changes, tremors or dry skin. ? Gained 10 lbs over the past 3-4 months. walkimg much less Sleep improved now . ultrasound of her thyroid in in November 2022 which showed a left 2 cm mixed cystic/solid nodule, hypoechoic. This is reported as taller than wide, however it is slightly unclear if these are 2 separate nodules coalesced together. FNA biopsy 09/02/23 at [facility], of this left mid lobe nodule showed abundant polymorphous lymphocytes and a few oncocytic follicular cell groups consistent with chronic lymphocytic (Mel's) thyroiditis. Most recent thyroid ultrasound done in December 2023, again showed a left mid lobe nodule measuring 1.6 cm in the largest dimension which has become smaller compared to previous size of 2 cm in the largest dimension. Mixed cystic and solid, hypoechoic, TR 3 nodule. Overall her thyroid gland is atrophic and shrunk can consistent with Mel's thyroiditis. Patient endorses difficulty swallowing since last year mostly with swallowing solid foods. Denies pain on swallowing or difficulty breathing. Reports some hoarsness. Patient denies any history of childhood neck radiation. Denies having ever used lithium, amiodarone or biotin supplements. Patient denies any family history of thyroid cancer. Cousin has hypothyroidism Never smoker Interval history Continues on levothyroxine 100 mcg daily blood work from 08/30/2024: Normal TSH and free T4 01/14/2025: Ultrasound of the thyroid shows atrophic gland bilaterally with a 1.7 cm hypoechoic left-sided lesion this looks more like a lymph node then a thyroid nodule. At this point this has remained stable in size over the past year. No need for repeat imaging. no compressive symptoms Overall feels well Physical exam General: sitting comfortably in no acute distress HEENT: normocephalic/atraumatic, , moist oral mucosa Neck: supple, symmetrical Cardiac: normal heart sounds Pulm: normal breath sounds B/L, no added breath sounds Abd: not distended, no tenderness Extremities: no edema, no signs of myxedema Laboratory Tests 05/23/23 11/15/23 02/16/24 13:23 15:51 15:48 Calcium 9.7 10.3 H D Magnesium 2.2 Albumin 4.5 TSH 0.24 L 1.64 Free T4 1.28 1.01 Total T3 97 Thyroid Stim Immunoglob <89 Laboratory Tests 05/23/23 11/15/23 13:23 15:51 Calcium 9.7 10.3 H D Magnesium 2.2 Albumin 4.5 TSH 0.24 L Free T4 1.28 Laboratory Tests 08/30/24 13:57 TSH 1.61 Free T4 1.10 EXAMINATION: US THYROID 01/14/25 HISTORY: E04.1 - Nontoxic single thyroid nodule TECHNIQUE: Real-time grayscale ultrasound imaging was performed and images were reviewed. COMPARISON: Comparison is made with the prior examination dated 01/04/2024. FINDINGS: No normal thyroid tissue is identified on either side, which is likely due to prior radioactive iodine therapy. There is a 1.7 x 0.6 x 0.7 cm hypoechoic mass in the left thyroid bed which may represent a lymph node. A similarly sized hypoechoic structure was noted on the prior study. US/US thyroid IMPRESSION: No normal thyroid tissue is identified. Possible 1.7 x 0.6 x 0.7 cm lymph node in the left thyroid bed. US THYROID 01/04/24 CLINICAL INFORMATION: Nontoxic single thyroid nodule. COMPARISON: Thyroid ultrasound 11/15/2022 and 11/02/2016. TECHNIQUE: Linear transducer grayscale and color Doppler examination with attention to the region of the thyroid. FINDINGS: SIZE: Measurements of the thyroid lobes and nodules are given in sagittal, anteroposterior and transverse dimensions respectively. Right Thyroid Lobe: 2.8 x 1.3 x 0.9 cm, volume 1.7 mL. Previously 2.7 x 0.8 x 0.9 cm, volume 1.1 mL. Parenchyma: The gland echotexture is heterogeneous. Thyroid vascularity is normal. Left Thyroid Lobe: 2.0 x 0.8 x 0.9 cm, volume 0.75 mL. Previously 3.1 x 1.0 x 1.2 cm, volume 2.0 mL. Parenchyma: The gland echotexture is heterogeneous. Thyroid vascularity is normal. Isthmus: 0.18 cm in maximum AP dimension. Previously 0.14 cm. Estimated total number of nodules greater than or equal to 1 cm: 1. Ear Nose Throat Physician nodules are described as follows: 1. Location: Left mid. (Not well seen discrete from surrounding abnormal hypoechoic thyroid parenchyma). Size: 1.6 x 0.6 x 0.41 cm, volume 0.214 mL. Previously: 2.0 x 0.8 x 0.7 cm, volume 0.6 mL. Nodule characteristics: Composition: Mixed cystic and solid (1). Echogenicity: Hypoechoic (2). Shape: Not taller than wide (0). Margins: Ill-defined (0). Echogenic Foci: None (0). ACR TI-RADS total points: 3 Previous: 6 ACR TI-RADS category: 3 Previous: 4 Significant change in size (>/= 20% in 2 dimensions and minimal increase of 2 mm or 50% or greater increase in volume): Yes Change in features: Yes Change in ACR TI-RADS risk category: Yes NODES: No lymphadenopathy is seen in the tissue surrounding the thyroid gland. US/US thyroid IMPRESSION: 1. Shrunken, atrophic hypoechoic gland, consistent with Mel's thyroiditis. 2. Left mid gland 1.6 cm TR category 3 nodule. This is a possible but not definitive finding, as no discrete nodule is identified on the cine loops provided. It appears the technologist may be measuring normal atrophic thyroid gland. There are definite comparison control board operator dependent differences between the 2 exams. Nevertheless, it is significantly smaller than previously seen and therefore benign. No routine follow-up suggested as per below. [facility] Medical History Thyroid nodule Diverticular disease Spondylosis of lumbar spine Obesity due to excess calories Hypothyroidism HIV (human immunodeficiency virus infection) Graves disease Hematuria Tubular adenoma Dyslipidemia History of kidney stones HIV (human immunodeficiency virus infection) Acute anxiety Surgical History Hx of colonoscopy H/O: hysterectomy Family History Father HTN (hypertension) Mother HTN (hypertension) Diabetes Dementia Maternal Grandmother Breast cancer Maternal Aunt Breast cancer Diabetes Maternal Aunt Dementia Maternal Uncle Cancer Maternal Uncle Heart attack Maternal Aunt HTN (hypertension) Social History Household Members: None and Other Household Members Other:: grandson Housing: Apartment Alcohol intake: current Alcohol intake frequency: holidays/special occasions only Patient Tobacco Use Status: Never used Tobacco Substance Use Type: Marijuana Assessment & Plan Assessment & Plan (1) Hypothyroidism: Code(s): E03.9 - Hypothyroidism, unspecified Category: Medical Qualifiers: Hypothyroidism type: postablative Qualified Code(s): E89.0 - Postprocedural hypothyroidism Plan: Patient with history of Graves disease status post radioactive iodine ablation in 2007, who is being managed for postablative hypothyroidism. Currently on levothyroxine 100 mcg daily. Most recent blood work from August 2024 shows normal thyroid function. Plan: -continue levothyroxine 100 mcg daily -follow up in 1 year with TSH and free T4 done prior to visit (2) Thyroid nodule: Code(s): E04.1 - Nontoxic single thyroid nodule Category: Medical Plan: ultrasound of her thyroid in in November 2022 which showed a left 2 cm mixed cystic/solid nodule, hypoechoic. This is reported as taller than wide, however it is slightly unclear if these are 2 separate nodules coalesced together. FNA biopsy 09/02/23 at [facility], of this left mid lobe nodule showed abundant polymorphous lymphocytes and a few oncocytic follicular cell groups consistent with chronic lymphocytic (Mel's) thyroiditis. thyroid ultrasound done in December 2023, again showed a left mid lobe nodule measuring 1.6 cm in the largest dimension which has become smaller compared to previous size of 2 cm in the largest dimension. Mixed cystic and solid, hypoechoic, TR 3 nodule. Overall her thyroid gland is atrophic and shrunk can consistent with Mel's thyroiditis. blood work from 08/30/2024: Normal TSH and free T4 01/14/2025: Ultrasound of the thyroid shows atrophic gland bilaterally with a 1.7 cm hypoechoic left-sided lesion this looks more like a lymph node then a thyroid nodule. At this point this has remained stable in size over the past year. No need for repeat imaging. Unless any clinical changes. Plan See above Orders: Orders 2 Thyroid Stimulating Hormone 12/23/25 E04.1 - Nontoxic single thyroid nodule, E89.0 - Postprocedural hypothyroidism Free T4 (Free Thyroxine) 12/23/25 E04.1 - Nontoxic single thyroid nodule, E89.0 - Postprocedural hypothyroidism Medications: Refilled 2 levothyroxine 100 mcg PO DAILY 90 tabs 5RF Coding Level of Care Code Est Pt Level 3 (49864) Diagnoses Postablative hypothyroidism E89.0 Hypothyroidism type: postablative Thyroid nodule E04.1
== END 2025-01-22 13:18 | disposition home or self-care (01) ==
LOC: HO.ENCR 12:55
PROVIDERS: PCP Family Medicine; Visit Provider Student in an Organized Health Care Education/Training Program
DX: E89.0 Postprocedural hypothyroidism (principal); E04.1 Nontoxic single thyroid nodule
CPT/HCPCS: 99213

== ENCOUNTER → 2025-01-22 12:55 | Outpatient (BNVA) | payer MEDICAID, SELFPAY | PROVIDERS: PCP Family Medicine; Visit Provider Student in an Organized Health Care Education/Training Program | DX: E89.0 Postprocedural hypothyroidism (principal); E04.1 Nontoxic single thyroid nodule | CPT/HCPCS: 99212 ==

== ENCOUNTER 2025-02-26 12:44 | Outpatient (REF) | payer MEDICAID, SELFPAY ==
--- NOTE | ~2025-02-26 | XR_ITS ---
EXAMINATION: XR FOOT, TONY 3V CLINICAL INFORMATION: b/l feet and sharp pain, both plantar and dorsal aspect COMPARISON: None available. TECHNIQUE: AP, lateral, and oblique views of each foot were obtained. FINDINGS: RIGHT FOOT: No fracture, dislocation, or suspicious bone lesion. Minimal bunion formation involving the medial eminence of the first metatarsal head. There is minimal osteoarthritis in the first MTP joint. Joint spaces are otherwise preserved. There is a normal plantar arch. There are tiny plantar and dorsal calcaneal spurs. There is no soft tissue abnormality. LEFT FOOT: No fracture, dislocation, or suspicious bone lesion. Minimal bunion formation involving the medial eminence of the first metatarsal head. There is minimal osteoarthritis in the first MTP joint. Joint spaces are otherwise preserved. There is a normal plantar arch. There are tiny plantar and dorsal calcaneal spurs. There is no soft tissue abnormality. XR/XR Foot Tony 3V IMPRESSION: 1. No acute bony or soft tissue abnormality in either foot. 2. Minimal bilateral osteoarthritis with minimal bunion formation involving the first MTP joints. Electronically signed by: Dima Granados MD 02/26/2025 01:18 PM [facility] [place]
--- NOTE | ~2025-02-26 | XR_ITS ---
EXAMINATION: X-ray bilateral hands CLINICAL INFORMATION: Bilateral hand pain, MCP swelling and stiffness COMPARISON: None TECHNIQUE: Bilateral hands each 3 views FINDINGS: Left hand: Bone mineralization is decreased. No fracture or dislocation. Mild first CMC arthritis. No significant arthropathy otherwise.. No osseous erosion. No abnormal soft tissue calcification. Right hand: Bone mineralization is decreased. No fracture or dislocation. Mild first CMC arthritis. No significant arthropathy otherwise. No osseous erosion. No abnormal soft tissue calcification. XR/XR Hand Bilat min 3v IMPRESSION: Mild bilateral first CMC arthritis. Electronically signed by: Jean-Paul Quiroz MD 02/27/2025 11:21 AM [facility]
[2025-02-26 14:31] LABS: Alanine Aminotransferase 11 U/L (0-31); Albumin Level 4.5 g/dL (3.5-5.0); Alkaline Phosphatase 95 U/L (39-117); Anion Gap 11 (12-20); Aspartate Amino Transferase 17 U/L (5-31); Blood Urea Nitrogen 12 mg/dL (9-16); Calcium 9.3 mg/dL (8.4-10.2); Carbon Dioxide 22 mmol/L (22-29); Chloride 112 mmol/L (96-108); Cholesterol 243 mg/dL (<200); Estimated Glomerular Filt Rate > 60; HDL Cholesterol 37 mg/dL (>40); Potassium 4.1 mmol/L (3.3-5.1); Sodium 141 mmol/L (135-145); Total Protein 7.1 g/dL (6.5-8.0); Triglycerides 175 mg/dL (<150)
[2025-02-26 14:57] LABS: Folate 9.1 ng/mL (> or = 4.0); Vitamin B12 149 pg/mL (200-900)
[2025-02-26 15:10] LABS: Erythrocyte Sedimentation Rate 13 MM/HR (0-20)
[2025-02-26 15:49] LABS: Reflex LDLD? No
--- OUTSIDE RECORDS SUMMARY | 2025-02-27 04:03 | XMS_ITS | Data Portability ---
Author Organization VERONICA - MARLEEN QUINTERO MD [facility], Main Office Address [address] [place] [address] Assessment Encounter Date Assessment Date Assessment LastModified by Organization Details LastModified Time 06/22/2023 06/22/2023 Telemedicine. VIDEO. 21 min. pt home in OR. cmartorell Not available 06/22/2023 11:41:54 09/22/2023 09/22/2023 Telemedicine. VIDEO. 19 min. pt home in OR. cmartorell Not available 09/22/2023 10:25:33 Plan of Treatment Reminders Order Date Submit Date Provider Last Modified By Organization Details Last Modified Time Details Appointments B20 FOLLOW UP 2024 01:00P Pat Kim MD Not available Not available Not available Lab H pylori urea breath test, co2 infrared 2024 025 neto Main Office, [address] [place] [address], [phone], 11/12/2024 15:54:25 CBC w/ diff [address], [address] [place] [address], [id number], 07/31/2024 10:55:07 HIV-1 RNA, quantita tive, PCR, serum or plasma [address], [address] [place] [address], [address], 07/31/2024 10:55:07 T-cell regulato ry subsets panel, blood [address], [address] [place] [address], [id number], 07/31/2024 10:55:07 hepatiti s C virus Ab, serum [address] [place] [address] (Lab), [address] [place] [address], [address], 07/31/2024 10:55:07 HBsAg (hepatit is B surface Ag), serum [address] (Lab), [address] [place] [address], [address], 07/31/2024 10:55:07 RPR (rapid plasma reagin), serum [address] [place] [address] (Lab), [address] [place] [address], [address], 07/31/2024 10:55:08 chlamydi a + gonorrhe a RNA, QL, unspecif ied specimen [address] (Lab), [address] [place] [address], [id number], 07/31/2024 10:55:08 CMP, serum or plasma [address] [place] [address] (Lab), [address] [place] [address], [address], 07/31/2024 10:55:08 lipid panel, serum [address] (Lab), [address] [place] [address], [address], 01/26/2024 14:15:56 CBC w/ diff [address], [address] [place] [address], [address], 01/26/2024 14:15:55 ALT (alanine aminotra nsferase ), serum or plasma [address], [address] [place] [address], [address], 01/26/2024 14:15:55 AST/SGOT (asparta te aminotra nsferase ), serum or plasma [address], [address] [place] [address], [address], 01/26/2024 14:15:56 creatini ne w/ estimate d GFR (eGFR), serum or plasma [address] [place] [address], [address] [place] [address], [address], 01/26/2024 14:15:56 HIV-1 RNA, quantita tive, PCR, serum or plasma [address], [address] [place] [address], [address], 01/26/2024 14:15:56 T-cell regulato ry subsets panel, blood [address], [address] [place] [address], [address], 01/26/2024 14:15:56 CBC w/ diff [address] [place] [address], [address] [place] [address], [address], 09/29/2023 11:28:57 ALT (alanine aminotra nsferase ), serum or plasma [address] [place] [address], [address], 09/29/2023 11:28:57 AST/SGOT (asparta te aminotra nsferase ), serum or plasma [address] [place] [address] Street, [place], [address], 09/29/2023 11:28:58 CT + NG DNA, PCR, unspecif ied specimen [address], [address] [place] [address], [address], 09/29/2023 11:28:58 creatini ne w/ estimate d GFR (eGFR), serum or plasma [address], [address] [place] [address], [address], 09/29/2023 11:28:58 hepatiti s C virus Ab, serum [address], [address] [place] [address], [address], 09/29/2023 11:28:58 HIV-1 RNA, quantita tive, PCR, serum or plasma [address], [address] [place] [address], [address], 09/29/2023 11:28:58 RPR (rapid plasma reagin), serum [address], [address] [place] [address], [address], 09/29/2023 11:28:58 T-cell regulato ry subsets panel, blood [address], [address] [place] [address], [address], 09/29/2023 11:28:58 HBsAg (hepatit is B surface Ag), serum [address], [address] [place] [address], [address], 09/29/2023 11:28:58 CBC w/ diff [address], [address] [place] [address], [address], 06/30/2023 11:22:31 electrol ytes panel, blood [address], [address] [place] [address], [address], 06/30/2023 11:22:32 ALT (alanine aminotra nsferase ), serum or plasma [address] [place] [address], [address] [place] [address], [address], 06/30/2023 11:22:32 AST/SGOT (asparta te aminotra nsferase ), serum or plasma [address] [place] [address], [address] [place] [address], [address], 06/30/2023 11:22:32 CT + NG DNA, PCR, unspecif ied specimen [address] [place] [address], [address] [place] [address], [address], 06/30/2023 11:22:32 creatini ne w/ estimate d GFR (eGFR), serum or plasma [address] [place] [address], [address] [place] [address], [address], 06/30/2023 11:22:32 hepatiti s C virus Ab, serum [address] [place] [address], [address] [place] [address], [address], 06/30/2023 11:22:32 HIV-1 RNA, quantita tive, PCR, serum or plasma [address] [place] [address], [place], [address], 06/30/2023 11:22:32 RPR (rapid plasma reagin), serum [address], [address] [place] [address], [address], 06/30/2023 11:22:32 T-cell regulato ry subsets panel, blood [address], [address] [place] [address], [address], 06/30/2023 11:22:32 HBsAg (hepatit is B surface Ag), serum [address], [address] [place] [address], [address], 06/30/2023 11:22:32 Referral None recorded . Procedures None recorded . Surgeries None recorded . Imaging None recorded . Medication Orders Triumeq 600 mg-50 mg-300 mg tablet 2024 025 BERRY Not available 11/12/2024 15:54:34 Prezcobi x 800 mg-150 mg tablet 2024 025 BERRY Not available 11/12/2024 15:55:05 Wegovy 0.25 mg/0.5 mL subcutan eous pen injector 2024 025 [facility]/Pharmacy #[id number], [address] [place], [address], 11/12/2024 15:54:28 Triumeq 600 mg-50 mg-300 mg tablet 2024 025 BERRY Not available 07/20/2024 13:49:54 Prezcobi x 800 mg-150 mg tablet 2024 025 BERRY Not available 07/20/2024 13:49:55 Zepbound 2.5 mg/0.5 mL subcutan eous pen injector 2024 025 BERRY [facility]/Pharmacy #[id number], [address] [place], [place], [address], 12/25/2024 05:01:08 Triumeq 600 mg-50 mg-300 mg tablet 2023 024 BERRY Not available 01/19/2024 13:03:21 Prezcobi x 800 mg-150 mg tablet 2023 024 BERRY Not available 01/19/2024 13:03:20 Triumeq 600 mg-50 mg-300 mg tablet 2023 024 BERRY Not available 09/22/2023 10:31:34 Prezcobi x 800 mg-150 mg tablet 2023 024 BERRY Not available 09/22/2023 10:31:33 Triumeq 600 mg-50 mg-300 mg tablet 2023 024 BERRY Not available 06/22/2023 11:40:36 Prezcobi x 800 mg-150 mg tablet 2023 024 BERRY Not available 06/22/2023 11:40:35 Patient TargetsNo targets recorded. Patient InstructionsNo instructions recorded. Reason for Referral None Reported. Results Created Date Observation Date Name Description Value Unit Range Abnormal Flag Note LastModifiedBy Organization Detail LastModifiedTime 11/10/1911/09/2024 HELIC OBACT ER PYLOR I BREAT H TEST H pylori breath test Negati ve negati ve Not Available [facility] [address] [place], [address], 11/10/2024 10:24:07 11/10/19 25 11/09/2024 HELIC OBACT ER PYLOR I BREAT H TEST note See Report [facility], [address] [facility], Alex [place]urer, [place] [address] Not Available [facility] [address] [place], [address], 11/10/2024 10:24:07 11/16/19 25 11/15/2024 H pylor i urea breat h test, co2 infra red H. pylori negati ve Not Available Main Office [address] [place], [address], 11/09/2024 14:18:36 Result Notes None recorded. 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 Lipodystro phy; snomeddesc ription: Lipodystro phy; Report Immunity to Registry: Yes; Not Available [facility] 4 06:58:34 Constipat ion 42518730 Active 2013 Constipati on, unspecifie d; snomeddesc ription: Constipati on; Report Immunity to Registry: Yes; Constipat ion; snomeddesc ription: Constipati on; Report Immunity to Registry: Yes; Not Available [facility] 4 06:58:34 Disease caused [address] 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; snomeddesc ription: Helicobact er-associa janay disease; Report Immunity to Registry: Yes; Notes: 07/23 treated 08/22 negative 15 negative; Not Available [facility] 4 06:58:33 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 [id number] neg 2007; Not Available [facility] 4 06:58:33 Human immunodef iciency virus infection 38256320 Active 2022 Marleen Kim MD [address] [place] [address], [phone] [facility] MARLEEN KIM MD [facility] 3 13:28:48 Problem Notes None recorded. Medical Equipment None Reported. Allergies Allergen ID Allergen Name Allergen Category Reaction Reaction Severity Criticality Documentation Date Start Date Code Code System Note Provider Name and Address Organization Details Recorded Time 696 Penicilli n Not available Not available Not available Not available 06/01/20232011 94940 RxNorm Comme nt: adver se_ev ent_t ype: 94423 8002; ; Not Available [facility] 4 06:50:45 697 Sustiva medicatio n Not available Not available Not available 06/01/20232011 33165 4 RxNorm React ion: Other dysfu nctio ns of sleep stage s or arous al from sleep ; Comme nt: adver se_ev ent_t ype: 88253 8002; ; Not Available [facility] 4 06:50:45 698 Viramune medicatio n rash Not available Not available 06/01/20232011 57788 0 RxNorm React ion: Rash and other nonsp ecifi c skin erupt ion; Comme nt: adver se_ev ent_t ype: 73153 8002; ; Not Available [facility] 4 06:50:45 Medications Name Sig [...] PATCH WITHIN 12 HOURS OR DIRECTED BY . active Not Available Not Available No t [...] mohinder; Not Available Not Available Not Available carbamaze pine ER 200 mg capsule,e xtended release [id number] r active Not Available Not Available Not [...] Not Available Not Available Not Available Flulaval [id number] 45 mcg (15 mcg x 3)/0.5 mL intramusc ular suspensio n - Quantity : ; Duration : 30; 0 refill(s ) 03/18 completed Duration : 30; VACCINE_ IND: yes; VACCINE_ NAME: Influenz a, seasonal , injectab le; SU_FULL_ NAME: Xiomara mohinderMarleen; VIS_DATE : 05:00:00 .0; Not Available Not [...] a, seasonal , injectab le; SU_FULL_ NAME: KarsonWade warrenia; Not Available Not Available Not Available Triumeq [...] DateTime 07/20/2024 103.5 cm Bety KIM MD [facility] 07/20/2024 14:16:24 Date Recorded Body height Heart rate Body temperature Body mass index (BMI) Body weight Oxygen saturation Oxygen saturation in Arterial blood by Pulse oximetry Systolic And Diastolic Provider Name and Address Organization Details Last Updated DateTime 5 160.02 cm 73 /min 97.9 [degF] 33.3 kg/m2 30615.3 7 g 95 % 95 % 130/80 mm[Hg] Lara KIM MD [facility] 5 13:49:46 Date Recorded Body height Heart rate Body temperature Body mass index (BMI) Body weight Systolic And Diastolic Provider Name and Address Organization Details Last Updated DateTime 5 160.02 cm 76 /min 98.4 [degF] 31.5 kg/m2 79200.4 4 g 132/78 mm[Hg] Bety KIM MD [facility] 5 13:57:50 Date Recorded Body height Heart rate Respiratory rate Body temperature Body mass index (BMI) Body weight Oxygen saturation Oxygen saturation in Arterial blood by Pulse oximetry Systolic And Diastolic Provider Name and Address Organization Details Last Updated DateTime 4 160.02 cm 73 /min 12 /min 98.6 [degF] 28.7 kg/m2 74665.9 6 g 97 % 97 % 138/80 mm[Hg] Bety KIM MD [facility] 4 12:31:28 Social History None [...] Note 324 Marleen Kim MD Main Office [address] [place] [phone] 12/21/2022 15:05:12 01/27/2023 23:51:30 Human immunodeficiency virus infection 82959217 B20 HIV Continue Triumeq 1 tab po [...] addressed 1499 Marleen Kim MD Main Office [address] [place] [phone] 03/24/2023 13:21:52 03/25/2023 10:42:49 Human immunodeficiency virus infection 76118915 B20 HIVContinu e Triumeq 1 tab po qd and Prezcobix 1 tab po qd. wants to keep same regimen. pt aware of 2 drug regimens. strict compliance w daily use with HIV meds reviewed to prevent viral resistance and prevent viral rebound/fa ilure; and prevent viral transmissi on.U=U. STI prevention w condom use reviewed; PreP reviewed w Josefina Lord, Apretude.d eclines vaccines.p t is aware of PreP availabili typlan of care reviewed.q uestions and concerns addressed 38517 Marleen Kim MD Main Office [address] [place] [phone] 06/22/2023 10:56:08 06/22/2023 11:40:36 Human immunodeficiency virus infection 31524383 B20 HIVContinu e Triumeq 1 tab po [...] of care reviewed.q uestions and concerns addressed 74452 Marleen Kim MD Main Office [address] [place] [address] 09/22/2023 10:23:49 09/22/2023 10:35:07 Human immunodeficiency virus infection 46402980 B20 HIVContinu e Triumeq 1 tab po [...] of care reviewed.q uestions and concerns addressed 52416 Marleen Kim MD Main Office [address] [place] [phone] 01/19/2024 12:18:20 01/19/2024 13:21:26 Human immunodeficiency virus infection 81476570 B20 HIVContinu e Triumeq 1 tab po [...] COVID19 prescribed .questions and concerns addressed Hyperlipidemia 73310019 E78.5 diet and exercisebe nefits of tx reviewed 84408 Marleen Kim MD Main Office [address] [place] [address] 07/20/2024 13:16:29 07/20/2024 14:17:24 Human immunodeficiency virus infection 53567265 B20 HIVContinu e Triumeq 1 tab po [...] addressed Body mass index 30+ - obesity 576862621 Z68.33 labs ordered,Ze pbound ordered qw. sqshe will come in to get injection administer ed if approved by insuranceg oal of tx revieweddi et and exercise.m echanism of action reviewedpo tential side effects reviewed such as ISR, allergic reactions, n/v/d, obstructio n, visual changes among other. 18014 Marleen Kim MD Main Office [address] [place] [phone] 11/09/2024 13:34:22 11/09/2024 14:45:53 Human immunodeficiency virus infection 59532605 B20 HIVContinu e Triumeq 1 tab po qd and Prezcobix 1 tab po qd.wants to keep same regimen. pt aware of 2 drug regimens. clinical trial reviewed.s trict compliance w daily use with HIV meds reviewed to prevent viral resistance and prevent viral rebound/fa ilure; and prevent viral transmissi on.plan of care reviewed.q uestions and concerns addressed Body mass index 30+ - obesity 048626052 Z68.33 labs ordered,Ze pbound not covered;We govy will be ordered, and dose will be adjusted monthly as neededshe will come in to get injection administer ed if approved by insuranceg oal of tx revieweddi et and exercise.m echanism of action reviewedpo tential side effects reviewed such as ISR, allergic reactions, n/v/d, GI obstructio n, visual changes among other. Indigestion 510509757 R1 0.13 68781 H pylori urea breath test ordered/co llected today Health Concerns Section Related Observation LastModified by Organization Detai ls LastModified Time None Recorded Concern Status LastModified by Organization Details LastModified Time None Recorded Advance Directives Directive None Recorded Payers Insurance Date Sequence Insurance Name Policy Number Policy Ontiveros Covered Member ID Ontiveros Member ID Guarantor Name 02/07/2025 1 [place] [employer] (MEDICAID) Melanie Roach [id number] Melanie Roach Notes Date Note Type Note Provider Name and Address Organization Details Recorded Time 06/22/2023 text/html ROS as noted in the HPI f/u HIV.on triumeq 1 tab qd /prezcobix 1 tab po qd. tolerates regimen wellhas missed some doses since she was last seenlabs ntovpvdh47/2023 QB4=267; HIV VL nondetected.08/2022 HIV VL nondetected; CD4 [...] no n/v/d. no rash. Marleen Kim MD [address] [place] [address], [phone], VERONICA KIM MD [facility] 06/22/2023 11:43:31 09/22/2023 text/html ROS as noted in the HPI f/u HIV.on triumeq 1 tab qd /prezcobix 1 tab po qd. tolerates regimen wellhas missed some doses since she was last seenlabs reviewed06/2023 HIV VLnondetceted;CD4>750; ALT/AST wnl; RPR NR; HCV ab;03/2023 MN0=697; HIV VL nondetected.08/2022 HIV VL nondetected; CD4 =682; HCV neg; GC/chlamydia neg; AST/ALT01/2022 HIV VL nondetceted; eGFR>60; ALt/AST wnl; HCV neg; HBV s ag neg; GC/chlamydia neg;03/2021 CD4>800;eGFR>60; ALT/AST wnlnot sexually active for 11 years.no drugsno fever. no n/v/d. no rash. Marleen Kim MD [address] [place] [address], [phone], VERONICA KIM MD [facility] 09/22/2023 10:32:20 01/19/2024 text/html ROS as noted in the HPI f/u HIV.on triumeq 1 tab qd /prezcobix 1 tab po qd. tolerates regimen wellhas missed some doses since she was last seen ; especially when she drinks.labs reviewed11/2023 HIV VL=21; CD4= 900 range ; syphilis neg; GC/chlamydia neg; HCV neg; RPR NR; EGFR>60; AST/ALT wn HIV VLnondetceted;CD4>750; ALT/AST wnl; RPR NR; HCV ab;03/2023 OV2=015; HIV VL nondetected.occasional ETOHshe reports she is on on thyroid tx which she has struggled with due to side effectsnot sexually activeno drugsno fever. no n/v/d. no rash.declines vaccinesP recommended lipid loweting agents; she declined them Marleen Kim MD [address] [place] [address], [phone], VERONICA KIM MD [facility] 01/19/2024 15:56:02 07/20/2024 text/html ROS as noted [...] VLnondetceted;CD4>750; ALT/AST wnl; RPR NR; HCV ab;03/2023 EL2=298; HIV VL nondetected. Marleen Kim MD [address] [place] [address], [phone], [facility] MARLEEN KIM MD [facility] 07/24/2024 00:38:13 11/09/2024 text/html ROS as noted [...] VLnondetceted;CD4>750; ALT/AST wnl; RPR NR; HCV ab;03/2023 QT2=509; HIV VL nondetected. Marleen Kim MD [address] [place] [address], [phone], VERONICA - MARLEEN KIM MD [facility] 11/12/2024 16:30:37 OBGyn Episode No OBEpisode recorded.
== END 2025-02-26 12:45 | disposition home or self-care (01) ==
LOC: HO.XRAY 12:44
PROVIDERS: PCP Family Medicine; Visit Provider Family Medicine
DX: M79.642 Pain in left hand (principal); M79.641 Pain in right hand; E78.5 Hyperlipidemia, unspecified; R03.0 Elevated blood-pressure reading, without diagnosis of hypertension; M79.671 Pain in right foot; M79.672 Pain in left foot; M25.541 Pain in joints of right hand; M25.542 Pain in joints of left hand; Z13.1 Encounter for screening for diabetes mellitus; E55.9 Vitamin D deficiency, unspecified; M79.89 Other specified soft tissue disorders
CPT/HCPCS: 36415; 73130; 73630; 80053; 80061; 82306; 82607; 82746; 83036; 85652; 86140; 86200; 86431

== ENCOUNTER → 2025-02-26 12:46 | Outpatient (BNV) | payer MEDICAID, SELFPAY | PROVIDERS: PCP Family Medicine; Visit Provider Radiology Diagnostic Radiology | DX: M19.071 Primary osteoarthritis, right ankle and foot (principal); M19.072 Primary osteoarthritis, left ankle and foot | CPT/HCPCS: 73630 ==

== ENCOUNTER 2025-03-26 16:10 | Outpatient (REF) | payer MEDICAID, SELFPAY ==
--- OUTSIDE RECORDS SUMMARY | 2025-03-26 20:08 | XMS_ITS | Encounter Summary ---
Author Organization [facility] Address [address] [place] [address] Care Team Providers Care Show Host Name Role Phone Physician, Pcp Unknown Primary Care Provider Stephanie vailable Encounter Details Date Type Department Care Team (Late st Contact Info) Description 11/09/2024 Lab Requisition [facility] Lab [address] [place] [address] Tyra Kim MD [address] [place] [address] Epigastric pain Social History Tobacco Use Types [...] LAB CHEMISTRY METHOD 11/10/2024 10:23 AM EDT [facility] Breath Oral cavity structure / Unknown 11/09/2024 2:34 PM EDT 11/09/2024 6:35 PM EDT Tyra Kim MD LAB BODY FLUIDS AND STOOL S ORDERABLES Final Result [facility] [address] [place] [address], [place] [phone] documented in this encounter Visit Diagnoses Diagnosis Epigastric pain Abdominal pain, epigastric documented in this encounter Care Teams Show Host Relationship Specialty Start Date End Date Physician, Pcp Unknown PCP - General 11/12/24 documented as of this encounter
--- OUTSIDE RECORDS SUMMARY | 2025-03-26 20:09 | XMS_ITS | Clinical Summary ---
Author Organization [address] [facility] Address [address] [place] [address] Phone Care Team Providers Care Bar Useful Or Busser Name Role Phone Physician, Pcp Unknown Primary Care Provider Stephanie vailable Social History Tobacco Use Types Packs/Day Years [...] Health Screening 11/10/2024 COVID-19 Vaccine (1 - 2024-2 6 season) 2024 Influenza Vaccine (#1) 2024 RSV [...] on patient's age to complete this topic Insurance MEDICAID - [place] Care Teams Bar Useful Or Busser Relationship Specialty Start Date End Date Physician, Pcp Unknown PCP - General 11/12/24
--- OUTSIDE RECORDS SUMMARY | 2025-03-26 20:09 | XMS_ITS | Data Portability ---
Author Organization [place] - MARLEEN QUINTERO MD [facility], Main Office Address [address] [place] [address] Assessment Encounter Date Assessment Date Assessment LastModified by Organization Details LastModified Time 09/22/2023 09/22/2023 Telemedicine. VIDEO. 19 min. pt home in [place]. neto Not available 09/22/2023 10:25:33 Plan of Treatment Reminders Order Date Submit Date Provider Last Modified By Organization Details Last Modified Time Details Appointments B20 FOLLOW UP 2025 12:20P Pat Kim MD Not available Not available Not available Lab H pylori urea breath test, co2 infrared 2024 025 neto Main Office, [address] [place] [address], [phone], 11/12/2024 15:54:25 CBC w/ diff [address], [address] [place] [address], [id number], 07/31/2024 10:55:07 HIV-1 RNA, quantita tive, PCR, serum or plasma [address], [address] [place] [address], [address], 07/31/2024 10:55:07 T-cell regulato ry subsets panel, blood [address], [address] [place] [address], [address], 07/31/2024 10:55:07 hepatiti s C virus Ab, serum [address] (Lab), [address] [place] [address], [id number], 07/31/2024 10:55:07 HBsAg (hepatit is B surface Ag), serum [address] [place] [address] (Lab), [address] [place] [address], [address], 07/31/2024 10:55:07 RPR (rapid plasma reagin), serum [address] [place] [address] (Lab), [address] [place] [address], [address], 07/31/2024 10:55:08 chlamydi a + gonorrhe a RNA, QL, unspecif ied specimen [address] [place] [address] (Lab), [address] [place] [address], [address], 07/31/2024 10:55:08 CMP, serum or plasma [address] [place] [address] (Lab), [address] [place] [address], [address], 07/31/2024 10:55:08 lipid panel, serum [address] (Lab), [address] [place] [address], [id number], 01/26/2024 14:15:56 CBC w/ diff [address], [address] [place] [address], [address], 01/26/2024 14:15:55 ALT (alanine aminotra nsferase ), serum or plasma [address] [place] [address], [address] [place] [address], [address], 01/26/2024 14:15:55 AST/SGOT (asparta te aminotra nsferase ), serum or plasma [address], [address] [place] [address], [address], 01/26/2024 14:15:56 creatini ne w/ estimate d GFR (eGFR), serum or plasma [address] [place] [address], [address] [place] [address], [address], 01/26/2024 14:15:56 HIV-1 RNA, quantita tive, PCR, serum or plasma [address], [address] [place] [address], [address], 01/26/2024 14:15:56 T-cell regulato ry subsets panel, blood [address], [address] [place] [address], [address], 01/26/2024 14:15:56 CBC w/ diff [address] [place] [address], [address] [place] [address], [address], 09/29/2023 11:28:57 ALT (alanine aminotra nsferase ), serum or plasma [address] [place] [address], [address] [place] [address], [address], 09/29/2023 11:28:57 AST/SGOT (asparta te aminotra nsferase ), serum or plasma [address], [address] [place] [address], [address], 09/29/2023 11:28:58 CT + NG DNA, PCR, unspecif ied specimen [address], [address] [place] [address], [address], 09/29/2023 11:28:58 creatini ne w/ estimate d GFR (eGFR), serum or plasma [address], [address] [place] [address], [address], 09/29/2023 11:28:58 hepatiti s C virus Ab, serum [address], [address] [place] [address], [address], 09/29/2023 11:28:58 HIV-1 RNA, quantita tive, PCR, serum or plasma [address], [address] [place] [address], [address], 09/29/2023 11:28:58 RPR (rapid plasma reagin), serum [address], [address] [place] [address], [address], 09/29/2023 11:28:58 T-cell regulato ry subsets panel, blood [address], [address] [place] [address], [address], 09/29/2023 11:28:58 HBsAg (hepatit is B surface Ag), serum [address], [address] [place] [address], [address], 09/29/2023 11:28:58 Referral None recorded . Procedures None recorded . Surgeries None recorded . Imaging None recorded . Medication Orders Triumeq 600 mg-50 mg-300 mg tablet 2024 025 BERRY Not available 11/12/2024 15:54:34 Prezcobi x 800 mg-150 mg tablet 2024 025 BERRY Not available 11/12/2024 15:55:05 Wegovy 0.25 mg/0.5 mL subcutan eous pen injector [address] [id number], [address] [place], [address], 11/12/2024 15:54:28 Triumeq 600 mg-50 mg-300 mg tablet 2024 025 BERRY Not available 07/20/2024 13:49:54 Prezcobi x 800 mg-150 mg tablet 2024 025 BERRY Not available 07/20/2024 13:49:55 Zepbound 2.5 mg/0.5 mL subcutan eous pen injector [address] [id number], [address] [place], [address], 12/25/2024 05:01:08 Triumeq 600 mg-50 mg-300 mg tablet 2023 024 BERRY Not available 01/19/2024 13:03:21 Prezcobi x 800 mg-150 mg tablet 2023 024 BERRY Not available 01/19/2024 13:03:20 Triumeq 600 mg-50 mg-300 mg tablet 2023 024 BERRY Not available 09/22/2023 10:31:34 Prezcobi x 800 mg-150 mg tablet 2023 024 BERRY Not available 09/22/2023 10:31:33 Patient TargetsNo targets recorded. Patient InstructionsNo instructions recorded. Reason for Referral None Reported. Results Created Date Observation Date Name Description Value Unit Range Abnormal Flag Note LastModifiedBy Organization Detail LastModifiedTime 11/10/19 25 11/09/2024 HELIC OBACT ER PYLOR I BREAT H TEST H pylori breath test Negati ve negati ve Not Available [facility] [address] [place], [address], 11/10/2024 10:24:07 11/10/19 25 11/09/2024 HELIC OBACT ER PYLOR I BREAT H TEST note See Report [facility], [address] [facility], [place] [address] Not Available [facility] [address] [place], [address], 11/10/2024 10:24:07 11/16/19 25 11/15/2024 H pylor i urea breat h test, co2 infra red H. pylori negati ve Not Available Main Office [address] [place], [address], 11/09/2024 14:18:36 Result Notes None recorded. 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 Lipodystro phy; snomeddesc ription: Lipodystro phy; Report Immunity to Registry: Yes; Not Available [facility] 4 06:58:34 Constipat ion 29353554 Active 2013 Constipati on, unspecifie d; snomeddesc ription: Constipati on; Report Immunity to Registry: Yes; Constipat ion; snomeddesc ription: Constipati on; Report Immunity to Registry: Yes; Not Available [facility] 4 06:58:[address] 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; snomeddesc ription: Helicobact er-associa janay disease; Report Immunity to Registry: Yes; Notes: 07/23 treated 08/22 negative 05/26 negative; Not Available [facility] 4 06:58:33 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 [id number] neg 2007; Not Available [facility] 4 06:58:33 Human immunodef iciency virus infection 31371237 Active 2022 Marleen Kim MD [address] [place] [address], [phone] [facility] - MARLEEN KIM MD [facility] 3 13:28:48 Problem Notes None recorded. Medical Equipment None Reported. Allergies Allergen ID Allergen Name Allergen Category Reaction Reaction Severity Criticality Documentation Date Start Date Code Code System Note Provider Name and Address Organization Details Recorded Time 696 Penicilli n Not available Not available Not available Not available 06/01/20232011 91708 RxNorm Comme nt: adver se_ev ent_t ype: 11216 8002; ; Not Available [facility] 4 06:50:45 697 Sustiva medicatio n Not available Not available Not available 06/01/20232011 22425 4 RxNorm React ion: Other dysfu nctio ns of sleep stage s or arous al from sleep ; Comme nt: adver se_ev ent_t ype: 01084 8002; ; Not Available [facility] 4 06:50:45 698 Viramune medicatio n rash Not available Not available 06/01/20232011 60772 0 RxNorm React ion: Rash and other nonsp ecifi c skin erupt ion; Comme nt: adver se_ev ent_t ype: 51778 8002; ; Not Available [facility] 4 06:50:45 Medications Name Sig [...] vines; Not Available Not Available Not Available Saline Nasal Mist 0.65 % spray aerosol Use one spray each nostril up to QID for dry nasal passages 2024 active Not Available Not Available Not Avai lable clonidine HCl 0.1 mg tablet TAKE 1 [...] TAKE 1 TABLET BY MOUTH EVERY DAY NEEDED active Not Available Not Available [...] Not Available Not Available No t Available Vitamin B-12 1,000 mcg tablet TAKE ONE TABLET (1,000 MCG) BY MOUTH ONCE DAILY active Not Available Not Available No [...] pine ER 200 mg capsule,e xtended release [id number] r active Not Available Not Available Not [...] no; Not Available Not Available Not Available diclofena c 1 % topical gel APPLY TO AFFECTED AREA ONCE OR TWICE DAILY active Not Available Not Available No t Available cholecalc iferol (vitamin D3) 50 mcg [...] DateTime 07/20/2024 103.5 cm Bety KIM MD [facility] 07/20/2024 14:16:24 Date Recorded Body height Heart rate Body temperature Body mass index (BMI) Body weight Oxygen saturation Systolic And Diastolic Provider Name and Address Organization Details Last Updated DateTime 5 160.02 cm 73 /min 97.9 [degF] 33.3 kg/m2 10330.3 7 g 95 % 130/80 mm[Hg] Lara KIM MD [facility] 13:49:46 Date Recorded Body height Heart rate Body temperature Body mass index (BMI) Body weight Systolic And Diastolic Provider Name and Address Organization Details Last Updated DateTime 5 160.02 cm 76 /min 98.4 [degF] 31.5 kg/m2 98985.4 4 g 132/78 mm[Hg] Bety KIM MD [facility] 5 13:57:50 Date Recorded Body height Heart rate Respiratory rate Body temperature Body mass index (BMI) Body weight Oxygen saturation Systolic And Diastolic Provider Name and Address Organization Details Last Updated DateTime 4 160.02 cm 73 /min 12 /min 98.6 [degF] 28.7 kg/m2 19752.9 6 g 97 % 138/80 mm[Hg] Bety KIM MD [facility] 4 12:31:28 Social History None recorded. [...] Note 324 Marleen Kim MD Main Office [address] [place] [phone] 12/21/2022 15:05:12 01/27/2023 23:51:30 Human immunodeficiency virus infection 55317428 B20 HIV Continue Triumeq 1 tab po qd and Prezcobix 1 tab po qd. wants to keep same regimen. pt aware of 2 drug regimens. strict compliance w daily use with HIV meds reviewed to prevent viral resistance and prevent viral rebound/fa ilure; and prevent viral transmissi on. avoid ETOH use.U=U. STI prevention w condom use reviewed; PreP reviewed w Josefina Lord, Zaira. declines vaccines. COVID19 and flu vaccine recommende d. RSV vaccine reviewed and recommende d as well. plan of care reviewed. questions and concerns addressed 0828 Marleen Kim MD Main Office [address] [place] [phone] 6 03/24/2023 13:21:52 03/25/2023 10:42:49 Human immunodeficiency virus infection 14921969 B20 HIVContinu e Triumeq 1 tab po [...] of care reviewed.q uestions and concerns addressed 20615 Marleen Kim MD Main Office [address] [place] [phone] 06/22/2023 10:56:08 06/22/2023 11:40:36 Human immunodeficiency virus infection 49322581 B20 HIVContinu e Triumeq 1 tab po [...] of care reviewed.q uestions and concerns addressed 56807 Marleen Kim MD Main Office [address] [place] [phone] 09/22/2023 10:23:49 09/22/2023 10:35:07 Human immunodeficiency virus infection 05174938 B20 HIVContinu e Triumeq 1 tab po [...] of care reviewed.q uestions and concerns addressed 18198 Marleen Kim MD Main Office [address] [place] [address] 01/19/2024 12:18:20 01/19/2024 13:21:26 Human immunodeficiency virus infection 44087170 B20 HIVContinu e Triumeq 1 tab po [...] COVID19 prescribed .questions and concerns addressed Hyperlipidemia 17434087 E78.5 diet and exercisebe nefits of tx reviewed [id number] Marleen Kim MD Main Office [address] [place] [address] 07/20/2024 13:16:29 07/20/2024 14:17:24 Human immunodeficiency virus infection 81695601 B20 HIVContinu e Triumeq 1 tab po [...] addressed Body mass index 30+ - obesity 260735137 Z68.33 labs ordered,Ze pbound ordered qw. sqshe will come in to get injection administer ed if approved by [facility] revieweddi et and exercise.m echanism of action reviewedpo tential side effects reviewed such as ISR, allergic reactions, n/v/d, obstructio n, visual changes among other. 27766 Marleen Kim MD Main Office [address] [place] [address] 11/09/2024 13:34:22 11/09/2024 14:45:53 Human immunodeficiency virus infection 78225284 B20 HIVContinu e Triumeq 1 tab po qd and Prezcobix 1 tab po qd.wants to keep same regimen. pt aware of 2 drug regimens. clinical trial reviewed.s trict compliance w daily use with HIV meds reviewed to prevent viral resistance and prevent viral rebound/fa ilure; and prevent viral transmissi on.plan of care reviewed.q uestions and concerns addressed Body mass index 30+ - obesity 508571379 Z68.33 labs ordered,Ze pbound not covered;We govy will be ordered, and dose will be adjusted monthly as neededshe will come in to get injection administer ed if approved by [facility] of tx revieweddi et and exercise.m echanism of action reviewedpo tential side effects reviewed such as ISR, allergic reactions, n/v/d, GI obstructio n, visual changes among other. Indigestion 196114725 R1 0.13 95865 H pylori urea breath test ordered/co llected today [id number] Marleen Kim MD Main Office [address] [place] [address] 03/14/2025 11:53:20 03/14/2025 12:49:17 Human immunodeficiency virus infection 62579815 B20 HIVContinu e Triumeq 1 tab po qd and Prezcobix 1 tab po qd.wants to keep same regimen. pt aware of 2 drug regimens. clinical trial reviewed.s trict compliance w/daily use with HIV meds reviewed to prevent viral resistance and prevent viral rebound/fa ilure; and prevent viral transmissi on.plan of care reviewed.q uestions and concerns addressedL abs before next visit Body mass index 30+ - obesity 149085095 Z68.33 labs ordered,Ze pbound not covered; Wegovy not covered by insurance. Declines trial of oral meds at this time. Will continue to work on diet and exercise. Indigestion 528781276 R1 0.13 25261 H pylori urea breath test last visit; negativeSt ates heartburn symptoms improved Seasonal allergy 7270099 04 J30.2 65799 Allergies acting up now that it is cold outside and heat on in her appt. Drying of nasal passages.U ses OTC Vesta, as Rx'd generics don't work wellHas saline nasal spray, gets OTC. Will help w/dry sinuses/na denis passages.S caron well hydrated. Health Concerns Section Related Observation LastModified by Organization Detai ls LastModified Time None Recorded Concern Status LastModified by Organization Details LastModified Time None Recorded Advance Directives Directive None Recorded Payers Insurance Date Sequence Insurance Name Policy Number Policy Ontiveros Covered Member ID Ontiveros Member ID Guarantor Name 03/11/2025 1 [place] [employer] (MEDICAID) Melanie Roach [id number] Melanie Doc Notes Date Note Type Note Provider Name and Address Organization Details Recorded Time 4 text/html ROS as noted in the HPI f/u HIV.on triumeq 1 tab qd /prezcobix 1 tab po qd. tolerates regimen wellhas missed some doses since she was last seenlabs reviewed06/2023 HIV VLnondetceted;CD4>750; ALT/AST wnl; RPR NR; HCV ab;03/2023 BW9=279; HIV VL nondetected.08/2022 HIV VL nondetected; CD4 =682; HCV neg; GC/chlamydia neg; AST/ALT01/2022 HIV VL nondetceted; eGFR>60; ALt/AST wnl; HCV neg; HBV s ag neg; GC/chlamydia neg;03/2021 CD4>800;eGFR>60; ALT/AST wnlnot sexually active for 11 years.no drugsno fever. no n/v/d. no rash. Marleen Kim MD [address] [place] [address], [phone], [facility] - MARLEEN KIM MD [facility] 09/22/2023 10:32:20 4 text/html ROS as noted in the HPI f/u HIV.on triumeq 1 tab qd /prezcobix 1 tab po qd. tolerates regimen wellhas missed some doses since she was last seen ; especially when she drinks.labs reviewed11/2023 HIV VL=21; CD4= 900 range ; syphilis neg; GC/chlamydia neg; HCV neg; RPR NR; EGFR>60; AST/ALT wn HIV VLnondetceted;CD4>750; ALT/AST wnl; RPR NR; HCV ab;03/2023 XF1=219; HIV VL nondetected.occasional ETOHshe reports she is on on thyroid tx which she has struggled with due to side effectsnot sexually activeno drugsno fever. no n/v/d. no rash.declines [facility] recommended lipid loweting agents; she declined them Marleen Kim MD [address] [place] [address], [phone], [facility] MARLEEN KIM MD [facility] 01/19/2024 15:56:02 5 text/html ROS as noted in the HPI [...] VLnondetceted;CD4>750; ALT/AST wnl; RPR NR; HCV ab;03/2023 HF4=697; HIV VL nondetected. Marleen Kim MD [address] [place] [address], [phone], VERONICA KIM MD [facility] 07/24/2024 00:38:13 5 text/html ROS as noted in the HPI [...] VLnondetceted;CD4>750; ALT/AST wnl; RPR NR; HCV ab;03/2023 GI9=143; HIV VL nondetected. Marleen Kim MD [address] [place] [address], [phone], VERONICA KIM MD [facility] 11/12/2024 16:30:37 5 text/html ROS as noted in the HPI f/u HIV. on triumeq 1 tab qd /prezcobix 1 tab po qd. tolerates regimen well has missed one dose since she was last seen when she socially drinks at [facility]. States she only misses doses when she drinks socially, will miss doses at [place], , her birthday, etc. She doesn't drink otherwise. occasional ETOH hypothyroidism hx not sexually active using pillbox no substance use. no fever. no n/v/d. no rash. labs reviewed weight gain high lipids; snores; lipodystrophy OA/reports osteoporosis hx ; no obstruction hx ; no thyroid cancer; no family thyroid cancer hx; gallstones hx. CKD overweight. BMI 33; lipodystrophy. interested in GLP1, but reports her insurance has denied requests for both Wegovy and Zepbound. Not interested in oral meds at this time. Will continue to work on diete and exercise. denies pancreatitis hx; denies hx of thyroid medullary cancer; no visual changes; denies obstruction hx and denies GI surgery ; denies DM States w/cold weather and needing to turn on the heat in her apt, dry air causing issues w/sinuses and dry nose. States heat comes down from ceiling vents. Uses OTC Vesta, drinking tea w/lemon. Has saline spray, but doesn't use it often. Drinks a lot of water. ER: was treated.for diverticulitis. CT scan done. flagyl and levaquin for 10 days on 10/11/24. improved. some dyspepsia gas x helps. constipated. on senokot. apple sauce helps. no diarrhea. no n/v. no diarrhea. no fever. No concerns today r/t constipation or GI issues. 11/2024: H pylori negative08/2024 eGFR=57; AST/ALT wnl 11/2023 HIV VL=21; CD4= 900 range ; syphilis neg; GC/chlamydia neg; HCV neg; RPR NR; EGFR>60; AST/ALT wnl 06/2023 HIV VL non detected; CD4>750; ALT/AST wnl; RPR NR; HCV ab; 03/2023 TO3=739; HIV VL non detected. Not Available Not Available Not Available OBGyn Episode No OBEpisode recorded.
== END 2025-03-26 16:11 | disposition home or self-care (01) ==
LOC: HO.LNP 16:10
PROVIDERS: Visit Provider Emergency Medicine
DX: R10.32 Left lower quadrant pain (principal)
CPT/HCPCS: 87086